=== PATIENT | male | born 1955 | race Caucasian/White ===

== ENCOUNTER 2024-05-06 13:15 | Inpatient (IN) | payer BC ==
[2024-05-06 15:46] LABS: Absolute Basophils 0.1 K/uL (0-0.5); Absolute Lymphocytes (CBC) 0.7 K/uL (0.7-4.9); Absolute Monocytes 0.9 K/uL (0.1-1.3); Absolute Neutrophil 4.5 K/uL (1.8-8.0); Basophils % 0.9 % (0-1.3); Eosinophils % 0.2 % (0-4.4); Hematocrit 24.6 % (39.6-49.0); Hemoglobin 8.1 g/dL (13.6-17.9); Lymphocytes % 11.7 % (15.3-44.8); MCH 32.7 pg (27.0-35.0); MCHC 32.9 g/dL (32.0-36.0); MCV 99.3 fL (80-100); Monocytes % 15.3 % (3.3-12.3); Neutrophils % 71.9 % (41.7-73.7); Platelets 172 thou/uL (152-406); RBC Red Blood Cell Count 2.47 M/uL (4.33-5.43); Red Cell Distribution Width 19.1 % (12.1-15.2)
[2024-05-06 15:50] LABS: Albumin 3.2 g/dL (3.4-5.0); Albumin/Globulin Ratio 0.8 (1.1-1.8); Anion Gap 27.5 mEq/L (5.0-15.0); Bilirubin Total 1.5 mg/dL (0.2-1.0); Globulin 3.8 g/dL (2.3-3.5); Potassium 5.5 mEq/L (3.5-5.1); Troponin High Sensitivity 21.2 pg/mL (<58.9)
--- OUTSIDE RECORDS SUMMARY | 2024-05-06 15:53 | XMS REPORT | Continuity of Care Document ---
Author Name Unknown Address [address] [facility]. [address] [id number] [facility] thconnect Address [address] [facility] 1 [address] [place] [address] Care Team Providers Care Gold Stamper Name Role Phone Ladi Brian MD Primary Care Physician [phone] GABI DUNAWAY Attending Clinician Unavailable GABI DUNAWAY Attending Clinician Unavailable LADI BRIAN Attending Clinician Unavailable LADI BRIAN Attending Clinician Unavailable ALOK FARRELL Attending Clinician Unavailable JOSHUA MG Attending Clinician Unavail able JOSHUA MG Attending Clinician Unavail able 2, [facility] Attending Clinician Unavailable Alok Farrell MD Attending Clinician [phone] Joshua Mg MD Attending Clinician Nurse, Bradley Gould Attending Clinician Unavailable Ladi Brian MD Attending Clinician [phone] Doctor Unassigned, Venus Attending Clinician U navailable Lab, Ang - Db Attending Clinician Unavailable Blaise CHIN, Jannie L Attending Clinician Unavail able Baldomero Pinon MD Attending Clinician [phone] JESSICA PARHAM Attending Clinician Unavailable Ally BRIDGES, Clifford Attending Clinician [phone] Lori Arnold DO Attending Clinician [phone] Jessica Parham MD Attending Clinician [phone] SONAM PORTILLO Attending Clinician Unavailab shemar De Jesus MD, Deborah Hodges Attending Clinician [facility] [place] [place] Attending Clinician UnaDeborah Harrison MD Attending Clinician Lab, Ang - Db Attending Clinician Unavailable DEBORAH DE JESUS Attending Clinician Erika Baldomero Zapien MD Attending Clinician +[phone] CUONG BLACK Attending Clinician Unavailable LEEROY DE LEON Attending Clinician Unavailable Doctor Unassigned, Venus Attending Clinician U ace Garcia RN, Constanza Del Real Attending Clinician Unavailab Lavern Pickett DO Attending Clinician +[phone] Jessica Parham MD Attending Clinician +[phone] Ilene Jackson CRNA Attending Clinician [phone] CARISSA BAY Attending Clinician Unavailable CARISSA BAY Attending Clinician Unavailable LEEROY DENNY Attending Clinician Unavailabl RIMA Negrete Attending Clinician Unavaila RIMA Matos Attending Clinician Unavaila Negrita Lanza Attending Clinician + [phone] NEGRITA VIDAL Attending Clinician Unavailable Cuong Del Real Attending Clinician + [phone] DOMINIQUE ORTEZ Attending Clinician Unavailable Ubaldo Hussein Attending Clinician + [phone] UBALDO WALTER Attending Clinician Unavailisaak pineda [facility] Attending Clinician Unavailable Dominique Ceballos Attending Clinician [phone] GIGI MEDEIROS Attending Clinician Unavailable GIGI MEDEIROS Attending Clinician Unavailable Gigi Medeiros MD Attending Clinician + [phone] Radha ESTEVEZ Attending Clinician Unavailable Radha ESTEVEZ Attending Clinician Unavailable Leeroy De Leon MD Attending Clinician + [phone] Joshua Mg MD Attending Clinician [phone] Carmina Kumar MD Attending Clinician + [phone] Vaccine, Ang Db Cbc Fam Attending Clinician Unav Ruy Reynoso MD Attending Clinician + Lab, Adc Fam Pob I Attending Clinician Unavailab shemar Welsh RN, Jannie L Attending Clinician Unavail Austyn Delatorre MD Attending Clinician [phone] CARMINA KUMAR Attending Clinician Unavailable 2, [facility] Attending Clinician Unavailable BRIGIDA MEZA, LYLA Boland Attending Clinician Unavail able Lyla Allred MD Attending Clinician [phone] Only, [facility] Test Attending Clinician Unavailable Mary Lou Cortez MD Attending Clinician [phone] Dillon Bay MD Attending Clinician [phone] DILLON BAY Attending Clinician Unavailable Sonam Portillo MD Attending Clinician +[phone] LADI BRIAN Admitting Clinician Unavailable LORI ARNOLD Admitting Clinician Unavailable Lori Arnold DO Admitting Clinician +[phone] GABI DUNAWAY Admitting Clinician Unavailable JESSICA PARHAM Admitting Clinician Unavailable Jessica Parham MD Admitting Clinician +[phone] GABI DUNAWAY Admitting Clinician Unavailable GIGI MEDEIROS Admitting Clinician Unavailable Gigi Medeiros MD Admitting Clinician [phone] JOSHUA MG Admitting Clinician Unavail Austyn Delatorre MD Admitting Clinician [phone] Payers Payer Name Policy Type Policy Number Effective Date Expirati on Date Source [facility] [employer] [id number] 2017 00:00:00 [facility] [id number] 2022 00:00:00 Problems Condition Name Condition Details Condition Category Status Onset Date Resolution Date Last Treatment Date Treating Clinician Comments Source Urinary problem in male Urinary problem in male Disease Active 03-03 00:00: 00 [facility] Acute urinary retention Acute urinary retention Disease Active 03-03 00:00: 00 [facility] Hyponatrem ia Hyponatrem ia Disease Active 03-03 00:00: 00 [facility] Syncope, unspecifie d syncope type Syncope, unspecifie d syncope type Disease Active 12-21 00:00: 00 [facility] Fall Fall Disease Active 00:00: 00 [facility] Weakness Weakness Disease Active 607 00:00: 00 [facility] Alcohol use Alcohol use Disease Active 6 00:00: 00 [facility] Other specified anemias Other specified anemias Disease Active 6 00:00: 00 [facility] Family history of coronary artery disease Family history of coronary artery disease Disease Active 6 00:00: 00 [facility] Internal hemorrhoid s Internal hemorrhoid s Disease Active 10-31 00:00: 00 [facility] Iron deficiency anemia, unspecifie d iron deficiency anemia type Iron deficiency anemia, unspecifie d iron deficiency anemia type Disease Active 18 00:00: 00 Overview: Formattin g of this note might be different from the original. Added automatic ally from request for surgery [id number] [facility] Concussion with brief (less than one hour) loss of consciousn ess Concussion with brief (less than one hour) loss of consciousn ess Disease Active 11-08 00:00: 00 [facility] Accidental fall on or from stairs or steps, initial encounter Accidental fall on or from stairs or steps, initial encounter Disease Active 11-08 00:00: 00 [facility] Cigarette nicotine dependence in remission Cigarette nicotine dependence in remission Disease Recurre nce 08-07 00:00: 00 [facility] Cigarette nicotine dependence in remission Cigarette nicotine dependence in remission Disease Recurre nce 0 -22 00:00: 00 [facility] Other male erectile dysfunctio n Other male erectile dysfunctio n Disease Recurre nce 0 9-29 00:00: 00 [facility] Mixed hyperlipid emia Mixed hyperlipid emia Disease Recurre nce 0 7-14 00:00: 00 [facility] Skin cancer of forehead Skin cancer of forehead Disease Active 6-23 00:00: 00 [facility] Obesity Obesity Disease Recurre nce 0 1-05 00:00: 00 [facility] Pseudocyst , pancreas Pseudocyst , pancreas Disease Rec[facility]re [facility] 2008- 1-09 00:00: 00 Overview: Formattin g of this note might be different from the original. by CT scan [facility] Backache Backache Disease Recurre [facility] 6- 00:00: 00 Overview: Formattin g of this note might be different from the original. 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 4-18 00:00: 00 [facility] Type 2 diabetes mellitus without complicati on, without long-term current use of insulin Type 2 diabetes mellitus without complicati on, without long-term current use of insulin Disease Recurre [facility] 3-28 00:00: 00 Overview: Formattin g of this note might be different from the original. 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 1- 00:00: 00 [facility] High priority for COVID-19 virus vaccinatio n High priority for COVID-19 virus vaccinatio n Disease Resolve d 1- 00:00: 00 2020-11-08 00:00:00 2020-11-08 09:44:14 [facility] Need for hepatitis C screening test Need for hepatitis C screening test Disease Resolve d 08-07 00:00: 00 2020-11-08 00:00:00 2020-11-08 09:44:16 [facility] Need for immunizati on against influenza Need for immunizati on against influenza Disease Resolve d 04-14 00:00: 00 2020-11-08 00:00:00 2020-11-08 09:44:03 [facility] Need for pneumococc al vaccinatio n Need for pneumococc al vaccinatio n Disease Resolve d 04-14 00:00: 00 2020-11-08 00:00:00 2020-11-08 09:44:07 [facility] Encounter for screening for malignant neoplasm of lung Encounter for screening for malignant neoplasm of lung Disease Resolve d 01-06 00:00: 00 2020-11-08 00:00:00 2020-11-08 09:44:00 [facility] Pancreatit is Pancreatit is Disease Resolve d 2008-07 00:00: 00 2020-11-08 00:00:00 2020-11-08 09:43:52 [facility] Bronchitis , acute Bronchitis , acute Disease Resolve d 2006-07 00:00: 00 2007-06-30 00:00:00 2009-07-21 10:29:15 [facility] Acute peptic ulcer with perforatio n Acute peptic ulcer with perforatio n Disease Resolve d 11-01 00:00: 00 2006-11-06 00:00:00 2022-01-30 00:11:12 [facility] Acute pancreatit is Acute pancreatit is Disease Resolve d 11-01 00:00: 00 2006-11-06 00:00:00 2009-07-21 10:16:46 [facility] Allergies, Adverse Reactions, Alerts Allergy Name Allergy Type Status Severity Reaction(s) Onset Date Inactive Date Treating Clinician Comments Source NO KNOWN ALLERGIE S Drug Class Active [facility] Family History Family Member Diagnosis Comments Start Date Stop Date Sourc e Natural brother [facility] Natural father Cancer [facility] Natural mother Arthritis [facility] Natural mother Cancer [facility] Social History Social Habit Start Date Stop Date Quantity Comments Source Gender identity [facility] Sexual [facility] History of tobacco use Cigar Smoker [facility] History SDOH Alcohol Frequency [facility] History SDOH [facility] History SDOH Alcohol Binge [facility] Alcoholic beverage intake 2024-04-08 00:00:00 2024-04-08 00:00:00 Current drinker of alcohol (finding) [facility] History of Social function 2023-11-02 00:00:00 2023-11-02 00:00:00 [facility] Alcohol intake 2023-09-21 00:00:00 2023-09-21 00:00:00 Current drinker of alcohol (finding) [facility] Exposure to SARS-CoV-2 (event) 2022-12-04 00:00:00 2022-12-14 16:17:00 Not sure [facility] Tobacco use and exposure 2022-11-17 00:00:00 2022-11-17 00:00:00 Smokeless tobacco non-user [facility] Tobacco Comment 2022-04-28 00:00:00 2022-04-28 00:00:00 quit Apr 2010 [facility] Alcohol Comment 2010-09-01 00:00:00 2010-09-01 00:00:00 cut back in 2009, now drinks 3 or less beers daily [facility] Sex assigned at 1955 00:00:00 1955 00:00:00 [facility] Smoking Status Start Date Stop Date Source Ex-smoker 2022-11-17 00:00:00 2022-11-17 00:00:00 [facility] Medications Ordered Medication Name Filled Medication Name Start Date Stop Date Current Medication? Ordering Clinician Indication Dosage Frequency Signature (SIG) Comments Components Source iopamidol (ISOVUE 370-500 mL) injection 100 mL 2023-07 23:00: 00 04-29 22:06 :00 No [id number] 100mL 100 mL, Intravenou s, ONCE, 1 dose, On Mon04/29/24 at 1800, Routine [facility] amLODIPine 5 mg tablet 03-12 00:00: 00 Yes [id number] 5mg Take 1 tablet by mouth in the morning and 1 tablet in the evening. [facility] foLIC acid 1 mg tablet 03-08 00:00: 00 Yes [id number] 1mg Take 1 tablet by mouth in the morning. [facility] thiamine mononitrate 100 mg tablet 03-08 00:00: 00 Yes [id number] 100mg Take 1 tablet by mouth in the morning. [facility] vitamin B-12 1,000 mcg tablet 03-08 00:00: 00 Yes [id number] 1000ug Take 1 tablet by mouth in the morning. [facility] tamsulosin 0.4 mg 24 hr capsule 03-08 00:00: 00 04-08 04:59 :00 Yes [id number] .4mg Take 1 capsule by mouth in the morning for 30 days. [facility] urea 15 gram oral powder packet 03-08 00:00: 00 04-08 04:59 :00 Yes [id number] 15g Take 1 Packet by mouth in the morning for 30 days. [facility] PIOGLITAZON E 45 mg tablet 03-08 00:00: 00 03-13 00:00 :00 No [id number] 45mg TAKE 1 TABLET BY MOUTH EVERY DAY IN THE MORNING [facility] lisinopriL (PRINIVIL,Z ESTRIL) tablet 40 mg 03-07 18:00: 00 Yes 40mg 40 mg, Oral, DAILY, First dose on Mon03/07/24 at 1300, Until Discontinu ed, Routine [facility] urea (URE-NA) 15 gram oral powder packet 15 g 03-07 14:00: 00 Yes [id number] 15g 15 g, Oral, DAILY, First dose on Mon03/07/24 at 0900, Until Discontinu ed, Routine [facility] magnesium sulfate in water 2 gram/50 mL (4 %) infusion 2 g 03-07 13:45: 00 03-07 15:36 :00 No [id number] 2g 2 g, IV Piggyback, Administer over 120 Minutes, ONCE, 1 dose, On Mon03/07/24 at 0845, Routine [facility] hydrALAZINE (APRESOLINE ) tablet 50 mg 03-07 13:30: 00 03-07 17:48 :46 No 50mg 50 mg, Oral, TID, First dose on Mon03/07/24 at 0830, Until Discontinu ed, Routine [facility] amLODIPine (NORVASC) tablet 5 mg 03-07 13:00: 00 Yes [id number] 5mg 5 mg, Oral, BID, First dose (after last modificati on) on Mon03/07/24 at 0800, Until Discontinu ed, Routine [facility] lisinopriL 20 mg tablet 03-07 00:00: 00 04-07 04:59 :00 Yes [id number] 20mg Take 1 tablet by mouth in the morning for 30 days. [facility] amLODIPine 5 mg tablet 03-07 00:00: 00 03-14 00:00 :00 No [id number] 5mg Take 1 tablet by mouth in the morning and 1 tablet in the evening. Do all this for 30 days. [facility] magnesium sulfate in water 2 gram/50 mL (4 %) infusion 2 g 03-06 13:00: 00 03-06 15:50 :00 No [id number] 2g 2 g, IV Piggyback, Administer over 120 Minutes, ONCE, 1 dose, On Mon03/06/24 at 0800, Routine [facility] furosemide (LASIX) injection 20 mg 03-06 01:00: 00 03-06 17:47 :42 No [id number] 20mg 20 mg, Slow IV Push, Q12H, First dose on Mon03/05/24 at 2000, Until Discontinu ed, Routine [facility] vitamin B-12 (CYANOCOBAL LYNN) tablet 1,000 mcg 03-05 20:30: 00 Yes 1000ug 1,000 mcg, Oral, DAILY, First dose on Mon03/05/24 at 1530, Until Discontinu ed, Routine [facility] amLODIPine (NORVASC) tablet 5 mg 03-05 14:00: 00 03-07 12:51 :54 No [id number] 5mg 5 mg, Oral, DAILY, First dose on Mon03/05/24 at 0900, Until Discontinu ed, Routine [facility] ferrous sulfate tablet 325 mg 03-05 02:45: 00 Yes 325mg 325 mg, Oral, QHS, First dose on Mon03/04/24 at 2145, Until Discontinu ed, Routine [facility] magnesium oxide (MAG-OX 400) tablet 400 mg 03-05 02:45: 00 03-11 02:59 :00 Yes 400mg 400 mg, Oral, QHS, 7 doses, First dose on Mon03/04/24 at 2145, Last dose on Mon03/09/24 at 2200, Routine [facility] zolpidem (AMBIEN) tablet 5 mg 03-05 02:00: 00 Yes 5mg 5 mg, Oral, QHS, First dose on Mon03/04/24 at 2100, Until Discontinu ed, Routine [facility] oxazepam (SERAX) capsule 15 mg 03-04 19:26: 03 Yes 15mg 15 mg, Oral, Q4HPRN, Starting on Mon03/04/24 at 1426, Until Discontinu ed, Routine, Only while awake for DBP equal to or greater than 100, HR equal to or greater than 100. [facility] sodium bicarbonate 125 mEq in D5W 0.45% NaCl (1/2NS) 1,000 mL IV infusion 03-04 14:15: 00 03-04 15:47 :00 No [id number] 125meq IV Infusion, at 100 mL/hr, 125 mEq, ONCE, 1 dose, [facility]03/04/24 at 0915, [facility] 20 mg 03-04 14:15: 00 03-04 16:52 :00 No [id number] 20mg 20 mg, Slow IV Push, ONCE, 1 dose, [facility]03/04/24 at 0915, [facility] tamsulosin (FLOMAX) capsule 0.4 mg 03-04 14:00: 00 Yes .4mg 0.4 mg, Oral, DAILY, First dose on Mon03/04/24 at 0900, Until Discontinu ed, Routine [facility] thiamine mononitrate (VITAMIN B-1 (MONONITRAT E)) tablet 100 mg 03-04 14:00: 00 Yes 100mg 100 mg, Oral, DAILY, First dose on Mon03/04/24 at 0900, Until Discontinu ed, Routine [facility] foLIC acid (FOLATE) tablet 1 mg 03-04 14:00: 00 Yes 1mg 1 mg, Oral, DAILY, First dose on Mon03/04/24 at 0900, Until Discontinu ed, Routine [facility] hydralAZINE (APRESOLINE ) injection 5 mg 03-04 13:30: 11 Yes [id number] 5mg 5 mg, Slow IV Push, Q4HPRN, Starting on Mon03/04/24 at 0830, Until Discontinu ed, Routine, DBP=>100; SBP=>160 [facility] magnesium sulfate in water 2 gram/50 mL (4 %) infusion 2 g 03-04 12:15: 00 03-04 14:15 :00 No 2g 2 g, IV Piggyback, Administer over 60 Minutes, ONCE, 1 dose, On Mon03/04/24 at 0715, FLEX [facility] sodium zirconium cyclosilica te (LOKELMA) 10 gram packet 10 g 03-04 12:00: 00 03-04 11:07 :00 No 10g 10 g, Oral, QAM-0700, 1 dose, First dose on Mon03/04/24 at 0700, Routine [facility] furosemide (LASIX) injection 40 mg 03-04 11:30: 00 03-04 11:07 :00 No 40mg 40 mg, Slow IV Push, ONCE, 1 dose, On Mon03/04/24 at 0630, Routine [facility] melatonin (MELATIN) tablet 9 mg 03-04 02:30: 00 Yes 9mg 9 mg, Oral, QHS, First dose (after last modificati on) on Mon03/03/24 at 2130, Until Discontinu ed, [facility] latan[facility] (XALATAN) 0.005 % ophthalmic drops 1 Drop 03-04 02:00: 00 Yes 1[drp] 1 Drop, Both Eyes, QHS, First dose on Mon03/03/24 at 2100, Until Discontinu ed [facility] sodium bicarbonate (ANTACID (SODIUM BICARBONATE )) tablet 650 mg 03-04 01:00: 00 03-04 13:29 :14 No 650mg 650 mg, Oral, TID, First dose on Mon03/03/24 at 2000, Until Discontinu ed, Routine [facility] NaCl 0.9% (NS) IV infusion 1,000 mL 03-03 22:15: 00 03-04 13:29 :14 No 1000mL at 75 mL/hr, IV Infusion, CONTINUOUS , Starting on Mon03/03/24 at 1715, Until Mon03/04/24 at 0829, Routine [facility] Sliding Scale Insulin - Lispro (HumaLOG) 03-03 22:00: 00 Yes Subcutaneo us, TID MEALS+HS, First dose on Mon03/03/24 at 1700, Until Discontinu ed, Routine [facility] heparin (porcine) injection 5,000 Units 03-03 19:00: 00 Yes 5000U 5,000 Units, Subcutaneo us, Q8H, First dose on Mon03/03/24 at 1400, Until Discontinu ed, Routine [facility] glucagon HCL injection 1 mg 03-03 18:04: 26 Yes 1mg 1 mg, Intramuscu lar, PRN, Starting on Mon03/03/24 at 1304, Until Discontinu ed, FLEX, Low blood sugar, Blood Glucose < or = 70 mg/dL and patient is NPO, unable to swallow or has mental changes. [facility] dextrose 50 % in water (D50W) injection 25 mL 03-03 18:04: 26 Yes 25mL 25 mL, Slow IV Push, PRN, Starting on Mon03/03/24 at 1304, Until Discontinu ed, FLEX, Blood Glucose < or = 70 mg/dL and patient is NPO, unable to swallow or has mental status changes. [facility] tamsulosin 0.4 mg 24 hr capsule 03-03 00:00: 00 03-03 00:00 :00 No [id number] .4mg Take 1 capsule by mouth at bedtime for 30 days. [facility] metFORMIN 1,000 mg tablet 02-19 09:32: 06 03-07 00:00 :00 No 1000mg Take 1 tablet by mouth daily with breakfast. [facility] magnesium oxide 400 mg (241.3 mg magnesium) tablet 02-14 00:00: 00 Yes [id number] 400mg Take 1 tablet by mouth at bedtime. [facility] triamcinolo ne (NASACORT) 55 mcg nasal inhaler 02-13 14:23: 36 Yes 2{spray } Use 2 Sprays in each nostril in the morning. [facility] cetirizine (ZYRTEC) 10 mg tablet 02-13 14:23: 17 Yes 10mg Take 1 tablet by mouth in the morning. [facility] ondansetron (ZOFRAN (PF)) injection 4 mg 01-11 17:55: 12 01-11 22:50 :43 No 4mg [facility] lidocaine (XYLOCAINE) 2 % jelly URO-JET 01-11 17:03: 00 01-11 17:36 :41 No PRN, Starting on Mon01/12/24 at 1203, Until Mon01/12/24 at 1236, Routine, Intra-op [facility] EPINEPHrine 1:1,000 (1 mg/mL) (ADRENALIN) injection 01-11 16:45: 00 01-11 17:36 :41 No PRN, Starting on Mon01/12/24 at 1145, Until Mon01/12/24 at 1236, Routine, Intra-op [facility] bupivacaine (preserv free) (SENSORCAIN E MPF) 0.25 % (2.5 mg/mL) 20 mL, BUPivacaine liposome (PF) (EXPAREL (PF)) 1.3 % (13.3 mg/mL) 20 mg 01-11 16:42: 00 01-11 17:36 :41 No PRN, Starting on Mon01/12/24 at 1142, Intra-op [facility] sodium chloride 0.9 % irrigation solution 01-11 16:07: 00 01-11 17:36 :41 No PRN, Starting on Mon01/12/24 at 1107, Until Mon01/12/24 at 1236, Intra-op [facility] gabapentin 300 mg capsule 01-11 00:00: 00 01-27 04:59 :00 No [id number] 300mg Take 1 capsule by mouth every 8 (eight) hours for 15 days. For pain scale 1-3 [facility] acetaminoph en 325 mg tablet 01-11 00:00: 00 01-27 04:59 :00 No [id number] 975mg Take 3 tablets by mouth every 8 (eight) hours for 15 days. [facility] methocarbam oL 500 mg tablet 01-11 00:00: 00 01-27 04:59 :00 No [id number] 500mg Take 1 tablet by mouth 4 (four) times daily for 15 days. [facility] traMADoL 50 mg tablet 01-11 00:00: 00 01-19 04:59 :00 No [id number] 50mg Take 1 tablet by mouth every 8 (eight) hours as needed (pain) for up to 7 days. Indication s: acute pain [facility] thiamine mononitrate 100 mg tablet 12-23 00:00: 00 01-23 04:59 :00 No [id number] 100mg Take 1 tablet by mouth in the morning for 30 days. [facility] foLIC acid 1 mg tablet 12-23 00:00: 00 01-23 04:59 :00 No [id number] 1mg Take 1 tablet by mouth in the morning for 30 days. [facility] foLIC acid (FOLATE) tablet 1 mg 12-22 14:00: 00 Yes 1mg 1 mg, Oral, DAILY, First dose on 12/23/23 at 0900, Until Discontinu ed, Routine [facility] thiamine mononitrate (VITAMIN B-1 (MONONITRAT E)) tablet 100 mg 2023-12-22 14:00: 00 Yes 100mg 100 mg, Oral, DAILY, First dose on 12/23/23 at 0900, Until Discontinu ed, Routine [facility] enoxaparin (LOVENOX) injection 40 mg 12-22 14:00: 00 Yes 40mg 40 mg, Subcutaneo us, DAILY, First dose on 12/23/23 at 0900, Until Discontinu ed, Routine [facility] empaglifloz in (JARDIANCE) tablet 10 mg 12-22 14:00: 00 Yes 10mg 10 mg, Oral, QAM, First dose on 12/23/23 at 0900, Until Discontinu ed, Routine, Is this a home medication ? Yes, Has this patient brought their own medication ? No, Pharmacy will dispense the medication from inpatient. Pharmacy will dispense the medication from inpatient. [facility] lisinopriL (PRINIVIL,Z ESTRIL) tablet 40 mg 12-22 14:00: 00 Yes 40mg 40 mg, Oral, QAM, First dose on 12/23/23 at 0900, Until Discontinu ed [facility] ferrous sulfate tablet 325 mg 12-22 14:00: 00 Yes 325mg 325 mg, Oral, DAILY, First dose on 12/23/23 at 0900, Until Discontinu ed, Routine [facility] amLODIPine (NORVASC) tablet 5 mg 12-22 14:00: 00 Yes 5mg 5 mg, Oral, QAM, First dose on 12/23/23 at 0900, Until Discontinu ed, Routine [facility] traZODone (DESYREL) tablet 50 mg 2023-12-22 03:28: 46 Yes 50mg 50 mg, Oral, QHSPRN, Starting on Mon12/22/23 at 2228, Until Discontinu ed, Routine, Insomnia [facility] latanoprost (XALATAN) 0.005 % ophthalmic drops 1 Drop 12-22 02:00: 00 Yes 1[drp] [facility] thiamine 100 mg tablet 12-22 00:00: 00 03-07 00:00 :00 No 100mg Take 1 tablet by mouth every morning. [facility] vitamin B-12 1,000 mcg tablet 12-22 00:00: 00 01-22 04:59 :00 No [id number] 1000ug Take 1 tablet by mouth in the morning for 30 days. [facility] Sliding Scale Insulin - Lispro (HumaLOG) 12-21 22:00: 00 Yes [facility] perflutren protein-A microsphr (OPTISON) injection 3 mL 12-21 20:15: 00 12-21 20:15 :00 No [id number] 3mL 3 mL, IV Push, ONCE, 1 dose, On Mon12/22/23 at 1515, Routine [facility] glucagon (GLUCAGEN DIAGNOSTIC KIT) injection 1 mg 12-21 19:34: 21 Yes 1mg [facility] dextrose 50 % in water (D50W) injection 25 mL 12-21 19:34: 21 Yes 25mL [facility] ondansetron (ZOFRAN (PF)) injection 4 mg 12-21 19:34: 13 Yes 4mg [facility] morpHINE (2 mg/mL) injection 4 mg 12-21 19:34: 11 12-22 19:33 :11 No 4mg [facility] HYDROcodone -acetaminop hen (NORCO 5) 5-325 mg tablet 1 tablet 12-21 19:34: 09 12-23 19:33 :09 No 1{tbl} [facility] acetaminoph en (TYLENOL) tablet 650 mg 12-21 19:34: 04 Yes 650mg [facility] magnesium sulfate in water 2 gram/50 mL (4 %) infusion 2 g 12-21 17:45: 00 12-21 18:22 :00 No 2g 2 g, IV Piggyback, Administer over 60 Minutes, ONCE, 1 dose, On Mon12/22/23 at 1245, Routine [facility] LISINOPRIL 40 mg tablet - 00:00: 00 03-07 00:00 :00 No [id number] 40mg TAKE 1 TABLET BY MOUTH EVERY DAY IN THE MORNING [facility] LISINOPRIL 40 mg tablet 11-19 00:00: 00 12-17 00:00 :00 No [id number] 40mg TAKE 1 TABLET BY MOUTH EVERY DAY IN THE MORNING [facility] sodium phosphates (FLEET ENEMA) 19-7 gram/118 mL enema -18 00:00: 00 11-02 04:59 :00 No 2{enema } Insert 2 Enemas into rectum once now for 1 dose. Follow package directions [facility] LISINOPRIL 40 mg tablet - 00:00: 00 Yes [id number] 40mg TAKE 1 TABLET BY MOUTH EVERY DAY IN THE MORNING [facility] pioglitazon e 45 mg tablet 09-21 00:00: 00 03-07 00:00 :00 No [id number] 45mg Take 1 tablet by mouth every morning. [facility] ferrous sulfate 325 mg (65 mg iron) tablet 09-20 00:00: 00 Yes [id number] 325mg Take 1 tablet by mouth in the morning. [facility] dulaglutide (TRULICITY) 1.5 mg/0.5 mL PnIj 09-20 00:00: 00 Yes [id number] 1.5mg inject 1 Pen under the skin weekly. [facility] JARDIANCE 10 mg tablet 2-27 00:00: 00 Yes [id number] 10mg TAKE 1 TABLET BY MOUTH EVERY DAY IN THE MORNING [facility] LISINOPRIL 40 mg tablet -27 00:00: 00 10-11 00:00 :00 No [id number] 40mg TAKE 1 TABLET BY MOUTH EVERY DAY IN THE MORNING [facility] AMLODIPINE 5 mg tablet 08-14 00:00: 00 03-07 00:00 :00 No [id number] 5mg TAKE 1 TABLET BY MOUTH EVERY DAY IN THE MORNING [facility] pioglitazon e 45 mg tablet 08-14 00:00: 00 09-20 00:00 :00 No [id number] 45mg TAKE 1 TABLET BY MOUTH EVERY DAY IN THE MORNING [facility] LISINOPRIL 40 mg tablet 08-07 00:00: 00 Yes [id number] 40mg TAKE 1 TABLET BY MOUTH EVERY DAY IN THE MORNING [facility] metFORMIN 1,000 mg tablet 08-07 00:00: 00 02-19 00:00 :00 No [id number] TAKE 1 TABLET BY MOUTH IN THE MORNING AND 1 TABLET IN THE EVENING WITH MEALS [facility] dulaglutide (TRULICITY) 1.5 mg/0.5 mL PnIj 07-25 00:00: 00 09-20 00:00 :00 No [id number] INJECT 1 PEN SUBCUTANEO USLY WEEKLY [facility] hydrocortis one 25 mg suppository 1-04 00:00: 00 01-11 00:00 :00 No [id number] 25mg Insert 1 Suppositor y into rectum in the morning and 1 Suppositor y in the evening. [facility] pioglitazon e 45 mg tablet - 00:00: 00 08-14 00:00 :00 No [id number] 45mg Take 1 tablet by mouth in the morning. [facility] lisinopriL 40 mg tablet 2022-07 2 00:00: 00 08-07 00:00 :00 No [id number] 40mg TAKE 1 TABLET BY MOUTH EVERY DAY IN THE MORNING [facility] hydrocortis one 25 mg suppository 2023-1 2-06 00:00: 00 07-06 05:59 :00 No [id number] 25mg Insert 1 Suppositor y into rectum in the morning and 1 Suppositor y in the evening. Do all this for 14 days. [facility] dulaglutide (TRULICITY) 1.5 mg/0.5 mL PnIj 2022-07-22 00:00: 00 07-25 00:00 :00 No [id number] INJECT 1 PEN SUBCUTANEO USLY WEEKLY [facility] metFORMIN 1,000 mg tablet 2022-07 0-24 00:00: 00 08-07 00:00 :00 No [id number] TAKE 1 TABLET BY MOUTH IN THE MORNING AND IN THE EVENING WITH MEALS [facility] TRULICITY 1.5 mg/0.5 mL PnIj 8-16 00:00: 00 06-06 00:00 :00 No [id number] INJECT 1 PEN SUBCUTANEO USLY WEEKLY [facility] simethicone (GAS RELIEF (SIMETHICON E)) 40 mg/0.6 mL drops 01-03 17:16: 00 Yes PRN, Starting on Mon01/03/23 at 1216, Until Discontinu ed, Routine, Intra-op [facility] peg-electro lyte soln [id number] .74 -5.86 gram solution 12-01 00:00: 00 01-03 00:00 :00 No [id number] Take as directed before colonoscop y [facility] ferrous sulfate 325 mg (65 mg iron) tablet 11-18 00:00: 00 09-20 00:00 :00 No [id number] 325mg Take 1 tablet by mouth in the morning. [facility] empaglifloz in (JARDIANCE) 10 mg 11-17 00:00: 00 Yes [id number] 10mg Take 1 tablet by mouth in the morning. [facility] methocarbam oL 500 mg tablet 11-17 00:00: 00 02-19 00:00 :00 No [id number] 500mg Take 1 tablet by mouth every 6 (six) hours as needed for Pain (scale 7-10) (spasm). [facility] amLODIPine 5 mg tablet - 00:00: 00 08-14 00:00 :00 No [id number] 5mg Take 1 tablet by mouth in the morning. [facility] pioglitazon e 45 mg tablet 11-17 00:00: 00 07-16 00:00 :00 No [id number] 45mg Take 1 tablet by mouth in the morning. [facility] lisinopriL 40 mg tablet 11-17 00:00: 00 07-11 00:00 :00 No [id number] 40mg Take 1 tablet by mouth in the morning. [facility] metFORMIN 1,000 mg tablet 11-17 00:00: 00 05-09 00:00 :00 No [id number] 1000mg Take 1 tablet by mouth in the morning and 1 tablet in the evening. Take with meals. [facility] dulaglutide (TRULICITY) 1.5 mg/0.5 mL PnIj 11-17 00:00: 00 03-01 00:00 :00 No [id number] 1.5mg inject 1 Pen under the skin weekly. [facility] LUMIGAN 0.01 % ophthalmic drops 4-18 00:00: 00 Yes 1[drp] Place 1 Drop in both eyes at bedtime. [facility] METFORMIN 1,000 mg tablet 2-25 00:00: 00 11-17 00:00 :00 No [id number] TAKE 1 TABLET BY MOUTH IN THE MORNING AND IN THE EVENING WITH MEALS [facility] metFORMIN 1,000 mg tablet 2-10 00:00: 00 Yes [id number] 1000mg Take 1 tablet by mouth in the morning and 1 tablet in the evening. Take with meals. [facility] pioglitazon e 45 mg tablet 2-02 00:00: 00 11-17 00:00 :00 No [id number] 45mg Take 1 tablet by mouth in the morning. [facility] pioglitazon e 45 mg tablet 2021-07 0-31 00:00: 00 08-18 00:00 :00 No [id number] 45mg Take 1 tablet by mouth in the morning. [facility] lisinopriL 40 mg tablet 2021-07 0-13 00:00: 00 11-17 00:00 :00 No [id number] 40mg Take 1 tablet by mouth in the morning. [facility] amLODIPine 5 mg tablet 2021-07 0-13 00:00: 00 11-17 00:00 :00 No [id number] 5mg Take 1 tablet by mouth in the morning. [facility] dulaglutide (TRULICITY) 1.5 mg/0.5 mL PnIj 2021-07 0- 00:00: 00 11-17 00:00 :00 No [id number] 1.5mg inject 1 Pen under the skin weekly. [facility] empaglifloz in (JARDIANCE) 10 mg 2021-07 0-13 00:00: 00 11-17 00:00 :00 No [id number] 10mg Take 1 tablet by mouth in the morning. [facility] metFORMIN 1,000 mg tablet 2021-07 0-13 00:00: 00 08-26 00:00 :00 No [id number] 1000mg Take 1 tablet by mouth in the morning and 1 tablet in the evening. Take with meals. [facility] METFORMIN 1,000 mg tablet 2021-07 0-10 00:00: 00 04-28 00:00 :00 No [id number] TAKE 1 TABLET BY MOUTH TWICE A DAY WITH MEALS [facility] lisinopriL 40 mg tablet 2021-07 0-10 00:00: 00 04-28 00:00 :00 No [id number] 40mg Take 1 tablet by mouth in the morning. [facility] empaglifloz in (JARDIANCE) 10 mg 9-30 00:00: 00 04-28 00:00 :00 No [id number] 10mg Take 1 tablet by mouth in the morning. [facility] dulaglutide (TRULICITY) 1.5 mg/0.5 mL PnIj 8-31 00:00: 00 04-28 00:00 :00 No [id number] 1.5mg inject 1 Pen under the skin weekly. [facility] pioglitazon e 45 mg tablet 7- 00:00: 00 05-16 00:00 :00 No [id number] 45mg Take 1 tablet by mouth in the morning. [facility] METFORMIN 1,000 mg tablet 7- 00:00: 00 04-25 00:00 :00 No [id number] TAKE 1 TABLET BY MOUTH TWICE A DAY WITH MEALS [facility] empaglifloz in (JARDIANCE) 10 mg 6-30 00:00: 00 04-15 00:00 :00 No [id number] 10mg Take 1 tablet by mouth daily. [facility] dulaglutide (TRULICITY) 1.5 mg/0.5 mL PnIj 6-06 00:00: 00 03-16 00:00 :00 No [id number] 1.5mg inject 1 Pen under the skin weekly. [facility] METFORMIN 1,000 mg tablet 0 4-07 00:00: 00 01-25 00:00 :00 No [id number] TAKE 1 TABLET BY MOUTH TWICE A DAY WITH MEALS [facility] lisinopriL 40 mg tablet 2021-0 4-04 00:00: 00 04-25 00:00 :00 No [id number] 40mg Take 1 tablet by mouth daily. [facility] empaglifloz in (JARDIANCE) 10 mg 2021-0 2-24 00:00: 00 01-13 00:00 :00 No [id number] 10mg Take 1 tablet by mouth daily. [facility] lisinopriL 20 mg tablet 2021-0 2-22 00:00: 00 10-18 00:00 :00 No [id number] 20mg Take 1 tablet by mouth daily. MUST BE SEEN FOR FURTHER REFILLS [facility] metFORMIN 1,000 mg tablet 07-26 00:00: 00 10-21 00:00 :00 No [id number] 1000mg Take 1 tablet by mouth 2 (two) times daily with meals. [facility] TRULICITY 1.5 mg/0.5 mL PnIj 2020-07 00:00: 00 12-20 00:00 :00 No [id number] 1.5mg INJECT 1.5 MG UNDER THE SKIN WEEKLY [facility] fenofibrate 48 mg tablet 08-07 00:00: 00 04-28 00:00 :00 No [id number] 48mg Take 1 tablet by mouth daily. [facility] SILDENAFIL 100 mg tablet 2019-07 00:00: 00 11-17 00:00 :00 No [id number] TAKE 1 TABLET BY MOUTH NEEDED [facility] mupirocin 2 % ointment 2019-07 00:00: 00 04-28 00:00 :00 No [id number] Apply to area(s) daily. [facility] doxycycline monohydrate 100 mg capsule 2019-07 00:00: 00 04-28 00:00 :00 No [id number] Start taking morning and evening two days before date of procedure and finish until all pills completd [facility] Immunizations Ordered Immunization Name Filled Immunization Name Date Status Comments Source Influenza, adjuvanted, trivalent, PF (FLUAD) 2024-04-08 00:00:00 Completed [facility] Influenza, adjuvanted, trivalent, PF (FLUAD) 2024-04-08 00:00:00 Completed [facility] Influenza, adjuvanted, trivalent, PF (FLUAD) 2024-04-08 00:00:00 Completed [facility] Influenza, adjuvanted, trivalent, PF (FLUAD) 2024-04-08 00:00:00 Completed [facility] Influenza Virus Vaccine,quad Im,preserve Free 65+ (FLUAD) 2023-09-21 00:00:00 Completed [facility] Influenza Virus Vaccine,quad Im,preserve Free 65+ (FLUAD) 2023-09-21 00:00:00 Completed [facility] Influenza Virus Vaccine,quad Im,preserve Free 65+ (FLUAD) 2023-09-21 00:00:00 Completed [facility] Influenza Virus Vaccine,quad Im,preserve Free 65+ (FLUAD) 2023-09-21 00:00:00 Completed [facility] Influenza Virus Vaccine Quad IM, Preserv and ABX Free 6 MO-64 YRS 2022-04-28 00:00:00 Completed [facility] SARS-COV-2 COVID-19 VACCINE 18 YRS+, BIVALENT 0.5ML, IM, (MODERNA BOOSTER) 2022-04-28 00:00:00 Completed [facility] Influenza Virus Vaccine Quad IM, Preserv and ABX Free 6 MO-64 YRS 2022-04-28 00:00:00 Completed [facility] SARS-COV-2 COVID-19 VACCINE 18 YRS+, BIVALENT 0.5ML, IM, (MODERNA BOOSTER) 2022-04-28 00:00:00 Completed [facility] Influenza Virus Vaccine Quad IM, Preserv and ABX Free 6 MO-64 YRS 2022-04-28 00:00:00 Completed [facility] SARS-COV-2 COVID-19 VACCINE 12 YRS+, BIVALENT 0.5ML, IM, (MODERNA BOOSTER) 2022-04-28 00:00:00 Completed [facility] Influenza Virus Vaccine Quad IM, Preserv and ABX Free 6 MO-64 YRS 2022-04-28 00:00:00 Completed [facility] SARS-COV-2 COVID-19 VACCINE 12 YRS+, BIVALENT 0.5ML, IM, (MODERNA BOOSTER) 2022-04-28 00:00:00 Completed [facility] Influenza Virus Vaccine Quad IM, Preserv and ABX Free 6 MO-64 YRS 2022-04-28 00:00:00 Completed [facility] SARS-COV-2 COVID-19 VACCINE 12 YRS+, BIVALENT 0.5ML, IM, (MODERNA BOOSTER) 2022-04-28 00:00:00 Completed [facility] Influenza Virus Vaccine Quad IM, Preserv and ABX Free 6 MO-64 YRS 2022-04-28 00:00:00 Completed [facility] SARS-COV-2 COVID-19 VACCINE 12 YRS+, BIVALENT 0.5ML, IM, (MODERNA BOOSTER) 2022-04-28 00:00:00 Completed [facility] Influenza Virus Vaccine Quad IM, Preserv and ABX Free 6 MO-64 YRS 2022-04-28 00:00:00 Completed [facility] SARS-COV-2 COVID-19 VACCINE 12 YRS+, BIVALENT 0.5ML, IM, (MODERNA BOOSTER) 2022-04-28 00:00:00 Completed [facility] Influenza Virus Vaccine Quad IM, Preserv and ABX Free 6 MO-64 YRS 2022-04-28 00:00:00 Completed [facility] SARS-COV-2 COVID-19 VACCINE 12 YRS+, BIVALENT 0.5ML, IM, (MODERNA BOOSTER) 2022-04-28 00:00:00 Completed [facility] Influenza Virus Vaccine Quad IM, Preserv and ABX Free 6 MO-64 YRS 2022-04-28 00:00:00 Completed [facility] SARS-COV-2 COVID-19 VACCINE 12 YRS+, BIVALENT 0.5ML, IM, (MODERNA BOOSTER) 2022-04-28 00:00:00 Completed [facility] Influenza Virus Vaccine Quad IM, Preserv and ABX Free 6 MO-64 YRS 2022-04-28 00:00:00 Completed [facility] SARS-COV-2 COVID-19 VACCINE 12 YRS+, BIVALENT 0.5ML, IM, (MODERNA) 2022-04-28 00:00:00 Completed [facility] Influenza Virus Vaccine Quad IM, Preserv and ABX Free 6 MO-64 YRS 2022-04-28 00:00:00 Completed [facility] SARS-COV-2 COVID-19 VACCINE 12 YRS+, BIVALENT 0.5ML, IM, (MODERNA) 2022-04-28 00:00:00 Completed [facility] Influenza Virus Vaccine Quad IM, Preserv and ABX Free 6 MO-64 YRS 2022-04-28 00:00:00 Completed [facility] SARS-COV-2 COVID-19 VACCINE 12 YRS+, BIVALENT 0.5ML, IM, (MODERNA) 2022-04-28 00:00:00 Completed [facility] Influenza Virus Vaccine Quad IM, Preserv and ABX Free 6 MO-64 YRS 2022-04-28 00:00:00 Completed [facility] SARS-COV-2 COVID-19 VACCINE 12 YRS+, BIVALENT 0.5ML, IM, (MODERNA) 2022-04-28 00:00:00 Completed [facility] Influenza Virus Vaccine Quad IM, Preserv and ABX Free 6 MO-64 YRS 2022-04-28 00:00:00 Completed [facility] SARS-COV-2 COVID-19 VACCINE 12 YRS+, BIVALENT 0.5ML, IM, (MODERNA) 2022-04-28 00:00:00 Completed [facility] Influenza Virus Vaccine Quad IM, Preserv and ABX Free 6 MO-64 YRS 2022-04-28 00:00:00 Completed [facility] SARS-COV-2 COVID-19 VACCINE 12 YRS+, BIVALENT 0.5ML, IM, (MODERNA) 2022-04-28 00:00:00 Completed [facility] Influenza Virus Vaccine Quad IM, Preserv and ABX Free 6 MO-64 YRS 2022-04-28 00:00:00 Completed [facility] SARS-COV-2 COVID-19 VACCINE 12 YRS+, BIVALENT 0.5ML, IM, (MODERNA) 2022-04-28 00:00:00 Completed [facility] Influenza Virus Vaccine Quad IM, Preserv and ABX Free 6 MO-64 YRS 2022-04-28 00:00:00 Completed [facility] SARS-COV-2 COVID-19 VACCINE 12 YRS+, BIVALENT 0.5ML, IM, (MODERNA-BLUE TOP) 2022-04-28 00:00:00 Completed [facility] Influenza Virus Vaccine Quad IM, Preserv and ABX Free 6 MO-64 YRS 2022-04-28 00:00:00 Completed [facility] SARS-COV-2 COVID-19 VACCINE 12 YRS+, BIVALENT 0.5ML, IM, (MODERNA-BLUE TOP) 2022-04-28 00:00:00 Completed [facility] Influenza Virus Vaccine Quad IM, Preserv and ABX Free 6 MO-64 YRS 2022-04-28 00:00:00 Completed [facility] SARS-COV-2 COVID-19 VACCINE 12 YRS+, BIVALENT 0.5ML, IM, (MODERNA-BLUE TOP) 2022-04-28 00:00:00 Completed [facility] Influenza Virus Vaccine Quad IM, Preserv and ABX Free 6 MO-64 YRS 2022-04-28 00:00:00 Completed [facility] SARS-COV-2 COVID-19 VACCINE 12 YRS+, BIVALENT 0.5ML, IM, (MODERNA-BLUE TOP) 2022-04-28 00:00:00 Completed [facility] Influenza Virus Vaccine Quad IM, Preserv and ABX Free 6 MO-64 YRS 2022-04-28 00:00:00 Completed [facility] SARS-COV-2 COVID-19 VACCINE 12 YRS+, BIVALENT 0.5ML, IM, (MODERNA-BLUE TOP) 2022-04-28 00:00:00 Completed [facility] Influenza Virus Vaccine Quad IM, Preserv and ABX Free 6 MO-64 YRS 2022-04-28 00:00:00 Completed [facility] SARS-COV-2 COVID-19 VACCINE 12 YRS+, BIVALENT 0.5ML, IM, (MODERNA-BLUE TOP) 2022-04-28 00:00:00 Completed [facility] Influenza Virus Vaccine Quad IM, Preserv and ABX Free 6 MO-64 YRS 2022-04-28 00:00:00 Completed [facility] SARS-COV-2 COVID-19 VACCINE 12 YRS+, BIVALENT 0.5ML, IM, (MODERNA-BLUE TOP) 2022-04-28 00:00:00 Completed [facility] Influenza Virus Vaccine Quad IM, Preserv and ABX Free 6 MO-64 YRS 2022-04-28 00:00:00 Completed [facility] SARS-COV-2 COVID-19 VACCINE 12 YRS+, BIVALENT 0.5ML, IM, (MODERNA-BLUE TOP) 2022-04-28 00:00:00 Completed [facility] Influenza Virus Vaccine Quad IM, Preserv and ABX Free 6 MO-64 YRS (FLUCELVAX) 2022-04-28 00:00:00 Completed [facility] SARS-COV-2 COVID-19 VACCINE 12 YRS+, BIVALENT 0.5ML, IM, (MODERNA-BLUE TOP) 2022-04-28 00:00:00 Completed [facility] Influenza Virus Vaccine Quad IM, Preserv and ABX Free 6 MO-64 YRS (FLUCELVAX) 2022-04-28 00:00:00 Completed [facility] SARS-COV-2 COVID-19 VACCINE 12 YRS+, BIVALENT 0.5ML, IM, (MODERNA-BLUE TOP) 2022-04-28 00:00:00 Completed [facility] SARS-COV-2 COVID-19 VACCINE 12 YRS+, BIVALENT 0.5ML, IM, (MODERNA-BLUE TOP) 2022-04-28 00:00:00 Completed [facility] SARS-COV-2 COVID-19 VACCINE 12 YRS+, BIVALENT 0.5ML, IM, (MODERNA-BLUE TOP) 2022-04-28 00:00:00 Completed [facility] Influenza Virus Vaccine Quad IM, Preserv and ABX Free 6 MO-64 YRS (FLUCELVAX) 2022-04-28 00:00:00 Completed Influenza Virus Vaccine Quad IM, Preserv and ABX Free 6 MO-64 YRS (FLUCELVAX) 2022-04-28 00:00:00 Completed SARS-COV-2 COVID-19 VACCINE 12 YRS+, BIVALENT 0.5ML, IM, (MODERNA-BLUE TOP) 2022-04-28 00:00:00 Completed Influenza Virus Vaccine Quad IM, Preserv and ABX Free 6 MO-64 YRS (FLUCELVAX) 2022-04-28 00:00:00 Completed SARS-COV-2 COVID-19 VACCINE 12 YRS+, BIVALENT 0.5ML, IM, (MODERNA-BLUE TOP) 2022-04-28 00:00:00 Completed Influenza Virus Vaccine Quad IM, Preserv and ABX Free 6 MO-64 YRS (FLUCELVAX) 2022-04-28 00:00:00 Completed SARS-COV-2 COVID-19 MODERNA BOOSTER VACCINE 2021-10-18 00:00:00 Completed [facility] SARS-COV-2 COVID-19 MODERNA BOOSTER VACCINE 2021-10-18 00:00:00 Completed [facility] SARS-COV-2 COVID-19 MODERNA 0.25ML BOOSTER VACCINE 2021-10-18 00:00:00 Completed [facility] SARS-COV-2 COVID-19 MODERNA 0.25ML BOOSTER VACCINE 2021-10-18 00:00:00 Completed [facility] SARS-COV-2 COVID-19 MODERNA 0.25ML BOOSTER VACCINE 2021-10-18 00:00:00 Completed [facility] SARS-COV-2 COVID-19 MODERNA 0.25ML BOOSTER VACCINE 2021-10-18 00:00:00 Completed [facility] SARS-COV-2 COVID-19 MODERNA 0.25ML BOOSTER VACCINE 2021-10-18 00:00:00 Completed [facility] SARS-COV-2 COVID-19 MODERNA 0.25ML BOOSTER VACCINE 2021-10-18 00:00:00 Completed [facility] SARS-COV-2 COVID-19 MODERNA 0.25ML BOOSTER VACCINE 2021-10-18 00:00:00 Completed [facility] SARS-COV-2 COVID-19 MODERNA 0.25ML BOOSTER VACCINE 2021-10-18 00:00:00 Completed [facility] SARS-COV-2 COVID-19 MODERNA 0.25ML BOOSTER VACCINE 2021-10-18 00:00:00 Completed [facility] SARS-COV-2 COVID-19 MODERNA 0.25ML BOOSTER VACCINE 2021-10-18 00:00:00 Completed [facility] SARS-COV-2 COVID-19 MODERNA 0.25ML BOOSTER VACCINE 2021-10-18 00:00:00 Completed [facility] SARS-COV-2 COVID-19 MODERNA 0.25ML BOOSTER VACCINE 2021-10-18 00:00:00 Completed [facility] SARS-COV-2 COVID-19 MODERNA 0.25ML BOOSTER VACCINE 2021-10-18 00:00:00 Completed [facility] SARS-COV-2 COVID-19 MODERNA 0.25ML BOOSTER VACCINE 2021-10-18 00:00:00 Completed [facility] SARS-COV-2 COVID-19 MODERNA 0.25ML BOOSTER VACCINE 2021-10-18 00:00:00 Completed [facility] SARS-COV-2 COVID-19 MODERNA 0.25ML BOOSTER VACCINE 2021-10-18 00:00:00 Completed [facility] SARS-COV-2 COVID-19 MODERNA 0.25ML BOOSTER VACCINE 2021-10-18 00:00:00 Completed [facility] SARS-COV-2 COVID-19 MODERNA 0.25ML BOOSTER VACCINE 2021-10-18 00:00:00 Completed [facility] SARS-COV-2 COVID-19 MODERNA 0.25ML BOOSTER VACCINE 2021-10-18 00:00:00 Completed [facility] SARS-COV-2 COVID-19 MODERNA 0.25ML BOOSTER VACCINE 2021-10-18 00:00:00 Completed [facility] SARS-COV-2 COVID-19 MODERNA 0.25ML BOOSTER VACCINE 2021-10-18 00:00:00 Completed [facility] SARS-COV-2 COVID-19 MODERNA 0.25ML BOOSTER VACCINE 2021-10-18 00:00:00 Completed [facility] SARS-COV-2 COVID-19 MODERNA 0.25ML BOOSTER VACCINE 2021-10-18 00:00:00 Completed [facility] SARS-COV-2 COVID-19 MODERNA 0.25ML BOOSTER VACCINE 2021-10-18 00:00:00 Completed [facility] SARS-COV-2 COVID-19 MODERNA 0.25ML BOOSTER VACCINE 2021-10-18 00:00:00 Completed [facility] SARS-COV-2 COVID-19 MODERNA 0.25ML BOOSTER VACCINE 2021-10-18 00:00:00 Completed [facility] SARS-COV-2 COVID-19 MODERNA 0.25ML BOOSTER VACCINE 2021-10-18 00:00:00 Completed [facility] SARS-COV-2 COVID-19 MODERNA 0.25ML BOOSTER VACCINE 2021-10-18 00:00:00 Completed [facility] SARS-COV-2 COVID-19 MODERNA 0.25ML BOOSTER VACCINE 2021-10-18 00:00:00 Completed [facility] SARS-COV-2 COVID-19 MODERNA 0.25ML BOOSTER VACCINE 2021-10-18 00:00:00 Completed [facility] SARS-COV-2 COVID-19 MODERNA 0.25ML BOOSTER VACCINE 2021-10-18 00:00:00 Completed [facility] SARS-COV-2 COVID-19 MODERNA 0.25ML BOOSTER VACCINE 2021-10-18 00:00:00 Completed [facility] SARS-COV-2 COVID-19 MODERNA 0.25ML BOOSTER VACCINE 2021-10-18 00:00:00 Completed [facility] SARS-COV-2 COVID-19 MODERNA 0.25ML BOOSTER VACCINE 2021-10-18 00:00:00 Completed [facility] SARS-COV-2 COVID-19 MODERNA 0.25ML BOOSTER VACCINE 2021-10-18 00:00:00 Completed SARS-COV-2 COVID-19 MODERNA 0.25ML BOOSTER VACCINE 2021-10-18 00:00:00 Completed SARS-COV-2 COVID-19 MODERNA 0.25ML BOOSTER VACCINE 2021-10-18 00:00:00 Completed SARS-COV-2 COVID-19 MODERNA 0.25ML BOOSTER VACCINE 2021-10-18 00:00:00 Completed SARS-COV-2 COVID-19 MODERNA BOOSTER VACCINE 2021-05-17 00:00:00 Completed [facility] SARS-COV-2 COVID-19 MODERNA BOOSTER VACCINE 2021-05-17 00:00:00 Completed [facility] SARS-COV-2 COVID-19 MODERNA 0.25ML BOOSTER VACCINE 2021-05-17 00:00:00 Completed [facility] SARS-COV-2 COVID-19 MODERNA 0.25ML BOOSTER VACCINE 2021-05-17 00:00:00 Completed [facility] SARS-COV-2 COVID-19 MODERNA 0.25ML BOOSTER VACCINE 2021-05-17 00:00:00 Completed [facility] SARS-COV-2 COVID-19 MODERNA 0.25ML BOOSTER VACCINE 2021-05-17 00:00:00 Completed [facility] SARS-COV-2 COVID-19 MODERNA 0.25ML BOOSTER VACCINE 2021-05-17 00:00:00 Completed [facility] SARS-COV-2 COVID-19 MODERNA 0.25ML BOOSTER VACCINE 2021-05-17 00:00:00 Completed [facility] SARS-COV-2 COVID-19 MODERNA 0.25ML BOOSTER VACCINE 2021-05-17 00:00:00 Completed [facility] SARS-COV-2 COVID-19 MODERNA 0.25ML BOOSTER VACCINE 2021-05-17 00:00:00 Completed [facility] SARS-COV-2 COVID-19 MODERNA 0.25ML BOOSTER VACCINE 2021-05-17 00:00:00 Completed [facility] SARS-COV-2 COVID-19 MODERNA 0.25ML BOOSTER VACCINE 2021-05-17 00:00:00 Completed [facility] SARS-COV-2 COVID-19 MODERNA 0.25ML BOOSTER VACCINE 2021-05-17 00:00:00 Completed [facility] SARS-COV-2 COVID-19 MODERNA 0.25ML BOOSTER VACCINE 2021-05-17 00:00:00 Completed [facility] SARS-COV-2 COVID-19 MODERNA 0.25ML BOOSTER VACCINE 2021-05-17 00:00:00 Completed [facility] SARS-COV-2 COVID-19 MODERNA 0.25ML BOOSTER VACCINE 2021-05-17 00:00:00 Completed [facility] SARS-COV-2 COVID-19 MODERNA 0.25ML BOOSTER VACCINE 2021-05-17 00:00:00 Completed [facility] SARS-COV-2 COVID-19 MODERNA 0.25ML BOOSTER VACCINE 2021-05-17 00:00:00 Completed [facility] SARS-COV-2 COVID-19 MODERNA 0.25ML BOOSTER VACCINE 2021-05-17 00:00:00 Completed [facility] SARS-COV-2 COVID-19 MODERNA 0.25ML BOOSTER VACCINE 2021-05-17 00:00:00 Completed [facility] SARS-COV-2 COVID-19 MODERNA 0.25ML BOOSTER VACCINE 2021-05-17 00:00:00 Completed [facility] SARS-COV-2 COVID-19 MODERNA 0.25ML BOOSTER VACCINE 2021-05-17 00:00:00 Completed [facility] SARS-COV-2 COVID-19 MODERNA 0.25ML BOOSTER VACCINE 2021-05-17 00:00:00 Completed [facility] SARS-COV-2 COVID-19 MODERNA 0.25ML BOOSTER VACCINE 2021-05-17 00:00:00 Completed [facility] SARS-COV-2 COVID-19 MODERNA 0.25ML BOOSTER VACCINE 2021-05-17 00:00:00 Completed [facility] SARS-COV-2 COVID-19 MODERNA 0.25ML BOOSTER VACCINE 2021-05-17 00:00:00 Completed [facility] SARS-COV-2 COVID-19 MODERNA 0.25ML BOOSTER VACCINE 2021-05-17 00:00:00 Completed [facility] SARS-COV-2 COVID-19 MODERNA 0.25ML BOOSTER VACCINE 2021-05-17 00:00:00 Completed [facility] SARS-COV-2 COVID-19 MODERNA 0.25ML BOOSTER VACCINE 2021-05-17 00:00:00 Completed [facility] SARS-COV-2 COVID-19 MODERNA 0.25ML BOOSTER VACCINE 2021-05-17 00:00:00 Completed [facility] SARS-COV-2 COVID-19 MODERNA 0.25ML BOOSTER VACCINE 2021-05-17 00:00:00 Completed [facility] SARS-COV-2 COVID-19 MODERNA 0.25ML BOOSTER VACCINE 2021-05-17 00:00:00 Completed [facility] SARS-COV-2 COVID-19 MODERNA 0.25ML BOOSTER VACCINE 2021-05-17 00:00:00 Completed [facility] SARS-COV-2 COVID-19 MODERNA 0.25ML BOOSTER VACCINE 2021-05-17 00:00:00 Completed [facility] SARS-COV-2 COVID-19 MODERNA 0.25ML BOOSTER VACCINE 2021-05-17 00:00:00 Completed [facility] SARS-COV-2 COVID-19 MODERNA 0.25ML BOOSTER VACCINE 2021-05-17 00:00:00 Completed [facility] SARS-COV-2 COVID-19 MODERNA 0.25ML BOOSTER VACCINE 2021-05-17 00:00:00 Completed [facility] SARS-COV-2 COVID-19 MODERNA 0.25ML BOOSTER VACCINE 2021-05-17 00:00:00 Completed [facility] SARS-COV-2 COVID-19 MODERNA 0.25ML BOOSTER VACCINE 2021-05-17 00:00:00 Completed [facility] SARS-COV-2 COVID-19 MODERNA 0.25ML BOOSTER VACCINE 2021-05-17 00:00:00 Completed [facility] Influenza Virus Vaccine Quad IM, Preserv and ABX Free 6 MO-64 YRS 2021-05-04 00:00:00 Completed [facility] Pneumococcal Polysaccharide, PPSV23 (PNEUMOVAX) 2021-05-04 00:00:00 Completed [facility] Influenza Virus Vaccine Quad IM, Preserv and ABX Free 6 MO-64 YRS 2021-05-04 00:00:00 Completed [facility] Pneumococcal Polysaccharide, PPSV23 (PNEUMOVAX) 2021-05-04 00:00:00 Completed [facility] Influenza Virus Vaccine Quad IM, Preserv and ABX Free 6 MO-64 YRS 2021-05-04 00:00:00 Completed [facility] Pneumococcal Polysaccharide, PPSV23 (PNEUMOVAX) 2021-05-04 00:00:00 Completed [facility] Influenza Virus Vaccine Quad IM, Preserv and ABX Free 6 MO-64 YRS 2021-05-04 00:00:00 Completed [facility] Pneumococcal Polysaccharide, PPSV23 (PNEUMOVAX) 2021-05-04 00:00:00 Completed [facility] Influenza Virus Vaccine Quad IM, Preserv and ABX Free 6 MO-64 YRS 2021-05-04 00:00:00 Completed [facility] Pneumococcal Polysaccharide, PPSV23 (PNEUMOVAX) 2021-05-04 00:00:00 Completed [facility] Influenza Virus Vaccine Quad IM, Preserv and ABX Free 6 MO-64 YRS 2021-05-04 00:00:00 Completed [facility] Pneumococcal Polysaccharide, PPSV23 (PNEUMOVAX) 2021-05-04 00:00:00 Completed [facility] Influenza Virus Vaccine Quad IM, Preserv and ABX Free 6 MO-64 YRS 2021-05-04 00:00:00 Completed [facility] Pneumococcal Polysaccharide, PPSV23 (PNEUMOVAX) 2021-05-04 00:00:00 Completed [facility] Influenza Virus Vaccine Quad IM, Preserv and ABX Free 6 MO-64 YRS 2021-05-04 00:00:00 Completed [facility] Pneumococcal Polysaccharide, PPSV23 (PNEUMOVAX) 2021-05-04 00:00:00 Completed [facility] Influenza Virus Vaccine Quad IM, Preserv and ABX Free 6 MO-64 YRS 2021-05-04 00:00:00 Completed [facility] Pneumococcal Polysaccharide, PPSV23 (PNEUMOVAX) 2021-05-04 00:00:00 Completed [facility] Influenza Virus Vaccine Quad IM, Preserv and ABX Free 6 MO-64 YRS 2021-05-04 00:00:00 Completed [facility] Pneumococcal Polysaccharide, PPSV23 (PNEUMOVAX) 2021-05-04 00:00:00 Completed [facility] Influenza Virus Vaccine Quad IM, Preserv and ABX Free 6 MO-64 YRS 2021-05-04 00:00:00 Completed [facility] Pneumococcal Polysaccharide, PPSV23 (PNEUMOVAX) 2021-05-04 00:00:00 Completed [facility] Influenza Virus Vaccine Quad IM, Preserv and ABX Free 6 MO-64 YRS 2021-05-04 00:00:00 Completed [facility] Pneumococcal Polysaccharide, PPSV23 (PNEUMOVAX) 2021-05-04 00:00:00 Completed [facility] Influenza Virus Vaccine Quad IM, Preserv and ABX Free 6 MO-64 YRS 2021-05-04 00:00:00 Completed [facility] Pneumococcal Polysaccharide, PPSV23 (PNEUMOVAX) 2021-05-04 00:00:00 Completed [facility] Influenza Virus Vaccine Quad IM, Preserv and ABX Free 6 MO-64 YRS 2021-05-04 00:00:00 Completed [facility] Pneumococcal Polysaccharide, PPSV23 (PNEUMOVAX) 2021-05-04 00:00:00 Completed [facility] Influenza Virus Vaccine Quad IM, Preserv and ABX Free 6 MO-64 YRS 2021-05-04 00:00:00 Completed [facility] Pneumococcal Polysaccharide, PPSV23 (PNEUMOVAX) 2021-05-04 00:00:00 Completed [facility] Influenza Virus Vaccine Quad IM, Preserv and ABX Free 6 MO-64 YRS 2021-05-04 00:00:00 Completed [facility] Pneumococcal Polysaccharide, PPSV23 (PNEUMOVAX) 2021-05-04 00:00:00 Completed [facility] Influenza Virus Vaccine Quad IM, Preserv and ABX Free 6 MO-64 YRS 2021-05-04 00:00:00 Completed [facility] Pneumococcal Polysaccharide, PPSV23 (PNEUMOVAX) 2021-05-04 00:00:00 Completed [facility] Influenza Virus Vaccine Quad IM, Preserv and ABX Free 6 MO-64 YRS 2021-05-04 00:00:00 Completed [facility] Pneumococcal Polysaccharide, PPSV23 (PNEUMOVAX) 2021-05-04 00:00:00 Completed [facility] Influenza Virus Vaccine Quad IM, Preserv and ABX Free 6 MO-64 YRS 2021-05-04 00:00:00 Completed [facility] Pneumococcal Polysaccharide, PPSV23 (PNEUMOVAX) 2021-05-04 00:00:00 Completed [facility] Influenza Virus Vaccine Quad IM, Preserv and ABX Free 6 MO-64 YRS 2021-05-04 00:00:00 Completed [facility] Pneumococcal Polysaccharide, PPSV23 (PNEUMOVAX) 2021-05-04 00:00:00 Completed [facility] Influenza Virus Vaccine Quad IM, Preserv and ABX Free 6 MO-64 YRS 2021-05-04 00:00:00 Completed [facility] Pneumococcal Polysaccharide, PPSV23 (PNEUMOVAX) 2021-05-04 00:00:00 Completed [facility] Influenza Virus Vaccine Quad IM, Preserv and ABX Free 6 MO-64 YRS 2021-05-04 00:00:00 Completed [facility] Pneumococcal Polysaccharide, PPSV23 (PNEUMOVAX) 2021-05-04 00:00:00 Completed [facility] Influenza Virus Vaccine Quad IM, Preserv and ABX Free 6 MO-64 YRS 2021-05-04 00:00:00 Completed [facility] Pneumococcal Polysaccharide, PPSV23 (PNEUMOVAX) 2021-05-04 00:00:00 Completed [facility] Influenza Virus Vaccine Quad IM, Preserv and ABX Free 6 MO-64 YRS 2021-05-04 00:00:00 Completed [facility] Pneumococcal Polysaccharide, PPSV23 (PNEUMOVAX) 2021-05-04 00:00:00 Completed [facility] Influenza Virus Vaccine Quad IM, Preserv and ABX Free 6 MO-64 YRS 2021-05-04 00:00:00 Completed [facility] Pneumococcal Polysaccharide, PPSV23 (PNEUMOVAX) 2021-05-04 00:00:00 Completed [facility] Influenza Virus Vaccine Quad IM, Preserv and ABX Free 6 MO-64 YRS 2021-05-04 00:00:00 Completed [facility] Pneumococcal Polysaccharide, PPSV23 (PNEUMOVAX) 2021-05-04 00:00:00 Completed [facility] Influenza Virus Vaccine Quad IM, Preserv and ABX Free 6 MO-64 YRS 2021-05-04 00:00:00 Completed [facility] Pneumococcal Polysaccharide, PPSV23 (PNEUMOVAX) 2021-05-04 00:00:00 Completed [facility] Influenza Virus Vaccine Quad IM, Preserv and ABX Free 6 MO-64 YRS 2021-05-04 00:00:00 Completed [facility] Pneumococcal Polysaccharide, PPSV23 (PNEUMOVAX) 2021-05-04 00:00:00 Completed [facility] Influenza Virus Vaccine Quad IM, Preserv and ABX Free 6 MO-64 YRS 2021-05-04 00:00:00 Completed [facility] Pneumococcal Polysaccharide, PPSV23 (PNEUMOVAX) 2021-05-04 00:00:00 Completed [facility] Influenza Virus Vaccine Quad IM, Preserv and ABX Free 6 MO-64 YRS 2021-05-04 00:00:00 Completed [facility] Pneumococcal Polysaccharide, PPSV23 (PNEUMOVAX) 2021-05-04 00:00:00 Completed [facility] Influenza Virus Vaccine Quad IM, Preserv and ABX Free 6 MO-64 YRS 2021-05-04 00:00:00 Completed [facility] Pneumococcal Polysaccharide, PPSV23 (PNEUMOVAX) 2021-05-04 00:00:00 Completed [facility] Influenza Virus Vaccine Quad IM, Preserv and ABX Free 6 MO-64 YRS 2021-05-04 00:00:00 Completed [facility] Pneumococcal Polysaccharide, PPSV23 (PNEUMOVAX) 2021-05-04 00:00:00 Completed [facility] Influenza Virus Vaccine Quad IM, Preserv and ABX Free 6 MO-64 YRS 2021-05-04 00:00:00 Completed [facility] Pneumococcal Polysaccharide, PPSV23 (PNEUMOVAX) 2021-05-04 00:00:00 Completed [facility] Influenza Virus Vaccine Quad IM, Preserv and ABX Free 6 MO-64 YRS 2021-05-04 00:00:00 Completed [facility] Pneumococcal Polysaccharide, PPSV23 (PNEUMOVAX) 2021-05-04 00:00:00 Completed [facility] Influenza Virus Vaccine Quad IM, Preserv and ABX Free 6 MO-64 YRS (FLUCELVAX) 2021-05-04 00:00:00 Completed [facility] Pneumococcal Polysaccharide, PPSV23 (PNEUMOVAX) 2021-05-04 00:00:00 Completed [facility] Influenza Virus Vaccine Quad IM, Preserv and ABX Free 6 MO-64 YRS (FLUCELVAX) 2021-05-04 00:00:00 Completed [facility] Pneumococcal Polysaccharide, PPSV23 (PNEUMOVAX) 2021-05-04 00:00:00 Completed [facility] Influenza Virus Vaccine Quad IM, Preserv and ABX Free 6 MO-64 YRS (FLUCELVAX) 2021-05-04 00:00:00 Completed [facility] Influenza Virus Vaccine Quad IM, Preserv and ABX Free 6 MO-64 YRS (FLUCELVAX) 2021-05-04 00:00:00 Completed [facility] Pneumococcal Polysaccharide, PPSV23 (PNEUMOVAX) 2021-05-04 00:00:00 Completed Influenza Virus Vaccine Quad IM, Preserv and ABX Free 6 MO-64 YRS (FLUCELVAX) 2021-05-04 00:00:00 Completed [facility] Pneumococcal Polysaccharide, PPSV23 (PNEUMOVAX) 2021-05-04 00:00:00 Completed Influenza Virus Vaccine Quad IM, Preserv and ABX Free 6 MO-64 YRS (FLUCELVAX) 2021-05-04 00:00:00 Completed [facility] Pneumococcal Polysaccharide, PPSV23 (PNEUMOVAX) 2021-05-04 00:00:00 Completed Pneumococcal Polysaccharide, PPSV23 (PNEUMOVAX) 2021-05-04 00:00:00 Completed SARS-COV-2 COVID-19 MODERNA VACCINE 2020-09-20 00:00:00 Completed [facility] SARS-COV-2 COVID-19 MODERNA VACCINE 2020-09-20 00:00:00 Completed [facility] SARS-COV-2 COVID-19 MODERNA VACCINE 2020-09-20 00:00:00 Completed [facility] SARS-COV-2 COVID-19 MODERNA VACCINE 2020-09-20 00:00:00 Completed [facility] SARS-COV-2 COVID-19 MODERNA VACCINE 2020-09-20 00:00:00 Completed [facility] SARS-COV-2 COVID-19 MODERNA VACCINE 2020-09-20 00:00:00 Completed [facility] SARS-COV-2 COVID-19 MODERNA VACCINE 2020-09-20 00:00:00 Completed [facility] SARS-COV-2 COVID-19 MODERNA 12+ YRS VACCINE 2020-09-20 00:00:00 Completed [facility] SARS-COV-2 COVID-19 MODERNA 12+ YRS VACCINE 2020-09-20 00:00:00 Completed [facility] SARS-COV-2 COVID-19 MODERNA 12+ YRS VACCINE 2020-09-20 00:00:00 Completed [facility] SARS-COV-2 COVID-19 MODERNA 12+ YRS VACCINE 2020-09-20 00:00:00 Completed [facility] SARS-COV-2 COVID-19 MODERNA 12+ YRS VACCINE 2020-09-20 00:00:00 Completed [facility] SARS-COV-2 COVID-19 MODERNA 12+ YRS VACCINE 2020-09-20 00:00:00 Completed [facility] SARS-COV-2 COVID-19 MODERNA 12+ YRS VACCINE 2020-09-20 00:00:00 Completed [facility] SARS-COV-2 COVID-19 MODERNA 12+ YRS VACCINE 2020-09-20 00:00:00 Completed [facility] SARS-COV-2 COVID-19 MODERNA 12+ YRS VACCINE 2020-09-20 00:00:00 Completed [facility] SARS-COV-2 COVID-19 MODERNA 12+ YRS VACCINE 2020-09-20 00:00:00 Completed [facility] SARS-COV-2 COVID-19 MODERNA 12+ YRS VACCINE 2020-09-20 00:00:00 Completed [facility] SARS-COV-2 COVID-19 MODERNA 12+ YRS VACCINE 2020-09-20 00:00:00 Completed [facility] SARS-COV-2 COVID-19 MODERNA 12+ YRS VACCINE 2020-09-20 00:00:00 Completed [facility] SARS-COV-2 COVID-19 MODERNA 12+ YRS VACCINE 2020-09-20 00:00:00 Completed [facility] SARS-COV-2 COVID-19 MODERNA 12+ YRS VACCINE 2020-09-20 00:00:00 Completed [facility] SARS-COV-2 COVID-19 MODERNA 12+ YRS VACCINE 2020-09-20 00:00:00 Completed [facility] SARS-COV-2 COVID-19 MODERNA 12+ YRS VACCINE 2020-09-20 00:00:00 Completed [facility] SARS-COV-2 COVID-19 MODERNA 12+ YRS VACCINE 2020-09-20 00:00:00 Completed [facility] SARS-COV-2 COVID-19 MODERNA 12+ YRS VACCINE 2020-09-20 00:00:00 Completed [facility] SARS-COV-2 COVID-19 MODERNA 12+ YRS VACCINE 2020-09-20 00:00:00 Completed [facility] SARS-COV-2 COVID-19 MODERNA 12+ YRS VACCINE 2020-09-20 00:00:00 Completed [facility] SARS-COV-2 COVID-19 MODERNA 12+ YRS VACCINE 2020-09-20 00:00:00 Completed [facility] SARS-COV-2 COVID-19 MODERNA 12+ YRS VACCINE 2020-09-20 00:00:00 Completed [facility] SARS-COV-2 COVID-19 MODERNA 12+ YRS VACCINE 2020-09-20 00:00:00 Completed [facility] SARS-COV-2 COVID-19 MODERNA 12+ YRS VACCINE 2020-09-20 00:00:00 Completed [facility] SARS-COV-2 COVID-19 MODERNA 12+ YRS VACCINE 2020-09-20 00:00:00 Completed [facility] SARS-COV-2 COVID-19 MODERNA 12+ YRS VACCINE 2020-09-20 00:00:00 Completed [facility] SARS-COV-2 COVID-19 MODERNA 12+ YRS VACCINE 2020-09-20 00:00:00 Completed [facility] SARS-COV-2 COVID-19 MODERNA 12+ YRS VACCINE 2020-09-20 00:00:00 Completed [facility] SARS-COV-2 COVID-19 MODERNA 12+ YRS VACCINE 2020-09-20 00:00:00 Completed [facility] SARS-COV-2 COVID-19 MODERNA 12+ YRS VACCINE 2020-09-20 00:00:00 Completed [facility] SARS-COV-2 COVID-19 MODERNA 12+ YRS VACCINE 2020-09-20 00:00:00 Completed [facility] SARS-COV-2 COVID-19 MODERNA 12+ YRS VACCINE 2020-09-20 00:00:00 Completed [facility] SARS-COV-2 COVID-19 MODERNA VACCINE 2020-08-23 00:00:00 Completed [facility] SARS-COV-2 COVID-19 MODERNA VACCINE 2020-08-23 00:00:00 Completed [facility] SARS-COV-2 COVID-19 MODERNA VACCINE 2020-08-23 00:00:00 Completed [facility] SARS-COV-2 COVID-19 MODERNA VACCINE 2020-08-23 00:00:00 Completed [facility] SARS-COV-2 COVID-19 MODERNA VACCINE 2020-08-23 00:00:00 Completed [facility] SARS-COV-2 COVID-19 MODERNA VACCINE 2020-08-23 00:00:00 Completed [facility] SARS-COV-2 COVID-19 MODERNA VACCINE 2020-08-23 00:00:00 Completed [facility] SARS-COV-2 COVID-19 MODERNA 12+ YRS VACCINE 2020-08-23 00:00:00 Completed [facility] SARS-COV-2 COVID-19 MODERNA 12+ YRS VACCINE 2020-08-23 00:00:00 Completed [facility] SARS-COV-2 COVID-19 MODERNA 12+ YRS VACCINE 2020-08-23 00:00:00 Completed [facility] SARS-COV-2 COVID-19 MODERNA 12+ YRS VACCINE 2020-08-23 00:00:00 Completed [facility] SARS-COV-2 COVID-19 MODERNA 12+ YRS VACCINE 2020-08-23 00:00:00 Completed [facility] SARS-COV-2 COVID-19 MODERNA 12+ YRS VACCINE 2020-08-23 00:00:00 Completed [facility] SARS-COV-2 COVID-19 MODERNA 12+ YRS VACCINE 2020-08-23 00:00:00 Completed [facility] SARS-COV-2 COVID-19 MODERNA 12+ YRS VACCINE 2020-08-23 00:00:00 Completed [facility] SARS-COV-2 COVID-19 MODERNA 12+ YRS VACCINE 2020-08-23 00:00:00 Completed [facility] SARS-COV-2 COVID-19 MODERNA 12+ YRS VACCINE 2020-08-23 00:00:00 Completed [facility] SARS-COV-2 COVID-19 MODERNA 12+ YRS VACCINE 2020-08-23 00:00:00 Completed [facility] SARS-COV-2 COVID-19 MODERNA 12+ YRS VACCINE 2020-08-23 00:00:00 Completed [facility] SARS-COV-2 COVID-19 MODERNA 12+ YRS VACCINE 2020-08-23 00:00:00 [facility] [facility] SARS-COV-2 COVID-19 MODERNA 12+ YRS VACCINE 2020-08-23 00:00:00 Completed [facility] SARS-COV-2 COVID-19 MODERNA 12+ YRS VACCINE 2020-08-23 00:00:00 Completed [facility] SARS-COV-2 COVID-19 MODERNA 12+ YRS VACCINE 2020-08-23 00:00:00 Completed [facility] SARS-COV-2 COVID-19 MODERNA 12+ YRS VACCINE 2020-08-23 00:00:00 Completed [facility] SARS-COV-2 COVID-19 MODERNA 12+ YRS VACCINE 2020-08-23 00:00:00 Completed [facility] SARS-COV-2 COVID-19 MODERNA 12+ YRS VACCINE 2020-08-23 00:00:00 Completed [facility] SARS-COV-2 COVID-19 MODERNA 12+ YRS VACCINE 2020-08-23 00:00:00 Completed [facility] SARS-COV-2 COVID-19 MODERNA 12+ YRS VACCINE 2020-08-23 00:00:00 Completed [facility] SARS-COV-2 COVID-19 MODERNA 12+ YRS VACCINE 2020-08-23 00:00:00 Completed [facility] SARS-COV-2 COVID-19 MODERNA 12+ YRS VACCINE 2020-08-23 00:00:00 Completed [facility] SARS-COV-2 COVID-19 MODERNA 12+ YRS VACCINE 2020-08-23 00:00:00 Completed [facility] SARS-COV-2 COVID-19 MODERNA 12+ YRS VACCINE 2020-08-23 00:00:00 Completed [facility] SARS-COV-2 COVID-19 MODERNA 12+ YRS VACCINE 2020-08-23 00:00:00 Completed [facility] SARS-COV-2 COVID-19 MODERNA 12+ YRS VACCINE 2020-08-23 00:00:00 Completed [facility] SARS-COV-2 COVID-19 MODERNA 12+ YRS VACCINE 2020-08-23 00:00:00 Completed [facility] SARS-COV-2 COVID-19 MODERNA 12+ YRS VACCINE 2020-08-23 00:00:00 Completed [facility] SARS-COV-2 COVID-19 MODERNA 12+ YRS VACCINE 2020-08-23 00:00:00 Completed [facility] SARS-COV-2 COVID-19 MODERNA 12+ YRS VACCINE 2020-08-23 00:00:00 Completed [facility] SARS-COV-2 COVID-19 MODERNA 12+ YRS VACCINE 2020-08-23 00:00:00 Completed [facility] SARS-COV-2 COVID-19 MODERNA 12+ YRS VACCINE 2020-08-23 00:00:00 Completed [facility] Influenza Virus Vaccine Quad .5 mL IM 6+ MO 2020-04-10 00:00:00 Completed [facility] Pneumococcal Polysaccharide, PPSV23 (PNEUMOVAX) 2020-04-10 00:00:00 Completed [facility] TDAP 2020-04-10 00:00:00 Completed [facility] Influenza Virus Vaccine Quad .5 mL IM 6+ MO 2020-04-10 00:00:00 Completed [facility] Pneumococcal Polysaccharide, PPSV23 (PNEUMOVAX) 2020-04-10 00:00:00 Completed [facility] TDAP 2020-04-10 00:00:00 Completed [facility] Influenza Virus Vaccine Quad .5 mL IM 6+ MO 2020-04-10 00:00:00 Completed [facility] Pneumococcal Polysaccharide, PPSV23 (PNEUMOVAX) 2020-04-10 00:00:00 Completed [facility] TDAP 2020-04-10 00:00:00 Completed [facility] Influenza Virus Vaccine Quad .5 mL IM 6+ MO 2020-04-10 00:00:00 Completed [facility] Pneumococcal Polysaccharide, PPSV23 (PNEUMOVAX) 2020-04-10 00:00:00 Completed [facility] TDAP 2020-04-10 00:00:00 Completed [facility] Influenza Virus Vaccine Quad .5 mL IM 6+ MO 2020-04-10 00:00:00 Completed [facility] Pneumococcal Polysaccharide, PPSV23 (PNEUMOVAX) 2020-04-10 00:00:00 Completed [facility] TDAP 2020-04-10 00:00:00 Completed [facility] Influenza Virus Vaccine Quad .5 mL IM 6+ MO 2020-04-10 00:00:00 Completed [facility] Pneumococcal Polysaccharide, PPSV23 (PNEUMOVAX) 2020-04-10 00:00:00 Completed [facility] TDAP 2020-04-10 00:00:00 Completed [facility] Influenza Virus Vaccine Quad .5 mL IM 6+ MO 2020-04-10 00:00:00 Completed [facility] Pneumococcal Polysaccharide, PPSV23 (PNEUMOVAX) 2020-04-10 00:00:00 Completed [facility] TDAP 2020-04-10 00:00:00 Completed [facility] Influenza Virus Vaccine Quad .5 mL IM 6+ MO 2020-04-10 00:00:00 Completed [facility] Pneumococcal Polysaccharide, PPSV23 (PNEUMOVAX) 2020-04-10 00:00:00 Completed [facility] TDAP 2020-04-10 00:00:00 Completed [facility] Influenza Virus Vaccine Quad .5 mL IM 6+ MO 2020-04-10 00:00:00 Completed [facility] Pneumococcal Polysaccharide, PPSV23 (PNEUMOVAX) 2020-04-10 00:00:00 Completed [facility] TDAP 2020-04-10 00:00:00 Completed [facility] Influenza Virus Vaccine Quad .5 mL IM 6+ MO 2020-04-10 00:00:00 Completed [facility] Pneumococcal Polysaccharide, PPSV23 (PNEUMOVAX) 2020-04-10 00:00:00 Completed [facility] TDAP 2020-04-10 00:00:00 Completed [facility] Influenza Virus Vaccine Quad .5 mL IM 6+ MO 2020-04-10 00:00:00 Completed [facility] Pneumococcal Polysaccharide, PPSV23 (PNEUMOVAX) 2020-04-10 00:00:00 Completed [facility] TDAP 2020-04-10 00:00:00 Completed [facility] Influenza Virus Vaccine Quad .5 mL IM 6+ MO 2020-04-10 00:00:00 Completed [facility] Pneumococcal Polysaccharide, PPSV23 (PNEUMOVAX) 2020-04-10 00:00:00 Completed [facility] TDAP 2020-04-10 00:00:00 Completed [facility] Influenza Virus Vaccine Quad .5 mL IM 6+ MO 2020-04-10 00:00:00 Completed [facility] Pneumococcal Polysaccharide, PPSV23 (PNEUMOVAX) 2020-04-10 00:00:00 Completed [facility] TDAP 2020-04-10 00:00:00 Completed [facility] Influenza Virus Vaccine Quad .5 mL IM 6+ MO 2020-04-10 00:00:00 Completed [facility] Pneumococcal Polysaccharide, PPSV23 (PNEUMOVAX) 2020-04-10 00:00:00 Completed [facility] TDAP 2020-04-10 00:00:00 Completed [facility] Influenza Virus Vaccine Quad .5 mL IM 6+ MO 2020-04-10 00:00:00 Completed [facility] Pneumococcal Polysaccharide, PPSV23 (PNEUMOVAX) 2020-04-10 00:00:00 Completed [facility] TDAP 2020-04-10 00:00:00 Completed [facility] Influenza Virus Vaccine Quad .5 mL IM 6+ MO 2020-04-10 00:00:00 Completed [facility] Pneumococcal Polysaccharide, PPSV23 (PNEUMOVAX) 2020-04-10 00:00:00 Completed [facility] TDAP 2020-04-10 00:00:00 Completed [facility] Influenza Virus Vaccine Quad .5 mL IM 6+ MO 2020-04-10 00:00:00 Completed [facility] Pneumococcal Polysaccharide, PPSV23 (PNEUMOVAX) 2020-04-10 00:00:00 Completed [facility] TDAP 2020-04-10 00:00:00 Completed [facility] Influenza Virus Vaccine Quad .5 mL IM 6+ MO 2020-04-10 00:00:00 Completed [facility] Pneumococcal Polysaccharide, PPSV23 (PNEUMOVAX) 2020-04-10 00:00:00 Completed [facility] TDAP 2020-04-10 00:00:00 Completed [facility] Influenza Virus Vaccine Quad .5 mL IM 6+ MO 2020-04-10 00:00:00 Completed [facility] Pneumococcal Polysaccharide, PPSV23 (PNEUMOVAX) 2020-04-10 00:00:00 Completed [facility] TDAP 2020-04-10 00:00:00 Completed [facility] Influenza Virus Vaccine Quad .5 mL IM 6+ MO 2020-04-10 00:00:00 Completed [facility] Pneumococcal Polysaccharide, PPSV23 (PNEUMOVAX) 2020-04-10 00:00:00 Completed [facility] TDAP 2020-04-10 00:00:00 Completed [facility] Influenza Virus Vaccine Quad .5 mL IM 6+ MO 2020-04-10 00:00:00 Completed [facility] Pneumococcal Polysaccharide, PPSV23 (PNEUMOVAX) 2020-04-10 00:00:00 Completed [facility] TDAP 2020-04-10 00:00:00 Completed [facility] Influenza Virus Vaccine Quad .5 mL IM 6+ MO 2020-04-10 00:00:00 Completed [facility] Pneumococcal Polysaccharide, PPSV23 (PNEUMOVAX) 2020-04-10 00:00:00 Completed [facility] TDAP 2020-04-10 00:00:00 Completed [facility] Influenza Virus Vaccine Quad .5 mL IM 6+ MO 2020-04-10 00:00:00 Completed [facility] Pneumococcal Polysaccharide, PPSV23 (PNEUMOVAX) 2020-04-10 00:00:00 Completed [facility] TDAP 2020-04-10 00:00:00 Completed [facility] Influenza Virus Vaccine Quad .5 mL IM 6+ MO 2020-04-10 00:00:00 Completed [facility] Pneumococcal Polysaccharide, PPSV23 (PNEUMOVAX) 2020-04-10 00:00:00 Completed [facility] TDAP 2020-04-10 00:00:00 Completed [facility] Influenza Virus Vaccine Quad .5 mL IM 6+ MO 2020-04-10 00:00:00 Completed [facility] Pneumococcal Polysaccharide, PPSV23 (PNEUMOVAX) 2020-04-10 00:00:00 Completed [facility] TDAP 2020-04-10 00:00:00 Completed [facility] Influenza Virus Vaccine Quad .5 mL IM 6+ MO 2020-04-10 00:00:00 Completed [facility] Pneumococcal Polysaccharide, PPSV23 (PNEUMOVAX) 2020-04-10 00:00:00 Completed [facility] TDAP 2020-04-10 00:00:00 Completed [facility] Influenza Virus Vaccine Quad .5 mL IM 6+ MO 2020-04-10 00:00:00 Completed [facility] Pneumococcal Polysaccharide, PPSV23 (PNEUMOVAX) 2020-04-10 00:00:00 Completed [facility] TDAP 2020-04-10 00:00:00 Completed [facility] Influenza Virus Vaccine Quad .5 mL IM 6+ MO 2020-04-10 00:00:00 Completed [facility] Pneumococcal Polysaccharide, PPSV23 (PNEUMOVAX) 2020-04-10 00:00:00 Completed [facility] TDAP 2020-04-10 00:00:00 Completed [facility] Influenza Virus Vaccine Quad .5 mL IM 6+ MO 2020-04-10 00:00:00 Completed [facility] Pneumococcal Polysaccharide, PPSV23 (PNEUMOVAX) 2020-04-10 00:00:00 Completed [facility] TDAP 2020-04-10 00:00:00 Completed [facility] Influenza Virus Vaccine Quad .5 mL IM 6+ MO 2020-04-10 00:00:00 Completed [facility] Pneumococcal Polysaccharide, PPSV23 (PNEUMOVAX) 2020-04-10 00:00:00 Completed [facility] TDAP 2020-04-10 00:00:00 Completed [facility] Influenza Virus Vaccine Quad .5 mL IM 6+ MO 2020-04-10 00:00:00 Completed [facility] Pneumococcal Polysaccharide, PPSV23 (PNEUMOVAX) 2020-04-10 00:00:00 Completed [facility] TDAP 2020-04-10 00:00:00 Completed [facility] Influenza Virus Vaccine Quad .5 mL IM 6+ MO 2020-04-10 00:00:00 Completed [facility] Pneumococcal Polysaccharide, PPSV23 (PNEUMOVAX) 2020-04-10 00:00:00 Completed [facility] TDAP 2020-04-10 00:00:00 Completed [facility] Influenza Virus Vaccine Quad .5 mL IM 6+ MO 2020-04-10 00:00:00 Completed [facility] Pneumococcal Polysaccharide, PPSV23 (PNEUMOVAX) 2020-04-10 00:00:00 Completed [facility] TDAP 2020-04-10 00:00:00 Completed [facility] Influenza Virus Vaccine Quad .5 mL IM 6+ MO 2020-04-10 00:00:00 Completed [facility] Pneumococcal Polysaccharide, PPSV23 (PNEUMOVAX) 2020-04-10 00:00:00 Completed [facility] TDAP 2020-04-10 00:00:00 Completed [facility] Influenza Virus Vaccine Quad .5 mL IM 6+ MO (FLUZONE/FLULAVAL/F LUARIX) 2020-04-10 00:00:00 Completed [facility] Pneumococcal Polysaccharide, PPSV23 (PNEUMOVAX) 2020-04-10 00:00:00 Completed [facility] TDAP 2020-04-10 00:00:00 Completed [facility] Influenza Virus Vaccine Quad .5 mL IM 6+ MO (FLUZONE/FLULAVAL/F LUARIX) 2020-04-10 00:00:00 Completed [facility] Pneumococcal Polysaccharide, PPSV23 (PNEUMOVAX) 2020-04-10 00:00:00 Completed [facility] TDAP 2020-04-10 00:00:00 Completed [facility] Influenza Virus Vaccine Quad .5 mL IM 6+ MO (FLUZONE/FLULAVAL/F LUARIX) 2020-04-10 00:00:00 Completed [facility] Pneumococcal Polysaccharide, PPSV23 (PNEUMOVAX) 2020-04-10 00:00:00 Completed [facility] TDAP 2020-04-10 00:00:00 Completed [facility] Influenza Virus Vaccine Quad .5 mL IM 6+ MO (FLUZONE/FLULAVAL/F LUARIX) 2020-04-10 00:00:00 Completed [facility] Pneumococcal Polysaccharide, PPSV23 (PNEUMOVAX) 2020-04-10 00:00:00 Completed [facility] TDAP 2020-04-10 00:00:00 Completed [facility] Influenza Virus Vaccine Quad .5 mL IM 6+ MO (FLUZONE/FLULAVAL/F LUARIX) 2020-04-10 00:00:00 Completed [facility] Pneumococcal Polysaccharide, PPSV23 (PNEUMOVAX) 2020-04-10 00:00:00 Completed TDAP 2020-04-10 00:00:00 Completed Influenza Virus Vaccine Quad .5 mL IM 6+ MO (FLUZONE/FLULAVAL/F LUARIX) 2020-04-10 00:00:00 Completed [facility] Pneumococcal Polysaccharide, PPSV23 (PNEUMOVAX) 2020-04-10 00:00:00 Completed TDAP 2020-04-10 00:00:00 Completed Pneumococcal Polysaccharide, PPSV23 (PNEUMOVAX) 2010-08-20 00:00:00 Completed [facility] Pneumococcal Polysaccharide, PPSV23 (PNEUMOVAX) 2010-08-20 00:00:00 Completed [facility] Pneumococcal Polysaccharide, PPSV23 (PNEUMOVAX) 2010-08-20 00:00:00 Completed [facility] Pneumococcal Polysaccharide, PPSV23 (PNEUMOVAX) 2010-08-20 00:00:00 Completed [facility] Pneumococcal Polysaccharide, PPSV23 (PNEUMOVAX) 2010-08-20 00:00:00 Completed [facility] Pneumococcal Polysaccharide, PPSV23 (PNEUMOVAX) 2010-08-20 00:00:00 Completed [facility] Pneumococcal Polysaccharide, PPSV23 (PNEUMOVAX) 2010-08-20 00:00:00 Completed [facility] Pneumococcal Polysaccharide, PPSV23 (PNEUMOVAX) 2010-08-20 00:00:00 Completed [facility] Pneumococcal Polysaccharide, PPSV23 (PNEUMOVAX) 2010-08-20 00:00:00 Completed [facility] Pneumococcal Polysaccharide, PPSV23 (PNEUMOVAX) 2010-08-20 00:00:00 Completed [facility] Pneumococcal Polysaccharide, PPSV23 (PNEUMOVAX) 2010-08-20 00:00:00 Completed [facility] Pneumococcal Polysaccharide, PPSV23 (PNEUMOVAX) 2010-08-20 00:00:00 Completed [facility] Pneumococcal Polysaccharide, PPSV23 (PNEUMOVAX) 2010-08-20 00:00:00 Completed [facility] Pneumococcal Polysaccharide, PPSV23 (PNEUMOVAX) 2010-08-20 00:00:00 Completed [facility] Pneumococcal Polysaccharide, PPSV23 (PNEUMOVAX) 2010-08-20 00:00:00 Completed [facility] Pneumococcal Polysaccharide, PPSV23 (PNEUMOVAX) 2010-08-20 00:00:00 Completed [facility] Pneumococcal Polysaccharide, PPSV23 (PNEUMOVAX) 2010-08-20 00:00:00 Completed [facility] Pneumococcal Polysaccharide, PPSV23 (PNEUMOVAX) 2010-08-20 00:00:00 Completed [facility] Pneumococcal Polysaccharide, PPSV23 (PNEUMOVAX) 2010-08-20 00:00:00 Completed [facility] Pneumococcal Polysaccharide, PPSV23 (PNEUMOVAX) 2010-08-20 00:00:00 Completed [facility] Pneumococcal Polysaccharide, PPSV23 (PNEUMOVAX) 2010-08-20 00:00:00 Completed [facility] Pneumococcal Polysaccharide, PPSV23 (PNEUMOVAX) 2010-08-20 00:00:00 Completed [facility] Pneumococcal Polysaccharide, PPSV23 (PNEUMOVAX) 2010-08-20 00:00:00 Completed [facility] Pneumococcal Polysaccharide, PPSV23 (PNEUMOVAX) 2010-08-20 00:00:00 Completed [facility] Pneumococcal Polysaccharide, PPSV23 (PNEUMOVAX) 2010-08-20 00:00:00 Completed [facility] Pneumococcal Polysaccharide, PPSV23 (PNEUMOVAX) 2010-08-20 00:00:00 Completed [facility] Pneumococcal Polysaccharide, PPSV23 (PNEUMOVAX) 2010-08-20 00:00:00 Completed [facility] Pneumococcal Polysaccharide, PPSV23 (PNEUMOVAX) 2010-08-20 00:00:00 Completed [facility] Pneumococcal Polysaccharide, PPSV23 (PNEUMOVAX) 2010-08-20 00:00:00 Completed [facility] Pneumococcal Polysaccharide, PPSV23 (PNEUMOVAX) 2010-08-20 00:00:00 Completed [facility] Pneumococcal Polysaccharide, PPSV23 (PNEUMOVAX) 2010-08-20 00:00:00 Completed [facility] Pneumococcal Polysaccharide, PPSV23 (PNEUMOVAX) 2010-08-20 00:00:00 Completed [facility] Pneumococcal Polysaccharide, PPSV23 (PNEUMOVAX) 2010-08-20 00:00:00 Completed [facility] Pneumococcal Polysaccharide, PPSV23 (PNEUMOVAX) 2010-08-20 00:00:00 Completed [facility] Pneumococcal Polysaccharide, PPSV23 (PNEUMOVAX) 2010-08-20 00:00:00 Completed [facility] Pneumococcal Polysaccharide, PPSV23 (PNEUMOVAX) 2010-08-20 00:00:00 Completed [facility] Pneumococcal Polysaccharide, PPSV23 (PNEUMOVAX) 2010-08-20 00:00:00 Completed [facility] Pneumococcal Polysaccharide, PPSV23 (PNEUMOVAX) 2010-08-20 00:00:00 Completed [facility] Pneumococcal Polysaccharide, PPSV23 (PNEUMOVAX) 2010-08-20 00:00:00 Completed [facility] Pneumococcal Polysaccharide, PPSV23 (PNEUMOVAX) 2010-08-20 00:00:00 Completed [facility] Influenza Virus Vaccine 2010-08-11 00:00:00 Completed [facility] Influenza Virus Vaccine 2010-08-11 00:00:00 Completed [facility] Influenza Virus Vaccine 2010-08-11 00:00:00 Completed [facility] Influenza Virus Vaccine 2010-08-11 00:00:00 Completed [facility] Influenza Virus Vaccine 2010-08-11 00:00:00 Completed [facility] Influenza Virus Vaccine 2010-08-11 00:00:00 Completed [facility] Influenza Virus Vaccine 2010-08-11 00:00:00 Completed [facility] Influenza Virus Vaccine 2010-08-11 00:00:00 Completed [facility] Influenza Virus Vaccine 2010-08-11 00:00:00 Completed [facility] Influenza Virus Vaccine 2010-08-11 00:00:00 Completed [facility] Influenza Virus Vaccine 2010-08-11 00:00:00 Completed [facility] Influenza Virus Vaccine 2010-08-11 00:00:00 Completed [facility] Influenza Virus Vaccine 2010-08-11 00:00:00 Completed [facility] Influenza Virus Vaccine 2010-08-11 00:00:00 Completed [facility] Influenza Virus Vaccine 2010-08-11 00:00:00 Completed [facility] Influenza Virus Vaccine 2010-08-11 00:00:00 Completed [facility] Influenza Virus Vaccine 2010-08-11 00:00:00 Completed [facility] Influenza Virus Vaccine 2010-08-11 00:00:00 Completed [facility] Influenza Virus Vaccine 2010-08-11 00:00:00 Completed [facility] Influenza Virus Vaccine 2010-08-11 00:00:00 Completed [facility] Influenza Virus Vaccine 2010-08-11 00:00:00 Completed [facility] Influenza Virus Vaccine 2010-08-11 00:00:00 Completed [facility] Influenza Virus Vaccine 2010-08-11 00:00:00 Completed [facility] Influenza Virus Vaccine 2010-08-11 00:00:00 Completed [facility] Influenza Virus Vaccine 2010-08-11 00:00:00 Completed [facility] Influenza Virus Vaccine 2010-08-11 00:00:00 Completed [facility] Influenza Virus Vaccine 2010-08-11 00:00:00 Completed [facility] Influenza Virus Vaccine 2010-08-11 00:00:00 Completed [facility] Influenza Virus Vaccine 2010-08-11 00:00:00 Completed [facility] Influenza Virus Vaccine 2010-08-11 00:00:00 Completed [facility] Influenza Virus Vaccine 2010-08-11 00:00:00 Completed [facility] Influenza Virus Vaccine 2010-08-11 00:00:00 Completed [facility] Influenza Virus Vaccine 2010-08-11 00:00:00 Completed [facility] Influenza Virus Vaccine 2010-08-11 00:00:00 Completed [facility] Influenza Virus Vaccine 2010-08-11 00:00:00 Completed [facility] Influenza Virus Vaccine 2010-08-11 00:00:00 Completed [facility] Influenza Virus Vaccine 2010-08-11 00:00:00 Completed [facility] Influenza Virus Vaccine 2010-08-11 00:00:00 Completed [facility] Influenza Virus Vaccine 2010-08-11 00:00:00 Completed [facility] Influenza Virus Vaccine 2010-08-11 00:00:00 Completed [facility] Influenza Virus Vaccine Unknown Completed [facility] Pneumococcal Polysaccharide, PPSV23 (PNEUMOVAX) Unknown [facility] Influenza Virus Vaccine Quad .5 mL IM 6+ MO (FLUZONE/FLULAVAL/F LUARIX) Unknown Completed [facility] Pneumococcal Polysaccharide, PPSV23 (PNEUMOVAX) Unknown Completed [facility] TDAP Unknown Completed [facility] SARS-COV-2 COVID-19 MODERNA 12+ YRS VACCINE Unknown Completed [facility] Influenza Virus Vaccine Quad IM, Preserv and ABX Free 6 MO-64 YRS (FLUCELVAX) Unknown Completed [facility] SARS-COV-2 COVID-19 MODERNA 0.25ML BOOSTER VACCINE Unknown Completed [facility] Influenza Virus Vaccine Unknown Completed [facility] Pneumococcal Polysaccharide, PPSV23 (PNEUMOVAX) Unknown [facility] Vaccine Quad .5 mL IM 6+ MO (FLUZONE/FLULAVAL/F LUARIX) Unknown Completed [facility] Pneumococcal Polysaccharide, PPSV23 (PNEUMOVAX) Unknown [facility]pleted [facility] TDAP Unknown Completed [facility] SARS-COV-2 COVID-19 MODERNA 12+ YRS VACCINE Unknown Completed [facility] Influenza Virus Vaccine Quad IM, Preserv and ABX Free 6 MO-64 YRS (FLUCELVAX) Unknown Completed [facility] SARS-COV-2 COVID-19 MODERNA 0.25ML BOOSTER VACCINE Unknown Completed [facility] Influenza Virus Vaccine Unknown Completed [facility] Pneumococcal Polysaccharide, PPSV23 (PNEUMOVAX) Unknown Completed [facility] Influenza Virus Vaccine Quad .5 mL IM 6+ MO (FLUZONE/FLULAVAL/F LUARIX) Unknown Completed [facility] Pneumococcal Polysaccharide, PPSV23 (PNEUMOVAX) Unknown Completed [facility] TDAP Unknown Completed [facility] SARS-COV-2 COVID-19 MODERNA 12+ YRS VACCINE Unknown Completed [facility] Influenza Virus Vaccine Quad IM, Preserv and ABX Free 6 MO-64 YRS (FLUCELVAX) Unknown Completed [facility] SARS-COV-2 COVID-19 MODERNA 0.25ML BOOSTER VACCINE Unknown Completed [facility] Influenza Virus Vaccine Unknown Completed [facility] Pneumococcal Polysaccharide, PPSV23 (PNEUMOVAX) Unknown Completed [facility] Influenza Virus Vaccine Quad .5 mL IM 6+ MO (FLUZONE/FLULAVAL/F LUARIX) Unknown Completed [facility] Pneumococcal Polysaccharide, PPSV23 (PNEUMOVAX) Unknown Completed [facility] TDAP Unknown Completed [facility] SARS-COV-2 COVID-19 MODERNA 12+ YRS VACCINE Unknown Completed [facility] Influenza Virus Vaccine Quad IM, Preserv and ABX Free 6 MO-64 YRS (FLUCELVAX) Unknown Completed [facility] Influenza Virus Vaccine Unknown Completed [facility] Pneumococcal Polysaccharide, PPSV23 (PNEUMOVAX) Unknown Completed [facility] Influenza Virus Vaccine Quad .5 mL IM 6+ MO (FLUZONE/FLULAVAL/F LUARIX) Unknown Completed [facility] Pneumococcal Polysaccharide, PPSV23 (PNEUMOVAX) Unknown Completed [facility] TDAP Unknown Completed [facility] Influenza Virus Vaccine Unknown Completed [facility] Pneumococcal Polysaccharide, PPSV23 (PNEUMOVAX) Unknown Completed [facility] Influenza Virus Vaccine Unknown Completed [facility] Pneumococcal Polysaccharide, PPSV23 (PNEUMOVAX) Unknown Completed [facility] Influenza Virus Vaccine Quad .5 mL IM 6+ MO (FLUZONE/FLULAVAL/F LUARIX) Unknown Completed [facility] Pneumococcal Polysaccharide, PPSV23 (PNEUMOVAX) Unknown Completed [facility] TDAP Unknown Completed [facility] SARS-COV-2 COVID-19 MODERNA 12+ YRS VACCINE Unknown Completed [facility] Influenza Virus Vaccine Quad IM, Preserv and ABX Free 6 MO-64 YRS (FLUCELVAX) Unknown Completed [facility] SARS-COV-2 COVID-19 MODERNA 0.25ML BOOSTER VACCINE Unknown Completed [facility] SARS-COV-2 COVID-19 VACCINE 12 YRS+, BIVALENT 0.5ML, IM, (MODERNA-BLUE TOP) Unknown Com[facility] Influenza Virus Vaccine Unknown Completed [facility] Pneumococcal Polysaccharide, PPSV23 (PNEUMOVAX) Unknown Completed [facility] Influenza Virus Vaccine Quad .5 mL IM 6+ MO (FLUZONE/FLULAVAL/F LUARIX) Unknown Completed [facility] Pneumococcal Polysaccharide, PPSV23 (PNEUMOVAX) Unknown Completed [facility] TDAP Unknown Completed [facility] SARS-COV-2 COVID-19 MODERNA 12+ YRS VACCINE Unknown Completed [facility] Influenza Virus Vaccine Quad IM, Preserv and ABX Free 6 MO-64 YRS (FLUCELVAX) Unknown Completed [facility] SARS-COV-2 COVID-19 MODERNA 0.25ML BOOSTER VACCINE Unknown Completed [facility] SARS-COV-2 COVID-19 VACCINE 12 YRS+, BIVALENT 0.5ML, IM, (MODERNA-BLUE TOP) Unknown [facility] Influenza Virus Vaccine Unknown Completed [facility] Pneumococcal Polysaccharide, PPSV23 (PNEUMOVAX) Unknown Completed [facility] Influenza Virus Vaccine Quad .5 mL IM 6+ MO (FLUZONE/FLULAVAL/F LUARIX) Unknown Completed [facility] TDAP Unknown Completed [facility] SARS-COV-2 COVID-19 VACCINE 12 YRS+, BIVALENT 0.5ML, IM, (MODERNA-BLUE TOP) Unknown Completed [facility] Pneumococcal Polysaccharide, PPSV23 (PNEUMOVAX) Unknown Completed [facility] SARS-COV-2 COVID-19 MODERNA 12+ YRS VACCINE Unknown Completed [facility] Influenza Virus Vaccine Quad IM, Preserv and ABX Free 6 MO-64 YRS (FLUCELVAX) Unknown Completed [facility] SARS-COV-2 COVID-19 MODERNA 0.25ML BOOSTER VACCINE Unknown Completed [facility] Influenza Virus Vaccine Unknown Completed [facility] Pneumococcal Polysaccharide, PPSV23 (PNEUMOVAX) Unknown Completed [facility] Influenza Virus Vaccine Quad .5 mL IM 6+ MO (FLUZONE/FLULAVAL/F LUARIX) Unknown Completed [facility] Pneumococcal Polysaccharide, PPSV23 (PNEUMOVAX) Unknown Completed [facility] TDAP Unknown Completed [facility] SARS-COV-2 COVID-19 MODERNA 12+ YRS VACCINE Unknown Completed [facility] Influenza Virus Vaccine Quad IM, Preserv and ABX Free 6 MO-64 YRS (FLUCELVAX) Unknown Completed [facility] SARS-COV-2 COVID-19 MODERNA 0.25ML BOOSTER VACCINE Unknown Completed [facility] SARS-COV-2 COVID-19 VACCINE 12 YRS+, BIVALENT 0.5ML, IM, (MODERNA-BLUE TOP) Unknown Com[facility] Influenza Virus Vaccine Unknown Completed [facility] Pneumococcal Polysaccharide, PPSV23 (PNEUMOVAX) Unknown Completed [facility] Influenza Virus Vaccine Quad .5 mL IM 6+ MO (FLUZONE/FLULAVAL/F LUARIX) Unknown Completed [facility] Pneumococcal Polysaccharide, PPSV23 (PNEUMOVAX) Unknown Completed [facility] TDAP Unknown Completed [facility] SARS-COV-2 COVID-19 MODERNA 12+ YRS VACCINE Unknown Completed [facility] Influenza Virus Vaccine Quad IM, Preserv and ABX Free 6 MO-64 YRS (FLUCELVAX) Unknown Completed [facility] SARS-COV-2 COVID-19 MODERNA 0.25ML BOOSTER VACCINE Unknown Completed [facility] SARS-COV-2 COVID-19 VACCINE 12 YRS+, BIVALENT 0.5ML, IM, (MODERNA-BLUE TOP) Unknown Completed [facility] Influenza Virus Vaccine Unknown Completed [facility] Pneumococcal Polysaccharide, PPSV23 (PNEUMOVAX) Unknown Completed [facility] Influenza Virus Vaccine Quad .5 mL IM 6+ MO (FLUZONE/FLULAVAL/F LUARIX) Unknown Completed [facility] Pneumococcal Polysaccharide, PPSV23 (PNEUMOVAX) Unknown Completed [facility] TDAP Unknown Completed [facility] SARS-COV-2 COVID-19 MODERNA 12+ YRS VACCINE Unknown Completed [facility] Influenza Virus Vaccine Quad IM, Preserv and ABX Free 6 MO-64 YRS (FLUCELVAX) Unknown Completed [facility] SARS-COV-2 COVID-19 MODERNA 0.25ML BOOSTER VACCINE Unknown Completed [facility] SARS-COV-2 COVID-19 VACCINE 12 YRS+, BIVALENT 0.5ML, IM, (MODERNA-BLUE TOP) Unknown Com[facility] Influenza Virus Vaccine Unknown Completed [facility] Pneumococcal Polysaccharide, PPSV23 (PNEUMOVAX) Unknown Completed [facility] Influenza Virus Vaccine Quad .5 mL IM 6+ MO (FLUZONE/FLULAVAL/F LUARIX) Unknown Completed [facility] Pneumococcal Polysaccharide, PPSV23 (PNEUMOVAX) Unknown Completed [facility] TDAP Unknown Completed [facility] SARS-COV-2 COVID-19 MODERNA 12+ YRS VACCINE Unknown Completed [facility] Influenza Virus Vaccine Quad IM, Preserv and ABX Free 6 MO-64 YRS (FLUCELVAX) Unknown Completed [facility] SARS-COV-2 COVID-19 MODERNA 0.25ML BOOSTER VACCINE Unknown Completed [facility] SARS-COV-2 COVID-19 VACCINE 12 YRS+, BIVALENT 0.5ML, IM, (MODERNA-BLUE TOP) Unknown Com[facility] Influenza Virus Vaccine Unknown Completed [facility] Pneumococcal Polysaccharide, PPSV23 (PNEUMOVAX) Unknown Completed [facility] Influenza Virus Vaccine Quad .5 mL IM 6+ MO (FLUZONE/FLULAVAL/F LUARIX) Unknown Completed [facility] Pneumococcal Polysaccharide, PPSV23 (PNEUMOVAX) Unknown Completed [facility] TDAP Unknown Completed [facility] SARS-COV-2 COVID-19 MODERNA 12+ YRS VACCINE Unknown Completed [facility] Influenza Virus Vaccine Quad IM, Preserv and ABX Free 6 MO-64 YRS (FLUCELVAX) Unknown Completed [facility] SARS-COV-2 COVID-19 MODERNA 0.25ML BOOSTER VACCINE Unknown Completed [facility] SARS-COV-2 COVID-19 VACCINE 12 YRS+, BIVALENT 0.5ML, IM, (MODERNA-BLUE TOP) Unknown Completed [facility] Influenza Virus Vaccine Unknown Completed [facility] Pneumococcal Polysaccharide, PPSV23 (PNEUMOVAX) Unknown Completed [facility] Influenza Virus Vaccine Quad .5 mL IM 6+ MO (FLUZONE/FLULAVAL/F LUARIX) Unknown Completed [facility] Pneumococcal Polysaccharide, PPSV23 (PNEUMOVAX) Unknown Completed [facility] TDAP Unknown Completed [facility] SARS-COV-2 COVID-19 MODERNA 12+ YRS VACCINE Unknown Completed [facility] Influenza Virus Vaccine Quad IM, Preserv and ABX Free 6 MO-64 YRS (FLUCELVAX) Unknown Completed [facility] SARS-COV-2 COVID-19 MODERNA 0.25ML BOOSTER VACCINE Unknown Completed [facility] SARS-COV-2 COVID-19 VACCINE 12 YRS+, BIVALENT 0.5ML, IM, (MODERNA-BLUE TOP) Unknown Completed [facility] Influenza Virus Vaccine Unknown Completed [facility] Pneumococcal Polysaccharide, PPSV23 (PNEUMOVAX) Unknown Completed [facility] Influenza Virus Vaccine Quad .5 mL IM 6+ MO (FLUZONE/FLULAVAL/F LUARIX) Unknown Completed [facility] Pneumococcal Polysaccharide, PPSV23 (PNEUMOVAX) Unknown Completed [facility] TDAP Unknown Completed [facility] SARS-COV-2 COVID-19 MODERNA 12+ YRS VACCINE Unknown Completed [facility] Influenza Virus Vaccine Quad IM, Preserv and ABX Free 6 MO-64 YRS (FLUCELVAX) Unknown Completed [facility] SARS-COV-2 COVID-19 MODERNA 0.25ML BOOSTER VACCINE Unknown Completed [facility] SARS-COV-2 COVID-19 VACCINE 12 YRS+, BIVALENT 0.5ML, IM, (MODERNA-BLUE TOP) Unknown Completed [facility] Influenza Virus Vaccine Unknown Completed [facility] Pneumococcal Polysaccharide, PPSV23 (PNEUMOVAX) Unknown Completed [facility] Influenza Virus Vaccine Quad .5 mL IM 6+ MO (FLUZONE/FLULAVAL/F LUARIX) Unknown Completed [facility] Pneumococcal Polysaccharide, PPSV23 (PNEUMOVAX) Unknown Completed [facility] TDAP Unknown Completed [facility] SARS-COV-2 COVID-19 MODERNA 12+ YRS VACCINE Unknown Completed [facility] Influenza Virus Vaccine Quad IM, Preserv and ABX Free 6 MO-64 YRS (FLUCELVAX) Unknown Completed [facility] SARS-COV-2 COVID-19 MODERNA 0.25ML BOOSTER VACCINE Unknown Completed [facility] SARS-COV-2 COVID-19 VACCINE 12 YRS+, BIVALENT 0.5ML, IM, (MODERNA-BLUE TOP) Unknown Completed [facility] Influenza Virus Vaccine Unknown Completed [facility] Pneumococcal Polysaccharide, PPSV23 (PNEUMOVAX) Unknown Completed [facility] Influenza Virus Vaccine Quad .5 mL IM 6+ MO (FLUZONE/FLULAVAL/F LUARIX) Unknown Completed [facility] Pneumococcal Polysaccharide, PPSV23 (PNEUMOVAX) Unknown Completed [facility] TDAP Unknown Completed [facility] SARS-COV-2 COVID-19 MODERNA 12+ YRS VACCINE Unknown Completed [facility] Influenza Virus Vaccine Quad IM, Preserv and ABX Free 6 MO-64 YRS (FLUCELVAX) Unknown Completed [facility] SARS-COV-2 COVID-19 MODERNA 0.25ML BOOSTER VACCINE Unknown Completed [facility] SARS-COV-2 COVID-19 VACCINE 12 YRS+, BIVALENT 0.5ML, IM, (MODERNA-BLUE TOP) Unknown Completed [facility] Influenza Virus Vaccine Unknown Completed [facility] Pneumococcal Polysaccharide, PPSV23 (PNEUMOVAX) Unknown Completed [facility] Influenza Virus Vaccine Quad .5 mL IM 6+ MO (FLUZONE/FLULAVAL/F LUARIX) Unknown Completed [facility] TDAP Unknown Completed [facility] SARS-COV-2 COVID-19 VACCINE 12 YRS+, BIVALENT 0.5ML, IM, (MODERNA-BLUE TOP) Unknown Completed [facility] Influenza Virus Vaccine,quad Im,preserve Free 65+ (FLUAD) Unknown Completed [facility] Pneumococcal Polysaccharide, PPSV23 (PNEUMOVAX) Unknown Completed [facility] SARS-COV-2 COVID-19 MODERNA 12+ YRS VACCINE Unknown Completed [facility] Influenza Virus Vaccine Quad IM, Preserv and ABX Free 6 MO-64 YRS (FLUCELVAX) Unknown Completed [facility] SARS-COV-2 COVID-19 MODERNA 0.25ML BOOSTER VACCINE Unknown Completed [facility] Influenza Virus Vaccine Unknown Completed [facility] Pneumococcal Polysaccharide, PPSV23 (PNEUMOVAX) Unknown Completed [facility] Influenza Virus Vaccine Quad .5 mL IM 6+ MO (FLUZONE/FLULAVAL/F LUARIX) Unknown Completed [facility] Pneumococcal Polysaccharide, PPSV23 (PNEUMOVAX) Unknown Completed [facility] TDAP Unknown Completed [facility] SARS-COV-2 COVID-19 MODERNA 12+ YRS VACCINE Unknown Completed [facility] Influenza Virus Vaccine Quad IM, Preserv and ABX Free 6 MO-64 YRS (FLUCELVAX) Unknown Completed [facility] SARS-COV-2 COVID-19 MODERNA 0.25ML BOOSTER VACCINE Unknown Completed [facility] SARS-COV-2 COVID-19 VACCINE 12 YRS+, BIVALENT 0.5ML, IM, (MODERNA-BLUE TOP) Unknown Completed [facility] Influenza Virus Vaccine,quad Im,preserve Free 65+ (FLUAD) Unknown Completed [facility] Influenza Virus Vaccine Unknown Completed [facility] Pneumococcal Polysaccharide, PPSV23 (PNEUMOVAX) Unknown Completed [facility] Influenza Virus Vaccine Quad .5 mL IM 6+ MO (FLUZONE/FLULAVAL/F LUARIX) Unknown Completed [facility] Pneumococcal Polysaccharide, PPSV23 (PNEUMOVAX) Unknown Completed [facility] TDAP Unknown Completed [facility] SARS-COV-2 COVID-19 MODERNA 12+ YRS VACCINE Unknown Completed [facility] Influenza Virus Vaccine Quad IM, Preserv and ABX Free 6 MO-64 YRS (FLUCELVAX) Unknown Completed [facility] SARS-COV-2 COVID-19 MODERNA 0.25ML BOOSTER VACCINE Unknown Completed [facility] SARS-COV-2 COVID-19 VACCINE 12 YRS+, BIVALENT 0.5ML, IM, (MODERNA-BLUE TOP) Unknown Completed [facility] Influenza Virus Vaccine,quad Im,preserve Free 65+ (FLUAD) Unknown Completed [facility] Influenza Virus Vaccine Unknown Completed [facility] Pneumococcal Polysaccharide, PPSV23 (PNEUMOVAX) Unknown Completed [facility] Influenza Virus Vaccine Quad .5 mL IM 6+ MO (FLUZONE/FLULAVAL/F LUARIX) Unknown Completed [facility] Pneumococcal Polysaccharide, PPSV23 (PNEUMOVAX) Unknown Completed [facility] TDAP Unknown Completed [facility] SARS-COV-2 COVID-19 MODERNA 12+ YRS VACCINE Unknown Completed [facility] Influenza Virus Vaccine Quad IM, Preserv and ABX Free 6 MO-64 YRS (FLUCELVAX) Unknown Completed [facility] SARS-COV-2 COVID-19 MODERNA 0.25ML BOOSTER VACCINE Unknown Completed [facility] SARS-COV-2 COVID-19 VACCINE 12 YRS+, BIVALENT 0.5ML, IM, (MODERNA-BLUE TOP) Unknown Completed [facility] Influenza Virus Vaccine,quad Im,preserve Free 65+ (FLUAD) Unknown Completed [facility] Influenza Virus Vaccine Unknown Completed [facility] Pneumococcal Polysaccharide, PPSV23 (PNEUMOVAX) Unknown Completed [facility] Influenza Virus Vaccine Quad .5 mL IM 6+ MO (FLUZONE/FLULAVAL/F LUARIX) Unknown Completed [facility] Pneumococcal Polysaccharide, PPSV23 (PNEUMOVAX) Unknown Completed [facility] TDAP Unknown Completed [facility] SARS-COV-2 COVID-19 MODERNA 12+ YRS VACCINE Unknown Completed [facility] Influenza Virus Vaccine Quad IM, Preserv and ABX Free 6 MO-64 YRS (FLUCELVAX) Unknown Completed [facility] SARS-COV-2 COVID-19 MODERNA 0.25ML BOOSTER VACCINE Unknown Completed [facility] SARS-COV-2 COVID-19 VACCINE 12 YRS+, BIVALENT 0.5ML, IM, (MODERNA-BLUE TOP) Unknown Completed [facility] Influenza Virus Vaccine,quad Im,preserve Free 65+ (FLUAD) Unknown Completed [facility] Influenza Virus Vaccine Unknown Completed [facility] Pneumococcal Polysaccharide, PPSV23 (PNEUMOVAX) Unknown Completed [facility] Influenza Virus Vaccine Quad .5 mL IM 6+ MO (FLUZONE/FLULAVAL/F LUARIX) Unknown Completed [facility] Pneumococcal Polysaccharide, PPSV23 (PNEUMOVAX) Unknown Completed [facility] TDAP Unknown Completed [facility] SARS-COV-2 COVID-19 MODERNA 12+ YRS VACCINE Unknown Completed [facility] Influenza Virus Vaccine Quad IM, Preserv and ABX Free 6 MO-64 YRS (FLUCELVAX) Unknown Completed [facility] SARS-COV-2 COVID-19 MODERNA 0.25ML BOOSTER VACCINE Unknown Completed [facility] SARS-COV-2 COVID-19 VACCINE 12 YRS+, BIVALENT 0.5ML, IM, (MODERNA-BLUE TOP) Unknown Completed [facility] Influenza Virus Vaccine,quad Im,preserve Free 65+ (FLUAD) Unknown Completed [facility] Influenza Virus Vaccine Unknown Completed [facility] Pneumococcal Polysaccharide, PPSV23 (PNEUMOVAX) Unknown Completed [facility] Influenza Virus Vaccine Quad .5 mL IM 6+ MO (FLUZONE/FLULAVAL/F LUARIX) Unknown Completed [facility] Pneumococcal Polysaccharide, PPSV23 (PNEUMOVAX) Unknown Completed [facility] TDAP Unknown Completed [facility] SARS-COV-2 COVID-19 MODERNA 12+ YRS VACCINE Unknown Completed [facility] Influenza Virus Vaccine Quad IM, Preserv and ABX Free 6 MO-64 YRS (FLUCELVAX) Unknown Completed [facility] SARS-COV-2 COVID-19 MODERNA 0.25ML BOOSTER VACCINE Unknown Completed [facility] SARS-COV-2 COVID-19 VACCINE 12 YRS+, BIVALENT 0.5ML, IM, (MODERNA-BLUE TOP) Unknown Completed [facility] Influenza Virus Vaccine,quad Im,preserve Free 65+ (FLUAD) Unknown Completed [facility] Influenza Virus Vaccine Unknown Completed [facility] Pneumococcal Polysaccharide, PPSV23 (PNEUMOVAX) Unknown Completed [facility] Influenza Virus Vaccine Quad .5 mL IM 6+ MO (FLUZONE/FLULAVAL/F LUARIX) Unknown Completed [facility] Pneumococcal Polysaccharide, PPSV23 (PNEUMOVAX) Unknown Completed [facility] TDAP Unknown Completed [facility] SARS-COV-2 COVID-19 MODERNA 12+ YRS VACCINE Unknown Completed [facility] Influenza Virus Vaccine Quad IM, Preserv and ABX Free 6 MO-64 YRS (FLUCELVAX) Unknown Completed [facility] SARS-COV-2 COVID-19 MODERNA 0.25ML BOOSTER VACCINE Unknown Completed [facility] SARS-COV-2 COVID-19 VACCINE 12 YRS+, BIVALENT 0.5ML, IM, (MODERNA-BLUE TOP) Unknown Completed [facility] Influenza Virus Vaccine,quad Im,preserve Free 65+ (FLUAD) Unknown Completed [facility] Influenza Virus Vaccine Unknown Completed [facility] Pneumococcal Polysaccharide, PPSV23 (PNEUMOVAX) Unknown Completed [facility] Influenza Virus Vaccine Quad .5 mL IM 6+ MO (FLUZONE/FLULAVAL/F LUARIX) Unknown Completed [facility] Pneumococcal Polysaccharide, PPSV23 (PNEUMOVAX) Unknown Completed [facility] TDAP Unknown Completed [facility] SARS-COV-2 COVID-19 MODERNA 12+ YRS VACCINE Unknown Completed [facility] Influenza Virus Vaccine Quad IM, Preserv and ABX Free 6 MO-64 YRS (FLUCELVAX) Unknown Completed [facility] SARS-COV-2 COVID-19 MODERNA 0.25ML BOOSTER VACCINE Unknown Completed [facility] SARS-COV-2 COVID-19 VACCINE 12 YRS+, BIVALENT 0.5ML, IM, (MODERNA-BLUE TOP) Unknown Com[facility] Influenza Virus Vaccine,quad Im,preserve Free 65+ (FLUAD) Unknown Completed [facility] Influenza Virus Vaccine Unknown Completed [facility] Pneumococcal Polysaccharide, PPSV23 (PNEUMOVAX) Unknown Completed [facility] Influenza Virus Vaccine Quad .5 mL IM 6+ MO (FLUZONE/FLULAVAL/F LUARIX) Unknown Completed [facility] Pneumococcal Polysaccharide, PPSV23 (PNEUMOVAX) Unknown Completed [facility] TDAP Unknown Completed [facility] SARS-COV-2 COVID-19 MODERNA 12+ YRS VACCINE Unknown Completed [facility] Influenza Virus Vaccine Quad IM, Preserv and ABX Free 6 MO-64 YRS (FLUCELVAX) Unknown Completed [facility] SARS-COV-2 COVID-19 MODERNA 0.25ML BOOSTER VACCINE Unknown Completed [facility] SARS-COV-2 COVID-19 VACCINE 12 YRS+, BIVALENT 0.5ML, IM, (MODERNA-BLUE TOP) Unknown Com[facility] Influenza Virus Vaccine,quad Im,preserve Free 65+ (FLUAD) Unknown Completed [facility] Influenza Virus Vaccine Unknown Completed [facility] Pneumococcal Polysaccharide, PPSV23 (PNEUMOVAX) [facility] Vaccine Quad .5 mL IM 6+ MO (FLUZONE/FLULAVAL/F LUARIX) Unknown Completed [facility] Pneumococcal Polysaccharide, PPSV23 (PNEUMOVAX) Unknown [facility] TDAP Unknown Completed [facility] SARS-COV-2 COVID-19 MODERNA 12+ YRS VACCINE Unknown Completed [facility] Influenza Virus Vaccine Quad IM, Preserv and ABX Free 6 MO-64 YRS (FLUCELVAX) Unknown Completed [facility] SARS-COV-2 COVID-19 MODERNA 0.25ML BOOSTER VACCINE Unknown Completed [facility] SARS-COV-2 COVID-19 VACCINE 12 YRS+, BIVALENT 0.5ML, IM, (MODERNA-BLUE TOP) Unknown [facility] Influ[facility] Vaccine,quad Im,preserve Free 65+ (FLUAD) Unknown Completed [facility] Influenza Virus Vaccine Unknown Completed [facility] Pneumococcal Polysaccharide, PPSV23 (PNEUMOVAX) Unknown [facility] Influenza Virus Vaccine Quad .5 mL IM 6+ MO (FLUZONE/FLULAVAL/F LUARIX) Unknown Completed [facility] Pneumococcal Polysaccharide, PPSV23 (PNEUMOVAX) Unknown [facility] TDAP Unknown Completed [facility] SARS-COV-2 COVID-19 MODERNA 12+ YRS VACCINE Unknown Completed [facility] Influenza Virus Vaccine Quad IM, Preserv and ABX Free 6 MO-64 YRS (FLUCELVAX) Unknown Completed [facility] SARS-COV-2 COVID-19 MODERNA 0.25ML BOOSTER VACCINE Unknown Completed [facility] SARS-COV-2 COVID-19 VACCINE 12 YRS+, BIVALENT 0.5ML, IM, (MODERNA-BLUE TOP) Unknown [facility] Influ[facility] Virus Vaccine,quad Im,preserve Free 65+ (FLUAD) Unknown Completed [facility] Influenza Virus Vaccine Unknown Completed [facility] Pneumococcal Polysaccharide, PPSV23 (PNEUMOVAX) Unknown [facility] Influenza Virus Vaccine Quad .5 mL IM 6+ MO (FLUZONE/FLULAVAL/F LUARIX) Unknown Completed [facility] Pneumococcal Polysaccharide, PPSV23 (PNEUMOVAX) Unknown [facility] TDAP Unknown Completed [facility] SARS-COV-2 COVID-19 MODERNA 12+ YRS VACCINE Unknown Completed [facility] Influenza Virus Vaccine Quad IM, Preserv and ABX Free 6 MO-64 YRS (FLUCELVAX) Unknown Completed [facility] SARS-COV-2 COVID-19 MODERNA 0.25ML BOOSTER VACCINE Unknown Completed [facility] SARS-COV-2 COVID-19 VACCINE 12 YRS+, BIVALENT 0.5ML, IM, (MODERNA-BLUE TOP) Unknown [facility] Influenza Virus Vaccine,quad Im,preserve Free 65+ (FLUAD) Unknown Completed [facility] Influenza Virus Vaccine Unknown Completed [facility] Pneumococcal Polysaccharide, PPSV23 (PNEUMOVAX) Unknown Com[facility] Influenza Virus Vaccine Quad .5 mL IM 6+ MO (FLUZONE/FLULAVAL/F LUARIX) Unknown Completed [facility] Pneumococcal Polysaccharide, PPSV23 (PNEUMOVAX) Unknown [facility] TDAP Unknown Completed [facility] SARS-COV-2 COVID-19 MODERNA 12+ YRS VACCINE Unknown Completed [facility] Influenza Virus Vaccine Quad IM, Preserv and ABX Free 6 MO-64 YRS (FLUCELVAX) Unknown Completed [facility] SARS-COV-2 COVID-19 MODERNA 0.25ML BOOSTER VACCINE Unknown Completed [facility] SARS-COV-2 COVID-19 VACCINE 12 YRS+, BIVALENT 0.5ML, IM, (MODERNA-BLUE TOP) Unknown [facility] Influenza Virus Vaccine,quad Im,preserve Free 65+ (FLUAD) Unknown Completed [facility] Influenza Virus Vaccine Unknown Completed [facility] Pneumococcal Polysaccharide, PPSV23 (PNEUMOVAX) Unknown [facility] Influenza Virus Vaccine Quad .5 mL IM 6+ MO (FLUZONE/FLULAVAL/F LUARIX) Unknown Completed [facility] TDAP Unknown Completed [facility] SARS-COV-2 COVID-19 VACCINE 12 YRS+, BIVALENT 0.5ML, IM, (MODERNA-BLUE TOP) Unknown [facility] Influenza Virus Vaccine,quad Im,preserve Free 65+ (FLUAD) Unknown Completed [facility] Pneumococcal Polysaccharide, PPSV23 (PNEUMOVAX) Unknown [facility] SARS-COV-2 COVID-19 MODERNA 12+ YRS VACCINE Unknown Completed [facility] Influenza Virus Vaccine Quad IM, Preserv and ABX Free 6 MO-64 YRS (FLUCELVAX) Unknown Completed [facility] SARS-COV-2 COVID-19 MODERNA 0.25ML BOOSTER VACCINE Unknown Completed [facility] Influenza Virus Vaccine Unknown Completed [facility] Pneumococcal Polysaccharide, PPSV23 (PNEUMOVAX) Unknown [facility] Influenza Virus Vaccine Quad .5 mL IM 6+ MO (FLUZONE/FLULAVAL/F LUARIX) Unknown Completed [facility] Pneumococcal Polysaccharide, PPSV23 (PNEUMOVAX) Unknown [facility] TDAP Unknown Completed [facility] SARS-COV-2 COVID-19 MODERNA 12+ YRS VACCINE Unknown Completed [facility] Influenza Virus Vaccine Quad IM, Preserv and ABX Free 6 MO-64 YRS (FLUCELVAX) Unknown Completed [facility] SARS-COV-2 COVID-19 MODERNA 0.25ML BOOSTER VACCINE Unknown Completed [facility] SARS-COV-2 COVID-19 VACCINE 12 YRS+, BIVALENT 0.5ML, IM, (MODERNA-BLUE TOP) Unknown [facility] Influenza Virus Vaccine,quad Im,preserve Free 65+ (FLUAD) Unknown Completed [facility] Influenza Virus Vaccine Unknown Completed [facility] Pneumococcal Polysaccharide, PPSV23 (PNEUMOVAX) Unknown Com[facility] Influenza Virus Vaccine Quad .5 mL IM 6+ MO (FLUZONE/FLULAVAL/F LUARIX) Unknown Completed [facility] Pneumococcal Polysaccharide, PPSV23 (PNEUMOVAX) Unknown [facility] TDAP Unknown Completed [facility] SARS-COV-2 COVID-19 MODERNA 12+ YRS VACCINE Unknown Completed [facility] Influenza Virus Vaccine Quad IM, Preserv and ABX Free 6 MO-64 YRS (FLUCELVAX) Unknown Completed [facility] SARS-COV-2 COVID-19 MODERNA 0.25ML BOOSTER VACCINE Unknown Completed [facility] SARS-COV-2 COVID-19 VACCINE 12 YRS+, BIVALENT 0.5ML, IM, (MODERNA-BLUE TOP) Unknown [facility] Influenza Virus Vaccine,quad Im,preserve Free 65+ (FLUAD) Unknown Completed [facility] Influenza Virus Vaccine Unknown Completed [facility] Pneumococcal Polysaccharide, PPSV23 (PNEUMOVAX) Unknown Completed [facility] Influenza Virus Vaccine Quad .5 mL IM 6+ MO (FLUZONE/FLULAVAL/F LUARIX) Unknown Completed [facility] Pneumococcal Polysaccharide, PPSV23 (PNEUMOVAX) Unknown [facility] TDAP Unknown Completed [facility] SARS-COV-2 COVID-19 MODERNA 12+ YRS VACCINE Unknown Completed [facility] Influenza Virus Vaccine Quad IM, Preserv and ABX Free 6 MO-64 YRS (FLUCELVAX) Unknown Completed [facility] SARS-COV-2 COVID-19 MODERNA 0.25ML BOOSTER VACCINE Unknown Completed [facility] SARS-COV-2 COVID-19 VACCINE 12 YRS+, BIVALENT 0.5ML, IM, (MODERNA-BLUE TOP) Unknown [facility] Influenza Virus Vaccine,quad Im,preserve Free 65+ (FLUAD) Unknown Completed [facility] Influenza Virus Vaccine Unknown Completed [facility] Pneumococcal Polysaccharide, PPSV23 (PNEUMOVAX) Unknown Com[facility] Influenza Virus Vaccine Quad .5 mL IM 6+ MO (FLUZONE/FLULAVAL/F LUARIX) Unknown Completed [facility] Pneumococcal Polysaccharide, PPSV23 (PNEUMOVAX) Unknown [facility] TDAP Unknown Completed [facility] SARS-COV-2 COVID-19 MODERNA 12+ YRS VACCINE Unknown Completed [facility] Influenza Virus Vaccine Quad IM, Preserv and ABX Free 6 MO-64 YRS (FLUCELVAX) Unknown Completed [facility] SARS-COV-2 COVID-19 MODERNA 0.25ML BOOSTER VACCINE Unknown Completed [facility] SARS-COV-2 COVID-19 VACCINE 12 YRS+, BIVALENT 0.5ML, IM, (MODERNA-BLUE TOP) Unknown [facility] Influenza Virus Vaccine,quad Im,preserve Free 65+ (FLUAD) Unknown Completed [facility] Influenza Virus Vaccine Unknown Completed [facility] Pneumococcal Polysaccharide, PPSV23 (PNEUMOVAX) Unknown Completed [facility] Influenza Virus Vaccine Quad .5 mL IM 6+ MO (FLUZONE/FLULAVAL/F LUARIX) Unknown Completed [facility] Pneumococcal Polysaccharide, PPSV23 (PNEUMOVAX) Unknown Completed [facility] TDAP Unknown Completed [facility] SARS-COV-2 COVID-19 MODERNA 12+ YRS VACCINE Unknown Completed [facility] Influenza Virus Vaccine Quad IM, Preserv and ABX Free 6 MO-64 YRS (FLUCELVAX) Unknown Completed [facility] SARS-COV-2 COVID-19 MODERNA 0.25ML BOOSTER VACCINE Unknown Completed [facility] SARS-COV-2 COVID-19 VACCINE 12 YRS+, BIVALENT 0.5ML, IM, (MODERNA-BLUE TOP) Unknown [facility] Influenza Virus Vaccine,quad Im,preserve Free 65+ (FLUAD) Unknown Completed [facility] Influenza Virus Vaccine Unknown Completed [facility] Pneumococcal Polysaccharide, PPSV23 (PNEUMOVAX) Unknown Completed [facility] Influenza Virus Vaccine Quad .5 mL IM 6+ MO (FLUZONE/FLULAVAL/F LUARIX) Unknown Completed [facility] Pneumococcal Polysaccharide, PPSV23 (PNEUMOVAX) Unknown Completed [facility] TDAP Unknown Completed [facility] SARS-COV-2 COVID-19 MODERNA 12+ YRS VACCINE Unknown Completed [facility] Influenza Virus Vaccine Quad IM, Preserv and ABX Free 6 MO-64 YRS (FLUCELVAX) Unknown Completed [facility] SARS-COV-2 COVID-19 MODERNA 0.25ML BOOSTER VACCINE Unknown Completed [facility] SARS-COV-2 COVID-19 VACCINE 12 YRS+, BIVALENT 0.5ML, IM, (MODERNA-BLUE TOP) Unknown [facility] Influenza Virus Vaccine,quad Im,preserve Free 65+ (FLUAD) Unknown Completed [facility] Influenza Virus Vaccine Unknown Completed [facility] Pneumococcal Polysaccharide, PPSV23 (PNEUMOVAX) Unknown Completed [facility] Influenza Virus Vaccine Quad .5 mL IM 6+ MO (FLUZONE/FLULAVAL/F LUARIX) Unknown Completed [facility] Pneumococcal Polysaccharide, PPSV23 (PNEUMOVAX) Unknown Completed [facility] TDAP Unknown Completed [facility] SARS-COV-2 COVID-19 MODERNA 12+ YRS VACCINE Unknown Completed [facility] Influenza Virus Vaccine Quad IM, Preserv and ABX Free 6 MO-64 YRS (FLUCELVAX) Unknown Completed [facility] SARS-COV-2 COVID-19 MODERNA 0.25ML BOOSTER VACCINE Unknown Completed [facility] SARS-COV-2 COVID-19 VACCINE 12 YRS+, BIVALENT 0.5ML, IM, (MODERNA-BLUE TOP) Unknown Com[facility] Influenza Virus Vaccine,quad Im,preserve Free 65+ (FLUAD) Unknown Completed [facility] Influenza Virus Vaccine Unknown Completed [facility] Pneumococcal Polysaccharide, PPSV23 (PNEUMOVAX) Unknown Completed [facility] Influenza Virus Vaccine Quad .5 mL IM 6+ MO (FLUZONE/FLULAVAL/F LUARIX) Unknown Completed [facility] Pneumococcal Polysaccharide, PPSV23 (PNEUMOVAX) Unknown Completed [facility] TDAP Unknown Completed [facility] SARS-COV-2 COVID-19 MODERNA 12+ YRS VACCINE Unknown Completed [facility] Influenza Virus Vaccine Quad IM, Preserv and ABX Free 6 MO-64 YRS (FLUCELVAX) Unknown Completed [facility] SARS-COV-2 COVID-19 MODERNA 0.25ML BOOSTER VACCINE Unknown Completed [facility] SARS-COV-2 COVID-19 VACCINE 12 YRS+, BIVALENT 0.5ML, IM, (MODERNA-BLUE TOP) Unknown Completed [facility] Influenza Virus Vaccine,quad Im,preserve Free 65+ (FLUAD) Unknown Completed [facility] Influenza Virus Vaccine Unknown Completed [facility] Pneumococcal Polysaccharide, PPSV23 (PNEUMOVAX) Unknown Completed [facility] Influenza Virus Vaccine Quad .5 mL IM 6+ MO (FLUZONE/FLULAVAL/F LUARIX) Unknown Completed [facility] Pneumococcal Polysaccharide, PPSV23 (PNEUMOVAX) Unknown Completed [facility] TDAP Unknown Completed [facility] SARS-COV-2 COVID-19 MODERNA 12+ YRS VACCINE Unknown Completed [facility] Influenza Virus Vaccine Quad IM, Preserv and ABX Free 6 MO-64 YRS (FLUCELVAX) Unknown Completed [facility] SARS-COV-2 COVID-19 MODERNA 0.25ML BOOSTER VACCINE Unknown Completed [facility] SARS-COV-2 COVID-19 VACCINE 12 YRS+, BIVALENT 0.5ML, IM, (MODERNA-BLUE TOP) Unknown Completed [facility] Influenza Virus Vaccine,quad Im,preserve Free 65+ (FLUAD) Unknown Completed [facility] Influenza Virus Vaccine Unknown Completed [facility] Pneumococcal Polysaccharide, PPSV23 (PNEUMOVAX) Unknown Completed [facility] Influenza Virus Vaccine Quad .5 mL IM 6+ MO (FLUZONE/FLULAVAL/F LUARIX) Unknown Completed [facility] Pneumococcal Polysaccharide, PPSV23 (PNEUMOVAX) Unknown Completed [facility] TDAP Unknown Completed [facility] SARS-COV-2 COVID-19 MODERNA 12+ YRS VACCINE Unknown Completed [facility] Influenza Virus Vaccine Quad IM, Preserv and ABX Free 6 MO-64 YRS (FLUCELVAX) Unknown Completed [facility] SARS-COV-2 COVID-19 MODERNA 0.25ML BOOSTER VACCINE Unknown Completed [facility] SARS-COV-2 COVID-19 VACCINE 12 YRS+, BIVALENT 0.5ML, IM, (MODERNA-BLUE TOP) Unknown Completed [facility] Influenza Virus Vaccine,quad Im,preserve Free 65+ (FLUAD) Unknown Completed [facility] Influenza Virus Vaccine Unknown Completed [facility] Pneumococcal Polysaccharide, PPSV23 (PNEUMOVAX) Unknown Completed [facility] Influenza Virus Vaccine Quad .5 mL IM 6+ MO (FLUZONE/FLULAVAL/F LUARIX) Unknown Completed [facility] Pneumococcal Polysaccharide, PPSV23 (PNEUMOVAX) Unknown Completed [facility] TDAP Unknown Completed [facility] SARS-COV-2 COVID-19 MODERNA 12+ YRS VACCINE Unknown Completed [facility] Influenza Virus Vaccine Quad IM, Preserv and ABX Free 6 MO-64 YRS (FLUCELVAX) Unknown Completed [facility] SARS-COV-2 COVID-19 MODERNA 0.25ML BOOSTER VACCINE Unknown Completed [facility] SARS-COV-2 COVID-19 VACCINE 12 YRS+, BIVALENT 0.5ML, IM, (MODERNA-BLUE TOP) Unknown Completed [facility] Influenza Virus Vaccine,quad Im,preserve Free 65+ (FLUAD) Unknown Completed [facility] Influenza Virus Vaccine Unknown Completed [facility] Pneumococcal Polysaccharide, PPSV23 (PNEUMOVAX) Unknown Completed [facility] Influenza Virus Vaccine Quad .5 mL IM 6+ MO (FLUZONE/FLULAVAL/F LUARIX) Unknown Completed [facility] Pneumococcal Polysaccharide, PPSV23 (PNEUMOVAX) Unknown Completed [facility] TDAP Unknown Completed [facility] SARS-COV-2 COVID-19 MODERNA 12+ YRS VACCINE Unknown Completed [facility] Influenza Virus Vaccine Quad IM, Preserv and ABX Free 6 MO-64 YRS (FLUCELVAX) Unknown Completed [facility] SARS-COV-2 COVID-19 MODERNA 0.25ML BOOSTER VACCINE Unknown Completed [facility] SARS-COV-2 COVID-19 VACCINE 12 YRS+, BIVALENT 0.5ML, IM, (MODERNA-BLUE TOP) Unknown Com[facility] Influenza Virus Vaccine,quad Im,preserve Free 65+ (FLUAD) Unknown Completed [facility] Influenza Virus Vaccine Unknown Completed [facility] Pneumococcal Polysaccharide, PPSV23 (PNEUMOVAX) Unknown Completed [facility] Influenza Virus Vaccine Quad .5 mL IM 6+ MO (FLUZONE/FLULAVAL/F LUARIX) Unknown Completed [facility] Pneumococcal Polysaccharide, PPSV23 (PNEUMOVAX) Unknown Completed [facility] TDAP Unknown Completed [facility] SARS-COV-2 COVID-19 MODERNA 12+ YRS VACCINE Unknown Completed [facility] Influenza Virus Vaccine Quad IM, Preserv and ABX Free 6 MO-64 YRS (FLUCELVAX) Unknown Completed [facility] SARS-COV-2 COVID-19 MODERNA 0.25ML BOOSTER VACCINE Unknown Completed [facility] SARS-COV-2 COVID-19 VACCINE 12 YRS+, BIVALENT 0.5ML, IM, (MODERNA-BLUE TOP) Unknown Com[facility] Influenza Virus Vaccine,quad Im,preserve Free 65+ (FLUAD) Unknown Completed [facility] Influenza Virus Vaccine Unknown Completed [facility] Pneumococcal Polysaccharide, PPSV23 (PNEUMOVAX) Unknown Completed [facility] Influenza Virus Vaccine Quad .5 mL IM 6+ MO (FLUZONE/FLULAVAL/F LUARIX) Unknown Completed [facility] Pneumococcal Polysaccharide, PPSV23 (PNEUMOVAX) Unknown Completed [facility] TDAP Unknown Completed [facility] SARS-COV-2 COVID-19 MODERNA 12+ YRS VACCINE Unknown Completed [facility] Influenza Virus Vaccine Quad IM, Preserv and ABX Free 6 MO-64 YRS (FLUCELVAX) Unknown Completed [facility] SARS-COV-2 COVID-19 MODERNA 0.25ML BOOSTER VACCINE Unknown Completed [facility] SARS-COV-2 COVID-19 VACCINE 12 YRS+, BIVALENT 0.5ML, IM, (MODERNA-BLUE TOP) Unknown Com[facility] Influenza Virus Vaccine,quad Im,preserve Free 65+ (FLUAD) Unknown Completed [facility] Influenza Virus Vaccine Unknown Completed [facility] Pneumococcal Polysaccharide, PPSV23 (PNEUMOVAX) Unknown Completed [facility] Influenza Virus Vaccine Quad .5 mL IM 6+ MO (FLUZONE/FLULAVAL/F LUARIX) Unknown Completed [facility] Pneumococcal Polysaccharide, PPSV23 (PNEUMOVAX) Unknown Completed [facility] TDAP Unknown Completed [facility] SARS-COV-2 COVID-19 MODERNA 12+ YRS VACCINE Unknown Completed [facility] Influenza Virus Vaccine Quad IM, Preserv and ABX Free 6 MO-64 YRS (FLUCELVAX) Unknown Completed [facility] SARS-COV-2 COVID-19 MODERNA 0.25ML BOOSTER VACCINE Unknown Completed [facility] SARS-COV-2 COVID-19 VACCINE 12 YRS+, BIVALENT 0.5ML, IM, (MODERNA-BLUE TOP) Unknown Com[facility] Influenza Virus Vaccine,quad Im,preserve Free 65+ (FLUAD) Unknown Completed [facility] Influenza Virus Vaccine Unknown Completed [facility] Pneumococcal Polysaccharide, PPSV23 (PNEUMOVAX) Unknown Completed [facility] Influenza Virus Vaccine Quad .5 mL IM 6+ MO (FLUZONE/FLULAVAL/F LUARIX) Unknown Completed [facility] Pneumococcal Polysaccharide, PPSV23 (PNEUMOVAX) Unknown Completed [facility] TDAP Unknown Completed [facility] SARS-COV-2 COVID-19 MODERNA 12+ YRS VACCINE Unknown Completed [facility] Influenza Virus Vaccine Quad IM, Preserv and ABX Free 6 MO-64 YRS (FLUCELVAX) Unknown Completed [facility] SARS-COV-2 COVID-19 MODERNA 0.25ML BOOSTER VACCINE Unknown Completed [facility] SARS-COV-2 COVID-19 VACCINE 12 YRS+, BIVALENT 0.5ML, IM, (MODERNA-BLUE TOP) Unknown Com[facility] Influenza Virus Vaccine,quad Im,preserve Free 65+ (FLUAD) Unknown Completed [facility] Influenza Virus Vaccine Unknown Completed [facility] Pneumococcal Polysaccharide, PPSV23 (PNEUMOVAX) Unknown Completed [facility] Influenza Virus Vaccine Quad .5 mL IM 6+ MO (FLUZONE/FLULAVAL/F LUARIX) Unknown Completed [facility] Pneumococcal Polysaccharide, PPSV23 (PNEUMOVAX) Unknown Completed [facility] TDAP Unknown Completed [facility] SARS-COV-2 COVID-19 MODERNA 12+ YRS VACCINE Unknown Completed [facility] Influenza Virus Vaccine Quad IM, Preserv and ABX Free 6 MO-64 YRS (FLUCELVAX) Unknown Completed [facility] SARS-COV-2 COVID-19 MODERNA 0.25ML BOOSTER VACCINE Unknown Completed [facility] SARS-COV-2 COVID-19 VACCINE 12 YRS+, BIVALENT 0.5ML, IM, (MODERNA-BLUE TOP) Unknown Com[facility] Influenza Virus Vaccine,quad Im,preserve Free 65+ (FLUAD) Unknown Completed [facility] Influenza Virus Vaccine Unknown Completed [facility] Pneumococcal Polysaccharide, PPSV23 (PNEUMOVAX) Unknown Completed [facility] Influenza Virus Vaccine Quad .5 mL IM 6+ MO (FLUZONE/FLULAVAL/F LUARIX) Unknown Completed [facility] Pneumococcal Polysaccharide, PPSV23 (PNEUMOVAX) Unknown Completed [facility] TDAP Unknown Completed [facility] SARS-COV-2 COVID-19 MODERNA 12+ YRS VACCINE Unknown Completed [facility] Influenza Virus Vaccine Quad IM, Preserv and ABX Free 6 MO-64 YRS (FLUCELVAX) Unknown Completed [facility] SARS-COV-2 COVID-19 MODERNA 0.25ML BOOSTER VACCINE Unknown Completed [facility] SARS-COV-2 COVID-19 VACCINE 12 YRS+, BIVALENT 0.5ML, IM, (MODERNA-BLUE TOP) Unknown [facility] Influenza Virus Vaccine,quad Im,preserve Free 65+ (FLUAD) Unknown Completed [facility] Influenza Virus Vaccine Unknown Completed [facility] Pneumococcal Polysaccharide, PPSV23 (PNEUMOVAX) Unknown Completed [facility] Influenza Virus Vaccine Quad .5 mL IM 6+ MO (FLUZONE/FLULAVAL/F LUARIX) Unknown Completed [facility] Pneumococcal Polysaccharide, PPSV23 (PNEUMOVAX) Unknown Com[facility] TDAP Unknown Completed [facility] SARS-COV-2 COVID-19 MODERNA 12+ YRS VACCINE Unknown Completed [facility] Influenza Virus Vaccine Quad IM, Preserv and ABX Free 6 MO-64 YRS (FLUCELVAX) Unknown Completed [facility] SARS-COV-2 COVID-19 MODERNA 0.25ML BOOSTER VACCINE Unknown Completed [facility] [facility] SARS-COV-2 COVID-19 VACCINE 12 YRS+, BIVALENT 0.5ML, IM, (MODERNA-BLUE TOP) Unknown [facility] Influ[facility] Virus Vaccine,quad Im,preserve Free 65+ (FLUAD) Unknown Completed [facility] Influenza Virus Vaccine Unknown Completed [facility] Pneumococcal Polysaccharide, PPSV23 (PNEUMOVAX) Unknown [facility] Influenza Virus Vaccine Quad .5 mL IM 6+ MO (FLUZONE/FLULAVAL/F LUARIX) Unknown Completed [facility] Pneumococcal Polysaccharide, PPSV23 (PNEUMOVAX) Unknown [facility]pleted [facility] TDAP Unknown Completed [facility] SARS-COV-2 COVID-19 MODERNA 12+ YRS VACCINE Unknown Completed [facility] Influenza Virus Vaccine Quad IM, Preserv and ABX Free 6 MO-64 YRS (FLUCELVAX) Unknown Completed [facility] SARS-COV-2 COVID-19 MODERNA 0.25ML BOOSTER VACCINE Unknown Completed [facility] SARS-COV-2 COVID-19 VACCINE 12 YRS+, BIVALENT 0.5ML, IM, (MODERNA-BLUE TOP) Unknown [facility] Influ[facility] Virus Vaccine,quad Im,preserve Free 65+ (FLUAD) Unknown Completed [facility] Influenza Virus Vaccine Unknown Completed [facility] Pneumococcal Polysaccharide, PPSV23 (PNEUMOVAX) Unknown Completed [facility] Influenza Virus Vaccine Quad .5 mL IM 6+ MO (FLUZONE/FLULAVAL/F LUARIX) Unknown Completed [facility] Pneumococcal Polysaccharide, PPSV23 (PNEUMOVAX) Unknown [facility]pleted [facility] TDAP Unknown Completed [facility] SARS-COV-2 COVID-19 MODERNA 12+ YRS VACCINE Unknown Completed [facility] Influenza Virus Vaccine Quad IM, Preserv and ABX Free 6 MO-64 YRS (FLUCELVAX) Unknown Completed [facility] SARS-COV-2 COVID-19 MODERNA 0.25ML BOOSTER VACCINE Unknown Completed [facility] SARS-COV-2 COVID-19 VACCINE 12 YRS+, BIVALENT 0.5ML, IM, (MODERNA-BLUE TOP) Unknown [facility] Influenza Virus Vaccine,quad Im,preserve Free 65+ (FLUAD) Unknown Completed [facility] Influenza Virus Vaccine Unknown Completed [facility] Pneumococcal Polysaccharide, PPSV23 (PNEUMOVAX) Unknown Com[facility] Influenza Virus Vaccine Quad .5 mL IM 6+ MO (FLUZONE/FLULAVAL/F LUARIX) Unknown Completed [facility] Pneumococcal Polysaccharide, PPSV23 (PNEUMOVAX) Unknown Completed [facility] TDAP Unknown Completed [facility] SARS-COV-2 COVID-19 MODERNA 12+ YRS VACCINE Unknown Completed [facility] Influenza Virus Vaccine Quad IM, Preserv and ABX Free 6 MO-64 YRS (FLUCELVAX) Unknown Completed [facility] SARS-COV-2 COVID-19 MODERNA 0.25ML BOOSTER VACCINE Unknown Completed [facility] SARS-COV-2 COVID-19 VACCINE 12 YRS+, BIVALENT 0.5ML, IM, (MODERNA-BLUE TOP) Unknown [facility] Influenza Virus Vaccine,quad Im,preserve Free 65+ (FLUAD) Unknown Completed [facility] Influenza Virus Vaccine Unknown Completed [facility] Pneumococcal Polysaccharide, PPSV23 (PNEUMOVAX) Unknown Com[facility] Influenza Virus Vaccine Quad .5 mL IM 6+ MO (FLUZONE/FLULAVAL/F LUARIX) Unknown Completed [facility] Pneumococcal Polysaccharide, PPSV23 (PNEUMOVAX) Unknown Completed [facility] TDAP Unknown Completed [facility] SARS-COV-2 COVID-19 MODERNA 12+ YRS VACCINE Unknown Completed [facility] Influenza Virus Vaccine Quad IM, Preserv and ABX Free 6 MO-64 YRS (FLUCELVAX) Unknown Completed [facility] SARS-COV-2 COVID-19 MODERNA 0.25ML BOOSTER VACCINE Unknown Completed [facility] SARS-COV-2 COVID-19 VACCINE 12 YRS+, BIVALENT 0.5ML, IM, (MODERNA-BLUE TOP) Unknown [facility] Influenza Virus Vaccine,quad Im,preserve Free 65+ (FLUAD) Unknown Completed [facility] Influenza Virus Vaccine Unknown Completed [facility] Pneumococcal Polysaccharide, PPSV23 (PNEUMOVAX) Unknown [facility] Influenza Virus Vaccine Quad .5 mL IM 6+ MO (FLUZONE/FLULAVAL/F LUARIX) Unknown Completed [facility] Pneumococcal Polysaccharide, PPSV23 (PNEUMOVAX) Unknown Completed [facility] TDAP Unknown Completed [facility] SARS-COV-2 COVID-19 MODERNA 12+ YRS VACCINE Unknown Completed [facility] Influenza Virus Vaccine Quad IM, Preserv and ABX Free 6 MO-64 YRS (FLUCELVAX) Unknown Completed [facility] SARS-COV-2 COVID-19 MODERNA 0.25ML BOOSTER VACCINE Unknown Completed [facility] SARS-COV-2 COVID-19 VACCINE 12 YRS+, BIVALENT 0.5ML, IM, (MODERNA-BLUE TOP) Unknown [facility] Influenza Virus Vaccine,quad Im,preserve Free 65+ (FLUAD) Unknown Completed [facility] Influenza Virus Vaccine Unknown Completed [facility] Pneumococcal Polysaccharide, PPSV23 (PNEUMOVAX) Unknown Com[facility] Influenza Virus Vaccine Quad .5 mL IM 6+ MO (FLUZONE/FLULAVAL/F LUARIX) Unknown Completed [facility] Pneumococcal Polysaccharide, PPSV23 (PNEUMOVAX) Unknown Completed [facility] TDAP Unknown Completed [facility] SARS-COV-2 COVID-19 MODERNA 12+ YRS VACCINE Unknown Completed [facility] Influenza Virus Vaccine Quad IM, Preserv and ABX Free 6 MO-64 YRS (FLUCELVAX) Unknown Completed [facility] SARS-COV-2 COVID-19 MODERNA 0.25ML BOOSTER VACCINE Unknown Completed [facility] SARS-COV-2 COVID-19 VACCINE 12 YRS+, BIVALENT 0.5ML, IM, (MODERNA-BLUE TOP) Unknown [facility] Influenza Virus Vaccine,quad Im,preserve Free 65+ (FLUAD) Unknown Completed [facility] Influenza Virus Vaccine Unknown Completed [facility] Pneumococcal Polysaccharide, PPSV23 (PNEUMOVAX) Unknown Com[facility] Influenza Virus Vaccine Quad .5 mL IM 6+ MO (FLUZONE/FLULAVAL/F LUARIX) Unknown Completed [facility] Pneumococcal Polysaccharide, PPSV23 (PNEUMOVAX) Unknown Completed [facility] TDAP Unknown Completed [facility] SARS-COV-2 COVID-19 MODERNA 12+ YRS VACCINE Unknown Completed [facility] Influenza Virus Vaccine Quad IM, Preserv and ABX Free 6 MO-64 YRS (FLUCELVAX) Unknown Completed [facility] SARS-COV-2 COVID-19 MODERNA 0.25ML BOOSTER VACCINE Unknown Completed [facility] SARS-COV-2 COVID-19 VACCINE 12 YRS+, BIVALENT 0.5ML, IM, (MODERNA-BLUE TOP) Unknown [facility] Influenza Virus Vaccine,quad Im,preserve Free 65+ (FLUAD) Unknown Completed [facility] Influenza Virus Vaccine Unknown Completed [facility] Pneumococcal Polysaccharide, PPSV23 (PNEUMOVAX) Unknown [facility] Influenza Virus Vaccine Quad .5 mL IM 6+ MO (FLUZONE/FLULAVAL/F LUARIX) Unknown Completed [facility] Pneumococcal Polysaccharide, PPSV23 (PNEUMOVAX) Unknown Completed [facility] TDAP Unknown Completed [facility] SARS-COV-2 COVID-19 MODERNA 12+ YRS VACCINE Unknown Completed [facility] Influenza Virus Vaccine Quad IM, Preserv and ABX Free 6 MO-64 YRS (FLUCELVAX) Unknown Completed [facility] SARS-COV-2 COVID-19 MODERNA 0.25ML BOOSTER VACCINE Unknown Completed [facility] SARS-COV-2 COVID-19 VACCINE 12 YRS+, BIVALENT 0.5ML, IM, (MODERNA-BLUE TOP) Unknown [facility] Influenza Virus Vaccine,quad Im,preserve Free 65+ (FLUAD) Unknown Completed [facility] Influenza Virus Vaccine Unknown Completed [facility] Pneumococcal Polysaccharide, PPSV23 (PNEUMOVAX) Unknown [facility] Influenza Virus Vaccine Quad .5 mL IM 6+ MO (FLUZONE/FLULAVAL/F LUARIX) Unknown Completed [facility] Pneumococcal Polysaccharide, PPSV23 (PNEUMOVAX) Unknown Completed [facility] TDAP Unknown Completed [facility] SARS-COV-2 COVID-19 MODERNA 12+ YRS VACCINE Unknown Completed [facility] Influenza Virus Vaccine Quad IM, Preserv and ABX Free 6 MO-64 YRS (FLUCELVAX) Unknown Completed [facility] SARS-COV-2 COVID-19 MODERNA 0.25ML BOOSTER VACCINE Unknown Completed [facility] SARS-COV-2 COVID-19 VACCINE 12 YRS+, BIVALENT 0.5ML, IM, (MODERNA-BLUE TOP) Unknown [facility] Influenza Virus Vaccine,quad Im,preserve Free 65+ (FLUAD) Unknown Completed [facility] Influenza Virus Vaccine Unknown Completed [facility] Pneumococcal Polysaccharide, PPSV23 (PNEUMOVAX) Unknown Completed [facility] Influenza Virus Vaccine Quad .5 mL IM 6+ MO (FLUZONE/FLULAVAL/F LUARIX) Unknown Completed [facility] Pneumococcal Polysaccharide, PPSV23 (PNEUMOVAX) Unknown Completed [facility] TDAP Unknown Completed [facility] SARS-COV-2 COVID-19 MODERNA 12+ YRS VACCINE Unknown Completed [facility] Influenza Virus Vaccine Quad IM, Preserv and ABX Free 6 MO-64 YRS (FLUCELVAX) Unknown Completed [facility] SARS-COV-2 COVID-19 MODERNA 0.25ML BOOSTER VACCINE Unknown Completed [facility] SARS-COV-2 COVID-19 VACCINE 12 YRS+, BIVALENT 0.5ML, IM, (MODERNA-BLUE TOP) Unknown [facility] Influenza Virus Vaccine,quad Im,preserve Free 65+ (FLUAD) Unknown Completed [facility] Influenza Virus Vaccine Unknown Completed [facility] Pneumococcal Polysaccharide, PPSV23 (PNEUMOVAX) Unknown Completed [facility] Influenza Virus Vaccine Quad .5 mL IM 6+ MO (FLUZONE/FLULAVAL/F LUARIX) Unknown Completed [facility] Pneumococcal Polysaccharide, PPSV23 (PNEUMOVAX) Unknown Completed [facility] TDAP Unknown Completed [facility] SARS-COV-2 COVID-19 MODERNA 12+ YRS VACCINE Unknown Completed [facility] Influenza Virus Vaccine Quad IM, Preserv and ABX Free 6 MO-64 YRS (FLUCELVAX) Unknown Completed [facility] SARS-COV-2 COVID-19 MODERNA 0.25ML BOOSTER VACCINE Unknown Completed [facility] SARS-COV-2 COVID-19 VACCINE 12 YRS+, BIVALENT 0.5ML, IM, (MODERNA-BLUE TOP) Unknown [facility] Influenza Virus Vaccine,quad Im,preserve Free 65+ (FLUAD) Unknown Completed [facility] Influenza Virus Vaccine Unknown Completed [facility] Pneumococcal Polysaccharide, PPSV23 (PNEUMOVAX) Unknown Completed [facility] Influenza Virus Vaccine Quad .5 mL IM 6+ MO (FLUZONE/FLULAVAL/F LUARIX) Unknown Completed [facility] Pneumococcal Polysaccharide, PPSV23 (PNEUMOVAX) Unknown Completed [facility] TDAP Unknown Completed [facility] SARS-COV-2 COVID-19 MODERNA 12+ YRS VACCINE Unknown Completed [facility] Influenza Virus Vaccine Quad IM, Preserv and ABX Free 6 MO-64 YRS (FLUCELVAX) Unknown Completed [facility] SARS-COV-2 COVID-19 MODERNA 0.25ML BOOSTER VACCINE Unknown Completed [facility] SARS-COV-2 COVID-19 VACCINE 12 YRS+, BIVALENT 0.5ML, IM, (MODERNA-BLUE TOP) Unknown [facility] Influenza Virus Vaccine,quad Im,preserve Free 65+ (FLUAD) Unknown Completed [facility] Influenza Virus Vaccine Unknown Completed [facility] Pneumococcal Polysaccharide, PPSV23 (PNEUMOVAX) Unknown Completed [facility] Influenza Virus Vaccine Quad .5 mL IM 6+ MO (FLUZONE/FLULAVAL/F LUARIX) Unknown Completed [facility] Pneumococcal Polysaccharide, PPSV23 (PNEUMOVAX) Unknown Completed [facility] TDAP Unknown Completed [facility] SARS-COV-2 COVID-19 MODERNA 12+ YRS VACCINE Unknown Completed [facility] Influenza Virus Vaccine Quad IM, Preserv and ABX Free 6 MO-64 YRS (FLUCELVAX) Unknown Completed [facility] SARS-COV-2 COVID-19 MODERNA 0.25ML BOOSTER VACCINE Unknown Completed [facility] SARS-COV-2 COVID-19 VACCINE 12 YRS+, BIVALENT 0.5ML, IM, (MODERNA-BLUE TOP) Unknown [facility] Influenza Virus Vaccine,quad Im,preserve Free 65+ (FLUAD) Unknown Completed [facility] Influenza Virus Vaccine Unknown Completed [facility] Pneumococcal Polysaccharide, PPSV23 (PNEUMOVAX) Unknown Completed [facility] Influenza Virus Vaccine Quad .5 mL IM 6+ MO (FLUZONE/FLULAVAL/F LUARIX) Unknown Completed [facility] Pneumococcal Polysaccharide, PPSV23 (PNEUMOVAX) Unknown Completed [facility] TDAP Unknown Completed [facility] SARS-COV-2 COVID-19 MODERNA 12+ YRS VACCINE Unknown Completed [facility] Influenza Virus Vaccine Quad IM, Preserv and ABX Free 6 MO-64 YRS (FLUCELVAX) Unknown Completed [facility] SARS-COV-2 COVID-19 MODERNA 0.25ML BOOSTER VACCINE Unknown Completed [facility] SARS-COV-2 COVID-19 VACCINE 12 YRS+, BIVALENT 0.5ML, IM, (MODERNA-BLUE TOP) Unknown [facility] Influenza Virus Vaccine,quad Im,preserve Free 65+ (FLUAD) Unknown Completed [facility] Influenza, adjuvanted, trivalent, PF (FLUAD) Unknown Completed [facility] Vital Signs Vital Name Observation Time Observation Value Comments S ource Systolic blood pressure 2024-04-08 19:40:00 129 mm[Hg] [facility] Diastolic blood pressure 2024-04-08 19:40:00 74 mm[Hg] [facility] Heart rate 2024-04-08 19:40:00 78 /min [facility] Body height 2024-04-08 19:40:00 177.8 cm [facility] Body weight 2024-04-08 19:40:00 108.41 kg [facility] BMI 2024-04-08 19:40:00 34.29 kg/m2 [facility] Oxygen saturation in Arterial blood by Pulse oximetry 2024-04-08 19:40:00 97 /min [facility] Systolic blood pressure 2024-03-14 16:28:00 131 mm[Hg] [facility] Diastolic blood pressure 2024-03-14 16:28:00 73 mm[Hg] [facility] Heart rate 2024-03-14 16:28:00 90 /min [facility] Respiratory rate 2024-03-14 16:28:00 20 /min [facility] Body height 2024-03-14 16:28:00 179.1 cm [facility] Body weight 2024-03-14 16:28:00 110.542 kg [facility] BMI 2024-03-14 16:28:00 34.47 kg/m2 [facility] Oxygen saturation in Arterial blood by Pulse oximetry 2024-03-14 16:28:00 97 /min [facility] Systolic blood pressure 2024-03-13 15:56:00 123 mm[Hg] [facility] Diastolic blood pressure 2024-03-13 15:56:00 61 mm[Hg] [facility] Heart rate 2024-03-13 15:56:00 82 /min [facility] Oxygen saturation in Arterial blood by Pulse oximetry 2024-03-13 15:56:00 98 /min [facility] Body temperature 2024-03-13 15:53:00 36.72 Eugenie [facility] Respiratory rate 2024-03-13 15:53:00 20 /min [facility] Body height 2024-03-13 15:53:00 179.1 cm [facility] Body weight 2024-03-13 15:53:00 111.131 kg [facility] BMI 2024-03-13 15:53:00 34.66 kg/m2 [facility] Heart rate 2024-03-07 19:00:00 82 /min [facility] Respiratory rate 2024-03-07 19:00:00 19 /min [facility] Oxygen saturation in Arterial blood by Pulse oximetry 2024-03-07 19:00:00 94 /min [facility] Systolic blood pressure 2024-03-07 17:00:00 151 mm[Hg] [facility] Diastolic blood pressure 2024-03-07 17:00:00 81 mm[Hg] [facility] Body temperature 2024-03-07 16:00:00 36.28 Eugenie [facility] Body weight 2024-03-07 10:00:00 106.051 kg [facility] BMI 2024-03-07 10:00:00 33.55 kg/m2 [facility] Body height 2024-03-03 18:44:00 177.8 cm [facility] Systolic blood pressure 2024-02-20 13:18:00 148 mm[Hg] [facility] Diastolic blood pressure 2024-02-20 13:18:00 74 mm[Hg] [facility] Heart rate 2024-02-20 13:18:00 60 /min [facility] Body height 2024-02-20 13:18:00 177.8 cm [facility] Body weight 2024-02-20 13:18:00 112.764 kg [facility] BMI 2024-02-20 13:18:00 35.67 kg/m2 [facility] Oxygen saturation in Arterial blood by Pulse oximetry 2024-02-20 13:18:00 98 /min [facility] Systolic blood pressure 2024-02-15 16:20:00 158 mm[Hg] [facility] Diastolic blood pressure 2024-02-15 16:20:00 76 mm[Hg] [facility] Heart rate 2024-02-15 16:20:00 81 /min [facility] Oxygen saturation in Arterial blood by Pulse oximetry 2024-02-15 16:20:00 97 /min [facility] Body temperature 2024-02-15 16:17:00 37.06 Eugenie [facility] Body height 2024-02-15 16:17:00 177.8 cm [facility] Body weight 2024-02-15 16:17:00 112.492 kg [facility] BMI 2024-02-15 16:17:00 35.58 kg/m2 [facility] Systolic blood pressure 2024-02-14 19:06:00 149 mm[Hg] [facility] Diastolic blood pressure 2024-02-14 19:06:00 74 mm[Hg] [facility] Heart rate 2024-02-14 18:58:00 63 /min [facility] Respiratory rate 2024-02-14 18:58:00 18 /min [facility] Body height 2024-02-14 18:58:00 177.8 cm [facility] Body weight 2024-02-14 18:58:00 113.036 kg [facility] BMI 2024-02-14 18:58:00 35.76 kg/m2 [facility] Oxygen saturation in Arterial blood by Pulse oximetry 2024-02-14 18:58:00 96 /min [facility] Heart rate 2024-01-12 18:48:00 80 /min [facility] Respiratory rate 2024-01-12 18:48:00 18 /min [facility] Oxygen saturation in Arterial blood by Pulse oximetry 2024-01-12 18:48:00 100 /min [facility] Systolic blood pressure 2024-01-12 18:46:00 138 mm[Hg] [facility] Diastolic blood pressure 2024-01-12 18:46:00 67 mm[Hg] [facility] Body temperature 2024-01-12 17:33:00 36.61 Eugenie [facility] Body height 2024-01-12 14:44:00 180.3 cm [facility] Body weight 2024-01-12 14:44:00 108.863 kg [facility] BMI 2024-01-12 14:44:00 33.47 kg/m2 [facility] Systolic blood pressure 2024-01-12 17:47:00 137 mm[Hg] [facility] Diastolic blood pressure 2024-01-12 17:47:00 68 mm[Hg] [facility] Heart rate 2024-01-12 17:47:00 80 /min [facility] Respiratory rate 2024-01-12 17:47:00 19 /min [facility] Oxygen saturation in Arterial blood by Pulse oximetry 2024-01-12 17:47:00 99 /min [facility] Body temperature 2024-01-12 17:33:00 36.61 Eugenie [facility] Body height 2024-01-12 14:44:00 180.3 cm [facility] Body weight 2024-01-12 14:44:00 108.863 kg [facility] BMI 2024-01-12 14:44:00 33.47 kg/m2 [facility] Systolic blood pressure 2023-12-23 15:52:00 151 mm[Hg] [facility] Diastolic blood pressure 2023-12-23 15:52:00 66 mm[Hg] [facility] Heart rate 2023-12-23 15:52:00 60 /min [facility] Body temperature 2023-12-23 15:52:00 36.06 Eugenie [facility] Respiratory rate 2023-12-23 15:52:00 18 /min [facility] Oxygen saturation in Arterial blood by Pulse oximetry 2023-12-23 15:52:00 97 /min [facility] Body weight 2023-12-23 09:00:00 109.997 kg [facility] BMI 2023-12-23 09:00:00 33.82 kg/m2 [facility] Body height 2023-12-22 19:29:00 180.3 cm [facility] Body weight 2023-12-14 18:00:00 104.327 kg [facility] BMI 2023-12-14 18:00:00 33.00 kg/m2 [facility] Body height 2023-12-07 17:54:00 177.8 cm [facility] Systolic blood pressure 2023-11-02 18:49:00 146 mm[Hg] [facility] Diastolic blood pressure 2023-11-02 18:49:00 66 mm[Hg] [facility] Heart rate 2023-11-02 18:49:00 63 /min [facility] Body temperature 2023-11-02 18:46:00 36.33 Eugenie [facility] Respiratory rate 2023-11-02 18:46:00 16 /min [facility] Body height 2023-11-02 18:46:00 177.8 cm [facility] Body weight 2023-11-02 18:46:00 112.492 kg [facility] BMI 2023-11-02 18:46:00 35.58 kg/m2 [facility] Oxygen saturation in Arterial blood by Pulse oximetry 2023-11-02 18:46:00 98 /min [facility] Systolic blood pressure 2023-09-21 20:10:00 136 mm[Hg] [facility] Diastolic blood pressure 2023-09-21 20:10:00 72 mm[Hg] [facility] Heart rate 2023-09-21 20:09:00 68 /min [facility] Body height 2023-09-21 20:09:00 177.8 cm [facility] Body weight 2023-09-21 20:09:00 112.22 kg [facility] BMI 2023-09-21 20:09:00 35.50 kg/m2 [facility] Oxygen saturation in Arterial blood by Pulse oximetry 2023-09-21 20:09:00 99 /min [facility] Systolic blood pressure 2023-06-21 20:24:00 153 mm[Hg] [facility] Diastolic blood pressure 2023-06-21 20:24:00 73 mm[Hg] [facility] Heart rate 2023-06-21 20:24:00 66 /min [facility] Body height 2023-06-21 20:24:00 180.3 cm [facility] Body weight 2023-06-21 20:24:00 108.636 kg [facility] BMI 2023-06-21 20:24:00 33.40 kg/m2 [facility] Oxygen saturation in Arterial blood by Pulse oximetry 2023-06-21 20:24:00 97 /min [facility] Systolic blood pressure 2023-03-30 19:35:00 144 mm[Hg] notified provider [facility] Diastolic blood pressure 2023-03-30 19:35:00 76 mm[Hg] notified provider [facility] Heart rate 2023-03-30 19:35:00 80 /min [facility] Body temperature 2023-03-30 19:32:00 36.61 Eugenie [facility] Respiratory rate 2023-03-30 19:32:00 16 /min [facility] Body height 2023-03-30 19:32:00 180.3 cm [facility] Body weight 2023-03-30 19:32:00 108.138 kg [facility] BMI 2023-03-30 19:32:00 33.25 kg/m2 [facility] Oxygen saturation in Arterial blood by Pulse oximetry 2023-03-30 19:32:00 99 /min [facility] Systolic blood pressure 2023-01-03 18:15:00 157 mm[Hg] [facility] Diastolic blood pressure 2023-01-03 18:15:00 87 mm[Hg] [facility] Heart rate 2023-01-03 18:15:00 63 /min [facility] Respiratory rate 2023-01-03 18:15:00 15 /min [facility] Oxygen saturation in Arterial blood by Pulse oximetry 2023-01-03 18:15:00 96 /min [facility] Body temperature 2023-01-03 17:45:00 36 Eugenie [facility] Body height 2023-01-03 16:13:00 180.3 cm [facility] Body weight 2023-01-03 16:13:00 108.2 kg [facility] BMI 2023-01-03 16:13:00 33.27 kg/m2 [facility] Systolic blood pressure 2023-01-03 18:00:00 152 mm[Hg] [facility] Diastolic blood pressure 2023-01-03 18:00:00 85 mm[Hg] [facility] Heart rate 2023-01-03 18:00:00 62 /min [facility] Respiratory rate 2023-01-03 18:00:00 15 /min [facility] Oxygen saturation in Arterial blood by Pulse oximetry 2023-01-03 18:00:00 95 /min [facility] Body temperature 2023-01-03 17:45:00 36 Eugenie [facility] Body height 2023-01-03 16:13:00 180.3 cm [facility] Body weight 2023-01-03 16:13:00 108.2 kg [facility] BMI 2023-01-03 16:13:00 33.27 kg/m2 [facility] Systolic blood pressure 2022-12-15 01:17:00 169 mm[Hg] [facility] Diastolic blood pressure 2022-12-15 01:17:00 79 mm[Hg] [facility] Heart rate 2022-12-15 01:17:00 64 /min [facility] Respiratory rate 2022-12-15 01:17:00 18 /min [facility] Oxygen saturation in Arterial blood by Pulse oximetry 2022-12-15 01:17:00 98 /min [facility] Body temperature 2022-12-14 23:22:37 36.67 Eugenie [facility] Body weight 2022-12-14 21:21:00 99.791 kg [facility] BMI 2022-12-14 21:21:00 30.68 kg/m2 [facility] Systolic blood pressure 2022-12-01 15:39:00 156 mm[Hg] Provider notified [facility] Diastolic blood pressure 2022-12-01 15:39:00 76 mm[Hg] Provider notified [facility] Heart rate 2022-12-01 15:39:00 66 /min [facility] Body temperature 2022-12-01 15:38:00 36.67 Eugenie [facility] Respiratory rate 2022-12-01 15:38:00 17 /min [facility] Body height 2022-12-01 15:38:00 180.3 cm [facility] Body weight 2022-12-01 15:38:00 108.727 kg [facility] BMI 2022-12-01 15:38:00 33.43 kg/m2 [facility] Oxygen saturation in Arterial blood by Pulse oximetry 2022-12-01 15:38:00 97 /min [facility] Systolic blood pressure 2022-11-17 18:49:00 164 mm[Hg] [facility] Diastolic blood pressure 2022-11-17 18:49:00 72 mm[Hg] [facility] Heart rate 2022-11-17 18:43:00 66 /min [facility] Respiratory rate 2022-11-17 18:43:00 20 /min [facility] Body height 2022-11-17 18:43:00 180.3 cm [facility] Body weight 2022-11-17 18:43:00 109.816 kg [facility] BMI 2022-11-17 18:43:00 33.77 kg/m2 [facility] Oxygen saturation in Arterial blood by Pulse oximetry 2022-11-17 18:43:00 98 /min [facility] Systolic blood pressure 2022-04-28 18:34:00 157 mm[Hg] [facility] Diastolic blood pressure 2022-04-28 18:34:00 90 mm[Hg] [facility] Heart rate 2022-04-28 18:27:00 61 /min [facility] Body height 2022-04-28 18:27:00 180.3 cm [facility] Body weight 2022-04-28 18:27:00 104.872 kg [facility] BMI 2022-04-28 18:27:00 32.25 kg/m2 [facility] Oxygen saturation in Arterial blood by Pulse oximetry 2022-04-28 18:27:00 98 /min [facility] Systolic blood pressure 2021-10-18 15:41:00 174 mm[Hg] [facility] Diastolic blood pressure 2021-10-18 15:41:00 78 mm[Hg] [facility] Heart rate 2021-10-18 15:40:00 64 /min [facility] Body temperature 2021-10-18 15:40:00 36.56 Eugenie [facility] Body height 2021-10-18 15:40:00 179.1 cm [facility] Body weight 2021-10-18 15:40:00 100.744 kg [facility] BMI 2021-10-18 15:40:00 31.42 kg/m2 [facility] Oxygen saturation in Arterial blood by Pulse oximetry 2021-10-18 15:40:00 99 /min [facility] Systolic blood pressure 2023-12-23 15:52:00 151 mm[Hg] [facility] Diastolic blood pressure 2023-12-23 15:52:00 66 mm[Hg] [facility] Heart rate 2023-12-23 15:52:00 60 /min [facility] Body temperature 2023-12-23 15:52:00 36.06 Eugenie [facility] Respiratory rate 2023-12-23 15:52:00 18 /min [facility] Oxygen saturation in Arterial blood by Pulse oximetry 2023-12-23 15:52:00 97 /min [facility] Body weight 2023-12-23 09:00:00 109.997 kg [facility] BMI 2023-12-23 09:00:00 33.82 kg/m2 [facility] Body height 2023-12-22 19:29:00 180.3 cm [facility] Procedures Procedure Date / Time Performed Performing Clinician Source HB CREATININE SERUM/BLOOD FO R IMAGING 2024-04-29 21:39:00 Joshua Mg [facility] FLU VACC(),65+YR,0. 5 ML,IM,ADJUVANTED,TIV(FLUAD) 2024-04-08 20:20:39 Doctor Unassigned, Venus [facility] MR BRAIN WO CONTRAST 2024-03-27 19:39:17 Ladi Brian [facility] POCT GLUCOSE (AUTOMATED) 2024-03-07 17:09:00 Prasad [facility] POCT GLUCOSE (AUTOMATED) 2024-03-07 12:59:00 Prasad [facility] MAGNESIUM 2024-03-07 10:22:00 Prasad [facility] HEPATIC FUNCTION PANEL (8007 6) (ALB,T.PRO,BILI T,BU/BC,ALT,AST,ALK PHOS) 2024-03-07 10:22:00 Prasad [facility] BASIC METABOLIC PANEL (NA, K , CL, CO2, GLUCOSE, BUN, CREATININE, CA) 2024-03-07 10:22:00 Prasad [facility] CBC WITHOUT DIFF 2024-03-07 10:22:00 Prasad [facility] POCT GLUCOSE (AUTOMATED) 2024-03-07 01:52:00 Prasad [facility] POCT GLUCOSE (AUTOMATED) 2024-03-06 21:51:00 Prasad [facility] BASIC METABOLIC PANEL (NA, K , CL, CO2, GLUCOSE, BUN, CREATININE, CA) 2024-03-06 19:34:00 Prasad [facility] POCT GLUCOSE (AUTOMATED) 2024-03-06 16:46:00 Prasad [facility] POCT GLUCOSE (AUTOMATED) 2024-03-06 12:46:00 Prasad [facility] OSMOLALITY URINE 2024-03-06 10:02:00 [facility] SODIUM, URINE RANDOM 2024-03-06 10:02:00 [facility] PHOSPHORUS 2024-03-06 09:59:00 Prasad [facility] MAGNESIUM 2024-03-06 09:59:00 Prasad [facility] HEPATIC FUNCTION PANEL (8007 6) (ALB,T.PRO,BILI T,BU/BC,ALT,AST,ALK PHOS) 2024-03-06 09:59:00 Prasad [facility] BASIC METABOLIC PANEL (NA, K , CL, CO2, GLUCOSE, BUN, CREATININE, CA) 2024-03-06 09:59:00 Prasad [facility] CBC WITHOUT DIFF 2024-03-06 09:59:00 [facility]OLIC [facility] (NA, K , CL, CO2, GLUCOSE, BUN, CREATININE, CA) 2024-03-06 04:17:00 Prasad [facility] POCT GLUCOSE (AUTOMATED) 2024-03-06 01:53:00 Prasad [facility] BASIC METABOLIC PANEL (NA, K , CL, CO2, GLUCOSE, BUN, CREATININE, CA) 2024-03-05 23:01:00 Prasad [facility] POCT GLUCOSE (AUTOMATED) 2024-03-05 21:58:00 Prasad [facility] BASIC METABOLIC PANEL (NA, K , CL, CO2, GLUCOSE, BUN, CREATININE, CA) 2024-03-05 17:48:00 Prasad [facility] POCT GLUCOSE (AUTOMATED) 2024-03-05 16:51:00 [facility] POCT GLUCOSE (AUTOMATED) 2024-03-05 12:42:00 Lori Arnold [facility] BASIC METABOLIC PANEL (NA, K , CL, CO2, GLUCOSE, BUN, CREATININE, CA) 2024-03-05 10:21:00 [facility] PHOSPHORUS 2024-03-05 06:21:00 Prasad [facility] MAGNESIUM 2024-03-05 06:21:00 Prasad [facility] HEPATIC FUNCTION PANEL (8007 6) (ALB,T.PRO,BILI T,BU/BC,ALT,AST,ALK PHOS) 2024-03-05 06:21:00 [facility] (NA, K , CL, CO2, GLUCOSE, BUN, CREATININE, CA) 2024-03-05 06:21:00 [facility] CBC WITHOUT DIFF 2024-03-05 06:21:00 Prasad [facility] PROTHROMBIN TIME / INR 2024-03-05 06:21:00 Prasad [facility] BASIC METABOLIC PANEL (NA, K , CL, CO2, GLUCOSE, BUN, CREATININE, CA) 2024-03-05 02:21:00 [facility] POCT GLUCOSE (AUTOMATED) 2024-03-05 02:02:00 Lori Arnold [facility] BASIC METABOLIC PANEL (NA, K , CL, CO2, GLUCOSE, BUN, CREATININE, CA) 2024-03-04 22:18:00 [facility] POCT GLUCOSE (AUTOMATED) 2024-03-04 21:38:00 Lori Arnold [facility] BASIC METABOLIC PANEL (NA, K , CL, CO2, GLUCOSE, BUN, CREATININE, CA) 2024-03-04 18:03:00 [facility] POCT GLUCOSE (AUTOMATED) 2024-03-04 16:47:00 Lori Arnold [facility] XR CHEST 1 VW 2024-03-04 16:40:15 Roya [facility] CT ABDOMEN PELVIS WO CONTRAST 2024-03-04 16:12:45 Marco Antonio Adames [facility] US RETROPERITONEAL LIMITED 2024-03-04 13:38:24 Maria Del Rosario Pryor [facility] BASIC METABOLIC PANEL (NA, K , CL, CO2, GLUCOSE, BUN, CREATININE, CA) 2024-03-04 13:29:00 [facility] POCT GLUCOSE (AUTOMATED) 2024-03-04 12:31:00 Lori Arnold [facility] MAGNESIUM 2024-03-04 08:45:00 Hudson, [facility] BASIC METABOLIC PANEL (NA, K , CL, CO2, GLUCOSE, BUN, CREATININE, CA) 2024-03-04 08:45:00 Lori Arnold [facility] CBC WITH DIFF 2024-03-04 08:45:00 Lori Arnold [facility] FOLATE 2024-03-04 04:58:00 Marco Antonio Adames [facility] BASIC METABOLIC PANEL (NA, K , CL, CO2, GLUCOSE, BUN, CREATININE, CA) 2024-03-04 04:58:00 [place] [facility] POCT GLUCOSE (AUTOMATED) 2024-03-04 02:08:00 [facility] OSMOLALITY URINE 2024-03-03 23:46:00 Roya [facility] SODIUM URINE 2024-03-03 23:46:00 Roya [facility] URINE CULTURE 2024-03-03 23:46:00 [facility] MAGNESIUM 2024-03-03 23:11:00 Marco Antonio Adames [facility] BASIC METABOLIC PANEL (NA, K , CL, CO2, GLUCOSE, BUN, CREATININE, CA) 2024-03-03 23:11:00 [place] [facility] POCT GLUCOSE (AUTOMATED) 2024-03-03 21:47:00 [place] [facility] BASIC METABOLIC PANEL (NA, K , CL, CO2, GLUCOSE, BUN, CREATININE, CA) 2024-03-03 19:05:00 [place] [facility] POCT GLUCOSE (AUTOMATED) 2024-03-03 18:41:00 [place] [facility] MRSA / MSSA SCREEN BY PCRBILL 2024-02 18:13:00 [place] [facility] OSMOLALITY, SERUM OR PLASMA 2024-03-03 18:06:00 Ally [facility] OSMOLALITY URINE 2024-03-03 18:06:00 Ally [facility] VITAMIN B12, LEVEL 2024-03-03 18:06:00 Marco Antonio Adames [facility] SODIUM, URINE RANDOM 2024-03-03 18:06:00 Angeljoel [facility] TROPONIN I 2024-03-03 15:05:00 [facility] BASIC METABOLIC PANEL (NA, K , CL, CO2, GLUCOSE, BUN, CREATININE, CA) 2024-03-03 15:05:00 [facility] HB ECG ROUTINE & RHYTHM STRIP 2024-03-03 14:57:08 Angeljoel [facility] COMP. METABOLIC PANEL (21061) 2024-03-03 13:33:00 [facility] CBC WITH DIFF 2024-03-03 13:33:00 [facility] GLYCOSYLATED HEMOGLOBIN (A1C) 2024-03-03 13:33:00 Lori Arnold [facility] URINALYSIS 2024-03-03 13:33:00 [facility] XR LUMBAR SPINE 3 VW 2024-02-14 20:23:00 Deborah De Jesus [facility] CBC WITHOUT DIFF 2024-01-12 15:28:00 Lopez Lawrenceeel [facility] CBC WITHOUT DIFF 2024-01-12 15:28:00 Lopez Lawrenceeel [facility] POCT GLUCOSE (AUTOMATED) 2024-01-12 15:26:00 [facility] POCT GLUCOSE (AUTOMATED) 2024-01-12 15:26:00 [facility] [address] - [place] INT HRHC TRANSANA L HROID ANTIONETTEZJ 2+ W/US GDN 2024-01-12 15:18:00 [facility] POCT GLUCOSE (AUTOMATED) 2023-12-23 16:34:00 [facility]) 2023-12-23 16:34:00 Prasad [facility] POCT GLUCOSE (AUTOMATED) 2023-12-23 12:36:00 Oville, [facility] POCT GLUCOSE (AUTOMATED) 2023-12-23 12:36:00 Prasad [facility] MAGNESIUM 2023-12-23 08:29:00 Prasad [facility] VITAMIN B12, LEVEL 2023-12-23 08:29:00 Maximino [facility] BASIC METABOLIC PANEL (NA, K , CL, CO2, GLUCOSE, BUN, CREATININE, CA) 2023-12-23 08:29:00 Prasad [facility] CBC WITHOUT DIFF 2023-12-23 08:29:00 Prasad [facility] MAGNESIUM 2023-12-23 08:29:00 Prasad [facility] BASIC METABOLIC PANEL (NA, K , CL, CO2, GLUCOSE, BUN, CREATININE, CA) 2023-12-23 08:29:00 Prasad [facility] CBC WITHOUT DIFF 2023-12-23 08:29:00 Prasad [facility] VITAMIN B12, LEVEL 2023-12-23 08:29:00 Maximino [facility] POCT GLUCOSE (AUTOMATED) 2023-12-23 01:58:00 Prasad [facility] POCT GLUCOSE (AUTOMATED) 2023-12-23 01:58:00 Prasad [facility] POCT GLUCOSE (AUTOMATED) 2023-12-22 21:25:00 Prasad [facility] POCT GLUCOSE (AUTOMATED) 2023-12-22 21:25:00 Prasad [facility] CAROTID DUPLEX BILATERAL - B Y VASCULAR LAB 2023-12-22 20:13:33 [employer] [facility] CAROTID DUPLEX BILATERAL - B Y VASCULAR LAB 2023-12-22 20:13:33 Prasad [facility] TRANSTHORACIC ECHO (TTE) COM PLETE W/ CONTRAST 2023-12-22 20:03:00 Prasad [facility] TRANSTHORACIC ECHO (TTE) COM PLETE W/ CONTRAST 2023-12-22 20:03:00 [place], [facility] CT CERVICAL SPINE WO CONTRAST 2023-12-22 16:18:55 Lavern Callahan [facility] CT HEAD WO CONTRAST 2023-12-22 16:18:55 Lavern Callahan [facility] CT HEAD WO CONTRAST 2023-12-22 16:18:55 Lavern Callahan [facility] CT CERVICAL SPINE WO CONTRAST 2023-12-22 16:18:55 Lavern Callahan [facility] HB ECG ROUTINE & RHYTHM STRIP 2023-12-22 15:54:09 Lavern Callahan [facility] HB ECG ROUTINE & RHYTHM STRIP 2023-12-22 15:54:09 Lavern Callahan [facility] BASIC METABOLIC PANEL (NA, K , CL, CO2, GLUCOSE, BUN, CREATININE, CA) 2023-12-22 14:01:00 Jcarlos Ross [facility] MAGNESIUM 2023-12-22 14:01:00 Lavern Callahan [facility] TROPONIN I 2023-12-22 14:01:00 Lavern Callahan [facility] BASIC METABOLIC PANEL (NA, K , CL, CO2, GLUCOSE, BUN, CREATININE, CA) 2023-12-22 14:01:00 Jcarlos Ross [facility] TROPONIN I 2023-12-22 14:01:00 Lavern Callahan [facility] MAGNESIUM 2023-12-22 14:01:00 Lavern Callahan [facility] CBC WITHOUT DIFF 2023-12-22 14:00:00 Jcarlos Ross [facility] CBC WITHOUT DIFF 2023-12-22 14:00:00 Jcarlos Ross [facility] POCT GLUCOSE (AUTOMATED) 2023-12-22 13:36:00 Emelyn Gabi [facility] POCT GLUCOSE (AUTOMATED) 2023-12-22 13:36:00 Emelyn Gabi [facility] GLYCOSYLATED HEMOGLOBIN (A1C) 2023-09-21 20:39:00 Negrita Vidal [facility] LIPID PANEL (02300)(TOTAL CHOLESTEROL, TRIGLYCERIDES, HDL) 2023-09-21 20:39:00 Negrita Vidal [facility] FLU VACC(),65+YR,0. 5 ML,IM,ADJUVANTED,QUAD(FLUAD) 2023-09-21 20:25:29 Negrita Vidal [facility] ESOPHAGOGASTRODUODENOSCOPY 2023-01-03 16:46:00 Gigi Medeiros [facility] COLONOSCOPY 2023-01-03 16:46:00 Gigi Medeiros [facility] COLONOSCOPY (ENDO) 2023-01-03 16:27:13 Cuong Black [facility] COLONOSCOPY (ENDO) 2023-01-03 16:27:13 Wayne [facility] COLONOSCOPY (ENDO) 2023-01-03 16:27:13 Wayne [facility] EGD (ENDO) 2023-01-03 16:26:23 Wayne [facility] EGD (ENDO) 2023-01-03 16:26:23 Wayne [facility] POCT GLUCOSE (AUTOMATED) 2023-01-03 16:12:00 Gigi Medeiros [facility] POCT GLUCOSE (AUTOMATED) 2023-01-03 16:12:00 Gigi Medeiros [facility] ASSIGNMENT OF BENEFITS 2023-01-03 15:52:54 Doctor Unassigned, Venus [facility] COMP. METABOLIC PANEL (24082) 2022-12-15 00:50:00 Radha Estevez [facility] CBC WITH DIFF 2022-12-15 00:02:00 Radha Estevez [facility] PROTHROMBIN TIME / INR 2022-12-15 00:02:00 Radha Estevez [facility] ACTIVATED PARTIAL THRMPLAS KENNY 1 00:02:00 Radha Estevez [facility] HB INDIRECT ANTIGLOBULIN TEST 2022-12-14 23:17:00 Radha Estevez [facility] CONSENT/REFUSAL FOR DIAGNOSI S AND TREATMENT 2022-12-14 21:10:39 Doctor Unassigned, Venus [facility] DISCLOSURE AND CONSENT, MEDI CARMENZA AND SURGICAL PROCEDURES 2022-12-01 05:01:00 Doctor Unassigned, Venus [facility] DISCLOSURE AND CONSENT, MEDI CARMENZA AND SURGICAL PROCEDURES 2022-12-01 05:01:00 Doctor Unassigned, Venus [facility] MICROALBUMIN URINE 2022-11-17 19:29:00 Deborah De Jesus [facility] ASSIGNMENT OF BENEFITS 2022-11-17 18:36:08 Doctor Unassigned, Venus [facility] FLU VACC (), 6 MO-6 4 YRS, .5ML, IM, QUAD (FLUCELVAX) 2022-04-28 18:57:25 Cuong Black [facility] SARS-COV-2 COVID-19 VACCINE 18 YRS+, BIVALENT 0.5ML, IM (MODERNA BOOSTER) 2022-04-28 18:57:25 Wayne Cuong [facility] SARS-COV-2 COVID-19 VACCINE BOOSTER,0.25ML,IM (MODERNA) 2021-10-18 16:23:35 Cuong Black [facility] HCV ANTIBODY 2020-11-04 14:02:00 Carmina Kumar [facility] CT LUNG CANCER SCREENING 2020-08-20 20:50:54 Carmina Kumar [facility] POCT OCCULT (GUAIAC) BLOOD 2007-09-01 00:00:00 Ricky Sierra [facility] Encounters Start Date/Time End Date/Time Encounter Type Admission Type Attending Clinicians Care Facility Care Department Encounter ID Source 2021-05-18 08:20:07 Emergency [facility] [id number] [facility] 2021-05-16 15:05:28 Emergency [facility] [id number] [facility] 2024-05-28 12:40:00 2024-05-28 12:40:00 Outpatient LADI HOOD CHRISTINE [facility] [id number] [facility] 2024-05-15 13:00:00 2024-05-15 13:00:00 Outpatient ALOK CASTILLO [facility] [id number] [facility] 2024-05-06 14:20:00 2024-05-06 14:20:00 Outpatient JOSHUA MORLEY HOWARD [facility] [id number] [facility] 2024-05-03 13:00:00 2024-05-03 13:15:00 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 Visit 2, [facility] Lab Alok Farrell 2, [facility] [id number] [facility] 2024-05-03 13:00:00 2024-05-03 13:00:00 Outpatient ALOK CASTILLO [facility] [id number] [facility] 2024-04-29 15:46:43 2024-04-29 23:59:00 Hospital Encounter Joshua Mg [facility] [id number] [facility] 2024-04-29 16:11:56 2024-04-29 15:45:00 Outpatient JOSHUA MORLEY HOWARD [facility] [id number] [facility] [facility] 2024-04-29 15:30:00 2024-04-29 15:45:00 Hospital Encounter Joshua Mg [facility] 1..840.114 350.1.13.10 4.2.7.2.686 [id number] [facility] 2024-04-23 00:00:00 2024-04-24 11:12:28 Patient Secure Msg Joshua Mg [facility] 1..840.114 350.1.13.10 4.2.7.2.686 [id number] 092 [id number] [facility] 2024-04-12 00:00:00 2024-04-18 16:02:14 [facility]phone [facility] 1..840.114 350.1.13.10 4.2.7.2.686 [id number] 092 [id number] [facility] 2024-04-17 00:00:00 2024-04-17 16:43:06 Patient Secure Joshua Prado [facility] 1..840.114 350.1.13.10 4.2.7.2.686 [id number] 092 [id number] [facility] 2024-04-08 15:30:00 2024-04-08 15:50:00 Imm/Inj Visit Nurse, Bradley Gould Saurav Joshua Van Nurse, Bradley Gould [facility] 1..840.114 350.1.13.10 4.2.7.2.686 [id number] [id number] [facility] 2024-04-08 14:40:00 2024-04-08 15:13:16 Outpatient R JOSHUA MGJOSHUA HAM [facility] [id number] [facility] 2024-04-08 14:40:00 2024-04-08 15:13:16 Office Visit Joshua Mg [facility] 1..840.114 350.1.13.10 4.2.7.2.686 [id number] 092 [id number] [facility] 2024-02-26 00:00:00 2024-03-30 18:23:16 Patient Secure Ladi Wang [facility] 1..840.114 350.1.13.10 4.2.7.2.686 [id number] 044 [id number] [facility] 2024-02-26 00:00:00 2024-03-30 18:23:07 Patient Secure Msg Doctor Unassigned, Venus Doctor Unassigned, Venus [facility] 1.2840.114 350.1.13.10 4.2.7.2.686 [id number] 019 [id number] [facility] 2024-02-26 00:00:00 2024-03-30 18:23:03 Patient Secure Msg Doctor Unassigned, Venus Doctor Unassigned, Venus [facility] 1.2.840.114 350.1.13.10 4.2.7.2.686 [id number] [id number] [facility] 2024-03-29 00:00:00 2024-03-29 14:35:29 Telephone Ladi Brian [facility] 1.2840.114 350.1.13.10 4.2.7.2.686 [id number] 044 [id number] [facility] 2024-03-27 13:42:54 2024-03-27 23:59:00 Outpatient R LADI BRIAN [facility]RISTINE [facility] [id number] [facility] 2024-03-27 13:42:54 2024-03-27 23:59:00 Hospital Encounter Ladi Brian [facility] 1.2840.114 350.1.13.10 4.2.7.2.686 [id number] [facility] 2024-02-21 00:00:00 2024-03-23 18:18:37 Patient Secure Msg Doctor Unassigned, Venus Doctor Unassigned, Venus [facility] 1.2840.114 350.1.13.10 4.2.7.2.686 [id number] [id number] [facility] 2024-03-14 12:15:00 2024-03-14 12:30:00 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 Visit Lab, Ladi Basilio Lab, Ang [facility] 1..840.114 350.1.13.10 4.2.7.2.686 [id number] [facility] 2024-03-14 11:20:00 2024-03-14 12:12:00 Outpatient R LADI BRIAN [facility] [id number] [facility] 2024-03-14 11:20:00 2024-03-14 12:12:00 Office Visit Roc [facility] 1.840.114 350.1.13.10 4.2.7.2.686 [id number] 044 [id number] [facility] 2024-03-13 10:30:00 2024-03-13 11:53:09 Outpatient R NARGISHERNANDO [facility] [id number] [facility] 2024-03-13 10:30:00 2024-03-13 11:53:[address] [facility] 1..840.114 350.1.13.10 4.2.7.2.686 [id number] [facility] 2024-03-08 00:00:00 2024-03-11 15:48:33 Transition of Care Jannie Welsh Kristi L [facility] 1..840.114 350.1.13.10 4.2.7.2.686 [id number] [facility] 2024-03-08 00:00:00 2024-03-11 11:01:08 Telephone Roc [facility] 1..840.114 350.1.13.10 4.2.7.2.686 [id number] 044 [id number] [facility] 2024-03-06 00:00:00 2024-03-08 17:57:27 Baldomero Givens [facility] 1..840.114 350.1.13.10 4.2.7.2.686 [id number] 044 [id number] [facility] 2024-03-03 08:15:00 2024-03-07 15:38:00 Inpatient X JESSICA PARHAM [facility] [id number] [facility] 2024-03-03 08:15:00 2024-03-07 15:38:00 Hospital Encounter Clifford Canales, Jessica Ramirez [facility] 1.84.114 350.1.13.10 4.2.7.2.686 [id number] [id number] [facility] 2024-03-07 00:00:00 2024-03-07 13:10:07 Telephone Roc [facility] 1.84.114 350.1.13.10 4.2.7.2.686 [id number] 044 [id number] [facility] 2024-03-05 15:45:00 2024-03-05 15:45:00 Outpatient SONAM KRISHNAMURTHY [facility] [id number] [facility] 2024-03-05 00:00:00 2024-03-05 09:59:43 Patient Secure Msg Roc [facility] 1.284.114 350.1.13.10 4.2.7.2.686 [id number] 044 [id number] [facility] 2024-03-01 00:00:00 2024-03-04 16:43:41 Patient Secure Msg [facility] 1.840.114 350.1.13.10 4.2.7.2.686 [id number] 044 [id number] [facility] 2024-03-04 00:00:00 2024-03-04 00:00:00 Outpatient LADI HOOD CHRISTINE [facility] [id number] [facility] 2024-02-28 00:00:00 2024-02-29 10:54:31 Telephone Deborah De Jesus [facility] 1..840.114 350.1.13.10 4.2.7.2.686 [id number] 044 [id number] [facility] 2024-02-28 15:15:00 2024-02-28 15:30:00 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 Visit Lab, Ang - Db Ladi Brian Lab, Ang - Db [facility] 1..840.114 350.1.13.10 4.2.7.2.686 [id number] [facility] 2024-02-28 15:15:00 2024-02-28 15:15:00 Outpatient LADI HOOD CHRISTINE [facility] [id number] [facility] 2024-02-26 00:00:00 2024-02-27 14:44:05 Patient Outreach Hawa [place] Marissa [facility] 1..840.114 350.1.13.10 4.2.7.2.686 [id number] 044 [id number] [facility] 2024-02-15 00:00:00 2024-02-22 10:18:00 Patient Outreach Hawa [place] Marissa R [facility] 1..840.114 350.1.13.10 4.2.7.2.686 [id number] 044 [id number] [facility] 2024-02-20 00:00:00 2024-02-20 12:27:19 Letter (Out) [facility] 1.2840.114 350.1.13.10 4.2.7.2.686 [id number] 019 [id number] [facility] 2024-02-20 08:00:00 2024-02-20 09:30:17 Outpatient R ROC LADI KLESantos [facility] [id number] [facility] 2024-02-20 08:00:00 2024-02-20 09:30:17 Office [facility] 1.2840.114 350.1.13.10 4.2.7.2.686 [id number] 044 [id number] [facility] 2024-02-15 00:00:00 2024-02-15 15:03:34 Case Management Deborah De Jesus [facility] 1.2840.114 350.1.13.10 4.2.7.2.686 [id number] 044 [id number] [facility] 2024-02-15 11:15:00 2024-02-15 11:40:19 Outpatient R GABI DUNAWAY PAMELA [facility] [id number] [facility] 2024-02-15 11:15:00 2024-02-15 11:40:19 Office Visit Gabi Dunaway [facility] 1.2840.114 350.1.13.10 4.2.7.2.686 [id number] [facility] 2024-02-14 14:41:21 2024-02-14 23:59:00 Hospital Encounter Deborah De [facility] 1.2840.114 350.1.13.10 4.2.7.2.686 [id number] [facility] 2024-02-14 14:41:21 2024-02-14 23:59:00 Hospital Encounter Deborah De [facility] 1.284.114 350.1.13.10 4.2.7.2.686 [id number] [id number] [facility] 2024-02-14 15:15:00 2024-02-14 15:30:00 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 Visit Lab, Bradley - Luis Fernando Deborah De Jesus [facility] 1.840.114 350.1.13.10 4.2.7.2.686 [id number] [facility] 2024-02-14 13:40:00 2024-02-14 14:43:09 Outpatient R LIZA YUEDEBORAH [facility] [id number] [facility] 2024-02-14 13:40:00 2024-02-14 14:43:09 Office Visit Deborah De Jesus [facility] 1..840.114 350.1.13.10 4.2.7.2.686 [id number] 044 [id number] [facility] 2024-02-14 00:00:00 2024-02-14 13:02:51 Baldomero Givens [facility] 1.2.840.114 350.1.13.10 4.2.7.2.686 [id number] 044 [id number] [facility] 2024-01-12 09:20:00 2024-01-12 13:55:00 Outpatient R GABI DUNAWAY PAMELA [facility] [id number] [facility] 2024-01-12 09:20:00 2024-01-12 13:55:00 Hospital Encounter Gabi Dunaway [facility] 1.840.114 350.1.13.10 4.2.7.2.686 [id number] [facility] 2024-01-12 10:35:00 2024-01-12 12:47:00 Surgery Gabi Dunaway [facility] 1.2.840.114 350.1.13.10 4.2.7.2.686 [id number] [id number] [facility] 2023 00:00:00 2023-12-30 18:24:14 Patient Secure Msg Doctor Unassigned, Venus [facility] 1.2.840.114 350.1.13.10 4.2.7.2.686 [id number] 019 [id number] [facility] 2023-12-25 00:00:00 2023-12-25 13:35:20 Transition of Care Constanza Garcia 1.2840.114 350.1.13.10 4.2.7.2.686 [id number] [facility] 2023-12-22 11:36:00 2023-12-23 13:30:00 Outpatient X JESSICA PARHAM [facility] LEATHA [id number] [facility] 2023-12-22 11:36:00 2023-12-23 13:30:00 Emergency Lavern Callahan Jelani 1..840.1 18383.1.1 3.104.2.7 .3.618545 .8 [id number] [facility] 2023-12-22 10:44:36 2023-12-22 10:44:36 Anesthesia Event Ilene Jackson 1.2.840.1 73240.1.1 3.104.2.7 .3.195348 .8 [id number] [facility] 2023-12-22 08:13:00 2023-12-22 10:14:00 Outpatient R GABI DUNAWAY [facility] [id number] [facility] 2023-12-22 08:13:00 2023-12-22 10:14:00 Hospital Encounter Gabi Dunwaay 1.2.840.1 78043.1.1 3.104.2.7 .3.169774 .8 [id number] [facility] 2023-12-22 00:00:00 2023-12-22 00:00:00 Travel 1.2.840.1 70773.1.1 3.104.2.7 .3.871474 .8 1.2.840.114 350.1.13.10 4.2.7.3.698 084.8 [id number] [facility] 2023-12-19 00:00:00 2023-12-20 08:46:30 Telephone Gabi Dunaway 1.2.840.1 69641.1.1 3.104.2.7 .3.462546 .8 [id number] [facility] 2023-12-16 00:00:00 2023-12-18 08:55:11 Refill Deborah De Jesus 1.2.840.1 75367.1.1 3.104.2.7 .3.864172 .8 [id number] [facility] 2023-12-14 00:00:00 2023-12-14 00:00:00 Travel 1.2.840.1 74451.1.1 3.104.2.7 .3.939252 .8 1.2.840.114 350.1.13.10 4.2.7.3.698 084.8 [id number] [facility] 2023-11-20 00:00:00 2023-11-20 00:00:00 Refill Deborah De Jesus 1.2.840.1 99707.1.1 3.104.2.7 .3.215510 .8 [id number] [facility] 2023-10-09 00:00:00 2023-11-11 18:08:10 Patient Secure Msg Doctor Unassigned, Venus 1.2.840.1 90091.1.1 3.104.2.7 .3.617420 .8 [id number] [facility] 2023-11-03 00:00:00 2023-11-10 15:38:48 Telephone Gabi Dunaway 1.2.840.1 00767.1.1 3.104.2.7 .3.854275 .8 [id number] [facility] 2023-11-07 00:00:00 2023-11-07 15:01:50 Letter (Out) 1.2.840.1 86714.1.1 3.104.2.7 .3.207394 .8 [id number] [facility] 2023-11-06 00:00:00 2023-11-06 00:00:00 Scanned Documents Doctor Unassigned, Venus 1.2.840.1 74432.1.1 3.104.2.7 .3.784540 .8 [id number] [facility] 2023-11-02 13:30:00 2023-11-02 15:04:41 Outpatient R GABI DUNAWAY [facility] [id number] [facility] 2023-11-02 13:30:00 2023-11-02 15:04:41 Office Visit Gabi Dunaway 1.2.840.1 70613.1.1 3.104.2.7 .3.675942 .8 [id number] [facility] 2023-11-02 00:00:00 2023-11-02 00:00:00 Travel 1.2.840.1 14550.1.1 3.104.2.7 .3.652858 .8 1.2.840.114 350.1.13.10 4.2.7.3.698 084.8 [id number] [facility] 2023-10-23 15:15:00 2023-10-23 15:15:00 Outpatient R CARISSA BAY BRENT [facility] [id number] [facility] 2023-10-19 14:45:00 2023-10-19 14:45:00 Outpatient R GABI DUNAWAY [facility] [id number] [facility] 2023-10-12 15:30:00 2023-10-12 15:30:00 Outpatient LEEROY LOPEZ [facility] [id number] [facility] 2023-10-12 00:00:00 2023-10-12 08:05:58 Deborah Payne 1..840.1 63230.1.1 3.104.2.7 .3.481293 .8 [id number] [facility] 2023-10-05 14:30:00 2023-10-05 14:30:00 Outpatient RIMA FRAZIER STRAHIL [facility] [id number] [facility] 2023-10-03 00:00:00 2023-10-03 11:16:10 Patient Secure Msg Doctor Unassigned, Venus 1.840.1 19816.1.1 3.104.2.7 .3.092821 .8 [id number] [facility] 2023-10-03 00:00:00 2023-10-03 10:05:08 Telephone Negrita Vidal 1..840.1 01913.1.1 3.104.2.7 .3.033330 .8 [id number] [facility] 2023-09-21 14:30:00 2023-09-21 14:45:00 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 Visit Lab, Bradley - Negrita Nichols [facility] 1..840.114 350.1.13.10 4.2.7.2.686 [id number] [facility] 2023-09-21 14:00:00 2023-09-21 14:28:43 Outpatient R NEGRITA VIDAL [facility] [id number] [facility] 2023-09-21 14:00:00 2023-09-21 14:28:43 Office Visit Marcy Negrita Isaak [facility] 1.2.840.114 350.1.13.10 4.2.7.2.686 [id number] 044 [id number] [facility] 2023-09-21 00:00:00 2023-09-21 00:00:00 Refill Cuong Black [facility] 1.2.840.114 350.1.13.10 4.2.7.2.686 [id number] 044 [id number] [facility] 2023-09-05 00:00:00 2023-09-05 00:00:00 Refill Deborah De Jesus [facility] 1.2840.114 350.1.13.10 4.2.7.2.686 [id number] 044 [id number] [facility] 2023-08-14 00:00:00 2023-08-14 00:00:00 Refill Deborah De Jesus [facility] 1.2840.114 350.1.13.10 4.2.7.2.686 [id number] 044 [id number] [facility] 2023-08-13 00:00:00 2023-08-13 00:00:00 Refill Deborah De Jesus [facility] 1.2840.114 350.1.13.10 4.2.7.2.686 [id number] 044 [id number] [facility] 2023-08-07 00:00:00 2023-08-07 00:00:00 Refill Deborah De Jesus [facility] 1.84.114 350.1.13.10 4.2.7.2.686 [id number] 044 [id number] [facility] 2023-07-21 00:00:00 2023-07-21 00:00:00 Refill Deborah De Jesus [facility] 1..114 350.1.13.10 4.2.7.2.686 [id number] 044 [id number] [facility] 2023-07-20 13:00:00 2023-07-20 13:00:00 Outpatient DOMINIQUE KOROMA [facility] [id number] [facility] 2023-07-20 00:00:00 2023-07-20 00:00:00 Refill Ubaldo Walter [facility] 1..114 350.1.13.10 4.2.7.2.686 [id number] [facility] 2023-07-16 00:00:00 2023-07-16 00:00:00 Refill Deborah De Jesus [facility] 1..114 350.1.13.10 4.2.7.2.686 [id number] 044 [id number] [facility] 2023-07-09 00:00:00 2023-07-09 00:00:00 Refill Deborah De Jesus [facility] 1..114 350.1.13.10 4.2.7.2.686 [id number] 044 [id number] [facility] 2023-06-21 14:30:00 2023-06-21 15:00:00 Office Visit Ubaldo Walter [facility] 1..114 350.1.13.10 4.2.7.2.686 [id number] [facility] 2023-06-21 14:30:00 2023-06-21 14:30:00 Outpatient UBALDO RIVERA [facility] [id number] [facility] 2023-06-06 00:00:00 2023-06-06 00:00:00 Refill Cuong Black [facility] 1.84.114 350.1.13.10 4.2.7.2.686 [id number] 044 [id number] [facility] 2023-05-06 00:00:00 2023-05-06 00:00:00 Refill Deborah De Jesus [facility] 1.84.114 350.1.13.10 4.2.7.2.686 [id number] [id number] [facility] 2023-04-20 13:00:00 2023-04-20 13:00:00 Outpatient UBALDO RIVERA [facility] [id number] [facility] 2023-03-30 15:45:00 2023-03-30 16:00:00 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 Visit [facility] Pérez Dominique [facility] 1.114 350.1.13.10 4.2.7.2.686 [id number] [facility] 2023-03-30 14:30:00 2023-03-30 15:00:00 Office Visit Dominique Ortez [facility] 1.114 350.1.13.10 4.2.7.2.686 [id number] [id number] [facility] 2023-03-30 14:30:00 2023-03-30 14:30:00 Outpatient R DOMINIQUE ORTEZ [facility] [id number] [facility] 2023-02-27 00:00:00 2023-02-27 00:00:00 Deborah Payne [facility] 1..840.114 350.1.13.10 4.2.7.2.686 [id number] [id number] [facility] 2023-02-24 09:30:00 2023-02-24 09:30:00 Outpatient DOMINIQUE KOROMA [facility] [id number] [facility] 2023-01-03 10:53:00 2023-01-03 13:23:00 Outpatient GIGI RUIZ GABRIEL [facility] SADIE [id number] [facility] 2023-01-03 10:53:00 2023-01-03 13:23:00 Hospital Encounter Gigi Medeiros [facility] 1.840.114 350.1.13.10 4.2.7.2.686 [id number] [facility] 2023-01-03 11:45:00 2023-01-03 13:00:00 Surgery Gigi Medeiros [facility] 1..840.114 350.1.13.10 4.2.7.2.686 [id number] [id number] [facility] 2023-01-03 00:00:00 2023-01-03 00:00:00 Orders Only Doctor Unassigned, Venus [facility] 1..840.114 350.1.13.10 4.2.7.2.686 [id number] [facility] 2022-12-14 16:19:00 2022-12-14 21:05:00 Emergency X Radha ESTEVEZ T. [facility] ERT [id number] [facility] 2022-12-14 16:19:00 2022-12-14 21:05:00 Emergency Radha Estevez [facility] 1.2840.114 350.1.13.10 4.2.7.2.686 [id number] [facility] 2022-12-14 00:00:00 2022-12-14 00:00:00 Telephone Liza Deborah Tracie [facility] 1.2840.114 350.1.13.10 4.2.7.2.686 [id number] [id number] [facility] 2022-12-01 10:30:00 2022-12-01 11:00:00 Office Visit Dominique Ortez [facility] 1.840.114 350.1.13.10 4.2.7.2.686 [id number] [facility] 2022-12-01 10:30:00 2022-12-01 10:30:00 Outpatient R DOMINIQUE ORTEZ [facility] [id number] [facility] 2022-11-24 00:00:00 2022-11-24 00:00:00 Case Management Deborah De Jesus [facility] 1.20.114 350.1.13.10 4.2.7.2.686 [id number] [id number] [facility] 2022-11-24 00:00:00 2022-11-24 00:00:00 Case Management Deborah De Jesus Tracie [facility] 1.2840.114 350.1.13.10 4.2.7.2.686 [id number] [id number] [facility] 2022-11-21 00:00:00 2022-11-21 00:00:00 Patient Secure jose Leeroy De Leon [facility] 1.2840.114 350.1.13.10 4.2.7.2.686 [id number] [id number] [facility] 2022-11-18 00:00:00 2022-11-18 00:00:00 Case Management Deborah De Jesus [facility] 1.84.114 350.1.13.10 4.2.7.2.686 [id number] [id number] [facility] 2022-11-17 14:15:00 2022-11-17 14:30:00 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 Visit Lab, [place] - Deborah Sanchez [facility] 1.84114 350.1.13.10 4.2.7.2.686 [id number] [facility] 2022-11-17 13:40:00 2022-11-17 14:13:40 Outpatient R DEBORAH DE JESUS [facility] [id number] [facility] 2022-11-17 13:40:00 2022-11-17 14:13:40 Office Visit Deborah De Jesus Tracie [facility] 1.84114 350.1.13.10 4.2.7.2.686 [id number] [id number] [facility] 2022-11-17 00:00:00 2022-11-17 00:00:00 Orders Only Doctor Unassigned, [facility] 1.114 350.1.13.10 4.2.7.2.686 [id number] [facility] 2022-11-16 00:00:00 2022-11-16 00:00:00 Cuong Harris [facility] [facility] 1.84.114 350.1.13.10 4.2.7.2.686 [id number] 044 [id number] [facility] 2022-10-06 00:00:00 2022-10-06 00:00:00 Telephone Cuong [facility] 1.2840.114 350.1.13.10 4.2.7.2.686 [id number] 044 [id number] [facility] 2022-09-09 00:00:00 2022-09-09 00:00:00 Refill Leeroy De Leon [facility] 1.2840.114 350.1.13.10 4.2.7.2.686 [id number] 044 [id number] [facility] 2022-08-26 00:00:00 2022-08-26 00:00:00 Refill Cuong Black [facility] 1.2840.114 350.1.13.10 4.2.7.2.686 [id number] 044 [id number] [facility] 2022-08-19 00:00:00 2022-08-19 00:00:00 Refill Cuong Black [facility] 1.2840.114 350.1.13.10 4.2.7.2.686 [id number] 044 [id number] [facility] 2022-08-17 00:00:00 2022-08-17 00:00:00 Telephone Cuong Black [facility] 1.2840.114 350.1.13.10 4.2.7.2.686 [id number] 044 [id number] [facility] 2022-08-15 00:00:00 2022-08-15 00:00:00 Telephone Cuong Black [facility] 1.2840.114 350.1.13.10 4.2.7.2.686 [id number] 044 [id number] [facility] 2022-05-16 00:00:00 2022-05-16 00:00:00 Telephone Cuong Black [facility] 1.2.840.114 350.1.13.10 4.2.7.2.686 [id number] 044 [id number] [facility] 2022-04-28 14:45:00 2022-04-28 15:00:00 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 Visit Lab, Bradley - Luis Fernando [facility] WAY[facility] 1.2840.114 350.1.13.10 4.2.7.2.686 [id number] [facility] 2022-04-28 13:30:00 2022-04-28 14:44:34 [facility] [id number] [facility] 2022-04-28 13:30:00 2022-04-28 14:44:34 Office Visit Chantelle [facility] 1.2.840.114 350.1.13.10 4.2.7.2.686 [id number] 044 [id number] [facility] 2022-04-25 00:00:00 2022-04-25 00:00:00 Refill Chantelle BlackFormerly [facility] WAY[facility] 1.2.840.114 350.1.13.10 4.2.7.2.686 [id number] 044 [id number] [facility] 2022-04-23 00:00:00 2022-04-23 00:00:00 Refill De LeonLeeroy tucker [facility] WAY[facility] 1.2.840.114 350.1.13.10 4.2.7.2.686 [id number] 044 [id number] [facility] 2022-04-13 00:00:00 2022-04-13 00:00:00 Refill Cuong Black [facility] 1.2840.114 350.1.13.10 4.2.7.2.686 [id number] 044 [id number] [facility] 2022-03-16 00:00:00 2022-03-16 00:00:00 Telephone Cuong Black [facility] 1.2840.114 350.1.13.10 4.2.7.2.686 [id number] 044 [id number] [facility] 2022-02-08 00:00:00 2022-02-08 00:00:00 Telephone Cuong Black [facility] 1.2840.114 350.1.13.10 4.2.7.2.686 [id number] 044 [id number] [facility] 2022-01-25 00:00:00 2022-01-25 00:00:00 Refill Leeroy De Leon [facility] 1.2840.114 350.1.13.10 4.2.7.2.686 [id number] 044 [id number] [facility] 2022-01-12 00:00:00 2022-01-12 00:00:00 Refill Cuong Black [facility] 1.2840.114 350.1.13.10 4.2.7.2.686 [id number] 044 [id number] [facility] 2021-12-20 00:00:00 2021-12-20 00:00:00 Refill Cuong Black [facility] 1.2840.114 350.1.13.10 4.2.7.2.686 [id number] 044 [id number] [facility] 2021-10-25 00:00:00 2021-10-25 00:00:00 Patient Secure Msg Doctor Unassigned, Venus [facility] 1.114 350.1.13.10 4.2.7.2.686 [id number] [facility] 2021-10-21 00:00:00 2021-10-21 00:00:00 Leeroy Marques [facility] 1.114 350.1.13.10 4.2.7.2.686 [id number] 044 [id number] [facility] 2021-10-18 12:15:00 2021-10-18 12:30:00 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 Visit Lab, Bradley [facility] 1.114 350.1.13.10 4.2.7.2.686 [id number] [facility] 2021-10-18 12:15:00 2021-10-18 12:15:00 Outpatient R CUONG BLACK [facility] [id number] [facility] 2021-10-18 10:30:00 2021-10-18 12:08:06 Office [facility] 1.114 350.1.13.10 4.2.7.2.686 [id number] 044 [id number] [facility] 2021-10-18 10:30:00 2021-10-18 12:08:06 Outpatient R CUONG BLACK [facility] [id number] [facility] 2021-09-23 00:00:00 2021-09-23 00:00:00 Patient Secure Msg Doctor Unassigned, Venus [facility] 1.114 350.1.13.10 4.2.7.2.686 [id number] [id number] [facility] 2021-09-09 00:00:00 2021-09-09 00:00:00 Patient Secure Msg Wayne [facility] WAYNE?[facility] OFF[facility] BUILDING 1..840.114 350.1.13.10 4.2.7.2.686 [id number] 044 [id number] [facility] 2021-08-03 00:00:00 2021-08-03 00:00:00 Telephone Chantelle BlackFormerly [facility] 1..840.114 350.1.13.10 4.2.7.2.686 [id number] 044 [id number] [facility] 2021-07-26 00:00:00 2021-07-26 00:00:00 [facility] 1..840.114 350.1.13.10 4.2.7.2.686 [id number] 044 [id number] [facility] 2021-06-03 11:30:00 2021-06-03 23:59:00 Outpatient JOSHUA MORLEY HOWARD [facility] [id number] [facility] 2021-06-03 10:52:49 2021-06-03 23:59:00 Hospital Encounter Joshua Mg [facility] 1..840.114 350.1.13.10 4.2.7.2.686 [id number] [facility] 2021-06-03 11:30:00 2021-06-03 11:30:00 Outpatient JOSHUA MORLEY HOWARD [facility] [id number] [facility] 2021-05-28 00:00:00 2021-05-28 00:00:00 [facility] 1..840.114 350.1.13.10 4.2.7.2.686 [id number] 044 [id number] [facility] 2021-05-24 15:00:00 2021-05-24 15:38:20 Outpatient JOSHUA MORLEY HOWARD [facility] [id number] [facility] 2021-05-24 14:51:18 2021-05-24 15:38:20 Office Visit Joshua Mg [facility] 1.840.114 350.1.13.10 4.2.7.2.686 [id number] 092 [id number] [facility] 2021-05-17 15:20:00 2021-05-17 15:20:[address] [facility] [id number] [facility] 2021-05-17 14:45:34 2021-05-17 14:55:34 Imm/Inj Visit Vaccine, Bradley Gould [facility]am Wayne [facility] 1.840.114 350.1.13.10 4.2.7.2.686 [id number] 044 [id number] [facility] 2021-05-06 00:00:00 2021-05-06 00:00:00 Patient Secure Msg Wayne [facility] 1.84.114 350.1.13.10 4.2.7.2.686 [id number] 044 [id number] [facility] 2021-05-05 14:18:00 2021-05-05 15:46:00 Emergency Ruy Villa [facility] 1.284.114 350.1.13.10 4.2.7.2.686 [id number] [id number] [facility] 2021-05-04 15:05:41 2021-05-04 15:20:41 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 Visit Lab, Bradley Black CuongFormerly [facility] Wayne?[facility] Medical Office Building 1.114 350.1.13.10 4.2.7.2.686 [id number] [facility] 2021-05-04 14:13:34 2021-05-04 15:06:05 [facility] 1..114 350.1.13.10 4.2.7.2.686 [id number] 044 [id number] [facility] 2021-05-04 14:30:00 2021-05-04 14:30:00 Outpatient R CUONG BLACK [facility] [id number] [facility] 2021-05-04 00:00:00 2021-05-04 00:00:00 Orders Only Doctor Unassigned, Venus [facility] 1.114 350.1.13.10 4.2.7.2.686 [id number] [facility] 2021-04-29 00:00:00 2021-04-29 00:00:00 Telephone Chantelle BlackFormerly [facility] Wayne?[facility] 1.114 350.1.13.10 4.2.7.2.686 [id number] 044 [id number] [facility] 2021-03-29 00:00:00 2021-03-29 00:00:00 Refill Chantelle BlackFormerly [facility] Wayne?[facility] Building 1.114 350.1.13.10 4.2.7.2.686 [id number] 044 [id number] [facility] 2021-03-27 00:00:00 2021-03-27 00:00:00 Refill [facility] 1.114 350.1.13.10 4.2.7.2.686 [id number] 044 [id number] [facility] 2021-02-24 00:00:00 2021-02-24 00:00:00 Refill Leeroy De Leon [facility] Office Building One 1.114 350.1.13.10 4.2.7.2.686 [id number] 044 [id number] [facility] 2021-02-17 00:00:00 2021-02-17 00:00:00 Refill Carmina Kumar [facility] Building 1..114 350.1.13.10 4.2.7.2.686 [id number] 044 [id number] [facility] 2021-02-06 00:00:00 2021-02-06 00:00:00 Refill José [facility] Building 1.0.114 350.1.13.10 4.2.7.2.686 [id number] 044 [id number] [facility] 2021-01-24 00:00:00 2021-01-24 00:00:00 Refill Moises Leeroy [facility] Office Building One .114 350.1.13.10 4.2.7.2.686 [id number] 044 [id number] [facility] 2020-12-28 00:00:00 2020-12-28 00:00:00 [facility] ..114 350.1.13.10 4.2.7.2.686 [id number] 044 [id number] [facility] 2020-12-03 13:44:21 2020-12-03 15:24:04 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 Visit Lab, Adc Fam Pob [facility] One .2.840.114 350.1.13.10 4.2.7.2.686 [id number] 044 [id number] [facility] 2020-12-03 12:58:17 2020-12-03 15:22:26 Office Visit Cuong Black [facility] Office Building One 1.2840.114 350.1.13.10 4.2.7.2.686 [id number] 044 [id number] [facility] 2020-12-03 13:00:00 2020-12-03 13:00:00 Outpatient R CUONG BLACK [facility] [id number] [facility] 2020-12-02 00:00:00 2020-12-02 00:00:00 Refill Carmina Kumar [facility] Building 1.2840.114 350.1.13.10 4.2.7.2.686 [id number] 044 [id number] [facility] 2020-11-13 00:00:00 2020-11-13 00:00:00 Refill Carmina Kumar [facility] Building 1.2840.114 350.1.13.10 4.2.7.2.686 [id number] 044 [id number] [facility] 2020-11-10 00:00:00 2020-11-10 00:00:00 Transition of Care Jannie Welsh 1.2840.114 350.1.13.10 4.2.7.2.686 [id number] [facility] 2020-11-08 00:43:00 2020-11-08 14:00:00 Hospital Encounter Person, Austyn Cardenas [facility] 1.2840.114 350.1.13.10 4.2.7.2.686 [id number] [facility] 2020-11-05 00:00:00 2020-11-05 00:00:00 Refill Carmina Kumar [facility] Professio [facility] 1.2.840.114 350.1.13.10 4.2.7.2.686 [id number] 044 [id number] [facility] 2020-11-04 09:15:00 2020-11-04 09:15:00 Outpatient R AYSENICOLE CARMINA [facility] [id number] [facility] 2020-11-04 08:57:11 2020-11-04 09:12:11 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 Visit 2, Adc Lab [facility] 1.2.840.114 350.1.13.10 4.2.7.2.686 [id number] [facility] 2020-10-06 00:00:00 2020-10-06 00:00:00 Refill José [facility] 1.2.840.114 350.1.13.10 4.2.7.2.686 [id number] 044 [id number] [facility] 2020-09-20 11:55:00 2020-09-20 11:55:00 Outpatient [facility] [id number] [facility] 2020-08-23 11:50:00 2020-08-23 11:50:00 Outpatient [facility] [id number] [facility] 2020-08-20 14:37:48 2020-08-20 23:59:00 Hospital Encounter Carmina Kumar [facility] 1.2.840.114 350.1.13.10 4.2.7.2.686 [id number] [facility] 2020-08-20 00:00:00 2020-08-20 00:00:00 Outpatient R JOSÉ CARMINA [facility] [id number] [facility] 2020-08-19 00:00:00 2020-08-19 00:00:00 Outpatient R CARMINA UKMAR [facility] [id number] [facility] 2020-08-18 00:00:00 2020-08-18 00:00:00 Refill Carmina Kumar [facility] nal Building 1.2.840.114 350.1.13.10 4.2.7.2.686 [id number] 044 [id number] [facility] 2020-08-11 00:00:00 2020-08-11 00:00:00 Telephone Carmina Kumar [facility] Professio nal Building 1.2.840.114 350.1.13.10 4.2.7.2.686 [id number] 044 [id number] [facility] 2020-08-07 14:35:57 2020-08-07 16:35:26 [facility] 1.2.840.114 350.1.13.10 4.2.7.2.686 [id number] 044 [id number] [facility] 2020-08-07 16:03:06 2020-08-07 16:18:06 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 Visit 2, Adc Lab Carmina [facility] 1.2.840.114 350.1.13.10 4.2.7.2.686 [id number] [facility] 2020-08-07 14:40:00 2020-08-07 14:40:00 Outpatient R CARMINA KUMAR [facility] [id number] [facility] 2020-07-31 09:45:00 2020-07-31 09:45:00 Outpatient R CARMINA KUMAR [facility] [id number] [facility] 2020-07-31 08:55:08 2020-07-31 09:10:08 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 Visit 2, Adc Lab José [facility]mina [facility] 1.2.840.114 350.1.13.10 4.2.7.2.686 [id number] [facility] 2020-07-31 00:00:00 2020-07-31 00:00:00 Refill [facility] 1.2.840.114 350.1.13.10 4.2.7.2.686 [id number] 044 [id number] [facility] 2020-07-28 00:00:00 2020-07-28 00:00:00 Refill Carmina Kumar [facility] Building 1.2.840.114 350.1.13.10 4.2.7.2.686 [id number] 044 [id number] [facility] 2020-07-21 00:00:00 2020-07-21 00:00:00 Telephone Carmina Kumar [facility] Building 1.2.840.114 350.1.13.10 4.2.7.2.686 [id number] 044 [id number] [facility] 2020-07-16 00:00:00 2020-07-16 00:00:00 Refill Carmina Kumar [facility] Building 1.2.840.114 350.1.13.10 4.2.7.2.686 [id number] 044 [id number] [facility] 2020-07-14 15:00:00 2020-07-14 15:00:00 Outpatient R JOSÉ CARMINA [facility] [id number] [facility] 2020-07-13 00:00:00 2020-07-13 00:00:00 Patient Secure Msg [facility] Building 1.2.840.114 350.1.13.10 4.2.7.2.686 [id number] 044 [id number] [facility] 2020-07-08 08:00:00 2020-07-08 08:00:00 Outpatient LYLA OLVERA JR [facility] [id number] [facility] 2020-07-06 14:50:44 2020-07-06 15:05:44 Office Visit Brigida Lyla Boland [facility] 1.0.114 350.1.13.10 4.2.7.2.686 [id number] [id number] [facility] 2020-07-06 10:22:50 2020-07-06 10:43:52 Laboratory Only Only, [facility] Test Allred Lyla Boland [facility] 1..114 350.1.13.10 4.2.7.2.686 [id number] [facility] 2020-07-06 08:00:00 2020-07-06 08:00:00 Outpatient LYLA OLVERA JR [facility] [id number] [facility] 2020-06-22 00:00:00 2020-06-22 00:00:00 Patient Secure Msg Doctor Unassigned, Venus [facility] 1..114 350.1.13.10 4.2.7.2.686 [id number] [id number] [facility] 2020-06-01 00:00:00 2020-06-01 00:00:00 Telephone Lyla Allred [facility] 1..114 350.1.13.10 4.2.7.2.686 [id number] [facility] 2020-05-19 08:15:00 2020-05-19 08:15:00 Outpatient LYLA OLVERA JR [facility] [id number] [facility] 2020-05-18 00:00:00 2020-05-18 00:00:00 Telephone Lyla Allred Krystian [facility] 1..114 350.1.13.10 4.2.7.2.686 [id number] [id number] [facility] 2020-05-15 13:10:45 2020-05-15 14:10:45 Office [facility] 1.20.114 350.1.13.10 4.2.7.2.686 [id number] [facility] 2020-05-15 13:30:00 2020-05-15 13:30:00 Outpatient DILLON HOWELL [facility] [id number] [facility] 2020-05-07 00:00:00 2020-05-07 00:00:00 Orders Only Doctor Unassigned, Venus [facility] 1.20.114 350.1.13.10 4.2.7.2.686 [id number] [facility] 2020-04-29 00:00:00 2020-04-29 00:00:00 RefCarmina Holt [facility] Building 1..114 350.1.13.10 4.2.7.2.686 [id number] 044 [id number] [facility] 2020-04-28 11:12:30 2020-04-28 11:44:14 Office Visit Mary Lou Cortez Brandon [facility] 1.114 350.1.13.10 4.2.7.2.686 [id number] [facility] 2020-04-28 11:00:00 2020-04-28 11:00:00 Outpatient SONAM KRISHNAMURTHY [facility] [id number] [facility] 2020-04-28 11:00:00 2020-04-28 11:00:[address] PORTILLO SONAM [facility] [id number] [facility] 2020-04-28 00:00:00 2020-04-28 00:00:00 Carmina Ramirez [facility] Building 1..114 350.1.13.10 4.2.7.2.686 [id number] [id number] [facility] 2020-04-13 00:00:00 2020-04-13 00:00:00 Refill [facility] 1..114 350.1.13.10 4.2.7.2.686 [id number] [id number] [facility] 2020-04-10 13:33:50 2020-04-10 15:01:20 Office Visit [facility] 1..114 350.1.13.10 4.2.7.2.686 [id number] 044 [id number] [facility] 2020-04-10 13:40:00 2020-04-10 13:40:00 Outpatient R CARMINA KUMAR [facility] [id number] [facility] 2020-04-01 00:00:00 2020-04-01 00:00:00 Refill Carmina Kumar [facility] 1.114 350.1.13.10 4.2.7.2.686 [id number] 044 [id number] [facility] 2020-03-25 00:00:00 2020-03-25 00:00:00 Telephone Carmina Kumar [facility] 1.114 350.1.13.10 4.2.7.2.686 [id number] 044 [id number] [facility] 2020-02-07 00:00:00 2020-02-07 00:00:00 Patient Secure Msg Doctor Unassigned, Venus [facility] 1.114 350.1.13.10 4.2.7.2.686 [id number] [facility] 2020-01-29 12:59:59 2020-01-29 13:22:02 Office Visit Lyla Allred [facility] 1.2.840.114 350.1.13.10 4.2.7.2.686 [id number] [facility] 2020-01-29 13:00:00 2020-01-29 13:00:00 Outpatient R LYLA ALLRED JR [facility] [id number] [facility] 2020-01-07 08:07:52 2020-01-28 10:53:58 Telemedici ne Visit José [facility] Building 1.2.840.114 350.1.13.10 4.2.7.2.686 [id number] 044 [id number] [facility] 2020-01-17 00:00:00 2020-01-17 00:00:00 Telephone Lyla Allred [facility] 1.2.840.114 350.1.13.10 4.2.7.2.686 [id number] [id number] [facility] 2020-01-16 10:04:40 2020-01-16 10:19:40 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 Visit 2, Adc Lab José [facility] Building 1.2840.114 350.1.13.10 4.2.7.2.686 [id number] [facility] 2020-01-16 10:15:00 2020-01-16 10:15:00 Outpatient CARMINA COMER [facility] [id number] [facility] 2020-01-15 08:05:32 2020-01-15 08:20:32 Office Visit Lyla Allred [facility] 1.2840.114 350.1.13.10 4.2.7.2.686 [id number] [facility] 2020-01-15 08:15:00 2020-01-15 08:15:00 Outpatient LYLA OLVERA JR [facility] [id number] [facility] 2020-01-15 00:00:00 2020-01-15 00:00:00 Letter (Out) Doctor Unassigned, Venus [facility] 1.840.114 350.1.13.10 4.2.7.2.686 [id number] [facility] 2020-01-14 08:30:00 2020-01-14 08:30:00 Outpatient R [facility] [id number] [facility] 2020-01-14 08:13:17 2020-01-14 08:28:17 Laboratory Only Only, [facility] Test Brigida Lyla Boland [facility] 1.284.114 350.1.13.10 4.2.7.2.686 [id number] [facility] 2020-01-08 00:00:00 2020-01-08 00:00:00 Telephone Carmina Kumar [facility] [id number] 350.1.13.10 4.2.7.2.686 [id number] [facility] 2020-01-07 12:00:00 2020-01-07 12:00:00 Outpatient R CARMINA KUMAR [facility] [id number] [facility] 2019-12-11 14:47:07 2019-12-11 15:17:07 Office Visit Lyla Allred [facility] [id number] 350.1.13.10 4.2.7.2.686 [id number] [facility] 2019-12-11 15:00:00 2019-12-11 15:00:00 Outpatient R LYLA ALLRED JR [facility] [id number] [facility] Results Test Description Test Time Test Comments Results Result Co mments Source [facility]MR BRAIN WO [id number] 21:47:38MR BRAIN WO CONTRAST HISTORY: Male 68 years Gait abnormality COMPARISON: CT head dated 12/22/2023 andMRI brain dated 06/03/2021 TECHNIQUE: Multiple and multi weighted imaging of the brain was obtainedwithout IV contrast FINDINGS: The ventricles and cerebral sulci are unchanged in caliber andconfiguration. The cerebellar folia are prominent, similar in degree to theprior study. No hydrocephalus, midline shift or pathological extra-axialfluid collection is present. The basal cisterns are unremarkable. No restricted diffusion is present to suggest acute-subacute ischemia. No significant parenchymal attenuation abnormality is present. No focus ofabnormal parenchymal gradient blooming is present.No abnormal fluid signal is present in the mastoid air cells and paranasalair sinuses. The T2 flow voids for the major intracranial vessels areunremarkable.[facility] GLUCOSE (AUTOMATED) 2024-03-07 17:10:26* Test Item Value Reference Range Interpretation Comme nts POCT GLU (test code = 9371939933) 204 mg/dL 70-110 H Lab Interpretation (test cod e = 46253-8) Abnormal [facility] GLUCOSE (AUTOMATED)2024-03-07 13:00:22* Test Item Value Reference Range Interpretation Comme nts POCT GLU (test code = 5857150192) 166 mg/dL 70-110 H Lab Interpretation (test cod e = 82734-0) Abnormal [facility] GLUCOSE (AUTOMATED)2024-03-07 01:53:23* Test Item Value Reference Range Interpretation Comme nts POCT GLU (test code = 0953600174) 172 mg/dL 70-110 H Lab Interpretation (test cod e = 82809-4) Abnormal [facility] GLUCOSE (AUTOMATED)2024-03-06 21:55:52* Test Item Value Reference Range Interpretation Comme nts POCT GLU (test code = 6536314390) 161 mg/dL 70-110 H Lab Interpretation (test cod e = 43031-0) Abnormal [facility] GLUCOSE (AUTOMATED)2024-03-06 16:47:50* Test Item Value Reference Range Interpretation Comme nts POCT GLU (test code = 7869065344) 243 mg/dL 70-110 H Lab Interpretation (test cod e = 70101-7) Abnormal [facility] GLUCOSE (AUTOMATED)2024-03-06 12:52:50* Test Item Value Reference Range Interpretation Comme nts POCT GLU (test code = 3777279273) 140 mg/dL 70-110 H Lab Interpretation (test cod e = 79162-9) Abnormal [facility] GLUCOSE (AUTOMATED)2024-03-06 01:54:22* Test Item Value Reference Range Interpretation Comme nts POCT GLU (test code = 5980041554) 147 mg/dL 70-110 H Lab Interpretation (test cod e = 58188-1) Abnormal [facility] GLUCOSE (AUTOMATED)2024-03-05 21:59:48* Test Item Value Reference Range Interpretation Comme nts POCT GLU (test code = 7779251799) 231 mg/dL 70-110 H Lab Interpretation (test cod e = 48337-6) Abnormal [facility] GLUCOSE (AUTOMATED)2024-03-05 16:53:15* Test Item Value Reference Range Interpretation Comme nts POCT GLU (test code = 4982926515) 188 mg/dL 70-110 H Lab Interpretation (test cod e = 01860-9) Abnormal [facility] GLUCOSE (AUTOMATED)2024-03-05 12:49:48* Test Item Value Reference Range Interpretation Comme nts POCT GLU (test code = 4769300479) 143 mg/dL 70-110 H Lab Interpretation (test cod e = 00142-7) Abnormal [facility] Metabolic Panel (NA, K, CL, CO2, GLUCOSE, BUN, CREATININE, CA)2024-03-05 11:05:37* Test Item Value Reference Range Interpretation Comme nts NA (test code = 6218647315) 124 mmol/L 135-145 L K (test code = 5586437009) 4.5 mmol/L 3.5-5.0 CL (test code = 4078045424) 84 mmol/L 98-108 L CO2 TOTAL (test code = 0468634558) 28 mmol/L 23-31 AGAP (test code = 1045030460) 12 2-16 BUN (test code = 0376281391) 20 mg/dL 7-23 GLUCOSE (test code = 9430478698) 147 mg/dL 70-110 H CREATININE (test code = 2160-0) 0.86 mg/dL 0.60-1.25 CALCIUM (test code = 9630930446) 8.8 mg/dL 8.6-10.6 eGFR (test code = 63433-6) 95.5 mL/min/1.73m2 CKD-EPI eGFR (2020). Assuming creatinine has been stable day-to-day for at least three months, the eGFR indicates Category G1 (>= 90 mL/min/1.73 m2) Lab Interpretation (test code = 37800-2) Abnormal [facility] GLUCOSE (AUTOMATED)2024-03-05 02:02:46* Test Item Value Reference Range Interpretation Comme nts POCT GLU (test code = 2258634471) 139 mg/dL 70-110 H Lab Interpretation (test cod e = 22861-6) Abnormal [facility] Metabolic Panel (NA, K, CL, CO2, GLUCOSE, BUN, CREATININE, CA)2024-03-04 22:53:52* Test Item Value Reference Range Interpretation Comme nts NA (test code = 5039496215) 121 mmol/L 135-145 L K (test code = 5116936430) 4.6 mmol/L 3.5-5.0 CL (test code = 3393153057) 83 mmol/L 98-108 L CO2 TOTAL (test code = 7424289169) 23 mmol/L 23-31 AGAP (test code = 6611633862) 15 2-16 BUN (test code = 3298615622) 26 mg/dL 7-23 H GLUCOSE (test code = 7941069882) 175 mg/dL 70-110 H CREATININE (test code = 2160-0) 1.12 mg/dL 0.60-1.25 CALCIUM (test code = 3766378592) 8.2 mg/dL 8.6-10.6 L eGFR (test code = 60506-6) 72.5 mL/min/1.73m2 CKD-EPI eGFR (2020). Assuming creatinine has been stable day-to-day for at least three months, the eGFR indicates Category G2 (60 - 89 mL/min/1.73 m2) Lab Interpretation (test code = 85860-3) Abnormal [facility] GLUCOSE (AUTOMATED)2024-03-04 21:39:18* Test Item Value Reference Range Interpretation Comme nts POCT GLU (test code = 4962976556) 171 mg/dL 70-110 H Lab Interpretation (test cod e = 03356-7) Abnormal [facility] Metabolic Panel (NA, K, CL, CO2, GLUCOSE, BUN, CREATININE, CA)2024-03-04 19:49:20* Test Item Value Reference Range Interpretation Comme nts NA (test code = 7043589364) 120 mmol/L 135-145 L K (test code = 3156378113) 5.4 mmol/L 3.5-5.0 H CL (test code = 6889489264) 81 mmol/L 98-108 L CO2 TOTAL (test code = 6245214586) 20 mmol/L 23-31 L AGAP (test code = 4008905058) 19 2-16 H BUN (test code = 8121117594) 26 mg/dL 7-23 H GLUCOSE (test code = 7372660085) 177 mg/dL 70-110 H CREATININE (test code = 2160-0) 1.25 mg/dL 0.60-1.25 CALCIUM (test code = 8622234378) 8.4 mg/dL 8.6-10.6 L eGFR (test code = 25002-1) 63.5 mL/min/1.73m2 CKD-EPI eGFR (2020). Assuming creatinine has been stable day-to-day for at least three months, the eGFR indicates Category G2 (60 - 89 mL/min/1.73 m2) Lab Interpretation (test code = 06765-0) Abnormal [facility]ST 1 [id number] 19:26:46Study: Single view chest. Ordering Physician: ALBINA PRYOR Date: 03/04/2024 11:15 AM History:shortness of breath COMPARISON: None. Findings: Single frontal view chest demonstrates cardiomegaly. Left greaterthan right pleural effusions are identified bibasilar atelectasis. Noinfiltrate or pneumothorax is present. [facility]CT ABDOMEN PELVIS WO [id number] 19:16:07ORDERING PHYSICIAN: MARCO ANTONIO ADAMES ABDOMEN AND PELVIS CT WITHOUT INTRAVENOUS CONTRAST. DATE: ?03/04/2024 2:13 PM CLINICAL INDICATIONS: ?Abdominal pain, acute, nonlocalized TECHNIQUE: ?Axial computedtomographic images of the abdomen and pelviswere obtained without intravenous contrast. CT scan was performed accordingto ALARA (As Low as Reasonably Achievable). COMPARISON: ?11/08/2020 Abdomen findings: Evaluation of the lung bases demonstrates tiny pleuraleffusions and dependent atelectasis. Mildcardiomegaly identified. Diffuse hepatic steatosis is present. The spleen, pancreas and adrenalglands have an unremarkable noncontrast appearance. Cholecystectomy hasbeen performed. The kidneys have an unremarkable noncontrast appearance. Noevidence for obstructing ureteral calculus, hydroureter orhydronephrosisis present bilaterally. The stomach, small bowel and colon demonstrate no evidence for obstructionor inflammation. A normal appendix is present in the right lower quadrant. No adenopathy or free fluid are identified in the abdomen. No evidence foromental or peritoneal metastatic disease is present. No acute osseousabnormality is identified. Pelvis findings: The small bowel and colonare normal caliber. A Foleycatheter is present within the urinary bladder. Hazy pericystic edema isn oted which is suspected to result from cystitis. The prostate gland iswithin normal limits of size.No adenopathy or free fluid are identified inthe pelvis. No acute osseous abnormality is demonstrated.[facility] US RETROPERITONEAL [id number] 17:57:51EXAM: US RETROPERITONEAL LIMITED HISTORY: 68 years-old Male; ?acute renal failure . TECHNIQUE: Survey ultrasound of the kidneys was performed. Representativeimages were obtained for the record. COMPARISON: None available FINDINGS: Limited study secondary to patient's large body habitus. RIGHT KIDNEY:Size: The right kidney measures 11.1 cm in length.Parenchyma: The renal parenchyma exhibits normalcortical echogenicity andthickness. Lobulated contour of the right kidney. No solid or cystic lesionis detected.Collecting System: No hydronephrosis is seen. LEFT KIDNEY:Size: The left kidney measures 10.3 cm.Parenchyma: The renal parenchyma exhibits normal cortical echogenicity andthickness. Lobulated contour of the left kidney. No solid or cystic lesionis detected.Collecting System: No hydronephrosis is seen. OTHER: The bladder is decompressed by the Ortiz catheter.[facility])2024-03-04 16:47:47* Test Item Value Reference Range Interpretation Comme nts POCT GLU (test code = 0830998808) 163 mg/dL 70-110 H Lab Interpretation (test cod e = 60658-5) Abnormal [facility] Metabolic Panel (NA, K, CL, CO2, GLUCOSE, BUN, CREATININE, CA)2024-03-04 15:05:30* Test Item Value Reference Range Interpretation Comme nts NA (test code = 2364801182) 118 mmol/L 135-145 LL K (test code = 3671311904) 5.5 mmol/L 3.5-5.0 H CL (test code = 8338493556) 82 mmol/L 98-108 L CO2 TOTAL (test code = 8047175111) 15 mmol/L 23-31 L AGAP (test code = 5402685610) 21 2-16 H BUN (test code = 3577148397) 26 mg/dL 7-23 H GLUCOSE (test code = 6662732096) 134 mg/dL 70-110 H CREATININE (test code = 2160-0) 1.39 mg/dL 0.60-1.25 H CALCIUM (test code = 1420845270) 8.3 mg/dL 8.6-10.6 L eGFR (test code = 94266-4) 55.9 mL/min/1.73m2 CKD-EPI eGFR (2020). Assuming creatinine has been stable day-to-day for at least three months, the eGFR indicates Category G3a (45 - 59 mL/min/1.73 m2) Lab Interpretation (test code = 65869-8) Abnormal [facility] GLUCOSE (AUTOMATED)2024-03-04 12:31:45* Test Item Value Reference Range Interpretation Comme nts POCT GLU (test code = 9670251511) 123 mg/dL 70-110 H Lab Interpretation (test cod e = 19750-7) Abnormal [facility] GLUCOSE (AUTOMATED)2024-03-04 02:09:08* Test Item Value Reference Range Interpretation Comme nts POCT GLU (test code = 2008341043) 109 mg/dL 70-110 Lab Interpretation (test cod e = 38939-8) Normal [facility] GLUCOSE (AUTOMATED)2024-03-03 21:51:09* Test Item Value Reference Range Interpretation Comme nts POCT GLU (test code = 6660799149) 101 mg/dL 70-110 Lab Interpretation (test cod e = 98369-9) [facility]2024-03-03 19:12:03* Test Item Value Reference Range Interpretation Comme [facility] HGB A1C (test code = 4548-4) 5.7 % 4.0-5.7 RYDER (test code = RYDER) Reference RangesNormal: <5.7%Prediabetes: 5.7 - 6.4%Diabetes: > 6.5% Lab Interpretation (test code = 83480-6) Normal [facility] (AUTOMATED)2024-03-03 18:42:12* Test Item Value Reference Range Interpretation Comme [facility] POCT GLU (test code = 8720215238) 97 mg/dL 70-110 Lab Interpretation (test cod e = 61840-8) Normal [facility] METABOLIC PANEL (NA, K, CL, CO2, GLUCOSE, BUN, CREATININE, CA)2024-03-03 16:19:21* Test Item Value Reference Range Interpretation Comme [facility] NA (test code = 5612943314) 116 mmol/L 135-145 LL K (test code = 9217153913) 4.9 mmol/L 3.5-5.0 CL (test code = 2195670455) 82 mmol/L 98-108 L CO2 TOTAL (test code = 3442307147) 15 mmol/L 23-31 L AGAP (test code = 4531781547) 19 2-16 H BUN (test code = 6906711303) 18 mg/dL 7-23 GLUCOSE (test code = 9191858263) 91 mg/dL 70-110 CREATININE (test code = 2160-0) 1.70 mg/dL 0.60-1.25 H CALCIUM (test code = 4170251217) 8.5 mg/dL 8.6-10.6 L eGFR (test code = 59233-7) 43.9 mL/min/1.73m2 CKD-EPI eGFR (2020). Assuming creatinine has been stable day-to-day for at least three months, the eGFR indicates Category G3b (30 - 44 mL/min/1.73 m2) RYDER (test code = RYDER) Had to run sample over due to low result/Had to work in BB during this time only 2 techs with many 4plexs/cn. Lab Interpretation (test code = 16886-2) [id number] 15:46:27* Test Item Value Reference Range Interpretation Comme nts TROPONIN I (test code = 1219819741) 0.009 ng/mL <=0.034 RYDER (test code = RYDER) Reference (Normal) Range (defined by the 99th percentile reference limit): <= 0.034 ng/mL Note: Cardiac troponin begins to rise 3-4 hours after the onset of ischemia. Repeat in 4-6 hours if the sample was drawn within 3-4 hours of the onset of the symptom and found normal. Diagnosis of myocardial injury is made with acute changes in cTn concentrations with at least one serial sample above the 99th percentile upper reference limit (URL), taken together with the patient's clinical presentation. Biotin has been reported to cause a negative bias, interpret results relative to patient's use of biotin. Lab Interpretation (test code = 14101-0) Normal [facility] METABOLIC PANEL (43994)2024-03-03 14:51:39* Test Item Value Reference Range Interpretation Comme nts NA (test code = 8338838308) 116 mmol/L 135-145 LL K (test code = 6109749053) 5.4 mmol/L 3.5-5.0 H Slight hemolysis CL (test code = 0734680142) 81 mmol/L 98-108 L CO2 TOTAL (test code = 7756136421) 17 mmol/L 23-31 L AGAP (test code = 9489618612) 18 2-16 H BUN (test code = 6893878735) 18 mg/dL 7-23 Slight hemolysis GLUCOSE (test code = 5386169648) 98 mg/dL 70-110 CREATININE (test code = 2160-0) 1.64 mg/dL 0.60-1.25 H TOTAL BILI (test code = 8983986024) 1.3 mg/dL 0.1-1.1 H CALCIUM (test code = 5738071968) 8.3 mg/dL 8.6-10.6 L T PROTEIN (test code = 0824922424) 7.1 g/dL 6.3-8.2 ALBUMIN (test code = 0419175707) 4.1 g/dL 3.5-5.0 ALK PHOS (test code = 3065487389) 123 U/L 34-122 H Slight hemolysis ALTv (test code = 1742-6) 55 U/L 5-50 H AST(SGOT) (test code = 5941989659) 129 U/L 13-40 H Slight hemolysis eGFR (test code = 48667-2) 45.8 mL/min/1.73m2 CKD-EPI eGFR (2020). Assuming creatinine has been stable day-to-day for at least three months, the eGFR indicates Category G3a (45 - 59 mL/min/1.73 m2) Lab Interpretation (test code = 40068-7) Abnormal [facility] WITH [id number] 14:07:00* Test Item Value Reference Range Interpretation Comme nts WBC (test code = 6690-2) 5.13 4.20-10.70 RBC (test code = 789-8) 2.99 4.26-5.52 L HGB (test code = 718-7) 10.8 g/dL 12.2-16.4 L HCT (test code = 4544-3) 29.5 % 38.4-49.3 L MCV (test code = 787-2) 98.7 fL 81.7-95.6 H MCH (test code = 785-6) 36.1 pg 26.1-32.7 H MCHC (test code = 786-4) 36.6 g/dL 31.2-35.0 H RDW-SD (test code = 93919-3) 58.8 fL 38.5-51.6 H RDW-CV (test code = 788-0) 16.1 % 12.1-15.4 H PLT (test code = 777-3) 104 150-328 L MPV (test code = 11289-9) 12.5 fL 9.8-13.0 NRBC/100 WBC (test code = 2224521048) 0.0 0.0-10.0 NRBC x10^3 (test code = 1997191196) See_Comment [Automated messa ge] The system which generated this result transmitted reference range: 10*3/?L. The reference range was not used to interpret this result as normal/abnormal. GRAN MAT (NEUT) % (test code = 770-8) 56.6 % IMM GRAN % (test code = 6046530341) 0.20 % LYMPH % (test code = 736-9) 27.7 % MONO % (test code = 5905-5) 12.9 % EOS % (test code = 713-8) 1.8 % BASO % (test code = 706-2) 0.8 % GRAN MAT x10^3(ANC) (test code = 1370038419) 2.91 10*3/uL 1.99-6.95 IMM GRAN x10^3 (test code = 1362843831) 0.00-0.06 LYMPH x10^3 (test code = 731-0) 1.42 10*3/uL 1.09-3.23 MONO x10^3 (test code = 742-7) 0.66 10*3/uL 0.36-1.02 EOS x10^3 (test code = 711-2) 0.09 10*3/uL 0.06-0.53 BASO x10^3 (test code = 704-7) 0.04 10*3/uL 0.01-0.09 Lab Interpretation (test code = 04736-7) [facility]normal [facility] 3 [id number] 21:16:41XR LUMBAR SPINE 3 VW HISTORY: Male 68 years leg weakness, falls COMPARISON: None FINDINGS: The vertebral bodies are normal in height and in normal alignment. Milddegenerative changes are present. No acute osseous abnormality.[facility] ParkwayCbc without [id number] 15:46:43* Test Item Value Reference Range Interpretation Comme nts WBC (test code = 6690-2) 2.84 4.20-10.70 L RBC (test code = 789-8) 2.80 4.26-5.52 L HGB (test code = 718-7) 10.2 g/dL 12.2-16.4 L HCT (test code = 4544-3) 30.2 % 38.4-49.3 L MCH (test code = 785-6) 36.4 pg 26.1-32.7 H MCV (test code = 787-2) 107.9 fL 81.7-95.6 H MCHC (test code = 786-4) 33.8 g/dL 31.2-35.0 PLT (test code = 777-3) 131 150-328 L MPV (test code = 90144-7) 10.4 fL 9.8-13.0 RDW-CV (test code = 788-0) 16.2 % 12.1-15.4 H RDW-SD (test code = 72752-6) 63.9 fL 38.5-51.6 H NRBC x10^3 (test code = 4323394969) See_Comment [Automated e-SENSa ge] The system which generated this result transmitted reference range: 10*3/?L. The reference range was not used to interpret this result as normal/abnormal. NRBC/100 WBC (test code = 6747301770) 0.0 0.0-10.0 IPF % (test code = 5101439273) Lab Interpretation (test code = 16650-8) Abnormal [facility] without [id number] 15:46:43* Test Item Value Reference Range Interpretation Comme nts WBC (test code = 6690-2) 2.84 4.20-10.70 L RBC (test code = 789-8) 2.80 4.26-5.52 L HGB (test code = 718-7) 10.2 g/dL 12.2-16.4 L HCT (test code = 4544-3) 30.2 % 38.4-49.3 L MCH (test code = 785-6) 36.4 pg 26.1-32.7 H MCV (test code = 787-2) 107.9 fL 81.7-95.6 H MCHC (test code = 786-4) 33.8 g/dL 31.2-35.0 PLT (test code = 777-3) 131 150-328 L MPV (test code = 88887-4) 10.4 fL 9.8-13.0 RDW-CV (test code = 788-0) 16.2 % 12.1-15.4 H RDW-SD (test code = 14798-5) 63.9 fL 38.5-51.6 H NRBC x10^3 (test code = 7236587458) See_Comment [Automated e-SENSa ge] The system which generated this result transmitted reference range: 10*3/?L. The reference range was not used to interpret this result as normal/abnormal. NRBC/100 WBC (test code = 7306929547) 0.0 0.0-10.0 IPF % (test code = 4026444083) Lab Interpretation (test code = 03807-2) Abnormal [facility] GLUCOSE (AUTOMATED)2024-01-12 15:31:14* Test Item Value Reference Range Interpretation Comme nts POCT GLU (test code = 6321402852) 133 mg/dL 70-110 H Lab Interpretation (test cod e = 06676-9) Abnormal [facility] GLUCOSE (AUTOMATED)2024-01-12 15:31:14* Test Item Value Reference Range Interpretation Comme nts POCT GLU (test code = 3209724920) 133 mg/dL 70-110 H Lab Interpretation (test cod e = 75993-4) Abnormal [facility] GLUCOSE (AUTOMATED)2023-12-23 16:37:57* Test Item Value Reference Range Interpretation Comme nts POCT GLU (test code = 4600205313) 120 mg/dL 70-110 H Lab Interpretation (test cod e = 76215-8) Abnormal [facility] GLUCOSE (AUTOMATED)2023-12-23 16:37:57* Test Item Value Reference Range Interpretation Comme nts POCT GLU (test code = 5713366705) 120 mg/dL 70-110 H Lab Interpretation (test cod e = 38174-9) Abnormal [facility] GLUCOSE (AUTOMATED)2023-12-23 12:40:52* Test Item Value Reference Range Interpretation Comme nts POCT GLU (test code = 8313216135) 124 mg/dL 70-110 H Lab Interpretation (test cod e = 66809-5) Abnormal [facility] GLUCOSE (AUTOMATED)2023-12-23 01:59:30* Test Item Value Reference Range Interpretation Comme nts POCT GLU (test code = 4144158617) 104 mg/dL 70-110 Lab Interpretation (test cod e = 47408-2) Normal [facility]an[facility]hor[facility] (TTE)2023-12-22 21:27:38* Test Item Value Reference Range Interpretation Comme nts Height (test code = 7569952613) 71 in Weight (test code = 1412376614) 244 lbs Systolic BP (test code = 5550504859) 162 mmHg Diastolic BP (test code = 9676538884) 82 mmHg Heart Rate (test code = 4273462492) 64 bpm BSA (test code = 2353136188) 2.29 m2 LVOT diameter (test code = 5655352649) 2.09 cm LVOT area (test code = 6678883818) 3.40 cm2 LA size (test code = 1219964109) 4.4 cm LVIDD (test code = 3831554730) 6.10 cm Left Ventricular End Diastolic Volume by Teichholz Method (test code = 1045392) 188.1 mL IVS (test code = 5527138898) 0.97 cm Interventricular Septum Diastolic Thickness by 2D (test code = 0931592) 0.97 cm LVPWD (test code = 7037951990) 0.99 cm PW (test code = 6536679642) 0.99 cm 0.6-1.1 EF(Teich) (test code = 7831854652) 61.90 % LVIDS (test code = 9019220432) 4.00 cm Left Ventricular End Systolic Volume by Teichholz Method (test code = 0821225) 71.7 mL FS (test code = 5932486696) 34 % EF - 2D (test code = 29850573) 61.90 % Ao root diam (test code = 8409977002) 3.40 cm Aortic root (test code = 5649382638) 3.4 cm Ao root annulus (test code = 9389968681) 3.4 cm LAV(MOD-sp4) (test code = 2169943868) 74.30 mL E wave decelartion time (test code = 6504506500) 0.16 s MV Peak E Jose (test code = 8481899817) 104.1 cm/s MV stenosis pressure 1/2 time (test code = 6575437490) 47.4 ms MV Peak A Jose (test code = 9657024700) 90.8 cm/s E/A ratio (test code = 2289824113) 1.15 ratio MV Prop V (test code = 9796285513) 49.80 cm/s MV E/e' septal (test code = 3820135881) 11.6 cm/s Tapse (test code = 2179059519) 2.14 cm LVOT stroke volume (test code = 4222492902) 102.60 cm3 LVOT peak jose (test code = 8249625140) 131.1 cm/s LVOT mn grad (test code = 4705623333) 3.3 mmHg AV LVOT peak gradient (test code = 2512121383) 6.9 mmHg LVOT peak VTI (test code = 2945256632) 30.0 cm LV V1 mean (test code = 5952370430) 85.90 cm/s Aortic valve mean velocity (test code = 8820525400) 115.3 cm/s Ao peak jose (test code = 2438213533) 179.2 cm/s Ao VTI (test code = 8526267481) 40.2 cm AV area by cont VTI (test code = 2910607237) 2.6 cm2 AV area peak jose (test code = 9733575715) 2.5 cm2 Ao max PG (test code = 3747891868) 12.80 mm[Hg] AV peak gradient (test code = 1952974209) 12.8 mmHg AV valve area (test code = 4287074872) 2.60 cm2 AV mean gradient (test code = 2275166024) 6.0 mmHg Radiology Study observation (narrative) (test code = 96172-0) RYDER (test code = RYDER) ?Left?Ventricle: Left ventricle is mildly dilated. Normal wall thickness. Normal wall motion. Normal systolic function with a visually estimated EF of 60 - 65%. Indeterminate diastolic function. ?Right?Ventricle: Right ventricle size is normal. Normal systolic function. ?Tricuspid?Valve: Insufficient tricuspid regurgitation jet to estimate RVSP . ?IVC/SVC: IVC normal in size. Left VentricleLeft ventricle is mildly dilated. Normal wall thickness. Normal wall motion. Normal systolic function with a visually estimated EF of 60 - 65%. Indeterminate diastolic function.Right VentricleRight ventricle size is normal. Normal systolic function.Left AtriumLeft atrium size is normal.Right AtriumRight atrium size is normal.IVC/SVCIVC normal in size.Mitral ValveMitral valve structure is normal. Trace transvalvular regurgitation.Tricusp id ValveTricuspid valve structure is normal. Trace transvalvular regurgitation. Insufficient tricuspid regurgitation jet to estimate RVSP .Aortic ValveTricuspid.Pulmon ic ValveNot well visualized.Ascending AortaNormal sized aorta.PericardiumThe pericardium is normal. No pericardial effusion.Study DetailsStudy quality experienced technical difficulty. A complete echocardiogram was performed using 2D, color flow Doppler and spectral Doppler. 3 mL of Optison ultrasound enhancing agent used. [facility] GLUCOSE (AUTOMATED)2023-12-22 21:26:11* Test Item Value Reference Range Interpretation Comme nts POCT GLU (test code = 7754648743) 111 mg/dL 70-110 H Lab Interpretation (test cod e = 19775-7) [facility] WO [id number] 17:56:59CT HEAD WO CONTRAST, CT CERVICAL SPINE WO CONTRAST HISTORY: Recurring falls COMPARISON: CT head andcervical spine 11/08/2020. TECHNIQUE: Multiaxial CT head and cervical spine without contrast. FINDINGS: HEAD The ventricles and cerebral sulci are normal in caliber and configuration.No hydrocephalus,midline shift or pathological extra-axial fluidcollection is present. The basal cisterns are unremarkable. There is no acute intracranial hemorrhage or significant mass effect. Noparenchymal attenuation abnormality. The hardy-white matter differentiationis preserved. The mastoid air cells and paranasal air sinuses are clear. The calvariumand central skull base are unremarkable. CERVICAL SPINE Slightly reversed cervical lordosis is noted. The vertebral bodies arenormal in height and in normal alignment. No facet fracture or subluxationis present. The craniocervical junction is intact. The prevertebral softtissues are unremarkable. Multilevel disc space narrowing with vacuum phenomena, endplate sclerosis,subchondral cyst formation and osteophytosis, most pronounced at C6- C7.Posteriorly projecting disc osteophyte complex at C4-C5 and moresignificant at C6-C7 resulting bony canal stenosis. The visualized cervical soft tissues and lung apices are unremarkable.[facility] CERVICAL SPINE WO [id number] 17:56:59CT HEAD WO CONTRAST, CT CERVICAL SPINE WO CONTRAST HISTORY: Recurring falls COMPARISON: CT head andcervical spine 11/08/2020. TECHNIQUE: Multiaxial CT head and cervical spine without contrast. FINDINGS: HEAD The ventricles and cerebral sulci are normal in caliber and configuration.No hydrocephalus,midline shift or pathological extra-axial fluidcollection is present. The basal cisterns are unremarkable. There is no acute intracranial hemorrhage or significant mass effect. Noparenchymal attenuation abnormality. The hardy-white matter differentiationis preserved. The mastoid air cells and paranasal air sinuses are clear. The calvariumand central skull base are unremarkable. CERVICAL SPINE Slightly reversed cervical lordosis is noted. The vertebral bodies arenormal in height and in normal alignment. No facet fracture or subluxationis present. The craniocervical junction is intact. The prevertebral softtissues are unremarkable. Multilevel disc space narrowing with vacuum phenomena, endplate sclerosis,subchondral cyst formation and osteophytosis, most pronounced at C6-C7.Posteriorly projecting disc osteophyte complex at C4-C5 and moresignificant at C6-C7 resulting bony canal stenosis. The visualized cervical soft tissues and lung apices are unremarkable.[facility] [id number] 17:00:31* Test Item Value Reference Range Interpretation Comme nts TROPONIN I (test code = 9527074594) 0.008 ng/mL <=0.034 RYDER (test code = RYDER) Reference (Normal) Range (defined by the 99th percentile reference limit): <= 0.034 ng/mL Note: Cardiac troponin begins to rise 3-4 hours after the onset of ischemia. Repeat in 4-6 hours if the sample was drawn within 3-4 hours of the onset of the symptom and found normal. Diagnosis of myocardial injury is made with acute changes in cTn concentrations with at least one serial sample above the 99th percentile upper reference limit (URL), taken together with the patient's clinical presentation. Biotin has been reported to cause a negative bias, interpret results relative to patient's use of biotin. Lab Interpretation (test code = 49459-9) Normal [facility] [id number] 17:00:31* Test Item Value Reference Range Interpretation Comme nts TROPONIN I (test code = 1214953962) 0.008 ng/mL <=0.034 RYDER (test code = RYDER) Reference (Normal) Range (defined by the 99th percentile reference limit): <= 0.034 ng/mL Note: Cardiac troponin begins to rise 3-4 hours after the onset of ischemia. Repeat in 4-6 hours if the sample was drawn within 3-4 hours of the onset of the symptom and found normal. Diagnosis of myocardial injury is made with acute changes in cTn concentrations with at least one serial sample above the 99th percentile upper reference limit (URL), taken together with the patient's clinical presentation. Biotin has been reported to cause a negative bias, interpret results relative to patient's use of biotin. Lab Interpretation (test code = 34027-1) [facility] 16:48:51* Test Item Value Reference Range Interpretation Comme nts MAGNESIUM (test code = 2221795785) 1.5 mg/dL 1.7-2.4 L Lab Interpretation (test cod e = 35116-5) Abnormal [facility] Metabolic Panel (NA, K, CL, CO2, GLUCOSE, BUN, CREATININE, CA)2023-12-22 15:00:56* Test Item Value Reference Range Interpretation Comme nts NA (test code = 9458197408) 136 mmol/L 135-145 K (test code = 1884237799) 4.2 mmol/L 3.5-5.0 CL (test code = 2042760543) 103 mmol/L 98-108 CO2 TOTAL (test code = 9118065192) 24 mmol/L 23-31 AGAP (test code = 6352367977) 9 2-16 BUN (test code = 6553795698) 10 mg/dL 7-23 GLUCOSE (test code = 1219269667) 134 mg/dL 70-110 H CREATININE (test code = 2160-0) 0.79 mg/dL 0.60-1.25 CALCIUM (test code = 2834510291) 9.1 mg/dL 8.6-10.6 eGFR (test code = 10441-6) 98.0 mL/min/1.73m2 CKD-EPI eGFR (2020). Assuming creatinine has been stable day-to-day for at least three months, the eGFR indicates Category G1 (>= 90 mL/min/1.73 m2) Lab Interpretation (test code = 08996-5) Abnormal [facility] without [id number] 14:22:44* Test Item Value Reference Range Interpretation Comme nts WBC (test code = 6690-2) 2.97 4.20-10.70 L RBC (test code = 789-8) 2.47 4.26-5.52 L HGB (test code = 718-7) 9.2 g/dL 12.2-16.4 L HCT (test code = 4544-3) 27.0 % 38.4-49.3 L MCH (test code = 785-6) 37.2 pg 26.1-32.7 H MCV (test code = 787-2) 109.3 fL 81.7-95.6 H MCHC (test code = 786-4) 34.1 g/dL 31.2-35.0 PLT (test code = 777-3) 123 150-328 L MPV (test code = 22562-4) 11.3 fL 9.8-13.0 RDW-CV (test code = 788-0) 18.0 % 12.1-15.4 H RDW-SD (test code = 80699-4) 72.5 fL 38.5-51.6 H NRBC x10^3 (test code = 4353048842) See_Comment [Automated e-SENSa ge] The system which generated this result transmitted reference range: 10*3/?L. The reference range was not used to interpret this result as normal/abnormal. NRBC/100 WBC (test code = 7380575240) 0.0 0.0-10.0 IPF % (test code = 2848171263) 4.7 % 1.2-10.7 Platelet count measured by fluorescence method. Lab Interpretation (test code = 59568-3) Abnormal [facility] GLUCOSE (AUTOMATED)2023-12-22 13:37:15* Test Item Value Reference Range Interpretation Comme nts POCT GLU (test code = 3617897028) 127 mg/dL 70-110 H Lab Interpretation (test cod e = 82571-9) Abnormal [facility] GLUCOSE (AUTOMATED)2023-01-03 16:18:51* Test Item Value Reference Range Interpretation Comme nts POCT GLU (test code = 1561455846) 108 mg/dL 70-110 Lab Interpretation (test cod e = 65088-6) Normal [facility] GLUCOSE (AUTOMATED)2023-01-03 16:18:51* Test Item Value Reference Range Interpretation Comme nts POCT GLU (test code = 7145476309) 108 mg/dL 70-110 Lab Interpretation (test cod e = 58234-5) Normal [facility]OL[facility] (10391)2022-12-15 01:14:51* Test Item Value Reference Range Interpretation Comme nts NA (test code = 0122624769) 137 mmol/L 135-145 K (test code = 9776815124) 5.0 mmol/L 3.5-5.0 CL (test code = 0981875776) 101 mmol/L 98-108 CO2 TOTAL (test code = 3585111760) 25 mmol/L 23-31 AGAP (test code = 1601535464) 11 2-16 BUN (test code = 0051241729) 27 mg/dL 7-23 H GLUCOSE (test code = 1886327589) 113 mg/dL 70-110 H CREATININE (test code = 2642151665) 1.25 mg/dL 0.60-1.25 TOTAL BILI (test code = 3017573337) 0.5 mg/dL 0.1-1.1 CALCIUM (test code = 0787266144) 9.3 mg/dL 8.6-10.6 T PROTEIN (test code = 1772915093) 7.1 g/dL 6.3-8.2 ALBUMIN (test code = 5002996063) 4.4 g/dL 3.5-5.0 ALK PHOS (test code = 1958140393) 68 U/L 34-122 ALTv (test code = 1742-6) 27 U/L 5-50 AST(SGOT) (test code = 3521596759) 43 U/L 13-40 H eGFR (test code = 6379469891) 58.0 mL/min/1.73m2 RYDER (test code = RYDER) Association of Glomerular Filtration Rate (GFR) and Staging of Kidney Disease* + --+ --+ ------+| GFR (mL/min/1.73 m2) ?| With Kidney Damage ?| ?Without Kidney Damage+ --------+ --------+ +| ?>90 ?| ?Stage one ?| ? Normal ?+ ---+ ---+ -------+| ?60-89 ?| ?Stage two ?| ? Decreased GFR ? + --+ --+ ------+| ?30-59 ?| ?Stage three ?| ? Stage three ? + --+ --+ ------+| ?15-29 ?| ?Stage four ? | ? Stage four ?+ ---+ ---+ -------+| ?<15 (or dialysis) ? ?| ?Stage five ? | ? Stage five ?+ ---+ ---+ -------+ *Each stage assumes the associated GFR level has been in effect for at least three months. ?Stages 1 to 5, with or without kidney disease, indicate chronic kidney disease. Notes: Determination of stages one and two (with eGFR >59mL/min/1.73 m2) requires estimation of kidney damage for at least three months as defined by structural or functional abnormalities of the kidney, manifested by either:Pathological abnormalities or Markers of kidney damage (including abnormalities in the composition of the blood or urine or abnormalities in imaging tests). Lab Interpretation (test code = 55422-4) Abnormal [facility] WITH [id number] 00:48:48* Test Item Value Reference Range Interpretation Comme nts WBC (test code = 6690-2) 4.04 See_Comment L [Automated e-SENSa Power[employer]] The system which generated this result transmitted reference range: 4.20 - 10.70 10*3/?L. The reference range was not used to interpret this result as normal/abnormal. RBC (test code = 789-8) 3.61 See_Comment L [Automated e-SENSa PowerFile] The system which generated this result transmitted reference range: 4.26 - 5.52 10*6/?L. The reference range was not used to interpret this result as normal/abnormal. HGB (test code = 718-7) 11.5 g/dL 12.2-16.4 L HCT (test code = 4544-3) 34.8 % 38.4-49.3 L MCV (test code = 787-2) 96.4 fL 81.7-95.6 H MCH (test code = 785-6) 31.9 pg 26.1-32.7 MCHC (test code = 786-4) 33.0 g/dL 31.2-35.0 RDW-SD (test code = 77405-7) 65.5 fL 38.5-51.6 H RDW-CV (test code = 788-0) 18.4 % 12.1-15.4 H PLT (test code = 777-3) 125 See_Comment L [Automated e-SENSa ge] The system which generated this result transmitted reference range: 150 - 328 10*3/?L. The reference range was not used to interpret this result as normal/abnormal. MPV (test code = 83225-5) 11.5 fL 9.8-13.0 IPF % (test code = 1845170399) 4.2 % 1.2-10.7 Platelet count measured by fluorescence method. NRBC/100 WBC (test code = 3791023340) 0.0 See_Comment [Automated [employer] ssage] The system which generated this result transmitted reference range: 0.0 - 10.0 /100 WBCs. The reference range was not used to interpret this result as normal/abnormal. NRBC x10^3 (test code = 6028688060) See_Comment [Automated e-SENSa ge] The system which generated this result transmitted reference range: 10*3/?L. The reference range was not used to interpret this result as normal/abnormal. GRAN MAT (NEUT) % (test code = 770-8) 40.8 % IMM GRAN % (test code = 9796617503) 0.50 % LYMPH % (test code = 736-9) 36.9 % MONO % (test code = 5905-5) 14.9 % EOS % (test code = 713-8) 5.7 % BASO % (test code = 706-2) 1.2 % GRAN MAT x10^3(ANC) (test code = 3389041976) 1.65 10*3/uL 1.99-6.95 L IMM GRAN x10^3 (test code = 1496579431) 0.00-0.06 LYMPH x10^3 (test code = 731-0) 1.49 10*3/uL 1.09-3.23 MONO x10^3 (test code = 742-7) 0.60 10*3/uL 0.36-1.02 EOS x10^3 (test code = 711-2) 0.23 10*3/uL 0.06-0.53 BASO x10^3 (test code = 704-7) 0.05 10*3/uL 0.01-0.09 Lab Interpretation (test code = 57285-4) Abnormal [facility] / [id number] 00:35:02* Test Item Value Reference Range Interpretation Comme nts PROTIME PATIENT (test code = 5964-2) 9.2 See_Comment L [Automated messa ge] The system which generated this result transmitted reference range: 10.1 - 12.6 Seconds. The reference range was not used to interpret this result as normal/abnormal. INR (test code = 6301-6) 0.8 Normal INR <1.1; Warfarin Therapeutic range 2.0 to 3.0 or 2.5 to 3.5, depending upon the indications. Lab Interpretation (test code = 21440-5) Abnormal [facility] THRM[facility]AS [id number] 00:21:44* Test Item Value Reference Range Interpretation Comme [facility] Patient (test code = 3173-2) 21 See_Comment L [Automated messa ge] The system which generated this result transmitted reference range: 26 - 36 Seconds. The reference range was not used to interpret this result as normal/abnormal. Lab Interpretation (test code = 30690-6) Abnormal [facility] Consult Notes Date/Time Note Provider Source 2024-03-06 10:00:00 Associated Order(s): CONSULT ADULT PHYSICAL THERAPY Patient agreeable to working with physical therapy. Patient met semi reclined in bed. Recommend nursing staff utilize PT/RN moderate assist x 2 to safely assist patient with mobility out of the bed or chair. PHYSICAL THERAPY EVALUATION Consult received, chart reviewed and evaluation complete this date. Patient is referred to PT for evaluation and treatment. Patient is a 68 year old male who presents to hospital for Acute urinary retention [R33.8] . Discharge Recommendations: Therapy Needs and Potential: Patient would benefit from continued physical therapy services to address: decline in bed mobility decline in transfers decline in gait and/or balance decreased strength Challenges to Home Transition: increased risk of falls decreased safety awareness Equipment recommendations: rolling walker Current Functional Status and/or Treatment: AM-PAC 6 Clicks (Raw Score 0=Dependent, 24=Independent; Low function Raw Score 0= Dependent, 32=Independent): Raw Score - Basic Mobility : 12 T-Scale Score - Basic Mobility : 32.23 Bed Mobility: Rolling: Moderate Assistance Bridging: Moderate Assistance Supine-sit: Moderate Assistance Facilitated Pt was able to perform bed mobility activity safely w/ PT on moderate assist, Pt has decline bed mobility. Dizziness No Transfers: unable to tolerate due to weakness of LE and Pt mentioned his LE feels like jelly for first 2 mins of standing then gets better Assessed Pt was unable to perform sit to stand or stand to sit exercise Dizziness No Ambulation: patient unable to tolerate due to weakness of LE and Pt mentioned his LE feels like jelly for first 2 mins of standing then gets better Assessed Pt was unable to perform ambulation activities Dizziness No Therapeutic exercise: patient educated in Deep breathing, Fall prevention, General strengthening, and Safety awareness. After session, patient semi reclined in bed. Call button provided. PT informed RN of Pt status PLAN OF CARE: While in the hospital, PT will follow patient at least 3 times per week,once or twice a day, per patient's tolerance and needs. See below for complete details. Admit Date: 03/03/2024 Hospital Diagnosis:Acute urinary retention [R33.8] PT Diagnosis: Difficulty walking and Weakness Weight Bearing Precaution: NA General Precautions: PPE used:Gloves, General, Fall,Ortiz catheter, oxygen: Nasal canula Bracing/Cast present or required:N/A PMH: Past Medical History: Diagnosis Date Acute pancreatitis 11/01 to 11/06/2006 admission Acute peptic ulcer, unspecified site, with hemorrhage and perforation 11/01 to 11/06/2006 admission Essential hypertension, benign 2002 Hemorrhoids Other and unspecified hyperlipidemia 2006 Other specified gastritis 2007 colonoscopy with EGD Pseudocyst, pancreas 06/04/[address] scan radial head 1995 left radial head fracture Type II or unspecified type diabetes mellitus without mention of complication, not stated as uncontrolled 2006 PSH: Past Surgical History: Procedure Laterality Date COLONOSCOPY 2008 COLONOSCOPY Left 01/03/2023 Surgeon: Gigi Medeiros MD; Location: ENDOSCOPY ([facility]) OR LOCATION DOPPLER GUIDED HEMORRHOIDPEXY (SHX) N/A 01/12/2024 Surgeon: Gabi Dunaway MD; [facility] [place] [facility] ESOPHAGOGASTRODUODENOSCOPY N/A 01/03/2023 Surgeon: Gigi Medeiros MD; Location: ENDOSCOPY ([facility]) OR LOCATION ESOPHAGOSCOPY 2007 gastritis INTRAMAXILLARY FIXATION WITH ARCH BAR APPLICATION 12/01/2010 Surgeon:MAIKEL ALVARADO; [facility] LAP,CHOLECYSTECTOMY 09/26/2008 MANDIBLE FRACTURE ORIF 12/01/2010 Surgeon:MAIKEL ALVARADO; [facility] Prior Living Situation: lives with their spouse and in a house surf side and on stilts 20 ft Prior level of Mobility: ambulates with rolling Walker. Suspected ischemic or hemorraghic stroke:No Subjective: Pt was complaining of general pain 12/24 Patient/Family Goals: To get better Patient/Family verbalizes understanding of condition: Yes PAIN: -Pain rating before treatment: 6, After treatment: 6 COMMUNICATION Primary Language: [place] Able to Verbalize needs: Yes Vision:good; no issues reported Hearing:good; no issues reported ORIENTATION/COGNITION: Oriented to: person, place, and situation Awake: Yes Alert: Yes Dizzy: No Follows Commands: Yes 1-Step Yes Multi-Step Yes Inconsistent: No NEUROLOGICAL Light Touch: within functional limits bilateral LE BALANCE: Sitting: Static: Poor+ Dynamic: NT Standing: Static: NT Dynamic: NT RANGE OF MOTION: deficit: due to weakness bilateral LE, STRENGTH: 3-/5 (F-), bilateral LE ENDURANCE: Fair+, SKIN INTEGRITY: intact, PROBLEM LIST: Decline in bed mobility, Decline in gait, Decline in transfers, Decreased strength, and Safety awareness deficits ASSESSMENT: Patient is a 68 year old male seen secondary to the above listed diagnosis. Patient would benefit from continued PT to address the above listed deficits to maximize independence and safety with functional mobility. Rehabilitation Potential: fair Goals: The following goals are to maximize independence and safety with functional mobility to eventually return to prior living situation and prior functional status. Upon discharge, patient and/or family will demonstrate the followin. Rolling: Minimal Assistance Bridging: Minimal Assistance Supine-sit: Minimal Assistance Sit to supine: Minimal Assistance 2. Sit to stand: Minimal Assistance using rolling Walker. Stand to sit: Minimal Assistance using rolling Walker. 3. Minimal Assistance with ambulation, Feet: 2 ft initailly using least assistive device. Treatment Plan: Evaluation only, Gait training, Therapeutic exercise, and Safety education, patient/caregiver education PATIENT EDUCATION: Patient and Family member provided with preferred teaching of verbal information, written information, and demonstration on role of PT, plan of care, and goals. Shows readiness to learn. Verbal instruction, Written material, and Demonstration teaching provided. Individual is able to read and verbalizes understanding of teaching provided. Total Time Tx Codes in Minutes: 20 min Total Treatment Time in Minutes: 45 min Maulik Connelly PT [place] Lic No. [id number] [facility] Department of Physical Therapy [facility] 2024-03-04 09:15:00 Associated Order(s): CONSULT SPEECH Speech-Language Pathology Clinical Swallow Evaluation 03/04/2024 Lori Keller : 1955 Age/Sex: 68 year old male Time IN/OUT: Referring Physician: Lori Arnold DO Date of Referral: 03/03/2024 Reason for Referral: dysphagia Date of Admission/Onset: 03/03/2024 SUBJECTIVE: Pt reclining in bed independently with nurse attempting to change out his IV fluids. Pt refused the fluids and refused any PO intake except for water. OBJECTIVE: is being seen for a clinical swallow evaluation. Lori Keller is a 68 year old male admitted for urinary incontinence with PMH significant for diabetes, hypertension, anemia, alcohol abuse, hemorrhoids, frequent falls and is pending neurology evaluation (pending MRI). Pertinent Imaging: XR RIBS 3 VW LEFT Result Date: 02/21/2024 FINDINGS/IMPRESSION: Chronic fracture deformity of the posterior left 10th rib. Questionable nondisplaced fracture of the left anterolateral eighth rib. Previous PROPERTY MASTER Services/Swallow History: No previous PROPERTY MASTER services found in medical hx or reported by pt. Past Medical History: Diagnosis Date Acute pancreatitis 11/01 to 11/06/2006 admission Acute peptic ulcer, unspecified site, with hemorrhage and perforation 11/01 to 11/06/2006 admission Essential hypertension, benign 2002 Hemorrhoids Other and unspecified hyperlipidemia 2006 Other specified gastritis 2008 colonoscopy with EGD Pseudocyst, pancreas 06/04/[address] scan radial head 1995 left radial head fracture Type II or unspecified type diabetes mellitus without mention of complication, not stated as uncontrolled 2006 Past Surgical History: Procedure Laterality Date COLONOSCOPY 2008 COLONOSCOPY Left 01/03/2023 Surgeon: Gigi Medeiros MD; Location: ENDOSCOPY ([facility]) OR LOCATION DOPPLER GUIDED HEMORRHOIDPEXY (SHX) N/A 01/12/2024 Surgeon: Gabi Dunaway MD; [facility]: [facility] [place] [facility] ESOPHAGOGASTRODUODENOSCOPY N/A 01/03/2023 Surgeon: Gigi Medeiros MD; Location: ENDOSCOPY ([facility]) OR LOCATION ESOPHAGOSCOPY 2007 gastritis INTRAMAXILLARY FIXATION WITH ARCH BAR APPLICATION 12/01/2010 Surgeon:MAIKEL ALVARADO; Location:[facility] LAP,CHOLECYSTECTOMY 09/26/2008 MANDIBLE FRACTURE ORIF 12/01/2010 Surgeon:MAIKEL ALVARADO; Location:[facility] LOC[facility] General Behavior: Alert and Agitated Hearing: WFL for speech Respiratory Status: room air Orientation/Cognition: - Patient oriented to: person, place, time, and situation - Response type: verbal - Follows 1-step commands: Yes Current Diet Texture/Means of Nutrition: regular (IDDSI level 7)-textured diet with thin liquids (IDDSI level 0) Oral Motor Exam Dentition and Oral Cavity: natural dentition and many missing teeth Face within normal limits and symmetrical Jaw within normal limits and symmetrical Lips within normal limits and symmetrical Tongue within normal limits and midline on protrusion Palate within normal limits and symmetrical Vocal Quality clear Speech clear/intelligible CLINICAL SWALLOW EVALUATION Swallows on command: Yes Handles Secretions: Yes Volitional Cough: present Spontaneous Cough: No PO trials were administered by patient. Patient was provided with multiple bites/sips of thin liquid (0) consistencies with the following observations: Oral Stage Anterior leakage of bolus not observed Pocketing of bolus not observed Subjectively prolonged oral phase not observed Oral residue not observed Mastication did not test Pharyngeal Stage Subjectively reduced laryngeal elevation not observed Coughing or throat clearing not observed Change in voice quality not observed Multiple swallows subjectively not observed Respiratory sufficiency and coordination WFL - no increased work of breathing and/or oxygen sats and respiratory rate remained stable Report of globus sensation does not report 3 oz water challenge passed Patient/Family/Staff education: Provided verbally. Discussed findings of evaluation, recommendations and PROPERTY MASTER plan of care. Discussed risks of aspiration/dysphagia and possible associated complications including respiratory distress, respiratory infections (such as PNA), weight loss/difficulty meeting nutritional needs, possible need for mechanical ventilation, and even . Patient/family verbalized understanding and decline further treatment and assessments. RN and referring provider notified of findings and recommendations. Patient/Family goal: safe PO intake ASSESSMENT/IMPRESSIONS: Lori Keller presents with: Diagnosis: suspected normal oropharyngeal swallow Etiology of suspected dysphagia/Risk factors for dysphagia: general deconditioning and ongoing neurologic work up Observations/Complaints: no overt s/sx of aspiration and no signs of discomfort or distress Factors raising concern for aspiration or pharyngeal dysphagia: none evident Suspected risk for aspiration: no low Factors increasing risk for aspiration-related respiratory complication such as pneumonia: reduced mobility Risk for malnutrition/dehydration or not meeting nutritional needs: yes due to pt feeling nauseated and refusing PO intake. Pt stated he has become allergic to many foods. Additional comments: NA *Note: aspiration cannot be ruled out nor confirmed without instrumental assessment/imaging. Prognosis: good for safe po intake with time, adherence to PROPERTY MASTER recommendations, and universal swallow precautions due to above findings. RECOMMENDATIONS/GOALS: Diet: Recommend patient continue a regular (IDDSI level 7)-textured diet with thin liquids (IDDSI level 0) and swallow precautions: sit fully upright/in chair and remain upright after PO intake Precautions: - Swallow Precautions: sit fully upright/in chair, ok to use straws, and remain upright after PO intake Instrumental Swallow Assessment: no - Not indicated at this time. Additional Referrals: - Yes; see below - May consider further neuro work-up/imaging for falls. Continued PROPERTY MASTER services: No further acute PROPERTY MASTER services indicated at this time, so service is signing off. Please re-consult if indicated. Thank you. Discharge Recommendations: - Return to prior living situation. Tamara Roblero M.S., [facility]ERTY MA[facility] Speech Language Pathology [facility] Department: [phone] Tamara Roblero [facility] 2024-03-03 18:34:01 Associated Order(s): CONSULT NEPHROLOGY HPI : Loir Keller is a 68 year old with has a past medical history of Acute pancreatitis (11/01 to 11/06/2006), Acute peptic ulcer, unspecified site, with hemorrhage and perforation (11/01 to 11/06/2006), Essential hypertension, benign (2001), Hemorrhoids, Other and unspecified hyperlipidemia (2006), Other specified gastritis (2007), Pseudocyst, pancreas (06/04/2009), radial head (1994), and Type II or unspecified type diabetes mellitus without mention of complication, not stated as uncontrolled (2006). has been referred for evaluation of hyponatremia noted on labs He presented to ER today with difficulty urinating that has been going on since last night He is now complaining of burning after ortiz cath placement He reportedly consumes gin and vodka every day and was unable to urinate despite drinking He denies ant other issues No renal imaging has been done yet Assessment and Plan : Hyponatremia Etiology likely hypovolemic vs euvolemic Urine appears dark and concentrated Check U osm and U sodium Agree with NS for now and recheck sodium TINY Likely retention Continue ortiz IVF Check Urine culture Hyperkalemia D/C lisinopril and jardiance for now Htn on amlodipine Alcohol abuse CIWA protocol and monitor Past Medical History: Diagnosis Date Acute pancreatitis 11/01 to 11/06/2006 admission Acute peptic ulcer, unspecified site, with hemorrhage and perforation 11/01 to 11/06/2006 admission Essential hypertension, benign 2001 Hemorrhoids Other and unspecified hyperlipidemia 2006 Other specified gastritis 2007 colonoscopy with EGD Pseudocyst, pancreas 06/04/[address] scan radial head 1995 left radial head fracture Type II or unspecified type diabetes mellitus without mention of complication, not stated as uncontrolled 2006 Past Surgical History: Procedure Laterality Date COLONOSCOPY 2008 COLONOSCOPY Left 01/03/2023 Surgeon: Gigi Medeiros MD; Location: ENDOSCOPY ([facility]) OR LOCATION DOPPLER GUIDED HEMORRHOIDPEXY (SHX) N/A 01/12/2024 Surgeon: Gabi Dunaway MD; Location: [facility] ESOPHAGOGASTRODUODENOSCOPY N/A 01/03/2023 Surgeon: Gigi Medeiros MD; Location: ENDOSCOPY ([facility]) OR LOCATION ESOPHAGOSCOPY 2007 gastritis INTRAMAXILLARY FIXATION WITH ARCH BAR APPLICATION 12/01/2010 Surgeon:MAIKEL ALVARADO; Location:[facility] OR LOCATION LAP,CHOLECYSTECTOMY 09/26/2008 MANDIBLE FRACTURE ORIF 12/01/2010 Surgeon:MAIKEL ALVAARDO; Location:[facility] Social History Socioeconomic History Marital status: Spouse name: Not on file Number of children: 2 Years of education: 14 Highest education level: Not on file Occupational History Occupation: [employer] Employer: [employer] Tobacco Use Smoking status: Former Types: Cigars Smokeless tobacco: Never Tobacco comments: quit Apr 2010 Vaping Use Vaping status: Never Used Substance and Sexual Activity Alcohol use: Yes Comment: cut back in 2009, now drinks 3 or less beers daily Drug use: No Sexual activity: Not on file Other Topics Concern Not on file Social History Narrative Not on file Social Determinants of Health Financial Resource Strain: Not on file Food Insecurity: Not on file Transportation Needs: Not on file Physical Activity: Not on file Stress: Not on file Social Connections: Not on file Intimate Partner Violence: Not on file Housing Stability: Not on file Family History Problem Relation Age of Onset Arthritis Mother lung @ 82yo Hypertension Mother Cancer Father stomach @ 47yo Heart Brother @ 56 yo mi Cancer Mother lung Current Facility-Administered Medications: [START ON 03/04/2024] amLODIPine (NORVASC) tablet 5 mg, 5 mg, Oral, QAM, Lori Arnold DO dextrose 50 % in water (D50W) injection 25 mL, 25 mL, Slow IV Push, PRN, Lori Arnold DO glucagon HCL injection 1 mg, 1 mg, Intramuscular, PRN, Loir Arnold DO heparin (porcine) injection 5,000 Units, 5,000 Units, Subcutaneous, Q8H, Lori Arnold DO, 5,000 Units at 03/03/24 1400 latanoprost (XALATAN) 0.005 % ophthalmic drops 1 Drop, 1 Drop, Both Eyes, QHS, Lori Arnold DO NaCl 0.9% (NS) IV infusion 1,000 mL, 1,000 mL, IV Infusion, CONTINUOUS, Lori Arnold DO, Last Rate: 75 mL/hr at 03/03/24 1643, 1,000 mL at 03/03/24 1643 Sliding Scale Insulin - Lispro (HumaLOG), , Subcutaneous, TID MEALS+HS, Lori Arnold DO REVIEW OF SYSTEMS: All other ROS negative Vitals: 03/03/24 1500 03/03/24 1600 03/03/24 1700 03/03/24 1800 BP: 138/72 130/56 121/56 134/50 Pulse: (!) 45 (!) 45 (!) 46 (!) 45 Resp: Temp: TempSrc: SpO2: 97% 97% 96% 97% Weight: Height: Physical Exam Gen obese male in no acute distress HEENT : atraumatic Lungs : CTA Heart : S1S2+ Alert awake and oriented No focal motor neurologival deficits Ext : no edema CBC BMP PT/INR WBC x10 3 (/CMM) Date Value 08/20/2010 5.7 WBC (10*3/?L) Date Value 03/03/2024 5.13 NA Date Value 03/03/2024 116 mmol/L (LL) 08/20/2010 136 MMOL/L No results found for: "PT" RBC x10 6 (/CMM) Date Value 08/20/2010 2.79 (L) RBC (10*6/?L) Date Value 03/03/2024 2.99 (L) K Date Value 03/03/2024 5.2 mmol/L (H) 08/20/2010 4.4 MMOL/L PT INR (no units) Date Value 08/13/2010 1.0 INR (no units) Date Value 12/14/2022 0.8 PLT x10 3 (/CMM) Date Value 08/20/2010 460 (H) PLT (10*3/?L) Date Value 03/03/2024 104 (L) CALCIUM Date Value 03/03/2024 8.4 mg/dL (L) 08/20/2010 7.9 MG/DL (L) THB (G/DL) Date Value 08/16/2010 10.1 (L) HGB Date Value 03/03/2024 10.8 g/dL (L) 08/20/2010 8.6 G/DL (L) CL Date Value 03/03/2024 81 mmol/L (L) 08/20/2010 99 MMOL/L aPTT HCT (%) Date Value 03/03/2024 29.5 (L) 08/20/2010 27.4 (L) BUN Date Value 03/03/2024 19 mg/dL 08/20/2010 9 MG/DL APTT (SEC) Date Value 08/13/2010 <20.0 (A) APTT Patient (Seconds) Date Value 12/14/2022 21 (L) CREATININE Date Value 03/03/2024 1.68 mg/dL (H) 08/20/2010 0.40 MG/DL (L) IMAGING - reviewed in the chart: [facility] 2023-12-22 19:58:28 Associated Order(s): CONSULT CARDIOLOGY [facility] Cardiology Consult PCP: Cuong Black Date of Service: 12/22/2023 CHIEF COMPLAINT/reason for consult: Fall, weakness HISTORY OF PRESENT ILLNESS This is a 68 years old male with past medical history of type 2 diabetes, obesity, hypertension, hyperlipidemia, anemia, and family history of CAD. He came to the hospital today for outpatient hemorrhoid surgery. He mentioned that for the past 3 months he has been feeling weak. When he walks his legs can give out. He even fell on the stairs. Denies chest pain, palpitations or syncope. His labs showed hemoglobin 9.2. Magnesium 1.5. EKG showed no acute changes. Troponin was negative upon arrival. PAST MEDICAL HISTORY Past Medical History: Diagnosis Date Acute pancreatitis 11/01 to 11/06/2006 admission Acute peptic ulcer, unspecified site, with hemorrhage and perforation 11/01 to 11/06/2006 admission Essential hypertension, benign 2002 Hemorrhoids Other and unspecified hyperlipidemia 2006 Other specified gastritis 2007 colonoscopy with EGD Pseudocyst, pancreas 06/04/[address] scan radial head 1995 left radial head fracture Type II or unspecified type diabetes mellitus without mention of complication, not stated as uncontrolled 2006 Past Surgical History: Procedure Laterality Date COLONOSCOPY 2008 COLONOSCOPY Left 01/03/2023 Surgeon: Gigi Medeiros MD; Location: ENDOSCOPY ([facility]) OR LOCATION [facility] ESOPHAGOGASTRODUODENOSCOPY N/A 01/03/2023 Surgeon: Gigi Medeiros MD; Location: ENDOSCOPY ([facility]) OR LOCATION ESOPHAGOSCOPY 2008 gastritis INTRAMAXILLARY FIXATION WITH ARCH BAR APPLICATION 12/01/2010 Surgeon:MAIKEL ALVARADO; Location:[facility] LAP,CHOLECYSTECTOMY 09/26/2008 MANDIBLE FRACTURE ORIF 12/01/2010 Surgeon:MAIKEL ALVARADO; Location:[facility] OR LOCATION Family History Problem Relation Age of Onset Arthritis Mother lung @ 82yo Hypertension Mother Cancer Father stomach @ 47yo Heart Brother @ 56 yo mi Cancer Mother lung ALLERGIES No Known Allergies MEDICATIONS No current facility-administered medications on file prior to encounter. Current Outpatient Medications on File Prior to Encounter Medication Sig Dispense Refill LISINOPRIL 40 mg tablet TAKE 1 TABLET BY MOUTH EVERY DAY IN THE MORNING 30 tablet 0 pioglitazone 45 mg tablet Take 1 tablet by mouth every morning. 90 tablet 0 dulaglutide (TRULICITY) 1.5 mg/0.5 mL PnIj inject 1 Pen under the skin weekly. (Patient taking differently: inject 1 Pen under the skin weekly. Random days) 4 Pen 5 ferrous sulfate 325 mg (65 mg iron) tablet Take 1 tablet by mouth in the morning. 90 tablet 3 JARDIANCE 10 mg tablet TAKE 1 TABLET BY MOUTH EVERY DAY IN THE MORNING 30 tablet 6 AMLODIPINE 5 mg tablet TAKE 1 TABLET BY MOUTH EVERY DAY IN THE MORNING 90 tablet 2 metFORMIN 1,000 mg tablet TAKE 1 TABLET BY MOUTH IN THE MORNING AND 1 TABLET IN THE EVENING WITH MEALS 60 tablet 0 methocarbamoL 500 mg tablet Take 1 tablet by mouth every 6 (six) hours as needed for Pain (scale 7-10) (spasm). 20 tablet 0 hydrocortisone 25 mg suppository Insert 1 Suppository into rectum in the morning and 1 Suppository in the evening. 28 Suppository 0 LUMIGAN 0.01 % ophthalmic drops Place 1 Drop in both eyes at bedtime. SOCIAL HISTORY Social History Socioeconomic History Marital status: Number of children: 2 Years of education: 14 Occupational History Occupation: [employer] Employer: [employer] Tobacco Use Smoking status: Former Types: Cigars Smokeless tobacco: Never Tobacco comments: quit Apr 2010 Substance and Sexual Activity Alcohol use: Yes Comment: cut back in 2009, now drinks 3 or less beers daily Drug use: No REVIEW OF SYSTEMS At least 10 systems reviewed, negative except as mentioned in HPI PHYSICAL EXAMINATION Vitals: 12/22/23 1403 12/22/23 1429 12/22/23 1507 12/22/23 1916 BP: (!) 162/82 108/79 (!) 159/60 Pulse: 64 64 67 Resp: 19 17 18 Temp: 36.6 ?C (97.8 ?F) 36.2 ?C (97.2 ?F) 36.5 ?C (97.7 ?F) TempSrc: SpO2: 98% 97% 96% Weight: 111 kg (244 lb 11.2 oz) Height: 1.803 m (5' 11") Constitutional: alert and oriented x 3 (person, place and date/time); no apparent distress, obese ENT: normocephalic atraumatic, supple, no lymphadenopathy, no bruits, no JVD Lungs: clear to auscultation bilaterally Cardiovascular: S1, S2 normal, regular; no murmurs, rubs or gallops GI: soft; non-tender; non-distended; normoactive bowel sounds : not examined Musculoskeletal: Extremities: no clubbing, cyanosis, or edema Skin: no rashes Neuro: no focal deficits LABS - reviewed pertinent labs as below: CBC BMP PT/INR WBC x10 3 (/CMM) Date Value 08/20/2010 5.7 WBC (10*3/?L) Date Value 12/22/2023 2.97 (L) NA Date Value 12/22/2023 136 mmol/L 08/20/2010 136 MMOL/L No results found for: "PT" PLT x10 3 (/CMM) Date Value 08/20/2010 460 (H) PLT (10*3/?L) Date Value 12/22/2023 123 (L) K Date Value 12/22/2023 4.2 mmol/L 08/20/2010 4.4 MMOL/L PT INR (no units) Date Value 08/13/2010 1.0 INR (no units) Date Value 12/14/2022 0.8 THB (G/DL) Date Value 08/16/2010 10.1 (L) HGB Date Value 12/22/2023 9.2 g/dL (L) 08/20/2010 8.6 G/DL (L) BUN Date Value 12/22/2023 10 mg/dL 08/20/2010 9 MG/DL HCT (%) Date Value 12/22/2023 27.0 (L) 08/20/2010 27.4 (L) CREATININE Date Value 12/22/2023 0.79 mg/dL 08/20/2010 0.40 MG/DL (L) LIPID PROFILE GLUCOSE Date Value 12/22/2023 134 mg/dL (H) 08/20/2010 230 MG/DL (H) CHOL Date Value 09/21/2023 269 mg/dL (H) 08/11/2010 84 MG/DL (L) TSH LDL CHOL Date Value 09/21/2023 113 mg/dL 08/11/2010 47 MG/DL TSH Date Value 09/21/2023 1.06 mIU/L 05/26/2009 2.12 uIU/mL CARDIAC ENZYMES HDL CHOL (MG/DL) Date Value 08/11/2010 21 (L) HDL (mg/dL) Date Value 09/21/2023 138 CK (U/L) Date Value 08/11/2010 <20 TRIG Date Value 09/21/2023 90 mg/dL 08/11/2010 81 MG/DL LFTs CK-MB (ng/mL) Date Value 08/11/2010 .4 AST(SGOT) (U/L) Date Value 09/21/2023 159 (H) 08/11/2010 26 TROPONIN I (ng/mL) Date Value 12/22/2023 0.008 08/12/2010 0.004 ALT(SGPT) (U/L) Date Value 08/11/2010 26 ALTv (U/L) Date Value 09/21/2023 71 (H) No results found for: "BNP" EKG: Normal sinus rhythm, poor R wave progression ASSESSMENT/PLAN Principal Problem: Fall Active Problems: Essential hypertension Hypertriglyceridemia Type 2 diabetes mellitus without complication, without long-term current use of insulin Obesity Mixed hyperlipidemia Weakness Alcohol use Other specified anemias Family history of coronary artery disease Progressive weakness and falls-denies palpitations or syncope. Probably musculoskeletal issues. Defer to primary team. EKG showed no acute changes. Troponin has been negative. Echocardiogram today showed normal ejection fraction and wall motion. Carotid ultrasound showed no stenosis. No major cardiac concerns. Recommend orthostatic vitals. Anemia-mild drop in hemoglobin compared to baseline. Hypertension-his blood pressure fluctuates. Continue amlodipine and lisinopril. Adjust dosage based on response. Obesity-recommend diet, exercise and weight loss. Alcohol use-recommend alcohol moderation. Type 2 diabetes and family history of CAD-recommend outpatient further evaluation for the need of statins. Thank you for allowing us to participate in the care of your patient. Please feel free to contact us for any questions or if we can be of further assistance. Rudy Castrejon MD, FACC, [place] [employer] Division of Cardiovascular Medicine [facility] - Health History and Physical Notes Date/Time Note Provider Source 2024-03-03 18:53:56 Medicine History & Physical Date of Service: 03/03/2024 Pt presents from: Home CC: Urinary retention History of Present Illness: Lori Keller is a 68 year old male with past md hx of diabetes, hypertension, anemia, alcohol abuse, hemorrhoids that presents to the ED for urinary incontinence. He has a history of frequent falls being worked up outpatient and is still pending neurology evaluation (pending MRI). Per patient he developed urinary incontinence starting this morning. Denies any fever chills dysuria. 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 In the emergency department he was noted to be afebrile bradycardic but maintaining blood pressure. CBC shows no leukocytosis. He does have anemia hemoglobin 10.8 g/dL consistent with prior blood work. Chemistry was most significant for sodium 116 mmol/L. Noted potassium 5.2 mmol/L with a bicarb of 17 mmol/L elevated anion gap 18 with a kidney injury with creatinine of 1.68 mg/dL. UA showed no white blood cells red blood cells. LFTs were elevated AST greater than ALT. Hospitalist called for admission. On exam he is alert. He states he drinks 2-3 mixed drinks with vodka daily. Denies smoking or other drugs. states compliance with medications. ROS: Pt denies F / N / V / D / Constipation / CP / SOB / cough / Abd pain / dysuria / hematuria / melena / hematochezia / rashes / suicidal or homicidal ideation / All others negative Review of Hx/Meds: PMH: Past Medical History: Diagnosis Date Acute pancreatitis 11/01 to 11/06/2006 admission Acute peptic ulcer, unspecified site, with hemorrhage and perforation 11/01 to 11/06/2006 admission Essential hypertension, benign 2001 Hemorrhoids Other and unspecified hyperlipidemia 2006 Other specified gastritis 2007 colonoscopy with EGD Pseudocyst, pancreas 06/04/[address] scan radial head 1994 left radial head fracture Type II or unspecified type diabetes mellitus without mention of complication, not stated as uncontrolled 2006 PSH: has a past surgical history that includes elbow orif; colonoscopy (2007); esophagoscopy (2007); lap,cholecystectomy (09/26/2008); mandible fracture orif (12/01/2010); intramaxillary fixation with arch bar application (12/01/2010); esophagogastroduodenoscopy (N/A, 01/03/2023); colonoscopy (Left, 01/03/2023); and doppler guided hemorrhoidpexy (shx) (N/A, 01/12/2024). Family Hx: Noncontributory unless mentioned above Social History Tobacco Use Smoking status: Former Types: Cigars Smokeless tobacco: Never Tobacco comments: quit Apr 2010 Vaping Use Vaping status: Never Used Substance Use Topics Alcohol use: Yes Comment: cut back in 2009, now drinks 3 or less beers daily Drug use: No Current Scheduled Medications Current IV Current Facility-Administered Medications: [START ON 03/04/2024] amLODIPine (NORVASC) tablet 5 mg, 5 mg, Oral, QAM, Lori Arnold DO dextrose 50 % in water (D50W) injection 25 mL, 25 mL, Slow IV Push, PRN, Lori Arnold DO glucagon HCL injection 1 mg, 1 mg, Intramuscular, PRN, Lori Arnold DO heparin (porcine) injection 5,000 Units, 5,000 Units, Subcutaneous, Q8H, Lori Arnold DO, 5,000 Units at 03/03/24 1400 latanoprost (XALATAN) 0.005 % ophthalmic drops 1 Drop, 1 Drop, Both Eyes, QHS, Lori Arnold DO NaCl 0.9% (NS) IV infusion 1,000 mL, 1,000 mL, IV Infusion, CONTINUOUS, Lori Arnold DO, Last Rate: 75 mL/hr at 03/03/24 1643, 1,000 mL at 03/03/24 1643 Sliding Scale Insulin - Lispro (HumaLOG), , Subcutaneous, TID MEALS+HS, Lori Arnold DO Objective: Vitals: Vitals: 03/03/24 1500 03/03/24 1600 03/03/24 1700 03/03/24 1800 BP: 138/72 130/56 121/56 134/50 Pulse: (!) 45 (!) 45 (!) 46 (!) 45 Resp: Temp: TempSrc: SpO2: 97% 97% 96% 97% Weight: Height: I/O's: Intake/Output Summary (Last 24 hours) at 03/03/2024 1854 Last data filed at 03/03/2024 1829 Gross per 24 hour Intake 129.16 ml Output 100 ml Net 29.16 ml Physical Exam: General: NAD, Alert, lying in bed comfortable, cogent speech, obese. HEENT: anicteric, oral mucosa dry Neck: supple, no JVD, no bruits. Chest: CTA B/L, no W/R/C. Heart: RRR, S1/S2, no M/G/R Abdominal: BS normoactive, soft, ND, NT. Skin/Extremities: no rash, no cyanosis, warm and dry, no LE edema. Neurological: CN II-XII grossly intact, no focal deficits. Labs: BMP:BMP NA Date Value 03/03/2024 116 mmol/L (LL) 03/03/2024 116 mmol/L (LL) 03/03/2024 116 mmol/L (LL) 02/14/2024 131 mmol/L (L) 12/23/2023 137 mmol/L 08/20/2010 136 MMOL/L 08/18/2010 136 MMOL/L 08/18/2010 147 MMOL/L (H) 08/17/2010 135 MMOL/L 08/16/2010 134 MMOL/L (L) K Date Value 03/03/2024 5.2 mmol/L (H) 03/03/2024 4.9 mmol/L 03/03/2024 5.4 mmol/L (H) 02/14/2024 5.1 (H) 12/23/2023 4.6 mmol/L 08/20/2010 4.4 MMOL/L 08/18/2010 4.1 MMOL/L 08/18/2010 4.7 MMOL/L 08/17/2010 4.1 MMOL/L 08/16/2010 4.6 MMOL/L CALCIUM Date Value 03/03/2024 8.4 mg/dL (L) 03/03/2024 8.5 mg/dL (L) 03/03/2024 8.3 mg/dL (L) 02/14/2024 9.3 mg/dL 12/23/2023 9.4 mg/dL 08/20/2010 7.9 MG/DL (L) 08/18/2010 7.5 MG/DL (L) 08/18/2010 8.3 MG/DL (L) 08/17/2010 7.7 MG/DL (L) 08/16/2010 8.0 MG/DL (L) CL Date Value 03/03/2024 81 mmol/L (L) 03/03/2024 82 mmol/L (L) 03/03/2024 81 mmol/L (L) 02/14/2024 94 mmol/L (L) 12/23/2023 103 mmol/L 08/20/2010 99 MMOL/L 08/18/2010 100 MMOL/L 08/18/2010 118 MMOL/L (H) 08/17/2010 98 MMOL/L 08/16/2010 95 MMOL/L (L) BUN Date Value 03/03/2024 19 mg/dL 03/03/2024 18 mg/dL 03/03/2024 18 mg/dL 02/14/2024 12 mg/dL 12/23/2023 13 mg/dL 08/20/2010 9 MG/DL 08/18/2010 6 MG/DL (L) 08/18/2010 26 MG/DL (H) 08/17/2010 2 MG/DL (L) 08/16/2010 4 MG/DL (L) CREATININE Date Value 03/03/2024 1.68 mg/dL (H) 03/03/2024 1.70 mg/dL (H) 03/03/2024 1.64 mg/dL (H) 02/14/2024 1.00 mg/dL 12/23/2023 0.76 mg/dL 08/20/2010 0.40 MG/DL (L) 08/18/2010 0.55 MG/DL (L) 08/18/2010 2.87 MG/DL (H) 08/17/2010 0.40 MG/DL (L) 08/16/2010 0.40 MG/DL (L) GLUCOSE Date Value 03/03/2024 97 mg/dL 03/03/2024 91 mg/dL 03/03/2024 98 mg/dL 02/14/2024 151 mg/dL (H) 12/23/2023 123 mg/dL (H) 08/20/2010 230 MG/DL (H) 08/18/2010 86 MG/DL 08/18/2010 73 MG/DL 08/17/2010 115 MG/DL (H) 08/16/2010 196 MG/DL (H) CO2 TOTAL Date Value 03/03/2024 17 mmol/L (L) 03/03/2024 15 mmol/L (L) 03/03/2024 17 mmol/L (L) 02/14/2024 23 mmol/L 12/23/2023 24 mmol/L 08/20/2010 33 MMOL/L (H) 08/18/2010 32 MMOL/L (H) 08/18/2010 17 MMOL/L (L) 08/17/2010 34 MMOL/L (H) 08/16/2010 34 MMOL/L (H) CBC:CBC WBC x10 3 (/CMM) Date Value 08/20/2010 5.7 WBC (10*3/?L) Date Value 03/03/2024 5.13 RBC x10 6 (/CMM) Date Value 08/20/2010 2.79 (L) RBC (10*6/?L) Date Value 03/03/2024 2.99 (L) PLT x10 3 (/CMM) Date Value 08/20/2010 460 (H) PLT (10*3/?L) Date Value 03/03/2024 104 (L) THB (G/DL) Date Value 08/16/2010 10.1 (L) HGB Date Value 03/03/2024 10.8 g/dL (L) 08/20/2010 8.6 G/DL (L) HCT (%) Date Value 03/03/2024 29.5 (L) 08/20/2010 27.4 (L) BMP:Hepatic Function Panel ALBUMIN Date Value 03/03/2024 4.1 g/dL 08/11/2010 3.0 G/DL (L) T PROTEIN Date Value 03/03/2024 7.1 g/dL 08/11/2010 7.1 G/DL TOTAL BILI Date Value 03/03/2024 1.3 mg/dL (H) 08/11/2010 0.5 MG/DL BILI UNCON (MG/DL) Date Value 08/11/2010 0.1 BILI CONJ (MG/DL) Date Value 08/11/2010 0.0 ALT(SGPT) (U/L) Date Value 08/11/2010 ALTv (U/L) Date Value 03/03/2024 55 (H) AST(SGOT) (U/L) Date Value 03/03/2024 129 (H) 08/11/2010 ALK PHOS (U/L) Date Value 03/03/2024 123 (H) 08/11/2010 172 (H) Troponin: Recent Labs 03/03/24 1005 TROPNI 0.009 I have reviewed all relevant labs Imaging: XR RIBS 3 VW LEFT Result Date: 02/21/2024 XR RIBS 3 VW LEFT INDICATION: rib pain after fall last week COMPARISON: None FINDINGS/IMPRESSION: Chronic fracture deformity of the posterior left 10th rib. Questionable nondisplaced fracture of the left anterolateral eighth rib. XR LUMBAR SPINE 3 VW Result Date: 02/14/2024 XR LUMBAR SPINE 3 VW HISTORY: Male 68 years leg weakness, falls COMPARISON: None FINDINGS: The vertebral bodies are normal in height and in normal alignment. Mild degenerative changes are present. No acute osseous abnormality. Assessment and plan: Principal Problem: Acute urinary retention Active Problems: Urinary problem in male Hyponatremia Hyponatremia: Unclear etiology, possible SIADH, appears slightly volume overload on exam does not appear to be beer potomania - Nephrology consult - Trial gentle IV fluids - Trend BMP - Plan to increase sodium 6-8 mill equivalents daily Urinary retention: - Trial Flomax Metabolic acidosis: - Trial bicarb TINY: - Nephrology consult - Avoid nephrotoxins - Discussed with nephrology trial gentle IV fluids - Trend BMP Hypokalemia: - Hold KASHIF inhibitor - Trend BMP History of alcohol abuse: Active drinker, no signs of withdrawal at this time - Start thiamine and folic acid - Serax as needed Hypertension: - Continue Norvasc Diabetes mellitus 2: - Hold home oral meds - Start insulin sliding scale History of hypomagnesia: - Replete as needed Glaucoma: - Continue eyedrops DVT prophylaxis: Heparin SC Advanced Care Planning ( Z71.89 ) Above assessment and plan discussed at length with patient, patient expressed full understanding. Questions and concerns addressed I spent 18 minutes discussing the advance care planning. Advanced Directive Maker: PT Level of comfort: N/A Code Status: Full [place] VB DEVELOPER was verified Disposition: Admit IMU for close monitoring of NA [facility] [employer] 2024-01-12 10:10:26 COLORECTAL SURGERY HISTORY AND PHYSICAL NOTE REASON FOR REFERRAL: Rectal bleeding Cc: rectal bleeding for more than 6 months associated with mild constipation and stool softener-induced diarrhea SUBJECTIVE: Lori Keller is a 68 year old male with has a past medical history of Acute pancreatitis (11/01 to 11/06/2006), Acute peptic ulcer, unspecified site, with hemorrhage and perforation (11/01 to 11/06/2006), Essential hypertension, benign (2001), Hemorrhoids, Other and unspecified hyperlipidemia (2006), Other specified gastritis (2007), Pseudocyst, pancreas (06/04/2009), radial head (1994), and Type II or unspecified type diabetes mellitus without mention of complication, not stated as uncontrolled (2006)., presenting with complaint of rectal bleeding for more than 6 months. 01/12/24: Since last seen, has had several falls. Last surgical date was cancelled due to falls, after which a neuro (CTA head) and cardiac work up yielded normal results. Determination that anemia was causing weakness and falls. Here today with ongoing bleeding per rectum for THD, possible hemorrhoidectomy. Denies cp/sob/dyspnea on exertion. 11/02/23: The bleeding is not associated with bowel movements. He has seen a colorectal surgeon in [place] who prescribed hydrocortisone suppository which he did not use consistently. Onset: more than 6 months, less than a year Prior procedures: cholecystectomy Frequency of bowel movements: (1) BMs per day, soft consistency; takes colace x1-2 a week but followed by diarrhea Frequency of symptoms: sporadic Straining: no (2-10 minutes) Splinting required : no Manual disimpaction: no Incomplete evacuation : no Prolapsing tissue per anus: no Rectal bleeding: yes Rectal pain : no Abdominal pain: no Fecal incontinence: no Urinary incontinence : no Therapies attempted: Suppositories HCT Colonoscopy: 12/2022: - Skin tags were found on perianal exam. Findings: - The digital rectal exam was normal. Pertinent negatives include normal sphincter tone and no palpable rectal lesions. - The colon (entire examined portion) was significantly redundant. - The terminal ileum appeared normal. - The appendiceal orifice and ileocecal valve appeared normal. Personal or Family Hx CRC/polyps: no PMH: Diabetes: yes, A1c 5.7 Cardiac functional status: good Blood thinners: no Smoking status: no, quit 8 years ago Allergies Lori has No Known Allergies. Medications Outpatient Medications Prior to Visit Medication Sig Dispense Refill LISINOPRIL 40 mg tablet TAKE 1 TABLET BY MOUTH EVERY DAY IN THE MORNING 30 tablet 0 pioglitazone 45 mg tablet Take 1 tablet by mouth every morning. 90 tablet 0 ferrous sulfate 325 mg (65 mg iron) tablet Take 1 tablet by mouth in the morning. 90 tablet 3 dulaglutide (TRULICITY) 1.5 mg/0.5 mL PnIj inject 1 Pen under the skin weekly. 4 Pen 5 JARDIANCE 10 mg tablet TAKE 1 TABLET BY MOUTH EVERY DAY IN THE MORNING 30 tablet 6 AMLODIPINE 5 mg tablet TAKE 1 TABLET BY MOUTH EVERY DAY IN THE MORNING 90 tablet 2 metFORMIN 1,000 mg tablet TAKE 1 TABLET BY MOUTH IN THE MORNING AND 1 TABLET IN THE EVENING WITH MEALS 60 tablet 0 hydrocortisone 25 mg suppository Insert 1 Suppository into rectum in the morning and 1 Suppository in the evening. 28 Suppository 0 LUMIGAN 0.01 % ophthalmic drops Place 1 Drop in both eyes at bedtime. methocarbamoL 500 mg tablet Take 1 tablet by mouth every 6 (six) hours as needed for Pain (scale 7-10) (spasm). 20 tablet 0 No facility-administered medications prior to visit. Histories Past Surgical History: Procedure Laterality Date COLONOSCOPY 2007 COLONOSCOPY Left 01/03/2023 Surgeon: Gigi Medeiros MD; Location: [facility]OSCOPY ([facility]) OR LOCATION [facility] ESOPHAGOGASTRODUODENOSCOPY N/A 01/03/2023 Surgeon: Gigi Medeiros MD; Location: ENDOSCOPY () OR LOCATION ESOPHAGOSCOPY 2007 gastritis INTRAMAXILLARY FIXATION WITH ARCH BAR APPLICATION 12/01/2010 Surgeon:MAIKEL ALVARADO; Location:[facility] LAP,CHOLECYSTECTOMY 09/26/2008 MANDIBLE FRACTURE ORIF 12/01/2010 Surgeon:MAIKEL ALVARADO; Location:[facility] Family History Problem Relation Age of Onset Arthritis Mother lung @ 82yo Hypertension Mother Cancer Father stomach @ 47yo Heart Brother @ 56 yo mi Cancer Mother lung Vital Signs BP (!) 144/74 | Pulse 53 | Temp 36.4 ?C (97.5 ?F) (Temporal Artery) | Resp 18 | Ht 1.803 m (5' 11") | Wt 108.9 kg (240 lb) | SpO2 97% | BMI 33.47 kg/m? Physical Exam Digital Rectal Exam and Anoscopy Perineal exam: abnormal Perineal skin: no hemorrhoids, multiple skin tags Anal wink: present Digital rectal exam: hemorrhoids present Rectocele : absent Stenosis : absent Anoscopy: COLORECTAL ANOSCOPY: Left Lateral Internal Hemorrhoid: grade II Right Anterior Internal Hemorrhoid: grade I Right Posterior Internal Hemorrhoid: grade I Mass: No masses Assessment/Plan Lori Keller is a 68 year old male with Grade 2 bleeding internal hemorrhoids. Risk and benefits of TDH and hemorrhoidectomy discussed with patients. Plan: - proceed today with a THD, possible hemorrhoidectomy - consent in chart Gabi Dunaway MD 01/12/2024 10:13 AM Colon and Rectal Surgery [facility] 2023-12-22 20:52:39 MEDICINE [facility] ADMIT H&P Date of Service: 12/22/2023 CHIEF COMPLAINT: recurrent falls Subjective History of Present Illness 67 yo obese male with pmh of acute pancreatitis, PUD, HTN, HLD, DM, hemorrhoid who presents to the ED secondary to recurrent falls and low hemoglobin. Additional symptoms: recurrent falls (1 year), rhinorrhea, productive cough, leg weakness. Patient notes that he is off balance. He denies any syncopal. His recent episode of "stumbling" was hours prior to arrival and he did not hit his head. He felt his legs were weak. He attributes it to his hemoglobin being low at 9 mg/dl. PAST MEDICAL HISTORY Past Medical History: Diagnosis Date Acute pancreatitis 11/01 to 11/06/2006 admission Acute peptic ulcer, unspecified site, with hemorrhage and perforation 11/01 to 11/06/2006 admission Essential hypertension, benign 2001 Hemorrhoids Other and unspecified hyperlipidemia 2006 Other specified gastritis 2007 colonoscopy with EGD Pseudocyst, pancreas 06/04/[address] scan radial head 1994 left radial head fracture Type II or unspecified type diabetes mellitus without mention of complication, not stated as uncontrolled 2006 Past Surgical History: Procedure Laterality Date COLONOSCOPY 2008 COLONOSCOPY Left 01/03/2023 Surgeon: Gigi Medeiros MD; Location: [facility]OSCOPY ([facility]) OR LOCATION [facility] ESOPHAGOGASTRODUODENOSCOPY N/A 01/03/2023 Surgeon: Gigi Medeiros MD; Location: ENDOSCOPY ([facility]) OR LOCATION ESOPHAGOSCOPY 2007 gastritis INTRAMAXILLARY FIXATION WITH ARCH BAR APPLICATION 12/01/2010 Surgeon:MAIKEL ALVARADO; Location[facility] LAP,CHOLECYSTECTOMY 09/26/2008 MANDIBLE FRACTURE ORIF 12/01/2010 Surgeon:MAIKEL ALVARADO; Location:[facility] Family History Problem Relation Age of Onset Arthritis Mother lung @ 82yo Hypertension Mother Cancer Father stomach @ 47yo Heart Brother @ 56 yo mi Cancer Mother lung ALLERGIES No Known Allergies MEDICATIONS No current facility-administered medications on file prior to encounter. Current Outpatient Medications on File Prior to Encounter Medication Sig Dispense Refill LISINOPRIL 40 mg tablet TAKE 1 TABLET BY MOUTH EVERY DAY IN THE MORNING 30 tablet 0 pioglitazone 45 mg tablet Take 1 tablet by mouth every morning. 90 tablet 0 dulaglutide (TRULICITY) 1.5 mg/0.5 mL PnIj inject 1 Pen under the skin weekly. (Patient taking differently: inject 1 Pen under the skin weekly. Random days) 4 Pen 5 ferrous sulfate 325 mg (65 mg iron) tablet Take 1 tablet by mouth in the morning. 90 tablet 3 JARDIANCE 10 mg tablet TAKE 1 TABLET BY MOUTH EVERY DAY IN THE MORNING 30 tablet 6 AMLODIPINE 5 mg tablet TAKE 1 TABLET BY MOUTH EVERY DAY IN THE MORNING 90 tablet 2 metFORMIN 1,000 mg tablet TAKE 1 TABLET BY MOUTH IN THE MORNING AND 1 TABLET IN THE EVENING WITH MEALS 60 tablet 0 methocarbamoL 500 mg tablet Take 1 tablet by mouth every 6 (six) hours as needed for Pain (scale 7-10) (spasm). 20 tablet 0 hydrocortisone 25 mg suppository Insert 1 Suppository into rectum in the morning and 1 Suppository in the evening. 28 Suppository 0 LUMIGAN 0.01 % ophthalmic drops Place 1 Drop in both eyes at bedtime. I attest that the foregoing medication list in the medical record is true, accurate and complete to the best of my knowledge. SOCIAL HISTORY Social History Socioeconomic History Marital status: Number of children: 2 Years of education: 14 Occupational History Occupation: [employer] Employer: [employer] Tobacco Use Smoking status: Former Types: Cigars Smokeless tobacco: Never Tobacco comments: quit Apr 2010 Substance and Sexual Activity Alcohol use: Yes Comment: cut back in 2009, now drinks 3 or less beers daily Drug use: No REVIEW OF SYSTEMS Review of Systems Constitutional: Negative. HENT: Positive for rhinorrhea. Negative for congestion, dental problem, drooling, ear discharge, ear pain, facial swelling, hearing loss, mouth sores, nosebleeds, postnasal drip, sinus pressure, sneezing, sore throat, tinnitus, trouble swallowing and voice change. Eyes: Negative. Respiratory: Positive for cough (productive cough). Negative for apnea, choking, chest tightness, shortness of breath, wheezing and stridor. Breasts: Negative. Cardiovascular: Negative. Gastrointestinal: Negative. Genitourinary: Negative. Musculoskeletal: Negative. Negative for neck pain and neck stiffness. Skin: Negative. Neurological: Positive for weakness. Negative for dizziness, tremors, seizures, syncope, facial asymmetry, speech difficulty, light-headedness, numbness and headaches. Psychiatric/Behavioral: Negative. Endocrine: Endocrine negative Objective PHYSICAL EXAMINATION Vitals: 12/22/23 1403 12/22/23 1429 12/22/23 1507 12/22/23 1916 BP: (!) 162/82 108/79 (!) 159/60 Pulse: 64 64 67 Resp: 19 17 18 Temp: 36.6 ?C (97.8 ?F) 36.2 ?C (97.2 ?F) 36.5 ?C (97.7 ?F) TempSrc: SpO2: 98% 97% 96% Weight: 111 kg (244 lb 11.2 oz) Height: 1.803 m (5' 11") Physical Exam Vitals and nursing note reviewed. Constitutional: General: He is not in acute distress. Appearance: He is obese. He is not ill-appearing, toxic-appearing or diaphoretic. HENT: Head: Normocephalic and atraumatic. Right Ear: External ear normal. Left Ear: External ear normal. Nose: Nose normal. No congestion. Mouth/Throat: Mouth: Mucous membranes are moist. Pharynx: No oropharyngeal exudate or posterior oropharyngeal erythema. Eyes: General: No scleral icterus. Extraocular Movements: Extraocular movements intact. Conjunctiva/sclera: Conjunctivae normal. Pupils: Pupils are equal, round, and reactive to light. Cardiovascular: Rate and Rhythm: Normal rate and regular rhythm. Heart sounds: No murmur heard. No friction rub. No gallop. Pulmonary: Effort: Pulmonary effort is normal. No respiratory distress. Breath sounds: Normal breath sounds. No wheezing. Chest: Chest wall: No tenderness. Abdominal: General: Abdomen is flat. Bowel sounds are normal. There is no distension. Palpations: Abdomen is soft. Tenderness: There is no abdominal tenderness. There is no guarding. Musculoskeletal: General: Normal range of motion. Cervical back: Normal range of motion and neck supple. Right lower leg: No edema. Left lower leg: No edema. Skin: General: Skin is warm and dry. Neurological: Mental Status: He is alert. Psychiatric: Mood and Affect: Mood normal. Behavior: Behavior normal. Thought Content: Thought content normal. Judgment: Judgment normal. LABS/IMAGING - reviewed CT HEAD WO CONTRAST, CT CERVICAL SPINE WO CONTRAST HISTORY: Recurring falls COMPARISON: CT head and cervical spine 11/08/2020. TECHNIQUE: Multiaxial CT head and cervical spine without contrast. FINDINGS: HEAD The ventricles and cerebral sulci are normal in caliber and configuration. No hydrocephalus, midline shift or pathological extra-axial fluid collection is present. The basal cisterns are unremarkable. There is no acute intracranial hemorrhage or significant mass effect. No parenchymal attenuation abnormality. The hardy-white matter differentiation is preserved. The mastoid air cells and paranasal air sinuses are clear. The calvarium and central skull base are unremarkable. CERVICAL SPINE Slightly reversed cervical lordosis is noted. The vertebral bodies are normal in height and in normal alignment. No facet fracture or subluxation is present. The craniocervical junction is intact. The prevertebral soft tissues are unremarkable. Multilevel disc space narrowing with vacuum phenomena, endplate sclerosis, subchondral cyst formation and osteophytosis, most pronounced at C6-C7. Posteriorly projecting disc osteophyte complex at C4-C5 and more significant at C6-C7 resulting bony canal stenosis. The visualized cervical soft tissues and lung apices are unremarkable. IMPRESSION No acute intracranial abnormality. Multilevel cervical spine degenerative changes without acute osseous fractures or traumatic malalignment. EKG: sinus rhythm Assessment & Plan Lori Keller is a 68 year old obese male with PMH as listed above, admitted to the hospital with: Recurrent falls/deconditioning: -- PT consult is pending -- Fall precaution HTN: -- Will continue with lisinopril, amlodipine DM: -- Jardiance and insulin sliding scale Alcohol use: -- Will watch for alcohol withdrawal syndrome -- Thiamine and folic acid has been added Prophylaxis: DVT- enoxaparin Code Status: Full Code Estimated LOS: This inpatient admission will likely require greater than or equal to 2 Midnights. Management is not feasible as an outpatient and there is concern for adverse outcomes if not managed in an inpatient setting. Advance care planning discussed for 19 mins with patient at bedside. Surrogate decision maker: Krishna Mayer (spouse) - [facility] [email or web address] Notes Date/Time Note Provider Source 2024-05-03 13:00:00 Images from the original note were not included. Only uc per pt request Patient has been identified by and was provided with cup, antiseptic towelette, and clean catch instructions. 1 urine specimen(s) sent. Unpreserved Urine Culture 1 Aptima tube Other urine [email or web address] 2024-04-18 15:59:54 CTA head and CTA neck ordered. [facility] [email or web address] 2024-04-18 15:45:25 I think it was mentioned and not hard to do the test. It can be ordered. Can you put in order CT angio head/ neck. Reason for test; imbalance and question of VBI. Thanks. PN-NEUROLOGY STAFF [facility] 2024-04-17 16:42:43 Pt also has telephone encounter regarding this. Duplicate requests. Closing encounter. Karen Cristina LVN [facility] 2024-04-17 16:40:20 Called pt and let him know per Dr. Mg : He already had CT neck back in December, and it did show arthritis changes, and he very well may have pinched nerves in neck. If he is having issues of pain or loss of ROM, then maybe he needs to get in to see pain management. Pt stated that was not what was discussed at [facility]. It was discussed getting a scan of pt head r/t blood flow (CTA?). Dr. Mg, please advise. [facility] 2024-04-17 10:46:[address] neck back in December, and it did show arthritis changes, and he very well may have pinched nerves in neck. If he is having issues of pain or loss of ROM, then maybe he needs to get in to see pain management. [facility] 2024-04-12 16:59:58 There is no mention of new MRI/CT in [facility] note. Dr. Mg, please review and advise on if imaging was going to be ordered. [facility] 2024-04-12 16:03:08 Lori Keller is a 68 year old male Pt is calling stating that on his visit from 04/08/24 he was told that he was getting a referral for either a MRI or CI for the nerves in the neck Please advise Ivis Thompson [facility] 2024-03-29 12:52:41 Per Marianna with [facility] orders were originally sent to Dr. De Jesus and she was notified that patient is now seeing Dr. Brian. All was verbalized understanding and stated orders would be resent. Marianna informed that MD will review all when back in the office and no further needs were voiced at this time. [facility] 2024-03-29 08:48:10 Lori Keller is a 68 year old male Marianna with [facility] is calling to f/u on hh orders still in suture sing. Orders need to be signed by Dr. Espinoza assist. ph:[phone] Karen Tarango [facility] 2024-03-14 12:15:00 Images from the original note were not included. Venipuncture collection performed by clean technique on the left anticubitus. Total of 1 attempts were made. Slight pressure and a bandage/dressing were applied to the site(s). The patient experienced no complications. The following specimens were processed according to instructions and sent to [facility] laboratories per lab order on 03/14/2024 : LT BLUE SST 1 RED LAV 1 PPT DK GREEN (LiHep) DK GREEN (SodH) HARDY DK BLUE (K2) DK BLUE (S) ACD Blood Culture NIPT/NTD Patient has been identified by and name and was provided with cup, antiseptic towelette, and clean catch instructions. Patient unable to void. Patient will try to bring back specimen one day next week when he has other appointment. Unpreserved Urine Culture Aptima tube Other urine [facility] 2024-03-11 15:47:48 TRANSITIONAL CARE MANAGEMENT ASSESSMENT 03/11/2024 Lori Keller [id number] Lori Keller is a 68 year old /White male was admitted on 03/03/24 to [facility] ICU. He was discharged on 03/07/24 with discharge disposition of HR- Routine Discharge. Admitting Physician: Lori Arnold Discharge Diagnosis: Severe acute on chronic hyponatremia Acute urinary retention Overflow incontinence Acute respiratory failure with hypoxia due to left pleural effusion and acute on chronic HFpEF Alcoholic hepatitis Hepatic steatosis due to alcohol abuse Hyperbilirubinemia Alcohol abuse Macrocytic anemia due to alcohol abuse/alcoholic Thrombocytopenia due to alcohol abuse/alcoholic hepatitis Hyperkalemia Hypochloremia Hypomagnesemia TINY due to prerenal azotemia Dysphagia Linked Episodes Type: Episode: Status: Noted: Resolved: Last update: Updated by: TRANSITION OF CARE TCM Active 03/08/2024 03/11/2024 3:47 PM Jannie Welsh, RN Comments: TCM [id number]-face outreach documentation: Discharge Assessment Chart Assessed: 03/11/24 TCM Outreach Completed: 03/11/24 Care Transitions Nurse CM made f/u call to patient post-discharge. No answer, call went to voicemail. CM left discreet message with CM's call back information. EMERY Kirby, RN, CCRN Retail Office Manager, Transitions of Care [email or web address] Future Appointments: Future Appointments Provider Department Dept Phone 03/13/2024 10:30 AM Alok Farrell MD [facility] [phone] 03/14/2024 11:20 AM Ladi Brian MD [facility] [phone] 05/28/2024 12:40 PM Ladi Brian MD [facility] [phone] 08/22/2024 2:00 PM Gabi [facility]unaway [facility] [phone] Jannie Welsh RN [facility] 2024-03-11 11:00:51 Patient canceled 03/14 Shirley Anders [facility] 2024-03-08 14:39:49 Lori Keller is a 68 year old male Patient's spouse is calling requesting to schedule [facility] with provider sometime next week. She declined the next available appointment for 03/19/24. Please contact when available at [phone] Florence Serna [facility] 2024-03-08 12:51:15 Care Transitions Nurse CM made f/u call to patient post-discharge. No answer, call went to voicemail. CM left discreet message with CM's call back information. CM will try again at a later time. EMERY Kirby, RN, CCRN Retail Office Manager, Transitions of Care [email or web address] 2024-03-07 14:25:21 Problem: Falls, Risk of Goal: Absence of falls 03/07/2024 142 by Gabino Velarde, GIUSEPPE Outcome: Adequate for discharge 03/07/2024 0731 by Gabino Velarde RN Outcome: Progressing as expected Problem: Venous Thromboembolism, (actual or risk of) Goal: Absence of venous thromboembolism (Risk) 03/07/2024 1425 by Gabino Velarde, GIUSEPPE Outcome: Adequate for discharge 03/07/2024 0731 by Gabino Velarde, GIUSEPPE Outcome: Progressing as expected Goal: Prevent further complications associated with VTE diagnosis (Actual) 03/07/2024 1425 by Gabino Velarde RN Outcome: Adequate for discharge 03/07/2024 07 by Gabino Velarde RN Outcome: Progressing as expected Problem: Glucose control Goal: Glucose level within specified parameters 03/07/2024 1425 by Gabino Velarde RN Outcome: Adequate for discharge 03/07/2024 07 by Gabino Velarde RN Outcome: Progressing as expected Problem: Pain Goal: Control of pain at or below patient's documented comfort goal 03/07/2024 1425 by Gabino Velarde RN Outcome: Adequate for discharge 03/07/2024 07 by Gabino Velarde RN Outcome: Progressing as expected Goal: Reduction in pain sensation 03/07/2024 142 by Gabino Velarde RN Outcome: Adequate for discharge 03/07/2024 07 by Gabino Velarde RN Outcome: Progressing as expected Problem: Skin integrity Impaired (Risk or Actual) Goal: Prevention of new skin breakdown 03/07/2024 1425 by Gabino Velarde RN Outcome: Adequate for discharge 03/07/2024 07 by Gabino Velarde RN Outcome: Progressing as expected Problem: Infection Risk Goal: Absence of infection 03/07/2024 142 by Gabino Velarde RN Outcome: Adequate for discharge 03/07/2024730 by Gabino Velarde RN Outcome: Progressing as expected Problem: Discharge Planning Goal: Adequate for discharge 03/07/2024 142 by Gabino Velarde RN Outcome: Adequate for discharge 03/07/2024730 by Gabino Velarde RN Outcome: Progressing as expected Goal: Effective communication 03/07/2024 142 by Gabino Velarde RN Outcome: Adequate for discharge 03/07/2024730 by Gabino Velarde RN Outcome: Progressing as expected Problem: Urinary Elimination - Impaired Goal: Return to baseline elimination pattern 03/07/2024 142 by Gabino Velarde RN Outcome: Adequate for discharge 03/07/2024730 by Gabino Velarde RN Outcome: Progressing as expected Gabino Velarde RN [facility] 2024-03-07 13:07:46 Received discharge transfer summary report from [facility]. Placed in the providers box. Joelle Darby [facility] 2024-03-07 07:32:25 Problem: Falls, Risk of Goal: Absence of falls Outcome: Progressing as expected Problem: Venous Thromboembolism, (actual or risk of) Goal: Absence of venous thromboembolism (Risk) Outcome: Progressing as expected Goal: Prevent further complications associated with VTE diagnosis (Actual) Outcome: Progressing as expected Problem: Glucose control Goal: Glucose level within specified parameters Outcome: Progressing as expected Problem: Pain Goal: Control of pain at or below patient's documented comfort goal Outcome: Progressing as expected Goal: Reduction in pain sensation Outcome: Progressing as expected Problem: Skin integrity Impaired (Risk or Actual) Goal: Prevention of new skin breakdown Outcome: Progressing as expected Problem: Infection Risk Goal: Absence of infection Outcome: Progressing as expected Problem: Discharge Planning Goal: Adequate for discharge Outcome: Progressing as expected Goal: Effective communication Outcome: Progressing as expected Problem: Urinary Elimination - Impaired Goal: Return to baseline elimination pattern Outcome: Progressing as expected [facility] 2024-03-06 22:29:05 Problem: Falls, Risk of Goal: Absence of falls Outcome: Progressing as expected Problem: Venous Thromboembolism, (actual or risk of) Goal: Absence of venous thromboembolism (Risk) Outcome: Progressing as expected Goal: Prevent further complications associated with VTE diagnosis (Actual) Outcome: Progressing as expected Problem: Glucose control Goal: Glucose level within specified parameters Outcome: Progressing as expected Problem: Pain Goal: Control of pain at or below patient's documented comfort goal Outcome: Progressing as expected Goal: Reduction in pain sensation Outcome: Progressing as expected Problem: Skin integrity Impaired (Risk or Actual) Goal: Prevention of new skin breakdown Outcome: Progressing as expected Problem: Infection Risk Goal: Absence of infection Outcome: Progressing as expected Problem: Discharge Planning Goal: Adequate for discharge Outcome: Progressing as expected Goal: Effective communication Outcome: Progressing as expected Problem: Urinary Elimination - Impaired Goal: Return to baseline elimination pattern Outcome: Progressing as expected Mirela Mota RN [facility] 2024-03-06 17:58:38 Problem: Falls, Risk of Goal: Absence of falls Outcome: Progressing as expected Problem: Venous Thromboembolism, (actual or risk of) Goal: Absence of venous thromboembolism (Risk) Outcome: Progressing as expected Goal: Prevent further complications associated with VTE diagnosis (Actual) Outcome: Progressing as expected Problem: Glucose control Goal: Glucose level within specified parameters Outcome: Progressing as expected Problem: Pain Goal: Control of pain at or below patient's documented comfort goal Outcome: Progressing as expected Goal: Reduction in pain sensation Outcome: Progressing as expected Problem: Skin integrity Impaired (Risk or Actual) Goal: Prevention of new skin breakdown Outcome: Progressing as expected Problem: Infection Risk Goal: Absence of infection Outcome: Progressing as expected Problem: Discharge Planning Goal: Adequate for discharge Outcome: Progressing as expected Goal: Effective communication Outcome: Progressing as expected Problem: Urinary Elimination - Impaired Goal: Return to baseline elimination pattern Outcome: Progressing as expected Problem: Discharge Planning Goal: Adequate for discharge Outcome: Progressing as expected Goal: Effective communication Outcome: Progressing as expected Problem: Urinary Elimination - Impaired Goal: Return to baseline elimination pattern Outcome: Progressing as expected Palma Luna RN [facility] 2024-03-06 00:07:27 Problem: Falls, Risk of Goal: Absence of falls Outcome: Progressing as expected Problem: Venous Thromboembolism, (actual or risk of) Goal: Absence of venous thromboembolism (Risk) Outcome: Progressing as expected Goal: Prevent further complications associated with VTE diagnosis (Actual) Outcome: Progressing as expected Problem: Glucose control Goal: Glucose level within specified parameters Outcome: Progressing as expected Problem: Pain Goal: Control of pain at or below patient's documented comfort goal Outcome: Progressing as expected Goal: Reduction in pain sensation Outcome: Progressing as expected Problem: Skin integrity Impaired (Risk or Actual) Goal: Prevention of new skin breakdown Outcome: Progressing as expected Problem: Infection Risk Goal: Absence of infection Outcome: Progressing as expected Problem: Discharge Planning Goal: Adequate for discharge Outcome: Progressing as expected Goal: Effective communication Outcome: Progressing as expected Problem: Urinary Elimination - Impaired Goal: Return to baseline elimination pattern Outcome: Progressing as expected Kalani Montalvo RN [facility] 2024-03-05 16:40:10 Problem: Falls, Risk of Goal: Absence of falls Outcome: Progressing as expected Problem: Venous Thromboembolism, (actual or risk of) Goal: Absence of venous thromboembolism (Risk) Outcome: Progressing as expected Goal: Prevent further complications associated with VTE diagnosis (Actual) Outcome: Progressing as expected Problem: Glucose control Goal: Glucose level within specified parameters Outcome: Progressing as expected Problem: Pain Goal: Control of pain at or below patient's documented comfort goal Outcome: Progressing as expected Goal: Reduction in pain sensation Outcome: Progressing as expected Problem: Skin integrity Impaired (Risk or Actual) Goal: Prevention of new skin breakdown Outcome: Progressing as expected Problem: Infection Risk Goal: Absence of infection Outcome: Progressing as expected Problem: Discharge Planning Goal: Adequate for discharge Outcome: Progressing as expected Goal: Effective communication Outcome: Progressing as expected Problem: Urinary Elimination - Impaired Goal: Return to baseline elimination pattern Outcome: Progressing as expected [facility] 2024-03-05 09:55:00 called out stating that pt needed help getting back in bed. Pt has not been out of bed before now. Upon entering room, pt was found at edge of bed, laying across the foot of the bed. Pt unable to pull himself to sitting position or pull himself back up in bed. at bedside stated that he "wanted to get up to see what he was hooked up to so he could walk to the bathroom". Explained to pt and that given his weakness and inability to move himself in the bed independently, attempting to get out of bed unassisted is not safe at this time. 3 staff members and were needed to get pt back into bed. Instructed and pt not to get pt out of bed without assistance. Call light in reach. Bed alarm turned on. T Niurka White RN [facility] 2024-03-04 10:00:[address] Abd Pelvis. Dr Parham notified. [facility] 2024-03-04 09:00:00 Pt refusing D5 1/2 NS with HCO3 as ordered by nephrology team. Dr Mcgill notified. [facility] 2024-03-04 08:39:29 Problem: Falls, Risk of Goal: Absence of falls Outcome: Progressing as expected Problem: Venous Thromboembolism, (actual or risk of) Goal: Absence of venous thromboembolism (Risk) Outcome: Progressing as expected Goal: Prevent further complications associated with VTE diagnosis (Actual) Outcome: Progressing as expected Problem: Glucose control Goal: Glucose level within specified parameters Outcome: Progressing as expected Problem: Pain Goal: Control of pain at or below patient's documented comfort goal Outcome: Progressing as expected Goal: Reduction in pain sensation Outcome: Progressing as expected Problem: Skin integrity Impaired (Risk or Actual) Goal: Prevention of new skin breakdown Outcome: Progressing as expected Problem: Infection Risk Goal: Absence of infection Outcome: Progressing as expected Problem: Discharge Planning Goal: Adequate for discharge Outcome: Progressing as expected Goal: Effective communication Outcome: Progressing as expected Problem: Urinary Elimination - Impaired Goal: Return to baseline elimination pattern Outcome: Progressing as expected [facility] 2024-03-03 13:52:44 Problem: Falls, Risk of Goal: Absence of falls Outcome: Progressing as expected Problem: Venous Thromboembolism, (actual or risk of) Goal: Absence of venous thromboembolism (Risk) Outcome: Progressing as expected Goal: Prevent further complications associated with VTE diagnosis (Actual) Outcome: Progressing as expected Problem: Glucose control Goal: Glucose level within specified parameters Outcome: Progressing as expected Shanti Whitley RN [facility] 2024-03-03 13:24:41 Report given to Maddy CHIN. Jessica Guillermo RN [facility] 2024-03-03 08:21:31 Bladder scan showed 310 ml urine. [facility] 2024-03-03 08:12:15 Lori Keller is a 68 year old male c/o unable urinate effectively, " I trickled about 5 times last night" denies pain or blood with urination Whitney Sanchez RN [facility] 2024-03-03 08:09:00 AdmissionCare Guideline: Systemic / Infectious Condition, Inpatient Based on the indications selected for the patient, the bed status of Inpatient was determined to be MET The following indications were selected as present at the time of evaluation of the patient: - Clinical Indications for Admission to Inpatient Care - Hospital admission is needed for appropriate care of the patient because of 1 or more of the following: - Electrolyte abnormality is not at acceptable patient baseline (eg, treatment effect). - Sodium less than 135 mEq/L (mmol/L) with severe finding requiring inpatient management (eg, Altered mental status, seizures) AdmissionCare documentation entered by: Clifford Canales [facility] [employer], 28 edition, Copyright ? 2023 [facility] [employer] [facility] All Rights Reserved. [id number] [facility] 2024-02-28 15:15:00 Images from the original note were not included. Venipuncture collection performed by clean technique on the left anticubitus. Total of 1 attempts were made. Slight pressure and a bandage/dressing were applied to the site(s). The patient experienced no complications. The following specimens were processed according to instructions and sent to [facility] laboratories per lab order on 02/28/2024 : LT BLUE SST RED LAV PPT DK GREEN (LiHep) 1 DK GREEN (SodH) HARDY DK BLUE (K2) DK BLUE (S) ACD Blood Culture NIPT/NTD T [facility] 2024-02-28 10:28:38 Ruchi hassan/ [facility] calling to let you know the pt's start date will be delayed due to the daughter wanting it tomorrow or Monday. Please Advise. Mary Loaiza [facility] 2024-02-14 15:15:00 Images from the original note were not included. Venipuncture collection performed by clean technique on the left anticubitus. Total of 1 attempts were made. Slight pressure and a bandage/dressing were applied to the site(s). The patient experienced no complications. The following specimens were processed according to instructions and sent to [facility] laboratories per lab order on 02/14/2024 : LT BLUE SST 2 RED LAV 2 PPT DK GREEN (LiHep) DK GREEN (SodH) HARDY DK BLUE (K2) DK BLUE (S) ACD Blood Culture NIPT/NTD Patient has been identified by and name and was provided with cup, antiseptic towelette, and clean catch instructions. 1 urine specimen(s) sent. Unpreserved 1 Urine Culture Aptima tube Other urine [facility] 2024-01-12 12:19:30 Surgifoam w/ uro jet medication. Inserted into rectum. Haley Rust RN [facility] 2024-01-12 11:07:22 Operative Note DATE: 01/12/24 PREOPERATIVE DIAGNOSIS: Internal prolapsed bleeding hemorrhoids POSTOPERATIVE DIAGNOSIS: Internal external prolapsed bleeding hemorrhoids PROCEDURE: 1. Exam under anesthesia 2. Anoscopic evaluation of anal canal 3. Transanal hemorrhoidal dearterialization 4. Pudendal block SURGEON: Gabi Dunaway MD [employer] SUPERVISOR: none ANESTHESIA: General endotracheal plus exparel/quarter percent bupivacaine with epinephrine pudendal block DESCRIPTION OF PROCEDURE: The patient was taken to the operating room and general anesthesia was induced. The patient was positioned in the prone position with all pressure points padded. The buttocks were prepped with Betadine. Ancef flagyl were given. A time out was performed which was correct. On external inspection, external components to the internal prolapsed hemorrhoids were identified. The rectal tone was tested and was appropriate. A well lubricated doppler anoscope was inserted into the anal canal and all odd number columns were evaluated for highest frequency signal. The highest frequency signals were identified at the 7, 9, 1, 3, and 5 o'clock positions. 2-0 vicryl figure of 8 sutures on a UR6 needle were used to ligate the hemorrhoidal vessel at these locations at the point of maximal signal at least 1-2 cm proximal to the dentate line. These same sutures were used at these columns to perform an anolift mucopexy, starting proximal to our suture ligation point and running the suture distally to 1-2 cm proximal to the dentate line. These were used to lift and pexy the prolapsing rectal mucosa successfully. All redundant and prolapsing tissue was successfully lifted within the anal canal by the end of the procedure and no external components were thrombosed at this time. Once this was completed, hemostasis was ensured over all suture lines. Anal sphincter tone was again tested and remained unchanged with easy two finger dilation. A surgifoam covered in lidocaine dressing was inserted into the anal canal. An abd pad and mesh panties were used to cover the area. He tolerated the procedure well, was extubated in the operating room and transferred to the recovery room in stable condition. I was present and scrubbed in for this entire operation. DRAINS: No drains. COMPLICATIONS: No complications. SPECIMENS: none Gabi Dunaway MD 01/12/2024 12:31 PM Colon and Rectal Surgery [facility] 2024-01-08 10:24:55 The patient and stated they had already talked to Tess and knew what medications to take and hold. At this time they did not have any other questions or concerns. [facility] 2024-01-02 13:46:25 Images from the original note were not included. Your procedure is at [facility] on 01/19/24. The address is [address] [place] [id number]. [facility] nursing staff will call you the workday before your procedure to let you know what time to arrive.On the day of your procedure, please go inside that door and check in at the desk. Please note: You may not travel home alone and that includes in a taxi or by bus. We must speak to your Responsible Adult (who will be picking you up) the morning of your procedure, before the start of your procedure. This person must be an adult over the age of 18 years of age. Do not eat any solid food after midnight the night before surgery. You may have sips of clear liquids such as water, gatorade, and sprite up until two hours before your scheduled procedure. You may take your medications with a sip of water as directed by physician. Pending screening, we may test for COVID. If a patient tests positive, their cases are cancelled and/or rescheduled. COVID SCREENING NOTE: Denies COVID symptoms, no testing required. Additional requests, questions, concerns:CB number and availability provided. Patient verbalized understanding of pre-op instructions and voiced no further questions at this time. Tess Kimball RN [facility] 2023-12-25 13:34:59 TRANSITIONAL CARE MANAGEMENT ASSESSMENT 12/25/2023 Lori Keller [id number] Lori Keller is a 68 year old /White male was admitted on 12/22/23 to [facility]. He was discharged on 12/23/23 with discharge disposition of HR- Routine Discharge. Admitting Physician: Jessica Parham Discharge Diagnosis: Deconditioning Anemia HTN DM2 Alcohol use No linked episodes TCM Tay-rthb-ei-face outreach documentation: Transition CM attempted to contact patient for post discharge follow up. CM left a message on voicemail with purpose of call and contact information. Future Appointments: Future Appointments Provider Department Dept Phone 01/01/2024 9:00 AM Leeroy De Leon MD [facility] [phone] Constanza Garcia RN [facility] 2023-12-23 13:21:07 Problem: Pain Goal: Control of pain at or below patient's documented comfort goal Outcome: Adequate for discharge Goal: Reduction in pain sensation Outcome: Adequate for discharge Problem: Venous Thromboembolism, (actual or risk of) Goal: Absence of venous thromboembolism (Risk) Outcome: Adequate for discharge Problem: Discharge Planning Goal: Adequate for discharge Outcome: Adequate for discharge Goal: Effective communication Outcome: Adequate for discharge Evelia Carpenter RN [facility] 2023-12-22 22:33:04 Problem: Bleeding, Risk of Goal: Absence of impaired coagulation signs and symptoms Outcome: Progressing as expected Goal: Absence of active bleeding Outcome: Progressing as expected Problem: Pain Goal: Control of pain at or below patient's documented comfort goal Outcome: Progressing as expected Goal: Reduction in pain sensation Outcome: Progressing as expected Problem: Venous Thromboembolism, (actual or risk of) Goal: Absence of venous thromboembolism (Risk) Outcome: Progressing as expected Problem: Discharge Planning Goal: Adequate for discharge Outcome: Progressing as expected Goal: Effective communication Outcome: Progressing as expected Yeyo Hi RN [facility] 2023-12-22 16:25:16 Problem: Bleeding, Risk of Goal: Absence of impaired coagulation signs and symptoms Outcome: Progressing as expected Goal: Absence of active bleeding Outcome: Progressing as expected Problem: Pain Goal: Control of pain at or below patient's documented comfort goal Outcome: Progressing as expected Goal: Reduction in pain sensation Outcome: Progressing as expected Problem: Venous Thromboembolism, (actual or risk of) Goal: Absence of venous thromboembolism (Risk) Outcome: Progressing as expected Problem: Discharge Planning Goal: Adequate for discharge Outcome: Progressing as expected Goal: Effective communication Outcome: Progressing as expected Henna Noble RN [facility] 2023-12-22 13:37:12 Nurse to nurse patient handoff report given to Cecilia CHIN Marlen Pereyra RN [facility] 2023-12-22 10:21:54 CC: patient presents to the ER with complaints of low hemoglobin and recurrent falls. Patient is coming from pre-op and has a PIV in place. PMHx: see history Awake, alert, oriented, resp reg unlabored, skin warm and dry, color appropriate for race, moves all ext without difficulty, using wheelchair. Appears in no distress. Andreia Mota RN [facility] 2023-12-22 10:04:00 Associated Order(s): EKG-12 Lead ROUTINE ONCE Pre-Procedure Diagnose(s): Syncope, unspecified syncope type Post-Procedure Diagnose(s): Syncope, unspecified syncope type [facility] Emergency Department Note Patient Name: Lori Keller Date of : 1955 68 year old male Treatment Room: Room/bed info not found Primary Care Physician: Cuong Black Patient Escorted by: Self [9] Mode of Arrival: Personal means [1] EMS Treatment Prior to ED Arrival: VP STRATEGIC PLANNING treatment: Saline lock Travel and Exposure Screening: Symptoms Does patient have any of these symptoms?: (not recorded) Exposure Screening Has patient had contact with someone with a communicable disease in the last month?: (not recorded) Diseases exposed to:: (not recorded) Is Patient ?: (not recorded) Exposure Date: (not recorded) Chief Complaint: Chief Complaint Patient presents with Fall Abnormal Lab History of Present Illness: The patient presents from pre-op for evaluation for a low hemoglobin of 9.2 as well as recurrent falls over the past several weeks. His last lip according to the patient was this morning but he denies hitting his head. No reported loss of conscious. He does not take any blood thinners. He reports he has noted decreased energy over the past 1 year or so. He denies any chest pain or pressure. No shortness of breath. He was scheduled to have hemorrhoid surgery this morning that was canceled after it was found out he had the recurrent falls and a low hemoglobin. He was then sent to the ER for evaluation. He has been n.p.o. since midnight as he was planning for surgery today. However he reports he generally does not eat breakfast. Here for evaluation. Past Medical History/Immunizations: Past Medical History: Diagnosis Date Acute pancreatitis 11/01 to 11/06/2006 admission Acute peptic ulcer, unspecified site, with hemorrhage and perforation 11/01 to 11/06/2006 admission Essential hypertension, benign 2001 Hemorrhoids Other and unspecified hyperlipidemia 2006 Other specified gastritis 2007 colonoscopy with EGD Pseudocyst, pancreas 06/04/[address] scan radial head 1994 left radial head fracture Type II or unspecified type diabetes mellitus without mention of complication, not stated as uncontrolled 2006 Tetanus received in last 5 years: Unknown Allergies: No Known Allergies Past Social History: Tobacco Use Former; Types: Cigars Smokeless Tobacco: Never used smokeless tobacco. Comments: quit Apr 2010 Alcohol Use Yes. Comments: cut back in 2009, now drinks 3 or less beers daily Drug Use No. Past Surgical History: Past Surgical History: Procedure Laterality Date COLONOSCOPY 2008 COLONOSCOPY Left 01/03/2023 Surgeon: Gigi Medeiros MD; Location: ENDOSCOPY ([facility]) OR LOCATION [facility] ESOPHAGOGASTRODUODENOSCOPY N/A 01/03/2023 Surgeon: Gigi Medeiros MD; Location: ENDOSCOPY ([facility]) OR LOCATION ESOPHAGOSCOPY 2007 gastritis INTRAMAXILLARY FIXATION WITH ARCH BAR APPLICATION 12/01/2010 Surgeon:MAIKEL ALVARADO; [facility] LAP,CHOLECYSTECTOMY 09/26/2008 MANDIBLE FRACTURE ORIF 12/01/2010 Surgeon:MAIKEL ALVARADO; Location[facility] Review of Systems: Review of Systems Constitutional: Negative for chills and fever. Respiratory: Negative for cough and shortness of breath. Cardiovascular: Negative for chest pain. Gastrointestinal: Negative for abdominal pain and vomiting. Genitourinary: Negative for dysuria. Musculoskeletal: Negative for arthralgias, neck pain and neck stiffness. Skin: Negative for wound. Neurological: Negative for dizziness. Psychiatric/Behavioral: Negative for agitation. Endocrine: Negative for goiter. Physical Exam: ED Triage Vitals [12/22/23 1022] Weight 108.9 kg (240 lb) Actual or estimated Estimated by patient/family report Height 1.803 m (5' 11") BP (!) 140/69 Pulse 60 Resp 16 Temp 37 ?C (98.6 ?F) Temp source Oral SpO2 99 % Measured on Room air Physical Exam Vitals and nursing note reviewed. Constitutional: Appearance: Normal appearance. He is obese. HENT: Head: Normocephalic and atraumatic. Mouth/Throat: Mouth: Mucous membranes are dry. Eyes: Comments: Pale conjunctiva b/l Cardiovascular: Rate and Rhythm: Normal rate and regular rhythm. Pulses: Normal pulses. Pulmonary: Effort: Pulmonary effort is normal. No respiratory distress. Breath sounds: No stridor. No wheezing. Abdominal: General: There is no distension. Palpations: There is no mass. Tenderness: There is no abdominal tenderness. There is no guarding. Hernia: No hernia is present. Musculoskeletal: General: Normal range of motion. Cervical back: Neck supple. Skin: General: Skin is warm and dry. Neurological: General: No focal deficit present. Mental Status: He is alert and oriented to person, place, and time. Radiology: CT HEAD WO CONTRAST Final Result CT HEAD WO CONTRAST, CT CERVICAL SPINE WO CONTRAST HISTORY: Recurring falls COMPARISON: CT head and cervical spine 11/08/2020. TECHNIQUE: Multiaxial CT head and cervical spine without contrast. FINDINGS: HEAD The ventricles and cerebral sulci are normal in caliber and configuration. No hydrocephalus, midline shift or pathological extra-axial fluid collection is present. The basal cisterns are unremarkable. There is no acute intracranial hemorrhage or significant mass effect. No parenchymal attenuation abnormality. The hardy-white matter differentiation is preserved. The mastoid air cells and paranasal air sinuses are clear. The calvarium and central skull base are unremarkable. CERVICAL SPINE Slightly reversed cervical lordosis is noted. The vertebral bodies are normal in height and in normal alignment. No facet fracture or subluxation is present. The craniocervical junction is intact. The prevertebral soft tissues are unremarkable. Multilevel disc space narrowing with vacuum phenomena, endplate sclerosis, subchondral cyst formation and osteophytosis, most pronounced at C6-C7. Posteriorly projecting disc osteophyte complex at C4-C5 and more significant at C6-C7 resulting bony canal stenosis. The visualized cervical soft tissues and lung apices are unremarkable. IMPRESSION No acute intracranial abnormality. Multilevel cervical spine degenerative changes without acute osseous fractures or traumatic malalignment. Preliminary Report Dictated by Resident: Archie Woods, Sanchez Mcguire MD., have reviewed this study and agree with the above report. CT CERVICAL SPINE WO CONTRAST Final Result CT HEAD WO CONTRAST, CT CERVICAL SPINE WO CONTRAST HISTORY: Recurring falls COMPARISON: CT head and cervical spine 11/08/2020. TECHNIQUE: Multiaxial CT head and cervical spine without contrast. FINDINGS: HEAD The ventricles and cerebral sulci are normal in caliber and configuration. No hydrocephalus, midline shift or pathological extra-axial fluid collection is present. The basal cisterns are unremarkable. There is no acute intracranial hemorrhage or significant mass effect. No parenchymal attenuation abnormality. The hardy-white matter differentiation is preserved. The mastoid air cells and paranasal air sinuses are clear. The calvarium and central skull base are unremarkable. CERVICAL SPINE Slightly reversed cervical lordosis is noted. The vertebral bodies are normal in height and in normal alignment. No facet fracture or subluxation is present. The craniocervical junction is intact. The prevertebral soft tissues are unremarkable. Multilevel disc space narrowing with vacuum phenomena, endplate sclerosis, subchondral cyst formation and osteophytosis, most pronounced at C6-C7. Posteriorly projecting disc osteophyte complex at C4-C5 and more significant at C6-C7 resulting bony canal stenosis. The visualized cervical soft tissues and lung apices are unremarkable. IMPRESSION No acute intracranial abnormality. Multilevel cervical spine degenerative changes without acute osseous fractures or traumatic malalignment. Preliminary Report Dictated by Resident: Archie Woods, Sanchez Mcguire MD., have reviewed this study and agree with the above report. Lab Results: Lab Results MAGNESIUM - Abnormal Result Value Ref Range MAGNESIUM 1.5 (*) 1.7 - 2.4 mg/dL TROPONIN I - Normal TROPONIN I 0.008 <=0.034 ng/mL EKG: If EKG completed, see Procedure Note. Orders and Treatments: Orders Placed This Encounter Procedures CT HEAD WO CONTRAST CT CERVICAL SPINE WO CONTRAST TROPONIN I Magnesium Orders Placed This Encounter Medications magnesium sulfate in water 2 gram/50 mL (4 %) infusion 2 g First Provider Eval: ED Events Date/Time Event User Comments 12/22/23 1010 Medical Screening Begins LAVERN CALLAHAN DO -- 12/22/23 1010 First Provider Evaluation LAVERN CALLAHAN DO -- ED COURSE Diagnosis/Impression as of 12/22/23 1318 Syncope, unspecified syncope type Hypomagnesemia Procedures: EKG-12 Lead ROUTINE ONCE Date/Time: 12/22/2023 1:18 PM Performed by: Lavern Callahan DO Authorized by: Lavern Callahan DO ECG interpreted by ED Physician in the absence of a gas analyst: yes Interpretation: Interpretation: normal Rate: ECG rate: 60 ECG rate assessment: normal Rhythm: Rhythm: sinus rhythm Ectopy: Ectopy: none QRS: QRS axis: Normal QRS intervals: Normal QRS conduction: normal ST segments: ST segments: Normal T waves: T waves: normal Q waves: Abnormal Q-waves: not present MDM: Medical Decision Making The patient presents from pre-op for evaluation for a low hemoglobin of 9.2 as well as recurrent falls over the past several weeks. His last lip according to the patient was this morning but he denies hitting his head. No reported loss of conscious. He does not take any blood thinners. He reports he has noted decreased energy over the past 1 year or so. He denies any chest pain or pressure. No shortness of breath. He was scheduled to have hemorrhoid surgery this morning that was canceled after it was found out he had the recurrent falls and a low hemoglobin. He was then sent to the ER for evaluation. He has been n.p.o. since midnight as he was planning for surgery today. However he reports he generally does not eat breakfast. VSS here in the EC. The patient is obese. He has dry mucous membranes. His conjunctiva are pale bilaterally. His abdomen is soft and nontender. He has no vertebral body tenderness to his cervical spine. He has full range of motion of all extremities x 4. His laboratory studies obtained while in preop this morning show a normal chemistry profile and a low hemoglobin of 9.2. Will check a magnesium level as well as a troponin and obtain an EKG. Will also obtain a CT of his head and cervical spine due to the fall today as well as this over the past several weeks. Final disposition pending. 1300 -the patient is doing well here in the ER. He had no arrhythmias on telemetry since arrival to the ER. His laboratory studies show a low magnesium level which was replaced here in the ER. His troponin is unremarkable. The CT of his head and cervical spine showed no acute traumatic injuries. His CBC as well as his CMP were obtained earlier today while in preop. Spoke with Dr. Parham with the internal medicine service and the patient was accepted for admission for continued management. Problems Addressed: Hypomagnesemia: acute illness or injury Syncope, unspecified syncope type: acute illness or injury Amount and/or Complexity of Data Reviewed Labs: ordered. Decision-making details documented in ED Course. Details: Cbc and cmp from pre-op today Radiology: ordered and independent interpretation performed. Decision-making details documented in ED Course. ECG/medicine tests: ordered and independent interpretation performed. Decision-making details documented in ED Course. Risk Prescription drug management. Decision regarding hospitalization. Flowsheet Documentation: Scoring Tools: No data recorded Disposition/Condition: ED Disposition ED Disposition Admit - Observation Condition -- Comment Treatment Team: [facility] [[id number]] Discharge Medications: Patient's Medications START taking these medications No medications on file CONTINUE taking these medications which have NOT CHANGED AMLODIPINE 5 MG TABLET TAKE 1 TABLET BY MOUTH EVERY DAY IN THE MORNING DULAGLUTIDE (TRULICITY) 1.5 MG/0.5 ML PNIJ inject 1 Pen under the skin weekly. FERROUS SULFATE 325 MG (65 MG IRON) TABLET Take 1 tablet by mouth in the morning. HYDROCORTISONE 25 MG SUPPOSITORY Insert 1 Suppository into rectum in the morning and 1 Suppository in the evening. JARDIANCE 10 MG TABLET TAKE 1 TABLET BY MOUTH EVERY DAY IN THE MORNING LISINOPRIL 40 MG TABLET TAKE 1 TABLET BY MOUTH EVERY DAY IN THE MORNING LUMIGAN 0.01 % OPHTHALMIC DROPS Place 1 Drop in both eyes at bedtime. METFORMIN 1,000 MG TABLET TAKE 1 TABLET BY MOUTH IN THE MORNING AND 1 TABLET IN THE EVENING WITH MEALS METHOCARBAMOL 500 MG TABLET Take 1 tablet by mouth every 6 (six) hours as needed for Pain (scale 7-10) (spasm). PIOGLITAZONE 45 MG TABLET Take 1 tablet by mouth every morning. START taking Modified Medications as Prescribed No medications on file STOP taking these medications No medications on file Follow-up: Electronically signed by: Lavern Callahan DO 12/22/23 1318 [facility] 2023-12-20 08:37:49 Attempted to contact patient with no answer, Voicemail left at this time with clinic phone number and instructed patient to return call. Per [facility] at [facility] book, 7 days prior to hold Trulicity 3 days prior to procedure hold Jardiance 1 day prior to procedure hold Lisinopril Day of procedure stop taking Metformin Pioglitazone Melissa Cutler RN [facility] 2023-12-19 14:07:08 Pt calling stating he has surgery with Dr. Dunaway scheduled for 12/22/23. Pt is needing a reminder of what medications to stop taking prior to surgery. Please advise and assist. Shreya Delacruz [facility] 2023-12-18 08:53:35 Last Refilled: LISINOPRIL 40 mg [id number]/20/2023--NoSig: TAKE 1 TABLET BY MOUTH EVERY DAY IN THE MORNINGSent to pharmacy as: lisinopriL 40 mg tablet (PRINIVIL,ZESTRIL)Class: eRXRoute: OralOrder: [id number]/Time Signed: 11/20/2023 10:27E-Prescribing Status: Receipt confirmed by pharmacy (11/20/2023 10:27 AM CDT) Notes: Recent Visits Date Type Provider Dept 09/21/23 Office Visit Negrita Vidal PA [facility] 11/17/22 Office Visit Deborah De Jesus MD [facility] Showing recent visits within past 540 days with a meds authorizing provider and meeting all other requirements Future Appointments No visits were found meeting these conditions. Showing future appointments within next 150 days with a meds authorizing provider and meeting all other requirements Rayne Mackenzie RN [facility] 2023-12-14 13:28:43 Images from the original note were not included. Your procedure is at [facility] on 12/22/23. The address is [address] [place] [address], [facility]. [facility] nursing staff will call you the workday before your procedure to let you know what time to arrive.On the day of your procedure, please go inside that door and check in at the desk. Please note: You may not travel home alone and that includes in a taxi or by bus. We must speak to your Responsible Adult (who will be picking you up) the morning of your procedure, before the start of your procedure. This person must be an adult over the age of 18 years of age. Do not eat any solid food after midnight the night before surgery. You may have sips of clear liquids such as water, gatorade, and sprite up until two hours before your scheduled procedure. You may take your medications with a sip of water as directed by physician. Anticoagulants will be per physician guidance. Medication Note(s)/Instructions:Instruct ions given to hold Trulicity one week prior to surgery, hold Jardiance three days prior to surgery, zoë metformin evening before and morning of surgery, hold lisinopril day before and morning of surgery, and hold pioglitazone morning of surgery. Pending screening, we may test for COVID. If a patient tests positive, their cases are cancelled and/or rescheduled. COVID SCREENING NOTE: Denies COVID symptoms, no testing required. Additional requests, questions, concerns:CB number and availability provided. Patient verbalized understanding of pre-op instructions and voiced no further questions at this time. Tess Kimball RN [facility] 2023-12-07 13:00:43 Name/ MRN / Age / Gender: Lori Keller, [id number] 68 year old male BMI: Estimated body mass index is 35.59 kg/m? as calculated from the following: Height as of this encounter: 1.778 m (5' 10"). Weight as of this encounter: 112.5 kg (248 lb 0.3 oz). Allergies: Patient has no known allergies. Last Vitals: BP Readings from Last 1 Encounters: 11/02/23 (!) 146/66 Pulse Readings from Last 1 Encounters: 11/02/23 63 SpO2 Readings from Last 1 Encounters: 11/02/23 98% Date of Surgery: 12/22/2023 Surgeon: Gabi Dunaway MD Procedure: DOPPLER GUIDED HEMORRHOIDPEXY OR Location: [facility] OR LOCATION Anesthesia Preop Screen (no physical exam) Anesthesia Preop: Chart Review Anesthesia History Anesthesia History Negative per Chart Review Previous Anesthetics/Airways Cardiovascular Comments: ECHO 08/19/2010 Conclusions Compared to prior study, changes are noted. Preserved LV systolic function with reduced LV size to normal as compared to previous study dated 05/26/2009 (+) Hypertension (+) Dyslipidemia Pulmonary Pulmonary ROS Negative per Chart Review Neuro/Musculoskeletal GI/Hepatic Comments: Evaluated in ER 12/14/2022 Rectal bleeding Hx pancreatitis, pseudocyst Hematology (+) Anemia Renal Skin Skin ROS Negative per Chart Review Endo/Other (+) Diabetes Mellitus and Type 2 Hemoglobin A1C: 5.7 Other Comments: Alcohol use (heavy alcohol use, he cut back over 10 years ago and is down to about 2 drinks a night) CONSULTING IT ARCHITECT CONSULTING IT ARCHITECT N/A Pediatric Pediatric N/A N/A Preoperative Medication Instructions (+) SGLT2 INHIBITOR Continue taking all prescribed medications except: KASHIF inhibitors, ARBs, diuretics, all oral diabetes medications Anticoagulant Therapy: Defer to surgeons Insulin: Take 1/2 dose the night prior to surgery. Hold on DOS. Phentermine: Alert [facility] anesthesiologist SGLT2 Inhibitors: "gliflozins" to be held for 3 days prior to elective surgeries GLP1 Agonosit: stop 7 days prior to surgery MAC Cases: Continue taking KASHIF inhibitors and ARBs ASA Classification ASA: 3 Labs: Chemistry 09/21/2023 CBC 09/21/2023 132 (L) 99 13 97 4.04 (L) 10.8 (L) 125 (L) 4.5 22 (L) 1.01 31.4 (L) eGFR: 82.5 Date: 09/21/2023 ANC: 2.20 Date: 09/21/2023 LFTs 09/21/2023 Coags AST: 159 (H) AP: 91 Prot: 6.9 Ca: 9.2 PT: 9.2 (L) Date: 12/14/2022 ALT: 71 (H) T Rajat: 0.6 Alb: 4.1 PTT: 21 (L) Date: 12/14/2022 PO4: - Date: - INR: 0.8 Date: 12/14/2022 Cardiac Endocrine & other pBNP: - Date: - A1C: 5.7 Date: 09/21/2023 Trop I: - Date: - POCT A1C: - Date: - CK: - Date: - TSH: 1.06 Date: 09/21/2023 CKMB: - Date: - FT4: - Date: - LDL: 113 Date: 09/21/2023 Lact: - Date: - Procal: - Date: - Respiratory -|-|-|-|- D-dimer: - ABG Date: - Date: - Miscellaneous Type and Screen: A POSITIVE Antibody: Negative Date: 12/14/2022 POCT : - Date: - Current Medications: No outpatient medications have been marked as taking for the 12/22/23 encounter (Hospital Encounter). Previous Surgeries: Past Surgical History: Procedure Laterality Date COLONOSCOPY 2007 COLONOSCOPY Left 01/03/2023 Surgeon: Gigi Medeiros MD; Location: ENDOSCOPY ([facility]) OR LOCATION [facility] ESOPHAGOGASTRODUODENOSCOPY N/A 01/03/2023 Surgeon: Gigi Medeiros MD; Location: ENDOSCOPY ([facility]) OR LOCATION ESOPHAGOSCOPY 2007 gastritis INTRAMAXILLARY FIXATION WITH ARCH BAR APPLICATION 12/01/2010 Surgeon:MAIKEL ALVARADO; [facility],CHOLECYSTECTOMY 09/26/2008 MANDIBLE FRACTURE ORIF 12/01/2010 Surgeon:MAIKEL ALVARADO; Location:[facility] Physical Exam Anesthesia Plan ASA Status: 3 Anesthetic plan on DOS: General Plan to include: IV induction, LMA and ETT Post-Operative Analgesia: routine analgesia & antiemetics Recovery Plan: PACU Additional comments: NACR-NURSE COUNTER POCKET TRIMMER,CERTIFIED REGISTERED NURSE COUNTER POCKET TRIMMER [facility] 2023-11-09 08:39:37 LVM for pt Mary Bejarano [facility] 2023-11-08 10:59:37 Patient scheduled for December [address] Dunaway. Please schedule patient 2 week followup appt. Tita Snyder [facility] 2023-11-03 17:03:15 Please submit this to [facility] SUR[facility] SPEC PSS once patient is schedule so the PSS may set the patient up with a 2 week follow up appointment with Dr. Dunaway after their procedure. Thank you. [facility] 2023-11-02 13:30:00 Addended by: NIVIA MCKINNEY RN on: 11/02/2023 04:47 PM Modules accepted: Orders [facility] 2023-09-21 14:30:00 Images from the original note were not included. Venipuncture collection performed by clean technique on the left anticubitus. Total of 1 attempts were made. Slight pressure and a bandage/dressing were applied to the site(s). The patient experienced no complications. The following specimens were processed according to instructions and sent to [facility] laboratories per lab order on 09/21/2023 : LT BLUE SST 3 RED LAV 2 PPT DK GREEN (LiHep) DK GREEN (SodH) HARDY DK BLUE (K2) DK BLUE (S) ACD Blood Culture NIPT/NTD [facility] 2023-08-14 13:14:12 Images from the original note were not included. Requested Renewals Name from pharmacy: AMLODIPINE BESYLATE 5 MG TAB Will file in chart as: AMLODIPINE 5 mg tablet Sig: TAKE 1 TABLET BY MOUTH EVERY DAY IN THE MORNING Disp: 90 tablet Refills: 2 Start: 08/14/2023 Class: eRX For: Essential hypertension Last ordered: 9 months ago (11/17/2022) by Deborah De Jesus MD Last refill: 07/18/2023 Rx #: [id number] Calcium Channel Blockers [id number]/14/2023 11:58 AM Protocol Details Valid encounter within last 12 months To be filled at: [facility]/pharmacy #[id number] - [address] Recent Visits Date Type Provider Dept 11/17/22 Office Visit Deborah De Jesus MD [facility] 04/28/22 Office Visit Cuong Black FNP [facility] Showing recent visits within past 540 days with a meds authorizing provider and meeting all other requirements Future Appointments No visits were found meeting these conditions. Showing future appointments within next 150 days with a meds authorizing provider and meeting all other requirements [facility] 2023-08-14 12:12:35 Images from the original note were not included. Changes Requested Name from pharmacy: PIOGLITAZONE HCL 45 MG TABLET Will file in chart as: PIOGLITAZONE 45 mg tablet Sig: TAKE 1 TABLET BY MOUTH EVERY DAY IN THE MORNING Disp: 90 tablet Refills: 1 Start: 08/13/2023 Class: eRX Non-formulary For: Type 2 diabetes mellitus without complication, without long-term current use of insulin Last ordered: 3 weeks ago (07/18/2023) by Deborah De Jesus MD Last refill: 07/21/2023 Rx #: [id number] Pharmacy comment: REQUEST FOR 90 DAYS PRESCRIPTION. DX Code Needed. Endocrinology: Diabetes - Glitazones & Glitazone / Sulfonylurea Combo Ogjqmy2608/14/2023 12:00 PM Protocol Details HBA1C within 180 days Valid encounter within last 12 months Cr in normal range and within 360 days This request has changes from the previous prescription. To be filled at: [id number] [address] Recent Visits Date Type Provider Dept 11/17/22 Office Visit Deborah De Jesus MD [facility] 04/28/22 Office Visit Cuong Black FNP [facility] Showing recent visits within past 540 days with a meds authorizing provider and meeting all other requirements Future Appointments No visits were found meeting these conditions. Showing future appointments within next 150 days with a meds authorizing provider and meeting all other requirements [facility] 2023-07-25 13:13:54 Please facilitate a 6 month follow up visit [facility] 2023-07-24 10:28:21 Images from the original note were not included. Last Refilled: 06/07/23 Notes: [facility]/pharmacy #[id number] [facility], [address] Recent Visits Date Type Provider Dept 11/17/22 Office Visit Deborah De Jesus MD [facility] 04/28/22 Office Visit Cuong Black FNP [facility] Showing recent visits within past 540 days with a meds authorizing provider and meeting all other requirements Future Appointments No visits were found meeting these conditions. Showing future appointments within next 150 days with a meds authorizing provider and meeting all other requirements Name from pharmacy: TRULICITY 1.5 MG/0.5 ML PEN Will file in chart as: TRULICITY 1.5 mg/0.5 mL PnIj Sig: INJECT 1 PEN SUBCUTANEOUSLY WEEKLY Disp: Not specified (Pharmacy requested: 2 Each) Refills: 2 Start: 07/21/2023 Class: eRX For: Type 2 diabetes mellitus without complication, without long-term current use of insulin Last ordered: 1 month ago (06/07/2023) by Leeroy De Leon MD Last refill: 01/31/2023 Rx #: [id number] Endocrinology: Diabetes - Insulins [id number]/21/2023 01:13 PM Protocol Details Manual review: Staff refilling for [facility], Cr lab not required to refill HBA1C within 180 days Valid encounter within last 12 months Cr in normal range and within 360 days To be filled at: [id number] AT [facility] Libby Herrera MA [facility] [email or web address] 2023-07-16 13:19:33 Lori Keller is a 67 year old male. Patient request Pioglitazone hcl 45 mg tablet thanks . [facility] [email or web address] 2023-03-30 15:45:00 Formatting of this n ote is different from the original. Images from the original note were not included. Venipuncture collection performed by clean technique on the left anticubitus. Total of 1 attempts were made. Slight pressure and a bandage/dressing were applied to the site(s). The patient experienced no complications. The following specimens were processed according to instructions and sent to [facility] laboratories LT BLUE Lt Green SST 1 RED LAV 1 PPT DK GREEN (L) DK GREEN (S)/// Fibrosure set BLUE,SST & LAV HARDY DK BLUE (K2) DK BLUE (S) ACD RST BLOOD CULTURE NIPT or ALLOSURE VERIFYNOW URINE URINE CULTURE APTIMA URINE STOOL Monogram Z plasma preservative tube (call lab for tube)[facility] Vasoactive Intestinal Peptide (call lab for tube)[facility] [email or web address] 2023-02-27 09:08:20 Formatting of this n ote is different from the original. Please review and sign if appropriate: Last office visit: 11/17/22 Next office visit: not scheduled Requested Prescriptions Pending Prescriptions Disp Refills TRULICITY 1.5 mg/0.5 mL PnIj [Pharmacy Med Name: TRULICITY 1.5 MG/0.5 ML PEN] 2 Sig: INJECT 1 PEN SUBCUTANEOUSLY WEEKLY [facility]/pharmacy #[id number] AT [facility] Last fill date: 11/17/22 Labs: HGB A1C (%) Date Value 11/17/2022 6.1 (H) 08/11/2010 12.8 (H) Notes: 1. Type 2 diabetes mellitus without complication, without long-term current use of insulin Chronic Stable Cont current regimen Fu labs today T [facility] [email or web address]
--- NOTE | 2024-05-06 16:04 | RAD REPORT ---
Procedure: Chest Single View HISTORY: Shortness of breath COMPARISON: none FINDINGS: Left base is hazy. Remaining lungs appear grossly clear Heart is normal size No significant pleural effusion noted. The heart is normal size. IMPRESSION: Left base is hazy which may indicate pneumonia. PA and lateral chest series would be helpful for furt her evaluation
[2024-05-06 16:25] LABS: Arterial Blood Carboxyhemoglob 0.9 % (0-1.5); Blood Gas Oxyhemoglobin 34.6 % (94-97); Blood Gas THB 11.1 g/dl (12-18); Blood O2 Saturation 35.7 % (92-98.5)
[2024-05-06] MEDS ORDERED: CEFTRIAXONE 1000 MG/VIAL ONE (16:34)
[2024-05-06] MEDS ORDERED: FOSPHENYTOIN PE 100 MG/2 ML VIAL ONE (16:35)
[2024-05-06] MEDS ORDERED: NA CHLORIDE 0.9% 0 ML ONE (16:35)
[2024-05-06] MEDS ORDERED: NA CHLORIDE 0.9% 50 ML ONE (16:36)
[2024-05-06] MEDS ORDERED: NA CHLORIDE 0.9% 1,000 ML ONE (16:36)
--- NOTE | 2024-05-06 17:00 | EDPHYS ---
Physician Documentation [facility] Name: Trip Keller Age: 68 yrs Sex: Male : 1955 Arrival Date: 05/06/2024 Time: 13:15 Bed 5 Private MD: ED Physician Sandeep Gold HPI: 05/06 16:51 This 68 yrs old White Male presents to ER via EMS with complaints of Weakness. bo1 16:51 Onset: The symptoms/episode began/occurred gradually, 1 week(s) ago. Associated signs bo1 and symptoms: Pertinent positives: Urinary retention or decreased flow. Severity of symptoms: At their worst the symptoms were moderate. 16:51 Context: Pt states for about a week, he gets very fatigued or weak to walk. With going bo1 to the bathroom, he is winded and weak to about to faint or collapse. Current symptoms: Weakness worse to be unable to walk. The patient has experienced a previous episode, It was found that he had low sodium level and has been seen by various specialists including renal. No recent fever, trauma or new meds. Historical: - Allergies: 13:31 No Known Allergies; ph - PMHx: 13:31 Hypertensive disorder; Diabetes mellitus; ph - Immunization history:: Adult Immunizations unknown. - Infectious Disease History:: Denies. - Social history:: Smoking status: Patient/guardian denies using tobacco, but has a distant history of tobacco abuse, Patient uses alcohol, on a daily basis. 2-3 drinks per day. ROS: 19:21 Constitutional: Negative for fever, chills, and weight loss bo1 19:21 Neck: Negative for pain at rest, swelling, 19:21 Cardiovascular: Negative for chest pain, 19:21 Respiratory: Positive for shortness of breath, Breathing fast, 19:21 Abdomen/GI: Positive for Fullness, urinary "retention", 19:21 MS/extremity: Negative for acute changes, rash, tenderness, 19:21 Skin: Negative for rash, 19:21 Neuro: Positive for weakness, Negative for altered mental status, 19:21 All other systems are negative, Exam: 19:23 Constitutional: This is a well developed, well nourished patient who is awake, alert, bo1 and in acute distress. 19:23 Head/face: Exam is negative for acute changes, obvious evidence of injury or deformity, swelling, 19:23 Eyes: Sclera: no acute changes, 19:23 Neck: Short, non-tender, 19:23 Chest/axilla: Inspection: normal, 19:23 Cardiovascular: Rate: bradycardic, Rhythm: regular, Pulses: Pulses are 1+ in right brachial artery, left brachial artery, left carotid pulse and right carotid pulse. 19:23 Respiratory: mild respiratory distress is noted, tachypneic, Respirations: tachypnea, 19:23 Abdomen/GI: Inspection: distension, that is mild, 19:23 Back: CVA tenderness, is absent, 19:23 Musculoskeletal/extremity: Extremities: no acute changes, 19:23 Skin: no rash present. 19:23 Neuro: Orientation: is normal, Mentation: is normal, Memory: is normal, seizure activity, is not displayed by the patient, Weakness, generalized, 19:28 ECG was reviewed by the Attending Physician. bo1 Vital Signs: 13:24 BP 137 / 62; Pulse 44; Resp 18; Temp 97.7; Pulse Ox 88% on R/A; ph 14:26 BP 148 / 68; Pulse 44; Resp 18; Pulse Ox 99% on 3 lpm NC; ph 16:03 BP 148 / 52; Pulse 44; Resp 20 S; Pulse Ox 98% on 3 lpm NC; kc6 16:53 BP 149 / 55; Pulse 47; Resp 24; Pulse Ox 96% on 3 lpm NC; ph 18:00 BP 124 / 68; Pulse 46; Resp 24; Pulse Ox 96% on 3 lpm NC; ph 19:09 BP 131 / 82; Pulse 44; Resp 20; Pulse Ox 95% on 3 lpm NC; ph 20:50 BP 116 / 59; Pulse 62; Resp 18 S; Pulse Ox 99% on R/A; br2 21:15 BP 114 / 60; Pulse 38; Resp 20; Pulse Ox 85% on 3 lpm NC; Weight 120 kg; Height 5 ft. br2 10 in. ; 22:00 BP 138 / 56; Pulse 46; Resp 24; Pulse Ox 96% on 3 lpm NC; br2 22:45 BP 120 / 74; Pulse 45; Resp 24; Pulse Ox 100% on BIPAP; br2 23:31 BP 133 / 58; Pulse 43; Resp 20; Pulse Ox 97% on BIPAP; br2 05/07 00:15 BP 100 / 69; Pulse 43; Pulse Ox 97% on BIPAP; br2 03:44 BP 110 / 79; Pulse 49; Resp 16; Pulse Ox 98% on BIPAP; br2 05/06 21:15 Body Mass Index 37.96 (120.00 kg, 177.8 cm) br2 05/06 13:24 improved to 100% on 3L NC ph Procedures: 22:06 Central Line: the site was prepped with Betadine, in sterile fashion, a triple lumen sp4 catheter was inserted, in the right internal jugular vein, in 1 attempts. placement was verified, by CXR, by blood return, Ultrasound-guided central line, the site was dressed with 4X4s, Tegaderm, using sterile technique, the patient tolerated the procedure, well, Ultrasound-guided central line placed for resuscitation. 23:19 Central Line: the site was prepped with Betadine, in sterile fashion, Right femoral sp4 vein dialysis catheter placed for emergent hemodialysis. , Dialysis Catheter , in the right femoral vein, in 1 attempts. placement was verified, by blood return, Ultrasound-guided dialysis catheter, the site was dressed with 4X4s, Tegaderm, using sterile technique, the patient tolerated the procedure, well, Dialysis catheter placed for emergent hemodialysis. MDM: 13:29 Medical Screening Exam initiated bo1 16:55 Data reviewed: vital signs, lab test result(s), EKG, radiologic studies, plain films, bo1 ABG ordered - VBG obtained. 16:56 Consideration of Admission/Observation Pt exceeds capability of the local hospital. ED bo1 course: Pt is found to be in metabolic acidosis and hyponatremia. No seizure as yet. Will address the electrolyte abnl and initiate a transfer to [facility] for definitive care and treatment. 05/07 03:50 Management of patient was discussed with the following: Insurance Claim Auditor: Joceline Elder MD . sp4 Management of patient was discussed with the following: Hospitalist: Admit team , Dr Martin . I considered the following discharge prescriptions or medication management in the emergency department I discussed and recommended Over The Counter medications, Antibiotics: At this time antibiotics are not recommended. ED course: Transfer was canceled secondary for emergent dialysis. Patient required emergent dialysis in the ER and he was dialyzed without a problem. Emergency dialysis catheter was placed in the right femoral artery. Patient remained stable . Will request admission to ICU. 05/06 13:37 Order name: CBC with Diff bo1 05/06 13:37 Order name: CMP; Complete Time: 15:59 bo1 05/06 13:37 Order name: Urinalysis w/ reflexes bo1 05/06 13:37 Order name: ABG bo1 05/06 13:37 Order name: Troponin HS; Complete Time: 15:59 bo1 05/06 21:47 Order name: ABG; Complete Time: 22:02 rv1 05/06 22:03 Order name: BMP; Complete Time: 23:24 sp4 05/06 22:07 Order name: BNP; Complete Time: 23:24 sp4 05/06 22:34 Order name: FARHEEN IFA Screen w/Reflex EDMS 05/06 22:34 Order name: Anti-Double Strand DNA Antibod EDMS 05/06 22:34 Order name: C-ANCA Anti-Proteinase 3 EDMS 05/06 22:34 Order name: Complement C3 EDMS 05/06 22:34 Order name: Complement C4 EDMS 05/06 22:34 Order name: Cortisol; Complete Time: 04:16 EDMS 05/06 22:34 Order name: Creatine Phosphokinase EDMS 05/06 22:34 Order name: Ferritin EDMS 05/06 22:34 Order name: Glomerular Basement Membrane EDMS 05/06 22:34 Order name: Hepatitis C Virus Ab EDMS 05/06 22:34 Order name: Osmolality, Urine EDMS 05/06 22:34 Order name: P-ANCA Anti-Myeloperoxidase Ab EDMS 05/06 22:34 Order name: Protein Electo w/M Vlad Serum EDMS 05/06 22:34 Order name: PTH Intact EDMS 05/06 22:35 Order name: Retic Count EDMS 05/06 22:35 Order name: Rheumatoid Factor EDMS 05/06 22:35 Order name: Thyroid Stimulating Hormone EDMS 05/06 22:35 Order name: Transferrin Sat/Iron Binding EDMS 05/06 22:35 Order name: UR POTASSIUM EDMS 05/06 22:35 Order name: Ur Protein EDMS 05/06 22:35 Order name: UR SODIUM EDMS 05/06 22:35 Order name: Uric Acid EDMS 05/06 22:35 Order name: Urinalysis w/ reflexes EDMS 05/06 22:35 Order name: Vitamin B12 Level EDMS 05/06 22:35 Order name: Vitamin D,1,25 Dihydroxy EDMS 05/06 22:35 Order name: Magnesium EDMS 05/06 22:35 Order name: Magnesium EDMS 05/06 22:35 Order name: Magnesium EDMS 05/06 22:35 Order name: Magnesium EDMS 05/06 22:35 Order name: Magnesium EDMS 05/06 22:35 Order name: Magnesium EDMS 05/06 22:35 Order name: Osmolality, Serum EDMS 05/06 22:35 Order name: Osmolality, Serum; Complete Time: 04:16 EDMS 05/06 22:35 Order name: Osmolality, Serum EDMS 05/06 22:35 Order name: Osmolality, Serum EDMS 05/06 22:35 Order name: Osmolality, Serum EDMS 05/06 22:35 Order name: Osmolality, Serum EDMS 05/06 22:35 Order name: Renal Panel EDMS 05/06 22:35 Order name: Renal Panel EDMS 05/06 22:35 Order name: Renal Panel EDMS 05/06 22:35 Order name: Renal Panel EDMS 05/06 22:35 Order name: Renal Panel EDMS 05/06 22:35 Order name: Renal Panel EDMS 05/06 22:48 Order name: Alcohol Serum/Plasma; Complete Time: 04:16 EDMS 05/06 22:48 Order name: Methylmalonic Acid EDMS 05/07 01:53 Order name: Hep B surface AG w/Reflex EDMS 05/07 01:53 Order name: Hepatitis B Core IgM EDMS 05/07 01:53 Order name: Hepatitis B Surface Ab, QL/QN EDMS 05/06 13:37 Order name: XRAY Chest (1 view); Complete Time: 16:05 bo1 05/06 21:16 Order name: BIPAP sp4 05/06 22:03 Order name: Chest Single View XRAY; Complete Time: 23:24 sp4 05/06 22:35 Order name: Renal Ultrasound-Complete EDMS 05/06 13:37 Order name: EKG; Complete Time: 15:43 bo1 05/07 04:17 Order name: CONS Physician Consult EDMS 05/06 13:37 Order name: IV Saline Lock; Complete Time: 14:46 bo1 05/06 13:37 Order name: Labs collected and sent; Complete Time: 13:38 bo1 05/06 13:37 Order name: Cardiac monitoring; Complete Time: 13:40 bo1 05/06 13:37 Order name: EKG - Nurse/Tech; Complete Time: 14:24 bo1 05/06 13:37 Order name: IV Saline Lock; Complete Time: 14:24 bo1 05/06 13:37 Order name: Labs collected and sent; Complete Time: 14:24 bo1 05/06 13:37 Order name: O2 Per Protocol; Complete Time: 13:38 bo1 05/06 13:37 Order name: O2 Sat Monitoring; Complete Time: 13:38 bo1 05/06 21:16 Order name: Central Line Dressing Kit sp4 05/06 21:16 Order name: Central Line Kit 4 05/06 21:16 Order name: Chlorhexidine prep sp4 05/06 21:16 Order name: Consent for central line completed sp4 05/06 21:16 Order name: Line Caps x3 sp4 05/06 21:16 Order name: NS Flushes x3 4 05/06 21:16 Order name: Sterile Gloves 4 05/06 21:16 Order name: Sterile Probe Cover sp4 05/06 22:03 Order name: Ortiz sp4 05/07 04:16 Order name: PO challenge; Complete Time: 05:49 sp4 EC/21 19:28 Rate is 44 beats/min. Rhythm is regular. Q waves are Present in leads aVR, V1. Q waves bo1 are Old. T waves are Normal. No ST changes noted. Clinical impression: Sinus bradycardia. Interpreted by me. Reviewed by me. Administered Medications: 16:52 Drug: Sodium Bicarbonate IVP 1 amp IVP once; (50 mL); equals 50 mEq Route: IVP; Site: ph left antecubital; 17:13 Follow up: Response: No adverse reaction ph 16:53 Drug: Fosphenytoin IVPB 1 grams IVPB once Route: IVPB; Site: left antecubital; ph 17:13 Follow up: Response: No adverse reaction; IV Status: Completed infusion; IV Intake: ph 100ml 16:53 Drug: NS 0.9% IV 1000 ml IV at 125 ml/hr continuous Route: IV; Rate: 125 ml/hr; Site: ph left antecubital; 17:13 Follow up: Response: No adverse reaction; IV Status: Infusion continued upon transfer ph 17:12 Drug: Ativan IVP 2 mg IVP once Route: IVP; Site: left antecubital; ph 19:08 Follow up: Response: No adverse reaction ph 17:13 Drug: Rocephin IV 1 grams IV at bolus once; Given slow IV push per pharmacy ph instructions Route: IV; Rate: bolus; Site: left antecubital; 18:45 Follow up: Response: No adverse reaction; IV Status: Completed infusion ph 20:21 Drug: Ativan IVP 1 mg IVP once Route: IVP; Site: left antecubital; br2 21:00 Follow up: Response: No adverse reaction br2 21:54 Drug: Atropine IVP 1 mg IVP once Route: IVP; Site: right jugular; br2 22:30 Follow up: Response: No adverse reaction br2 21:58 Drug: Calcium Chloride IVP 1 grams IVP once Route: IVP; Site: right jugular; br2 22:30 Follow up: Response: No adverse reaction br2 22:25 Drug: Calcium Gluconate IVPB 2 grams IVPB once over 60 mins; (mix in NS 100 mL) Route: br2 IVPB; Infused Over: 60 mins; Site: right jugular; 22:30 Follow up: IV Status: Completed infusion; IV Intake: 100ml br2 22:39 Drug: Sodium Bicarbonate IVP 1 amp IVP once; (50 mL); equals 50 mEq Route: IVP; Site: br2 right jugular; 23:00 Follow up: Response: No adverse reaction br2 23:35 Drug: Mupirocin Topical Ointment 2 % 1 application Topical once Route: Topical; Site: br2 affected area; 05/07 00:17 CANCELLED (pt stablee): mg IVP once br2 00:17 CANCELLED (pt stablee): [id number] mg IVP once br2 04:30 Drug: HYDROcodone-acetaminophen PO 5 mg-325 mg 2 tabs PO once Route: PO; br2 04:49 Follow up: Response: No adverse reaction br2 Disposition Summary: 05/06/24 23:23 Hospitalization Ordered Notes: Hospitalization Status: Inpatient Admission sp4 Provider: Marco Antonio Martin Location: Intensive Care Unit sp4 Condition: Stable(05/06/24 23:23) sp4 Problem: new(05/06/24 23:23) sp4 Symptoms: have improved(05/06/24 23:23) sp4 Bed/Room Type: Standard sp4 Room Assignment: 4-(05/06/24 23:27) rv1 Diagnosis - Acute renal failure, shock liver, acute metabolic encephalopathy, symptomatic sp4 bradycardia, hyperkalemia, hyponatremia, respiratory acidosis, acute respiratory failure with hypoxemia Forms: - Medication Reconciliation Form sp4 - SBAR form sp4 - Leadership Thank You Letter sp4 Critical care time excluding procedures: 05/06 16:57 Critical care time: Bedside Care: 50 minutes, Consultation: 40 minutes, Family bo1 Intervention: 25 minutes. Total time: 115 minutes Signatures: Dispatcher [employer] EDAL Eliz Cutler RN RN Evelia Whitley rv1 Sandeep Gold MD MD sp4 Raghu Olivas MD MD bo1 Amy Sierra RN RN br2 Corrections: (The following items were deleted from the chart) 19:27 16:59 [facility] bo1 bo1 19:27 19:27 [facility] bo1 bo1 22:04 22:04 Chest Single View+[id number] ordered. EDMS EDMS 23:21 16:59 [facility]-System bo1 sp4 23:21 16:59 Higher level of care bo1 sp4 23:21 16:59 Fair bo1 sp4 23:21 16:59 new bo1 sp4 23:21 16:59 are unchanged bo1 sp4 23:21 16:59 Acidosis bo1 sp4 23:21 16:59 Hypo-osmolality and hyponatremia bo1 sp4 23:21 19:27 Bradycardia, unspecified bo1 sp4 23:21 19:27 [facility] bo1 sp4 23:21 19:27 Muscle weakness (generalized) bo1 sp4 23:27 23:23 sp4 rv1 05/07 00:05 05/06 22:34 Iron ordered. EDMS EDMS 05/07 00:17 05/06 22:16 Intubation Setup ordered. sp4 br2 05/07 00:17 05/06 22:17 Etomidate IVP 20 mg IVP once ordered. sp4 br2 05/07 00:17 05/06 22:17 Rocuronium IVP 100 mg IVP once ordered. sp4 br2
--- NOTE | 2024-05-06 17:00 | ER ---
Nurse's Notes [facility] Name: Trip Keller Age: 68 yrs Sex: Male : 1955 Arrival Date: 05/06/2024 Time: 13:15 Bed 5 Private MD: Diagnosis: Acute renal failure, shock liver, acute metabolic encephalopathy, symptomatic bradycardia, hyperkalemia, hyponatremia, respiratory acidosis, acute respiratory failure with hypoxemia Presentation: 05/06 13:24 Chief complaint: EMS states: Intermittent dizziness that has been ongoing for a year, ph worse today, had difficulty getting him out of the bed so called 911, BP for EMS 90s/50s, room air Spo2 88%. Coronavirus screen: Vaccine status: Patient reports receiving the 2nd dose of the covid vaccine. Ebola Screen: No symptoms or risks identified at this time. 13:24 Method Of Arrival: EMS: [facility] 13:35 No acute neurological deficit is noted. Pre-hospital glucose is not applicable to this patient. Initial Sepsis Screen: Does the patient meet any 2 criteria? No. Patient's initial sepsis screen is negative. Does the patient have a suspected source of infection? No. Patient's initial sepsis screen is negative. Risk Assessment: Do you want to hurt yourself or someone else? Patient reports no desire to harm self or others. Onset of symptoms was May 06, 2024. 13:35 Acuity: KAYLA 2 ph Historical: - Allergies: 13:31 No Known Allergies; ph - PMHx: 13:31 Hypertensive disorder; Diabetes mellitus; ph - Immunization history:: Adult Immunizations unknown. - Infectious Disease History:: Denies. - Social history:: Smoking status: Patient/guardian denies using tobacco, but has a distant history of tobacco abuse, Patient uses alcohol, on a daily basis. 2-3 drinks per day. Screenin:36 [facility] ED Fall Risk Assessment (Adult) History of falling in the last 3 months, ph including since admission No falls in past 3 months (0 pts) Confusion or Disorientation No (0 pts) Intoxicated or Sedated No (0 pts) Impaired Gait Yes (1 pt) Mobility Assist Device Used Yes (1 pt) Altered Elimination No (0 pt) Score/Fall Risk Level 0 - 2 = Low Risk Oriented to surroundings, Maintained a safe environment, Hourly rounding (assess needs \\T\\ fall precautionary measures) done. Abuse screen: Denies threats or abuse. Denies injuries from another. Nutritional screening: No deficits noted. Tuberculosis screening: No symptoms or risk factors identified. Assessment: 13:57 General: Appears in no apparent distress. obese, well groomed, Behavior is calm, ph cooperative. Pain: Denies pain. Neuro: Level of Consciousness is awake, alert, obeys commands, Oriented to person, place, time, situation, Reports dizziness, weakness. Cardiovascular: Capillary refill < 3 seconds in bilateral fingers Patient's skin is warm and dry. Respiratory: Airway is patent Respiratory effort is even, unlabored. Derm: Skin is pink, warm \\T\\ dry. Musculoskeletal: Circulation, motion, and sensation intact. Range of motion: intact in all extremities. 15:00 Reassessment: Patient appears in no apparent distress at this time. Patient and/or ph family updated on plan of care and expected duration. Pain level reassessed. Patient is alert, oriented x 3, equal unlabored respirations, skin warm/dry/pink. 16:03 Reassessment: Patient appears in no apparent distress at this time. No changes from kc6 previously documented assessment. Patient and/or family updated on plan of care and expected duration. Pain level reassessed. Patient is alert, oriented x 3, equal unlabored respirations, skin warm/dry/pink. 17:31 Reassessment: Patient appears in no apparent distress at this time. Patient and/or ph family updated on plan of care and expected duration. Pain level reassessed. Patient is alert, oriented x 3, equal unlabored respirations, skin warm/dry/pink. 19:00 Reassessment: No changes from previously documented assessment. Patient and/or family br2 updated on plan of care and expected duration. Pain level reassessed. Patient is alert, oriented x 3, equal unlabored respirations, skin warm/dry/pink. Patient states symptoms have improved. General: Appears comfortable, obese, Behavior is calm, cooperative, anxious. Pain: Denies pain. Neuro: Cuello Agitation-Sedation Scale (RASS): +1 Restless Level of Consciousness is awake, alert, obeys commands, Oriented to person, place, time, situation, Reports weakness all over. Cardiovascular: Capillary refill < 3 seconds Patient's skin is warm and dry. Respiratory: Breath sounds are coarse in right posterior upper lobe and right posterior middle lobe. GI: No signs and/or symptoms were reported involving the gastrointestinal system. : No signs and/or symptoms were reported regarding the genitourinary system. EENT: No signs and/or symptoms were reported regarding the EENT system. Derm: Skin is intact, Skin is Skin temperature is warm. 21:00 Reassessment: Reassessment: PT BECAME RESTLESS AND TACHYPNEIC WITH O2 SATS br2 DROPPING....VERBAL ORDERE FOR CPAP ORDERED... 05/07 00:45 Reassessment: DIALYSIS NURSE JOSEFINA AT BEDSIDE TO START DIALYSIS. br2 02:58 Reassessment: Patient and/or family updated on plan of care and expected duration. Pain br2 level reassessed. Patient is alert, oriented x 3, equal unlabored respirations, skin warm/dry/pink. PT CONTINUES WITH DIALYSIS, AND TOLERATING WELL. NO SIGNS OF DISTRESS AT THIS TIME. Patient states symptoms have improved. 03:00 Reassessment: 214 RIGHT TRIPLE LUMEN EJ INSERTED BY DR GOLD, PATIENT TOLERATED br2 WELL. 03:29 Reassessment: DIALYSIS COMPLETED..PER GI[facility] ROCHA "BLOOD WAS CLEANED" NO FLUIDS WERE br2 REMOVED FROM PATIENT AT THIS TIME. 2.5 HOURS TOTAL. 04:12 Reassessment: REPORT CALLED TO GI[facility] IRAHETA IN ICU. br2 Vital Signs: 05/06 13:24 BP 137 / 62; Pulse 44; Resp 18; Temp 97.7; Pulse Ox 88% on R/A; ph 14:26 BP 148 / 68; Pulse 44; Resp 18; Pulse Ox 99% on 3 lpm NC; ph 16:03 BP 148 / 52; Pulse 44; Resp 20 S; Pulse Ox 98% on 3 lpm NC; kc6 16:53 BP 149 / 55; Pulse 47; Resp 24; Pulse Ox 96% on 3 lpm NC; ph 18:00 BP 124 / 68; Pulse 46; Resp 24; Pulse Ox 96% on 3 lpm NC; ph 19:09 BP 131 / 82; Pulse 44; Resp 20; Pulse Ox 95% on 3 lpm NC; ph 20:50 BP 116 / 59; Pulse 62; Resp 18 S; Pulse Ox 99% on R/A; br2 21:15 BP 114 / 60; Pulse 38; Resp 20; Pulse Ox 85% on 3 lpm NC; Weight 120 kg; Height 5 ft. br2 10 in. ; 22:00 BP 138 / 56; Pulse 46; Resp 24; Pulse Ox 96% on 3 lpm NC; br2 22:45 BP 120 / 74; Pulse 45; Resp 24; Pulse Ox 100% on BIPAP; br2 23:31 BP 133 / 58; Pulse 43; Resp 20; Pulse Ox 97% on BIPAP; br2 05/07 00:15 BP 100 / 69; Pulse 43; Pulse Ox 97% on BIPAP; br2 03:44 BP 110 / 79; Pulse 49; Resp 16; Pulse Ox 98% on BIPAP; br2 05/06 21:15 Body Mass Index 37.96 (120.00 kg, 177.8 cm) br2 05/06 13:24 improved to 100% on 3L NC ph Vitals: 14:26 Cardiac Rhythm Assessment Sinus bill. ph ED Course: 13:19 Patient arrived in ED. ra3 13:24 Eliz Cutler RN is Primary Nurse. ph 13:29 Raghu Olivas MD is Attending Physician. bo1 13:31 Arm band placed on Patient placed in an exam room, on a stretcher, on oxygen, on ph case monitor, on pulse oximetry. 13:36 Triage completed. ph 13:37 Patient has correct armband on for positive identification. Bed in low position. Call ph light in reach. Side rails up X 1. Pulse ox on. NIBP on. Door closed. Noise minimized. Warm blanket given. Pillow given. 14:25 Initial lab(s) drawn, by me, sent to lab. EKG done, by ED staff, reviewed by Raghu Olivas MD. Inserted saline lock: 22 gauge in left antecubital area, using aseptic technique. Blood collected. Flushed with 10 mL NS. 15:40 Bladder scan completed. 6 mL. kc6 15:46 Speci-cath kit inserted, using sterile technique, 16 Fr., returned colleen urine. Patient kc6 tolerated well. 15:49 XRAY Chest (1 view) In Process Unspecified. EDMS 16:51 Head of bed elevated. Diet: Patient given water. Tolerated well. kc6 16:56 initiated transfer to [facility]. bd 17:31 No provider procedures requiring assistance completed. Patient transferred, IV remains ph in place. 20:50 Called and spoke with Christos at [facility] for update on transfer, stated pt is in clinical rv1 review and is unsure when they will accept pt due to clinical review board hours are Monday-Monday 8am-5pm. Provider notified. 21:02 Attending Physician role handed off by Raghu Olivas MD sp4 21:02 Sandeep Gold MD is Attending Physician. sp4 22:06 BIPAP Sent. br2 22:13 Chest Single View XRAY In Process Unspecified. EDMS 23:22 Marco Antonio Martin MD is Hospitalizing Provider. sp4 05/07 00:18 Renal Ultrasound-Complete In Process Unspecified. EDMS 00:18 Complement C4 Sent. br2 00:18 Complement C3 Sent. br2 00:18 C-ANCA Anti-Proteinase 3 Sent. br2 00:18 Anti-Double Strand DNA Antibod Sent. br2 00:18 FARHEEN IFA Screen w/Reflex Sent. br2 00:22 Ortiz cath inserted, using sterile technique, 16 Fr., by ED staff, balloon inflated, br2 other zero urine output and inserted by Dr. Gold. 00:23 Inserted RIGHT EJ CENTRAL LINE TRIPLE LUMEN INSERTED BY DR GOLD, SUCCESSFUL.LY. PT br2 TOLERATED WELL. 00:24 Inserted ACUTE DUAL LUMEN RIGHT FEMORAL CATHETER INSERTED SUCCESSFULLY FOR EMERGENT br2 DIALYSIS BY DR GOLD. PT TOLERATED WELL. 04:48 Provided Education on: PLAN OF CARE. br2 Administered Medications: 05/06 16:52 Drug: Sodium Bicarbonate IVP 1 amp IVP once; (50 mL); equals 50 mEq Route: IVP; Site: ph left antecubital; 17:13 Follow up: Response: No adverse reaction ph 16:53 Drug: Fosphenytoin IVPB 1 grams IVPB once Route: IVPB; Site: left antecubital; ph 17:13 Follow up: Response: No adverse reaction; IV Status: Completed infusion; IV Intake: ph 100ml 16:53 Drug: NS 0.9% IV 1000 ml IV at 125 ml/hr continuous Route: IV; Rate: 125 ml/hr; Site: ph left antecubital; 17:13 Follow up: Response: No adverse reaction; IV Status: Infusion continued upon transfer ph 17:12 Drug: Ativan IVP 2 mg IVP once Route: IVP; Site: left antecubital; ph 19:08 Follow up: Response: No adverse reaction ph 17:13 Drug: Rocephin IV 1 grams IV at bolus once; Given slow IV push per pharmacy ph instructions Route: IV; Rate: bolus; Site: left antecubital; 18:45 Follow up: Response: No adverse reaction; IV Status: Completed infusion ph 20:21 Drug: Ativan IVP 1 mg IVP once Route: IVP; Site: left antecubital; br2 21:00 Follow up: Response: No adverse reaction br2 21:54 Drug: Atropine IVP 1 mg IVP once Route: IVP; Site: right jugular; br2 22:30 Follow up: Response: No adverse reaction br2 21:58 Drug: Calcium Chloride IVP 1 grams IVP once Route: IVP; Site: right jugular; br2 22:30 Follow up: Response: No adverse reaction br2 22:25 Drug: Calcium Gluconate IVPB 2 grams IVPB once over 60 mins; (mix in NS 100 mL) Route: br2 IVPB; Infused Over: 60 mins; Site: right jugular; 22:30 Follow up: IV Status: Completed infusion; IV Intake: 100ml br2 22:39 Drug: Sodium Bicarbonate IVP 1 amp IVP once; (50 mL); equals 50 mEq Route: IVP; Site: br2 right jugular; 23:00 Follow up: Response: No adverse reaction br2 23:35 Drug: Mupirocin Topical Ointment 2 % 1 application Topical once Route: Topical; Site: br2 affected area; 05/07 00:17 CANCELLED (pt stablee): [id number] mg IVP once br2 00:17 CANCELLED (pt stablee): [id number] mg IVP once br2 04:30 Drug: HYDROcodone-acetaminophen PO 5 mg-325 mg 2 tabs PO once Route: PO; br2 04:49 Follow up: Response: No adverse reaction br2 Medication: 05/06 13:36 VIS not applicable for this client. ph Intake: 17:13 IV: 100ml; Total: 100ml. ph 22:30 IV: 100ml; Total: 200ml. br2 Outcome: 16:59 ER care complete, transfer ordered by bo1 23:23 Decision to Hospitalize by Provider. sp4 05/07 04:47 Admitted to ICU accompanied by nurse, via stretcher, with oxygen, Report called to br2 ESEQUIEL Condition: stable Discharge instructions given to family, Instructed on the need for admit, Demonstrated understanding of instructions, 04:50 Patient left the ED. br2 Signatures: Dispatcher [employer] EDMS Kesha Acosta Patricia, RN RN ph Mitchell, Karine RN RN kc6 Evelia Xiao rv1 Sandeep Gold MD MD sp4 Kourtney Campos ra3 Raghu Olivas MD MD bo1 Amy Sierra RN RN br2 Corrections: (The following items were deleted from the chart) 05/06 13:35 13:24 BP 137 / 62; Pulse 44bpm; Resp 18bpm; Pulse Ox 88% RA; Temp 97.7F; improved to ph 11% on L NC; ph 05/07 02:58 05/06 21:00 Reassessment: PT BECAME RESTLESS AND TACHYPNEIC WITH O2 SATS br2 DROPPING....CPAP ORDERED... Reassessment: PT BECAME RESTLESS AND TACHYPNEIC WITH O2 SATS DROPPING....CPAP ORDERED... br2 05/07 03:00 05/06 21:45 Reassessment: PT BECAME RESTLESS AND TACHYPNEIC WITH O2 SATS br2 DROPPING....CPAP ORDERED... Reassessment: PT BECAME RESTLESS AND TACHYPNEIC WITH O2 SATS DROPPING....CPAP ORDERED... br2
[2024-05-06] MEDS ORDERED: LORazepam 2 MG/ML VIAL ONE ×2 (17:05→20:17)
[2024-05-06 21:53] LABS: Arterial Blood Carboxyhemoglob 0.6 % (0-1.5); Blood Gas Oxyhemoglobin 94.6 % (94-97); Blood Gas THB 7.7 g/dl (12-18); Blood O2 Saturation 97.3 % (92-98.5)
[2024-05-06] MEDS ORDERED: Calcium Chloride 10% INJ SYR IV ONE (21:53)
[2024-05-06] MEDS ORDERED: CALCIUM GLUCONATE 1 GM IVPB 2 GM/100 ML BAG IV ONE (22:10)
--- NOTE | 2024-05-06 22:17 | RAD REPORT ---
Procedure: Chest Single View HISTORY: Device placement. Central venous line placement FINDINGS: A central venous line has been placed. The tip overlies the superior cava. A pneumothorax is not visualized.
[2024-05-06 22:47] LABS: Anion Gap 29.6 mEq/L (5.0-15.0); Potassium 5.6 mEq/L (3.5-5.1)
--- NOTE | 2024-05-07 04:12 | P.HP ---
Certification for Inpatient Patient admitted to: Inpatient Practitioner: I am a practitioner with admitting privileges, knowledge of patient current condition, hospital course, and medical plan of care. Services: Services provided to patient in accordance with Admission requirements found in Title 42 Section 412.3 of the Code of Federal Regulations Patient History Date of Service: 05/07/24 Reason for admission: Acute renal failure History of Present Illness: 68-year-old male with a past medical history of hypertension diabetes, presents to the emergency room with weakness. He reports moderate to severe fatigue, weakness started 1 week ago is getting progressively worse, He reports decreased urinary output, reports difficulty walking to the bathroom due to severe fatigue, reports history of hyponatremia, reports shortness of breath, placed on BiPAP in the emergency room. Reports abdominal distention, urinary retention, no reported chest pain, fever, chills, CVA tenderness. Plan to admit to ICU for acute renal failure, shock liver, acute metabolic encephalopathy, bradycardia, hyperkalemia, hyponatremia, respiratory acidosis, acute respiratory failure with hypoxemia. With nephrology to consult. For emergent dialysis ER evaluation hyponatremia, sodium 127, potassium 5.4, BUN 27 creatinine 4.06, glucose 163, BNP 6049, TSH elevated 4.32, hemoglobin 6.7, hematocrit 20.3,, chest x-ray Left base is hazy which may indicate pneumonia. PA and lateral chest series would be helpful for further evaluation Allergies No Known Allergies Allergy (Verified 05/07/24 01:43) - Past Medical/Surgical History -: Hypertension -: Diabetes - Family History Mother -: Lung disease Notes: from lung cancer Sister History Unknown: Yes Review of Systems 10-point ROS is otherwise unremarkable General: As per HPI Physical Examination - Vital Signs Pulse: 59 Pulse Ox (%): 100 - Physical Exam General: Alert, Oriented x2, Moderate distress, Obese, Other (On BiPAP in ER) HEENT: Atraumatic, Normocephalic Respiratory: Diminished, Crackles/rales Cardiovascular: Normal pulses, Other (Bradycardia) Capillary refill: <2 Seconds Gastrointestinal: Other (Abdominal distention, urinary retention) Musculoskeletal: Erythema Integumentary: No breakdown, No significant lesion Neurological: Normal speech, Sensation intact, Other (Generalized weakness), Abnormal gait - Studies Laboratory Data (last 24 hrs) 05/06/24 05/06/24 05/06/24 22:25 14:25 14:25 WBC 6.20 Hgb 8.1 L Hct 24.6 L Plt Count 172 Sodium 119 L* D 115 L* Potassium 5.6 H 5.5 H BUN 32 H 29 H Creatinine 5.15 H 4.66 H Glucose 164 H 147 H Total Bilirubin 1.5 H AST 893 H ALT 124 H Alkaline Phosphatase 121 H Assessment and Plan - Plan Assessment plan acute renal failure bradycardia hyperkalemia hyponatremia Nephrology nephrology to consult for emergent dialysis in the emergency room Central line placed, dialysis line placed in the emergency room Reports abdominal distention, urinary retention, ER evaluation BNP 6049, TSH elevated 4.32, , chest x-ray Left base is hazy which may indicate pneumonia. PA and lateral chest series would be helpful for further evaluation sodium 127, potassium 5.4, BUN 27 creatinine 4.06, glucose 163, 44 beats/min. Rhythm is regular. Q waves are Present in leads aVR, V1. Q waves bo1 are Old. T waves are Normal. No ST changes noted. Clinical impression: Sinus bradycardia. shock liver Trend liver enzymes acute metabolic encephalopathy Fall precautions acute respiratory failure with hypoxemia secondary to acute renal failure BiPAP, ABG, O2 respiratory acidosis, Severe anemia And cross, transfuse less than 7 and dialysis hemoglobin 6.7, hematocrit 20.3, Full code DVT SCDs Diet n.p.o. Disposition pending hospital course Discharge Plan: Home - Advance Directives Does patient have a Living Will: No Does patient have a Durable POA for Healthcare: No - Code Status/Comfort Care Code Status: Full Code Critical Care: Yes Time Spent Managing Pts Care (In Minutes): 65
[2024-05-07] MEDS ORDERED: HYDROCODONE/APAP 5/325 MG TAB ONE (04:20)
[2024-05-07] MEDS: SODIUM BICARB 50 MEQ/50ML VIAL ONE (04:41)
[2024-05-07] MEDS: D5W 1,000 ML IV ONE (04:41)
[2024-05-07] MEDS: D5W 1,000 ML with NA BICARB 8.4% 150 MEQ IV SCH (05:00)
[2024-05-07] MEDS ORDERED: D5W 1,000 ML with NA BICARB 8.4% 150 MEQ IV SCH ×2 (05:00→20:00)
[2024-05-07 05:10] VITALS: BMI 37.1
[2024-05-07 05:22] LABS: Absolute Lymphocytes (CBC) 0.4 K/uL (0.7-4.9); Absolute Monocytes 1.1 K/uL (0.1-1.3); Basophils % 0.5 % (0-1.3); Hematocrit 20.3 % (39.6-49.0); Hemoglobin 6.7 g/dL (13.6-17.9); Lymphocytes % 6.8 % (15.3-44.8); MCH 32.4 pg (27.0-35.0); MCHC 32.8 g/dL (32.0-36.0); MPV 10.2 fL (7.6-11.3); Monocytes % 19.2 % (3.3-12.3); Neutrophils % 73.5 % (41.7-73.7); Nucleated RBC Absolute Count 0.1 (0-0); Nucleated Red Blood Cells % 2.2 % (0-0); Platelets 130 thou/uL (152-406); RBC Red Blood Cell Count 2.05 M/uL (4.33-5.43)
[2024-05-07 05:26] LABS: Percent Reticulocyte Count 0.46 % (0.4-2.05); RBC Red Blood Cell Count 2.08 M/uL (4.33-5.43)
[2024-05-07 05:28] LABS: HBsAG Nonreactive Report Report; Hepatitis B Core IgM Nonreactive (Nonreactive); Hepatitis B Surface Ab - Quant 28.54 mIU/mL (<8.0); Hepatitis B surface AG Interp. Nonreactive (Nonreactive)
[2024-05-07 06:12] LABS: Albumin/Globulin Ratio 0.9 (1.1-1.8); Anion Gap 26.4 mEq/L (5.0-15.0); Bilirubin Total 2.2 mg/dL (0.2-1.0); Ferritin 2901.5 ng/mL (26-388); Globulin 3.3 g/dL (2.3-3.5); Phosphorus 4.8 mg/dL (2.5-4.9); Potassium 5.4 mEq/L (3.5-5.1); Protein, Total 6.3 g/dL (6.4-8.2); Uric Acid 8.1 mg/dL (3.5-7.2)
[2024-05-07 06:13] LABS: Thyroid Stimulating Hormone 4.32 uIU/mL (0.358-3.740)
[2024-05-07] MEDS ORDERED: SODIUM CHLORIDE 0.9% 10ML INJ IV PRN (06:51)
--- NOTE | 2024-05-07 07:42 | RAD REPORT ---
EXAMINATION: US RENAL ULTRASOUND CLINICAL INDICATION: TINY TECHNIQUE: Real-time ultrasonography of the abdomen was performed. COMPARISON: No prior exam. FINDINGS: RIGHT KIDNEY: Right renal length measurement: 11.1 x 6.0 x 5.2 cm. Normal in echogenicity and size. N o calculus, solid mass or hydronephrosis. LEFT KIDNEY: Left renal length measurement: 10.5 x 5.9 x 4.6 cm. Normal in echogenicity and size. No calculus, solid mass or hydronephrosis. URINARY BLADDER: Incompletely distended without gross abnormality detected. ADDITIONAL FINDINGS: None. IMPRESSION: Unremarkable renal ultrasound.
[2024-05-07 07:57] LABS: Anion Gap 22.6 mEq/L (5.0-15.0); Potassium 5.6 mEq/L (3.5-5.1)
[2024-05-07] MEDS: OCTREOTIDE 500 MCG in NA CHLORIDE 0.9% 500 ML IV SCH (08:39)
[2024-05-07] MEDS: PANTOPRAZOLE 40 MG INJ IVP SCH (08:39)
[2024-05-07 08:52] LABS: Hemoglobin 6.6 g/dL (13.6-17.9); MCH 32.4 pg (27.0-35.0); MCHC 32.9 g/dL (32.0-36.0); MCV 98.4 fL (80-100); MPV 10.4 fL (7.6-11.3); Platelets 130 thou/uL (152-406); RBC Red Blood Cell Count 2.03 M/uL (4.33-5.43); Red Cell Distribution Width 18.9 % (12.1-15.2)
[2024-05-07 08:53] LABS: PT Prothrombin Time 14.5 SECONDS (9.4-12.5); Protime INR 1.3
[2024-05-07 09:15] LABS: Albumin 2.8 g/dL (3.4-5.0); Albumin/Globulin Ratio 0.8 (1.1-1.8); Anion Gap 24.8 mEq/L (5.0-15.0); Bilirubin Total 2.1 mg/dL (0.2-1.0); Globulin 3.3 g/dL (2.3-3.5); Potassium 5.8 mEq/L (3.5-5.1); Protein, Total 6.1 g/dL (6.4-8.2)
[2024-05-07 09:20] VITALS: TEMP 98
--- NOTE | 2024-05-07 09:30 | P.PN ---
Date of Service: 05/07/24 Subjective: ROS: 10 point ROS as noted above, otherwise negative Physical Exam: GEN: Alert, oriented, NAD HEENT: Normal conjunctiva, sclera anicteric, CV: Bradycardia HR: 30-40s, no edema Pulm: Nonlabored respirations on 2L NC ABD: soft, nontender, nondistended Integumentary: No rashes Neuro: Normal speech, normal affect Problem List: TINY Hyperkalemia Hyponatremia Acute metabolic encephalopathy Acute hypoxic respiratory failure secondary to TINY presumed liver shock acute anemia; unknown origin Hx hemorrhoids Junctional bradycardia TINY Hyperkalemia Hyponatremia Acute metabolic encephalopathy Acute hypoxic respiratory failure secondary to TINY presented with worsening weakness, fatigue for ~1 week. Reports decreased urinary output prior to admission. renal u/s (05/06): unremarkable CXR (05/06): Left base is hazy which may indicate pneumonia Nephrology consulted Dialysis per nephrology; s/p dialysis yesterday Central line placed in ED continue octreotide drip (05/07-) continue bicarb monitor and replete electrolytes as needed continue to monitor renal function Fall precautions BiPAP as needed. wean oxygen as tolerated presumed liver shock T. bili 1.5 / AST 893 / ALT 124 on admission Reports daily alcohol use suspect secondary to liver shock liver u/s ordered to further eval LFTs worse 05/07 trend LFTs acute anemia; unknown origin Hx hemorrhoids unknown origin. Patient reports history of hemorrhoids. Underwent hemorrhoidopexy earlier this year in December. Had EGD/colonoscopy back in December 2022. No obvious bleeding. No black tarry stools. hgb 8.1 -> 6.7 (05/07) Dr. Busby, GI consulted 1 uPRBC ordered; recheck H&H post transfusion Junctional bradycardia Heart rate noted to be in 30-40s intermittently. Appears like escape junctional rhythm Echo from 12/2023 with normal EF and wall motion. Mildly dilated left ventricle check EKG, monitor on tele Cardiology consulted Recommends transfer to tertiary level of care facility. Needs EP cardiology evaluation, possible urgent pacemaker placement VTE: hold given drop in hgb Code: Flat Sheet Maker Spent Managing Pts Care (In Minutes): 45
[2024-05-07 09:50] LABS: Anisocytosis 1+; Band Neutrophils 1 % (0-1); Blood Morphology Comment NOTED (NOT SEEN); Differential Total Cells Count 100; Eosinophils 1 % (0-3); Hypochromasia 1+; Lymphocytes 13 % (15-42); Microcytosis 1+; Monocytes 13 % (0-10); Nucleated Red Blood Cells 3 /100WBC; Platelet Estimate ADEQ; Poikilocytosis 1+; Segmented Neutrophils 72 % (40-80); Toxic Granulation 1+
[2024-05-07 09:51] LABS: Basophilic Stippling 1+; Howell-Jolly Bodies NOTED; Teardrop Cell FEW
[2024-05-07] MEDS: SODIUM ZIRCONIUM CYCLOSILICATE 10 GM/PKT PO SCH (10:08)
[2024-05-07] MEDS: NA CHLORIDE 0.9% 250 ML IV SCH (10:39)
--- NOTE | 2024-05-07 11:02 | RAD REPORT ---
EXAMINATION: Ultrasound of the liver CLINICAL HISTORY: [facility] MAIN elevated lfts, h/o steatosis, alcohol use BR MAIN elevated lfts, h/o steatosis, alcohol use COMPARISON: None. FINDINGS: Liver: Visualized portions of the liver demonstrate moderately severe diffuse fatty infiltration.. Fu ll assessment liver is limited by lack of sonographic penetrance. Gallbladder: Difficult to visualize. Bile ducts: No intrahepatic or extrahepatic biliary dilatation. Common bile duct measures 3 mm. Fluid: No ascites. Spleen: Unremarkable measuring 10 cm. IMPRESSION: Quite significant fatty liver noted.
--- NOTE | 2024-05-07 11:06 | P.CNS ---
Date of Consult: 05/07/24 Chief Complaint: Acute renal failure History of Present Illness: Patient with PMH of HTN, presented with generalized weakness, reduced urine output, he usually follow up with [facility], denies chest pain, no palpitations, no syncope, report MUÑOZ and SOB. Allergies No Known Allergies Allergy (Verified 05/07/24 01:43) Home medications list reviewed: Yes Home Medications: Amlodipine [Norvasc] 5 mg PO DAILY 05/07/24 Famotidine [Pepcid*] 40 mg PO DAILY 05/07/24 Lisinopril [Zestril] 40 mg PO DAILY 05/07/24 Magnesium Oxide [Mag 0X*] 1 tab PO BEDTIME 05/07/24 Metformin HCl 1,000 mg PO BID 05/07/24 - Past Medical/Surgical History Diabetic: Yes -: Hypertension -: Diabetes -: Cholecystectomy -: Hemorrhoidectomy - Family History Mother Medical History: Lung disease Notes: from lung cancer Sister History Unknown: Yes - Social History Smoking Status: Former smoker Alcohol use: Yes CD- Drugs: No Caffeine use: Yes Place of Residence: Home Review of Systems 10-point ROS is otherwise unremarkable Physical Examination Temp Pulse Resp BP Pulse Ox 98.0 F 45 L 18 133/49 L 93 05/07/24 08:00 05/07/24 09:00 05/07/24 09:00 05/07/24 09:00 05/07/24 09:00 General: Alert, In no apparent distress HEENT: Atraumatic, PERRLA, Mucous membr. moist/pink, EOMI, Sclerae nonicteric Neck: Supple, 2+ carotid pulse no bruit, No LAD, Without JVD or thyroid abnormality Respiratory: Clear to auscultation bilaterally, Normal air movement Cardiovascular: Regular rate/rhythm, Normal S1 S2, Edema Gastrointestinal: Normal bowel sounds, No tenderness Musculoskeletal: No tenderness Integumentary: No rashes Neurological: Normal gait, Normal speech, Normal tone, Normal affect Lymphatics: No axilla or inguinal lymphadenopathy Laboratory Data (last 24 hrs) 05/06/24 05/06/24 05/06/24 22:25 14:25 14:25 WBC 6.20 Hgb 8.1 L Hct 24.6 L Plt Count 172 Sodium 119 L* D 115 L* Potassium 5.6 H 5.5 H BUN 32 H 29 H Creatinine 5.15 H 4.66 H Glucose 164 H 147 H Total Bilirubin 1.5 H AST 893 H ALT 124 H Alkaline Phosphatase 121 H - Problems (1) Junctional rhythm Current Visit: Yes Status: Acute Plan: Patient HR is in the 40s, looks like escape junctional rhythm, most likely secondary to acute renal failure, hyperkalemia and acidosis, he is currently hemodynaimcally stable but would recommend transfer to [facility] where they have EP cardiology just in case patient need urgent pacemaker placement in case his junctional rhythm is not better with electrolytes correction. recommend another dialysis session and correction of his K and Bicarb
[2024-05-07] MEDS ORDERED: MANNITOL 25% 12.5 GM/50 ML VIAL IV PRN (11:20)
[2024-05-07] MEDS ORDERED: NA CHLORIDE 0.9% 1,000 ML IV PRN (11:20)
[2024-05-07] MEDS ORDERED: EPOETIN ALFA 10,000 UNIT/ML VIAL IV SCH (11:30)
[2024-05-07] MEDS: NOREPINEPHRINE BITARTRATE/D5W 4 MG/250 ML KIT IV ONE (11:49)
[2024-05-07] MEDS ORDERED: PNEUMOCOCCAL VACCINE 0.5 ML IMVAC ONE (12:00)
[2024-05-07] MEDS ORDERED: ALBUMIN HUMAN 25% 50 ML IV SCH (12:00)
[2024-05-07] MEDS: NOREPINEPHRINE 4 MG in D5W 250 ML IV SCH (12:40)
[2024-05-07] MEDS: ARFORMOTEROL TARTRATE 15 MCG/2 ML VIAL.NEB NEB SCH (12:42)
[2024-05-07] MEDS: BUDESONIDE 0.5 MG/2 ML NEB NEB SCH (12:43)
--- NOTE | 2024-05-07 12:49 | P.CNS ---
Date of Consult: 05/07/24 Reason for Consult: Resp distress and chronic cough Chief Complaint: Acute renal failure and resp distress History of Present Illness: Patient is 68 yrs of age admitted with resp distress Chronic cough for 2 months and worsening dyspnea Patient was admitted to the ICU in respiratory distress and metabolic acidosis in addition to anemia and electrolyte imbalance he did undergo dialysis also has hyperkalemia Allergies No Known Allergies Allergy (Verified 05/07/24 01:43) Home Medications: Amlodipine [Norvasc] 5 mg PO DAILY 05/07/24 Famotidine [Pepcid*] 40 mg PO DAILY 05/07/24 Lisinopril [Zestril] 40 mg PO DAILY 05/07/24 Magnesium Oxide [Mag 0X*] 1 tab PO BEDTIME 05/07/24 Metformin HCl 1,000 mg PO BID 05/07/24 - Past Medical/Surgical History Diabetic: Yes -: Hypertension -: Diabetes -: Cholecystectomy -: Hemorrhoidectomy - Family History Mother Medical History: Lung disease Notes: from lung cancer Sister History Unknown: Yes - Social History Smoking Status: Former smoker Alcohol use: Yes CD- Drugs: No Caffeine use: Yes Place of Residence: Home Review of Systems General: Weakness Respiratory: Cough, Shortness of Breath Physical Examination Temp Pulse Resp BP Pulse Ox 98.0 F 45 L 18 133/49 L 93 05/07/24 08:00 05/07/24 09:00 05/07/24 09:00 05/07/24 09:00 05/07/24 09:00 General: Alert, Moderate distress Neck: Supple Respiratory: Diminished, Expiratory wheezes Cardiovascular: Normal S1 S2, Edema Gastrointestinal: Normal bowel sounds, Soft and benign Musculoskeletal: No clubbing, No swelling Laboratory Data (last 24 hrs) 05/06/24 05/06/24 05/06/24 22:25 14:25 14:25 WBC 6.20 Hgb 8.1 L Hct 24.6 L Plt Count 172 Sodium 119 L* D 115 L* Potassium 5.6 H 5.5 H BUN 32 H 29 H Creatinine 5.15 H 4.66 H Glucose 164 H 147 H Total Bilirubin 1.5 H AST 893 H ALT 124 H Alkaline Phosphatase 121 H - Problems (1) Respiratory failure Current Visit: Yes Status: Acute Plan: Patient is 68 years of age admitted with volume overload acute renal failure chronic cough electrolyte abnormalities metabolic acidosis and presumably acute anemia there is no history of G.I. bleeding chest x-ray labs reviewed chest x- ray consistent with volume overload is BMPs also elevated patient is undergoing dialysis as far as the chronic cough is concerned of started patient and bronchodilators including inhaled steroids. Labs chest x-rays are reviewed discuss with the .
--- NOTE | 2024-05-07 12:52 | EKG ---
Test Date: 2024-05-06 Test Time: 14:05:26 Photo Producer: PH MEASUREMENT RESULTS: Intervals: Rate: 44 RI: 148 QRSD: 92 QT: 466 QTc: 398 Sheridan: P: RI: 148 QRS: 206 T: 210 INTERPRETIVE STATEMENTS: Suspect arm lead reversal, interpretation assumes no reversal Marked sinus bradycardia Lateral infarct, age undetermined Inferior-posterior infarct, age undetermined Abnormal ECG No previous ECG available for comparison Electronically Signed On 05-07-24 12:49:59 CDT by Justin Castillo
--- NOTE | 2024-05-07 12:57 | RAD REPORT ---
EXAMINATION: ONE VIEW CHEST XR CLINICAL INDICATION: Male, 68 years old.Hypoxia TECHNIQUE: 1 View, AP supine, X-ray of the chest was performed. [id number]. COMPARISON: 05/06/2024 FINDINGS: Lungs and pleura: Hazy opacities bilaterally. The left lung base is not well assessed due to underpen etration. No effusion. Heart and mediastinum: Cardiomegaly. Unremarkable mediastinal contours. Osseous structures: No acute abnormality. Tubes/lines: Right IJ approach central venous line with tip overlying the proximal SVC in satisfactor y position. Other: Defibrillator pad overlies the right hemithorax. IMPRESSION: Bilateral hazy airspace disease which may reflect pulmonary edema. The left lung base remains difficu lt to assess due to underpenetration.
[2024-05-07] MEDS ORDERED: DOPAMINE/D5W 400 MG/250 ML BAG IV SCH (13:45)
[2024-05-07] MEDS ORDERED: DOPAMINE HCL IN DEXTROSE 5 % 400 MG/250 ML KIT IV SCH (13:45)
[2024-05-07] MEDS: IPRATROPIUM BROM 0.5MG/2.5ML NEB SCH (14:03)
[2024-05-07 14:17] VITALS: O2SAT 95
[2024-05-07 16:32] LABS: Hematocrit 22.8 % (39.6-49.0); Hemoglobin 7.6 g/dL (13.6-17.9)
[2024-05-07 16:36] LABS: Blood Gas Oxyhemoglobin 43.4 % (94-97); Blood Gas THB 7.6 g/dl (12-18); Blood O2 Saturation 44.3 % (92-98.5)
--- NOTE | 2024-05-07 17:05 | P.DS ---
Admission Date: 05/07/24 Discharge Date: 05/07/24 Reason for Admission: Acute renal failure and resp distress Consultations: Nephrology - Dr. Moore and Dr. Alaniz Cardiology - Dr. Castillo Pulmonology - Dr. Villalta Brief History of Present Illness: 68yo M, PMH: HTN, NIDDM2, chronic hyponatremia, h/o ETOH use, prior bleeding hemorrhoids now s/p banding (several months ago), was brought to ED Due to progressively worsening fatigue and weakness over the last week. JPatient and state he has been having ongoing issues for a few months, slowly worsening, but felt there was a significant drop in the last week or so. He has been having difficulty ambulating - due to feeling like his legs give out, and has been undergoing evaluation by Neurology in the outpatient setting - reportedly had an MRI done (with contrast) recently and supposed to have an appointment this week with Neurology to go over results. In the ED, he was noted to have hyponatremia (115), hyperkalemia (5.5), hypochloremia, acidosis with bicarb: 9, and elevated LFTs (AST: 893, ALT: 124). Patient gets all of his care at [facility], and reported recently being hosptialized in the last 2 months or so. ED physician attempted transfer to [facility], however this was cancelled due to need for emergent dialysis. R IJ central line and a temporary femoral dialysis catheter was placed in ED under sterile technique. Nephrology was contacted and patient underwent dialysis overnight and admitted to the ICU. Hospital Course: Problem List: Junctional bradycardia TINY Hyperkalemia Hyponatremia metabolic acidosis, +anion gap Acute metabolic encephalopathy Acute hypoxic respiratory failure secondary pulm edema presumed shock liver with history of fatty liver acute on chronic anemia Hx hemorrhoids (s/p banding several months ago Patient undwerwent HD overnight. reported recent renal function was "normal" after follow up with nephrology. Patient was hospitalized at [facility] ~1-2 months ago for TINY and urinary retention (per ). Following dialysis - repeat bloodwork on the morning of 05/07 noted drop in hgb from 8.1 -> 6. 7 without any over signs of bleeding, improved bicarb, slightly imrpoved potassium (5.4), and mildly worse LFTs. He was started on bicarb and protonix + octreotide drip. On rounds this morning, his rhythm appeared irregular and concerning for junctional rhythm in the low 40s. Cardiology was consulted, and in agreement. Recommended transfer to tertiary care center, where may have EP for possible pacemaker placement if does not improve after correction of his acidosis/electrolyte abnormalities. He received 1u PRBC as well, reheck hgb in the afternoon was 7.6. ~11:45am, just moment before getting connected for 2nd run of dialysis, patient spontaneously became hypotensive and further bradycardic (70s/40s and HR: 28-30s briefly). He received 1mg atropine with no effect, and episode self resolved quickly. His blood pressure remained close to MAPs ~60-65, and was briefly placed on levo phed < 1 hour. Transfer was initiated to tertiary care centers. [facility] reported could be several days before hearing back. [facility] was accepting of transfer, however no bed was available, so recommended trying [facility]. Patient was accepted and subsequently transferred to [facility] via Air. The cause of his bill/hypotensive episode remained unclear and he continued with unresolved acidosis and hyperkalemia putting him at continued risk of further episodes, so it was decided to be in patient's best interest for air transportation at this time. Renal U/S: unremarkable Liver U/S: quite significant fatty liver Vital Signs/Physical Exam: Temp Pulse Resp BP Pulse Ox 98.0 F 45 L 18 133/49 L 93 05/07/24 08:00 05/07/24 09:00 05/07/24 09:00 05/07/24 09:00 05/07/24 09:00 Laboratory Data at Discharge: WBC 5.10 thou/uL (4.3-10.9) 05/07/24 08:14 Hgb 7.6 g/dL (13.6-17.9) L D 05/07/24 16:12 Hct 22.8 % (39.6-49.0) L 05/07/24 16:12 Plt Count 130 thou/uL (152-406) L 05/07/24 08:14 PT 14.5 SECONDS (9.4-12.5) H 05/07/24 08:14 INR 1.30 05/07/24 08:14 Sodium Cancelled 05/07/24 16:12 Potassium Cancelled 05/07/24 16:12 BUN Cancelled 05/07/24 16:12 Creatinine Cancelled 05/07/24 16:12 Glucose Cancelled 05/07/24 16:12 Uric Acid 8.1 mg/dL (3.5-7.2) H 05/07/24 05:05 Phosphorus 4.8 mg/dL (2.5-4.9) 05/07/24 05:05 Magnesium Cancelled 05/07/24 16:12 Total Bilirubin Cancelled 05/07/24 16:12 AST Cancelled 05/07/24 16:12 ALT Cancelled 05/07/24 16:12 Alkaline Phosphatase Cancelled 05/07/24 16:12 Lipase 90 U/L (13-75) H 05/07/24 08:14 Home Medications: Amlodipine [Norvasc] 5 mg PO DAILY 05/07/24 Famotidine [Pepcid*] 40 mg PO DAILY 05/07/24 Lisinopril [Zestril] 40 mg PO DAILY 05/07/24 Magnesium Oxide [Mag 0X*] 1 tab PO BEDTIME 05/07/24 Metformin HCl 1,000 mg PO BID 05/07/24 Physician Discharge Instructions: Patient presented with worsening weakness, fatigue for ~1 week. Labwork on admission significant for TINY (creatinine 4.66) severe hyponatremia (115), Hyperkalemia (5.5), elevated LFTs (T. bili 1.5 / AST 893 / ALT 124) Nephrology was consulted. Patient underwent urgent dialysis shortly after admission and was started on octreotide drip, bicarb. During his hospitalization, patient was noted to be bradycardic with Heart rate in 30-40s. Cardiology was consulted. Dr. Castillo felt rhythm to be escape junctional bradycardia secondary to TINY/acidosis/Hyperkalemia. Recommended transfer to tertiary level of care facility as patient need EP cardiology evaluation / possible urgent pacemaker placement. Transfer initiated to [facility] 05/07. Followup: OOT,OOT [Primary Care Provider] - Time spent managing pt's care (in minutes): 55
[2024-05-07 17:29] LABS: Albumin 2.9 g/dL (3.4-5.0); Albumin/Globulin Ratio 0.9 (1.1-1.8); Anion Gap 25.8 mEq/L (5.0-15.0); Bilirubin Total 2.8 mg/dL (0.2-1.0); Globulin 3.2 g/dL (2.3-3.5); Magnesium 2.1 mg/dL (1.6-2.4); Potassium 5.8 mEq/L (3.5-5.1); Protein, Total 6.1 g/dL (6.4-8.2)
[2024-05-07] MEDS ORDERED: ATROPINE SULF 1 MG/10 ML SYR IV ONE (18:34)
[2024-05-07 18:55] LABS: Rheumatoid Factor NEG (NEG)
[2024-05-07 18:57] VITALS: BP 133/55
--- NOTE | 2024-05-07 19:47 | P.CNS ---
Date of Consult: 05/07/24 Reason for Consult: TINY Requesting Physician: Horacio Saldana Chief Complaint: Acute renal failure and resp distress History of Present Illness: 68-year-old male with a past medical history of hypertension diabetes, presents to the emergency room with weakness. He reports moderate to severe fatigue, weakness started 1 week ago is getting progressively worse, He reports decreased urinary output, reports difficulty walking to the bathroom due to severe fatigue, reports history of hyponatremia, reports shortness of breath, placed on BiPAP in the emergency room. Reports abdominal distention, urinary retention, no reported chest pain, fever, chills, CVA tenderness. Plan to admit to ICU for acute renal failure, shock liver, acute metabolic encephalopathy, bradycardia, hyperkalemia, hyponatremia, respiratory acidosis, acute respiratory failure with hypoxemia. With nephrology to consult. For emergent dialysis ER evaluation hyponatremia, sodium 127, potassium 5.4, BUN 27 creatinine 4.06, glucose 163, BNP 6049, TSH elevated 4.32, hemoglobin 6.7, hematocrit 20.3,, chest x-ray Left base is hazy which may indicate pneumonia. PA and lateral chest series would be helpful for further evaluation [id number] 16:51 This 68 yrs old White Male presents to ER via EMS with complaints of Weakness. bo1 16:51 Onset: The symptoms/episode began/occurred gradually, 1 week(s) ago. Assoc iated signs bo1 and symptoms: Pertinent positives: Urinary retention or decreased flow. Severity of symptoms: At their worst the symptoms were moderate. 16:51 Context: Pt states for about a week, he gets very fatigued or weak to walk. With going bo1 to the bathroom, he is winded and weak to about to faint or collapse. Current symptoms: Weakness worse to be unable to walk. The patient has experienced a previous episode, It was found that he had low sodium level and has been seen by various specialists including renal. No recent fever, trauma or new meds. Denies NSAIDs. Reports difficulty with urination described as lots of mini urinations. Allergies No Known Allergies Allergy (Verified 05/07/24 01:43) Home medications list reviewed: Yes Home Medications: Amlodipine [Norvasc] 5 mg PO DAILY 05/07/24 Famotidine [Pepcid*] 40 mg PO DAILY 05/07/24 Lisinopril [Zestril] 40 mg PO DAILY 05/07/24 Magnesium Oxide [Mag 0X*] 1 tab PO BEDTIME 05/07/24 Metformin HCl 1,000 mg PO BID 05/07/24 - Past Medical/Surgical History Diabetic: Yes -: HTN -: DM II -: Hx TINY (Dr. Mcgill/ [place]) -: Cholecystectomy -: Hemorrhoidectomy - Family History Mother Medical History: Lung disease Notes: from lung cancer Sister History Unknown: Yes - Social History Smoking Status: Former smoker Alcohol use: Yes CD- Drugs: No Caffeine use: Yes Place of Residence: Home Review of Systems 10-point ROS is otherwise unremarkable General: Weakness, Malaise Gastrointestinal: Nausea Neurological: Other (Dizzy) Physical Examination Temp Pulse Resp BP Pulse Ox 98.0 F 44 L 20 133/55 L 20 L 05/07/24 08:00 05/07/24 18:06 05/07/24 18:06 05/07/24 18:06 05/07/24 18:06 General: Oriented x3, Cooperative HEENT: Atraumatic Neck: Supple Respiratory: Normal air movement, Diminished Cardiovascular: Edema, Irregular heart rate/rhythm Gastrointestinal: Soft and benign, Non-distended Musculoskeletal: No clubbing, No contractures Integumentary: No rashes, No cyanosis Neurological: Normal speech Urinary: Ortiz catheter Laboratory Data (last 24 hrs) 05/06/24 22:25 Sodium 119 L* D Potassium 5.6 H BUN 32 H Creatinine 5.15 H Glucose 164 H Imagings Data: [id number] HISTORY: Shortness of breath COMPARISON: none FINDINGS: Left base is hazy. Remaining lungs appear grossly clear Heart is normal size No significant pleural effusion noted. The heart is normal size. IMPRESSION: Left base is hazy which may indicate pneumonia. PA and lateral chest series would be helpful for further evaluation [id number] EXAMINATION: US RENAL ULTRASOUND CLINICAL INDICATION: TINY TECHNIQUE: Real-time ultrasonography of the abdomen was performed. COMPARISON: No prior exam. FINDINGS: RIGHT KIDNEY: Right renal length measurement: 11.1 x 6.0 x 5.2 cm. Normal in echogenicity and size. No calculus, solid mass or hydronephrosis. LEFT KIDNEY: Left renal length measurement: 10.5 x 5.9 x 4.6 cm. Normal in echogenicity and size. No calculus, solid mass or hydronephrosis. URINARY BLADDER: Incompletely distended without gross abnormality detected. ADDITIONAL FINDINGS: None. IMPRESSION: Unremarkable renal ultrasound. [id number] Procedure: Chest Single View HISTORY: Device placement. Central venous line placement FINDINGS: A central venous line has been placed. The tip overlies the superior cava. A pneumothorax is not visualized. [id number] EXAMINATION: Ultrasound of the liver CLINICAL HISTORY: [facility] elevated lfts, h/o steatosis, alcohol use [facility] elevated lfts, h/o steatosis, alcohol use COMPARISON: None. FINDINGS: Liver: Visualized portions of the liver demonstrate moderately severe diffuse fatty infiltration.. Full assessment liver is limited by lack of sonographic penetrance. Gallbladder: Difficult to visualize. Bile ducts: No intrahepatic or extrahepatic biliary dilatation. Common bile duct measures 3 mm. Fluid: No ascites. Spleen: Unremarkable measuring 10 cm. IMPRESSION: Quite significant fatty liver noted. [id number] EXAMINATION: ONE VIEW CHEST XR CLINICAL INDICATION: Male, 68 years old.Hypoxia TECHNIQUE: 1 View, AP supine, X-ray of the chest was performed. [id number]. COMPARISON: 05/06/2024 FINDINGS: Lungs and pleura: Hazy opacities bilaterally. The left lung base is not well assessed due to underpenetration. No effusion. Heart and mediastinum: Cardiomegaly. Unremarkable mediastinal contours. Osseous structures: No acute abnormality. Tubes/lines: Right IJ approach central venous line with tip overlying the proximal SVC in satisfactory position. Other: Defibrillator pad overlies the right hemithorax. IMPRESSION: Bilateral hazy airspace disease which may reflect pulmonary edema. The left lung base remains difficult to assess due to underpenetration. Conclusions/Impression: Stage III TINY in the setting of hypotension -No NSAIDs -Acute HD as ordered Hyponatremia Hyperkalemia AG Metabolic Acidosis -Acute HD as ordered Acute Respiratory Failure with Hypoxia -Bipap as ordered -Continue Oxygen supplementation Hypotension with bradycardia -Cardiology following -Continue IVF; IVF bolus prn -Albumin IV prn -Levophed as ordered DM II with Hyperglycemia -RISS Hepatic Failure Hypoalbuminemia -Continue supportive care Anemia in chronic illness Suspected GI Bleed Thrombocytopenia -GI evaluation -PRBC as ordered Case reviewed with the Dr. Saldana Thank you kindly for the consultation Patient care 45min Critical Care: Yes
[2024-05-09 12:25] LABS: Anti-Double Strand DNA Antibod <1 IU/mL (<=4)
[2024-05-09 22:24] LABS: C-ANCA Anti-Proteinase 3 <1.0 AI (<1.0); P-ANCA Anti-Myeloperoxidase Ab <1.0 AI (<1.0)
[2024-05-10 02:32] LABS: Abnormal Protein Band 1 REPORT; Albumin, (SPE) 3.4 g/dL (3.8-4.8); Alpha-1-Globulins 0.4 g/dL (0.2-0.3); Alpha-2-Globulins 0.7 g/dL (0.5-0.9); Beta 1 Globulin 0.3 g/dL (0.4-0.6); Gamma Globulins 0.6 g/dL (0.8-1.7); INTERPRETATION REPORT; Total Protein 5.8 g/dL (6.1-8.1)
[2024-05-10 14:07] LABS: 1,25 Dihydroxy Vitamin D3 19 pg/mL; Vitamin D 1,25-Dihydroxy Total 19 pg/mL (18-72); Vitamin D,1,25-OH2, D2 <8 pg/mL
[2024-05-11 15:26] LABS: Complement C3 99 mg/dL (82-185)
== END 2024-05-07 18:35 | disposition short-term general hospital (02) | DRG 682 ==
LOC: ER 13:15 → 3RD-ICU 05-07 04:12
PROVIDERS: ADMIT Hospitalist; ATTEND Hospitalist
PROC: 4A033R1 Measurement of Arterial Saturation, Peripheral, Percutaneous Approach (ICD-10-PCS; principal; 2024-05-07)
PROC: 5A09357 Assistance with Respiratory Ventilation, Less than 24 Consecutive Hours, Continuous Positive Airway Pressure (ICD-10-PCS; 2024-05-07)
PROC: 02HV33Z Insertion of Infusion Device into Superior Vena Cava, Percutaneous Approach (ICD-10-PCS; 2024-05-07)
PROC: 5A1D70Z Performance of Urinary Filtration, Intermittent, Less than 6 Hours Per Day (ICD-10-PCS; 2024-05-07)
PROC: 30233N1 Transfusion of Nonautologous Red Blood Cells into Peripheral Vein, Percutaneous Approach (ICD-10-PCS; 2024-05-07)
DX: N17.9 Acute kidney failure, unspecified (principal); G93.41 Metabolic encephalopathy; J96.01 Acute respiratory failure with hypoxia; K72.00 Acute and subacute hepatic failure without coma; E87.1 Hypo-osmolality and hyponatremia; E87.29 Other acidosis; K92.2 Gastrointestinal hemorrhage, unspecified; R33.9 Retention of urine, unspecified; I10 Essential (primary) hypertension; E87.5 Hyperkalemia; E11.65 Type 2 diabetes mellitus with hyperglycemia; I95.9 Hypotension, unspecified; D69.6 Thrombocytopenia, unspecified; K76.0 Fatty (change of) liver, not elsewhere classified; K72.90 Hepatic failure, unspecified without coma; D64.9 Anemia, unspecified; E88.09 Other disorders of plasma-protein metabolism, not elsewhere classified; R00.1 Bradycardia, unspecified; Z79.84 Long term (current) use of oral hypoglycemic drugs; Z90.49 Acquired absence of other specified parts of digestive tract; Z79.899 Other long term (current) drug therapy; Z87.891 Personal history of nicotine dependence
CPT/HCPCS: 36415; 36556; 36600; 51702; 71045; 76705; 76770; 80048; 80053; 82077; 82533; 82550; 82607; 82652; 82728; 82805; 83520; 83540; 83690; 83735; 83880; 83921; 83930; 83970; 84100; 84165; 84439; 84443; 84466; 84484; 84550; 85014; 85018; 85025; 85027; 85044; 85610; 86021; 86160; 86225; 86430; 86705; 86706; 86803; 86850; 86900; 86901; 86920; 87340; 93005; 94640; 94660; 99285; J0461; J0612; J0696; J1265; J1644; J2354; J2470; J7030; J7040; J7050; J7060; J7644; P9016; Q2009; Q4081